=== PATIENT | male | born 1970 | race Caucasian/White ===

== ENCOUNTER 2017-01-01 09:51 | Inpatient (IN) | payer MEDICARE, MEDICAID ==
[~2017-01-01] VITALS: Ht 182.9 cm; Wt 85.7 kg
[~2017-01-01 09:51] MED LIST: ASPI-1159 PO; ATOR-2 PO; CLON0.2T PO; ISOS60TA4 PO; KEPP500 PO; LOSA50TA20 PO; METO25TA6 PO; NIFE-1 PO; TRAM50TA3 PO; levaquin PO
[2017-01-01] MEDS ORDERED: NITROGLYCERIN OINT 1GM/INCH UDPKT TD STA (10:12)
[2017-01-01 10:31] LABS: BASOPHILS % 0.5 % (0.0-2.0); EOSINOPHILS % 1.9 % (0.0-5.0); HEMATOCRIT. 32.2 % (42.0-52.0); HEMOGLOBIN. 10.8 g/dL (14.0-18.0); LYMPHOCYTES % 9.9 % (20.0-50.0); MEAN CORPUSCULAR HEMOGLOBIN 30.2 pg (28.0-32.0); MEAN CORPUSCULAR VOLUME 90.1 fL (80.0-94.0); MEAN PLATELET VOLUME 9.4 fl (7.4-10.4); MONOCYTES % 7.3 % (2.0-8.0); NEUTROPHILS % 80.4 % (40.0-76.0); PLATELET 107 x1000/uL (130-400); RED BLOOD CELL COUNT 3.57 mill/uL (4.7-6.1); RED CELL DISTRIBUTION WIDTH 15.9 % (11.6-14.6)
[2017-01-01 10:38] LABS: INR 1.1; PROTHROMBIN TIME 11.7 sec
[2017-01-01 10:48] LABS: CARBON DIOXIDE 20 mEq/L (21-32); CHLORIDE 109 mEq/L (98-107); TROPONIN I 0.02 ng/mL (0.00-0.04)
[2017-01-01] MEDS ORDERED: HYDROCODONE/ACETAMINOPHEN 5/325MG TABLET PO PRN (12:15)
[2017-01-01] MEDS ORDERED: GUAIFENESIN 200MG/10ML SUGAR FREE UDC PO PRN (12:15)
[2017-01-01] MEDS ORDERED: ACETAMINOPHEN 325MG TABLET PO PRN (12:15)
[2017-01-01] MEDS ORDERED: LORAZEPAM 2MG/ML CPJ IV PRN (12:15)
[2017-01-01] MEDS ORDERED: NA PHOS,M-B/NA PHOS,DI-BA ENEMA 118ML PR PRN (12:15)
[2017-01-01] MEDS ORDERED: MAGNESIUM/ALUMINUM HYDROXIDE/SIMETHICONE 30ML UDC PO PRN (12:15)
[2017-01-01] MEDS ORDERED: DOCUSATE SODIUM 100MG CAPSULE PO PRN (12:15)
[2017-01-01] MEDS ORDERED: CLONIDINE 0.1MG TABLET PO PRN (12:15)
[2017-01-01 14:25] VITALS: BP 178/91
[2017-01-01] MEDS: ENOXAPARIN 30MG/0.3ML SYR SUBCUT SCH (15:00)
[2017-01-01] MEDS ORDERED: DEXTROSE 50% WATER 50ML SYRINGE IV PRN (15:15)
[2017-01-01] MEDS: HYDROMORPHONE HCL/PF 2MG/ML CPJ IV PRN ×2 (15:53→20:19)
[2017-01-01 16:00] VITALS: BP 174/85
[2017-01-01] MEDS: ONDANSETRON HCL 4MG/2ML VIAL IV PRN ×2 (16:30→23:02)
[2017-01-01] MEDS: INSULIN LISPRO 100 UNITS/ML SUBCUT SCH ×2 (17:09→21:00)
[2017-01-01] MEDS: BLOOD SUGAR DIAGNOSTIC STRIP TEST SCH ×2 (17:09→21:52)
[2017-01-01] MEDS ORDERED: TRAMADOL 50MG TABLET PO PRN (18:00)
[2017-01-01] MEDS: LEVETIRACETAM 500MG TABLET PO SCH (18:38)
[2017-01-01 20:00] VITALS: BP 145/71
[2017-01-01] MEDS: CLONIDINE 0.2MG TABLET PO SCH (21:00)
[2017-01-01] MEDS: LOSARTAN POTASSIUM 50 MG TABLET PO SCH (21:51)
[2017-01-01] MEDS: ATORVASTATIN CALCIUM 40MG TABLET PO SCH (21:51)
[2017-01-01] MEDS: METOPROLOL TARTRATE 25MG TABLET PO SCH (21:52)
[2017-01-02] VITALS: BP 145/78
[2017-01-02] MEDS: HYDROMORPHONE HCL/PF 2MG/ML CPJ IV PRN ×5 (00:58→20:40)
[2017-01-02 04:00] VITALS: BP 147/78
[2017-01-02 05:44] LABS: BASOPHILS % 0.4 % (0.0-2.0); EOSINOPHILS % 1.3 % (0.0-5.0); HEMATOCRIT. 30.6 % (42.0-52.0); HEMOGLOBIN. 10.2 g/dL (14.0-18.0); LYMPHOCYTES % 15.7 % (20.0-50.0); MEAN CORPUSCULAR HEMOGLOBIN 29.9 pg (28.0-32.0); MEAN CORPUSCULAR VOLUME 89.8 fL (80.0-94.0); MEAN PLATELET VOLUME 10.6 fl (7.4-10.4); MONOCYTES % 8.1 % (2.0-8.0); NEUTROPHILS % 74.5 % (40.0-76.0); PLATELET 95 x1000/uL (130-400); RED BLOOD CELL COUNT 3.41 mill/uL (4.7-6.1); RED CELL DISTRIBUTION WIDTH 15.8 % (11.6-14.6)
[2017-01-02] MEDS: BLOOD SUGAR DIAGNOSTIC STRIP TEST SCH ×3 (06:24→17:26)
[2017-01-02] MEDS: INSULIN LISPRO 100 UNITS/ML SUBCUT SCH ×3 (06:25→17:26)
[2017-01-02 06:39] LABS: CHLORIDE 106 mEq/L (98-107)
[2017-01-02 06:45] LABS: CARBON DIOXIDE 27 mEq/L (21-32); HDL CHOLESTEROL 31 mg/dL (40-59); LDL CHOLESTEROL 31 mg/dL (5-100)
[2017-01-02 08:00] VITALS: BP 142/77
[2017-01-02] MEDS: ENOXAPARIN 30MG/0.3ML SYR SUBCUT SCH (09:00)
[2017-01-02] MEDS: ONDANSETRON HCL 4MG/2ML VIAL IV PRN ×2 (09:46→16:49)
[2017-01-02] MEDS: LOSARTAN POTASSIUM 50 MG TABLET PO SCH ×2 (09:49→20:49)
[2017-01-02] MEDS: ISOSORBIDE MONONITRATE 60MG TABLET SR 24HR PO SCH (09:49)
[2017-01-02] MEDS: NIFEDIPINE XL 30MG TAB PO SCH (09:49)
[2017-01-02] MEDS: ASPIRIN 81MG EC TABLET PO SCH (09:49)
[2017-01-02] MEDS: LEVETIRACETAM 500MG TABLET PO SCH ×2 (09:50→20:47)
[2017-01-02] MEDS: METOPROLOL TARTRATE 25MG TABLET PO SCH ×2 (09:50→20:46)
[2017-01-02] MEDS: CLONIDINE 0.2MG TABLET PO SCH ×2 (09:50→20:49)
[2017-01-02 12:00] VITALS: BP 131/69
[2017-01-02] MEDS: DIPHENHYDRAMINE 50MG/ML VIAL IV PRN ×2 (15:01→20:41)
[2017-01-02 16:00] VITALS: BP 112/67
[2017-01-02 20:00] VITALS: BP 101/58
[2017-01-02] MEDS: ATORVASTATIN CALCIUM 40MG TABLET PO SCH (20:48)
[2017-01-03] VITALS: BP 96/61
[2017-01-03] MEDS: HYDROMORPHONE HCL/PF 2MG/ML CPJ IV PRN ×4 (00:46→20:12)
[2017-01-03 04:00] VITALS: BP 113/70
[2017-01-03 06:39] LABS: BASOPHILS % 0.5 % (0.0-2.0); EOSINOPHILS % 3.4 % (0.0-5.0); HEMATOCRIT. 28.8 % (42.0-52.0); HEMOGLOBIN. 9.7 g/dL (14.0-18.0); LYMPHOCYTES % 25.5 % (20.0-50.0); MEAN CORPUSCULAR HEMOGLOBIN 30.2 pg (28.0-32.0); MEAN CORPUSCULAR VOLUME 89.6 fL (80.0-94.0); MEAN PLATELET VOLUME 10.1 fl (7.4-10.4); MONOCYTES % 12.1 % (2.0-8.0); NEUTROPHILS % 58.5 % (40.0-76.0); PLATELET 91 x1000/uL (130-400); RED BLOOD CELL COUNT 3.21 mill/uL (4.7-6.1); RED CELL DISTRIBUTION WIDTH 15.9 % (11.6-14.6)
[2017-01-03] MEDS: INSULIN LISPRO 100 UNITS/ML SUBCUT SCH ×5 (07:40→22:06)
[2017-01-03 08:00] VITALS: BP 130/82
[2017-01-03] MEDS: ONDANSETRON HCL 4MG/2ML VIAL IV PRN (08:50)
[2017-01-03] MEDS ORDERED: LEVAQUIN 250 MG PO SCH (09:00)
[2017-01-03] MEDS: METOPROLOL TARTRATE 25MG TABLET PO SCH ×2 (09:00→21:57)
[2017-01-03] MEDS: NIFEDIPINE XL 30MG TAB PO SCH (09:00)
[2017-01-03] MEDS: ENOXAPARIN 30MG/0.3ML SYR SUBCUT SCH (09:00)
[2017-01-03] MEDS: CLONIDINE 0.2MG TABLET PO SCH ×2 (09:00→20:12)
[2017-01-03 12:00] VITALS: BP 126/62
[2017-01-03] MEDS: BLOOD SUGAR DIAGNOSTIC STRIP TEST SCH ×4 (12:00→20:23)
[2017-01-03] MEDS: LOSARTAN POTASSIUM 50 MG TABLET PO SCH ×2 (13:54→21:57)
[2017-01-03] MEDS: ASPIRIN 81MG EC TABLET PO SCH (13:54)
[2017-01-03] MEDS: LEVETIRACETAM 500MG TABLET PO SCH ×2 (13:55→20:12)
[2017-01-03] MEDS: ISOSORBIDE MONONITRATE 60MG TABLET SR 24HR PO SCH (13:55)
[2017-01-03 16:00] VITALS: BP 120/68
[2017-01-03 19:16] LABS: CLARITY URINE TURBID (CLEAR); COLOR URINE YELLOW (YELLOW); GLUCOSE URINE NEGATIVE (NEGATIVE); KETONES URINE NEGATIVE (NEGATIVE); LEUKOCYTE ESTERASE URINE 3+ (NEGATIVE); NITRITE URINE NEGATIVE (NEGATIVE); OCCULT BLOOD URINE 2+ (NEGATIVE); PROTEIN URINE 3+ (NEGATIVE); SPECIFIC GRAVITY URINE 1.017 (1.005-1.030); UROBILINOGEN URINE 0.2 E.U./dL (0.2-1.0)
[2017-01-03 20:00] VITALS: BP 150/87
[2017-01-03] MEDS: ATORVASTATIN CALCIUM 40MG TABLET PO SCH (20:14)
[2017-01-03] MEDS: IPRATROPIUM/ALBUTEROL 0.5-3(2.5)MG/3ML NEB INH PRN (21:44)
[2017-01-04] VITALS (7 sets, daily range): BP systolic 100–115; BP diastolic 50–77
[2017-01-04] MEDS: HYDROMORPHONE HCL/PF 2MG/ML CPJ IV PRN ×4 (00:40→23:32)
[2017-01-04] MEDS: ONDANSETRON HCL 4MG/2ML VIAL IV PRN (03:03)
[2017-01-04] MEDS: BLOOD SUGAR DIAGNOSTIC STRIP TEST SCH ×4 (06:30→21:00)
[2017-01-04] MEDS: INSULIN LISPRO 100 UNITS/ML SUBCUT SCH ×4 (06:30→21:00)
[2017-01-04] MEDS: ISOSORBIDE MONONITRATE 60MG TABLET SR 24HR PO SCH (08:17)
[2017-01-04] MEDS: LEVETIRACETAM 500MG TABLET PO SCH ×2 (08:17→22:16)
[2017-01-04] MEDS: ASPIRIN 81MG EC TABLET PO SCH (08:17)
[2017-01-04] MEDS: METOPROLOL TARTRATE 25MG TABLET PO SCH ×2 (08:17→21:00)
[2017-01-04] MEDS: NIFEDIPINE XL 30MG TAB PO SCH (08:18)
[2017-01-04] MEDS: LOSARTAN POTASSIUM 50 MG TABLET PO SCH ×2 (08:18→21:00)
[2017-01-04] MEDS: CLONIDINE 0.2MG TABLET PO SCH ×2 (08:20→21:00)
[2017-01-04] MEDS ORDERED: LEVOFLOXACIN 250MG TABLET PO SCH (11:00)
[2017-01-04] MEDS: IPRATROPIUM/ALBUTEROL 0.5-3(2.5)MG/3ML NEB INH PRN (18:02)
[2017-01-04] MEDS: ATORVASTATIN CALCIUM 40MG TABLET PO SCH (22:16)
[2017-01-05] VITALS: BP 106/61
[2017-01-05 04:00] VITALS: BP 123/76
[2017-01-05] MEDS: HYDROMORPHONE HCL/PF 2MG/ML CPJ IV PRN ×3 (05:31→13:45)
[2017-01-05] MEDS: INSULIN LISPRO 100 UNITS/ML SUBCUT SCH ×3 (06:05→17:40)
[2017-01-05] MEDS: BLOOD SUGAR DIAGNOSTIC STRIP TEST SCH ×3 (06:05→17:57)
[2017-01-05 06:49] LABS: BASOPHILS % 0.4 % (0.0-2.0); EOSINOPHILS % 3.2 % (0.0-5.0); HEMATOCRIT. 30.2 % (42.0-52.0); HEMOGLOBIN. 10.1 g/dL (14.0-18.0); LYMPHOCYTES % 21.4 % (20.0-50.0); MEAN CORPUSCULAR HEMOGLOBIN 29.9 pg (28.0-32.0); MEAN CORPUSCULAR VOLUME 89.5 fL (80.0-94.0); PLATELET 116 x1000/uL (130-400); RED BLOOD CELL COUNT 3.37 mill/uL (4.7-6.1); RED CELL DISTRIBUTION WIDTH 15.2 % (11.6-14.6)
[2017-01-05 08:00] VITALS: BP 132/93
[2017-01-05] MEDS: CLONIDINE 0.2MG TABLET PO SCH (08:39)
[2017-01-05] MEDS: ASPIRIN 81MG EC TABLET PO SCH (08:39)
[2017-01-05] MEDS: LOSARTAN POTASSIUM 50 MG TABLET PO SCH (08:39)
[2017-01-05] MEDS: METOPROLOL TARTRATE 25MG TABLET PO SCH (08:40)
[2017-01-05] MEDS: LEVETIRACETAM 500MG TABLET PO SCH (08:40)
[2017-01-05] MEDS: ISOSORBIDE MONONITRATE 60MG TABLET SR 24HR PO SCH (08:40)
[2017-01-05] MEDS: NIFEDIPINE XL 30MG TAB PO SCH (08:41)
[2017-01-05] MEDS: ONDANSETRON HCL 4MG/2ML VIAL IV PRN ×2 (08:42→17:10)
[2017-01-05] MEDS ORDERED: ONDANSETRON HCL 4MG/2ML VIAL IV PRN (10:45)
[2017-01-05] MEDS ORDERED: ONDANSETRON INJ 8 MG in DEXTROSE 5% WATER 50 ML IV PRN (10:45)
[2017-01-05 12:00] VITALS: BP 127/79
[2017-01-05 16:00] VITALS: BP 101/55
[2017-01-05 16:53] VITALS: BP 122/69
== END 2017-01-05 19:00 | disposition home or self-care (01) | DRG 640 ==
LOC: ER 09:55 → 8WST 11:40 → EDBEDREQ 11:43 → ENRESERV 13:40
PROVIDERS: ADMIT Internal Medicine; ATTEND Internal Medicine
PROC: 5A1D60Z (ICD-10-PCS; principal; 2017-01-01)
DX: E87.70 Fluid overload, unspecified (principal); N18.6 End stage renal disease; E46 Unspecified protein-calorie malnutrition; N39.0 Urinary tract infection, site not specified; I50.30 Unspecified diastolic (congestive) heart failure; I13.2 Hypertensive heart and chronic kidney disease with heart failure and with stage 5 chronic kidney disease, or end stage renal disease; R33.9 Retention of urine, unspecified; G40.909 Epilepsy, unspecified, not intractable, without status epilepticus; E78.5 Hyperlipidemia, unspecified; E11.40 Type 2 diabetes mellitus with diabetic neuropathy, unspecified; E11.22 Type 2 diabetes mellitus with diabetic chronic kidney disease; E87.5 Hyperkalemia; D63.1 Anemia in chronic kidney disease; Z99.2 Dependence on renal dialysis; Z91.15 Patient's noncompliance with renal dialysis; Z87.440 Personal history of urinary (tract) infections; Z86.73 Personal history of transient ischemic attack (TIA), and cerebral infarction without residual deficits; Z83.3 Family history of diabetes mellitus; Z82.49 Family history of ischemic heart disease and other diseases of the circulatory system; Z68.25 Body mass index [BMI] 25.0-25.9, adult
CPT/HCPCS: 36415; 51702; 71010; 74000; 80048; 80051; 80053; 80061; 81001; 82962; 83690; 84484; 85025; 85610; 87086; 93005; 94640; 94664; 99285; J1170; J1200; J1650; J1815; J2405; J7030; J7040; J7060; J7620

== ENCOUNTER 2017-01-09 01:24 | Inpatient (IN) | payer MEDICARE, MEDICAID ==
[~2017-01-09] VITALS: Ht 182.9 cm; Wt 81.6 kg
[2017-01-09] MEDS ORDERED: KETOROLAC 30MG/ML VIAL IV STA (01:59)
[2017-01-09] MEDS ORDERED: METOCLOPRAMIDE HCL 10MG/2ML VIAL IV STA (01:59)
[2017-01-09 02:29] LABS: BASOPHILS % 0.5 % (0.0-2.0); EOSINOPHILS % 0.5 % (0.0-5.0); HEMATOCRIT. 37.9 % (42.0-52.0); HEMOGLOBIN. 12.8 g/dL (14.0-18.0); LYMPHOCYTES % 12.2 % (20.0-50.0); MEAN CORPUSCULAR HEMOGLOBIN 29.9 pg (28.0-32.0); MEAN CORPUSCULAR VOLUME 88.6 fL (80.0-94.0); MEAN PLATELET VOLUME 9.8 fl (7.4-10.4); MONOCYTES % 5.8 % (2.0-8.0); PLATELET 107 x1000/uL (130-400); RED BLOOD CELL COUNT 4.28 mill/uL (4.7-6.1); RED CELL DISTRIBUTION WIDTH 15.5 % (11.6-14.6)
[2017-01-09 02:41] LABS: CARBON DIOXIDE 31 mEq/L (21-32); CHLORIDE 100 mEq/L (98-107); TROPONIN I 0.02 ng/mL (0.00-0.04)
[2017-01-09] MEDS ORDERED: HYDROCODONE/ACETAMINOPHEN 10/325MG TABLET PO PRN (08:45)
[2017-01-09] MEDS ORDERED: DOCUSATE SODIUM 100MG CAPSULE PO PRN (08:45)
[2017-01-09] MEDS ORDERED: IPRATROPIUM/ALBUTEROL 0.5-3(2.5)MG/3ML NEB INH PRN (08:45)
[2017-01-09] MEDS ORDERED: NA PHOS,M-B/NA PHOS,DI-BA ENEMA 118ML PR PRN (08:45)
[2017-01-09] MEDS ORDERED: GUAIFENESIN 200MG/10ML SUGAR FREE UDC PO PRN (08:45)
[2017-01-09] MEDS ORDERED: DIPHENHYDRAMINE 50MG/ML VIAL IV PRN (08:45)
[2017-01-09] MEDS ORDERED: ACETAMINOPHEN 325MG TABLET PO PRN (08:45)
[2017-01-09] MEDS ORDERED: LORAZEPAM 2MG/ML CPJ IV PRN (08:45)
[2017-01-09] MEDS ORDERED: MAGNESIUM/ALUMINUM HYDROXIDE/SIMETHICONE 30ML UDC PO PRN (08:45)
[2017-01-09 08:58] LABS: T4 FREE 1.08 ng/dL (0.76-1.46)
[2017-01-09] MEDS ORDERED: TRAMADOL 50MG TABLET PO PRN (10:00)
[2017-01-09] MEDS: ASPIRIN 81MG EC TABLET PO SCH (10:33)
[2017-01-09] MEDS: LEVETIRACETAM 500MG TABLET PO SCH ×2 (10:33→20:18)
[2017-01-09] MEDS: ISOSORBIDE MONONITRATE 60MG TABLET SR 24HR PO SCH (10:34)
[2017-01-09] MEDS: METOPROLOL TARTRATE 25MG TABLET PO SCH ×2 (10:34→20:11)
[2017-01-09] MEDS: NIFEDIPINE XL 30MG TAB PO SCH (10:34)
[2017-01-09] MEDS: ENOXAPARIN 30MG/0.3ML SYR SUBCUT SCH (10:35)
[2017-01-09] MEDS: HYDROMORPHONE HCL/PF 2MG/ML CPJ IV PRN ×3 (10:36→21:07)
[2017-01-09] MEDS: ONDANSETRON HCL 4MG/2ML VIAL IV PRN (10:37)
[2017-01-09] MEDS: CLONIDINE 0.1MG TABLET PO PRN (13:29)
[2017-01-09 16:03] LABS: CLARITY URINE CLOUDY (CLEAR); COLOR URINE YELLOW (YELLOW); KETONES URINE NEGATIVE (NEGATIVE); LEUKOCYTE ESTERASE URINE 3+ (NEGATIVE); NITRITE URINE NEGATIVE (NEGATIVE); OCCULT BLOOD URINE 2+ (NEGATIVE); PH URINE >=9.0 (4.5-8.0); PROTEIN URINE 4+ (NEGATIVE); SPECIFIC GRAVITY URINE 1.014 (1.005-1.030); UROBILINOGEN URINE 0.2 E.U./dL (0.2-1.0)
[2017-01-09] MEDS: CLONIDINE 0.2MG TABLET PO SCH (20:10)
[2017-01-09] MEDS: LOSARTAN POTASSIUM 50 MG TABLET PO SCH (20:11)
[2017-01-09] MEDS: ATORVASTATIN CALCIUM 40MG TABLET PO SCH (20:20)
[2017-01-10] MEDS: ONDANSETRON HCL 4MG/2ML VIAL IV PRN ×2 (04:13→18:35)
[2017-01-10] MEDS: HYDROMORPHONE HCL/PF 2MG/ML CPJ IV PRN ×4 (04:13→20:36)
[2017-01-10 06:58] LABS: CARBON DIOXIDE 33 mEq/L (21-32); CHLORIDE 99 mEq/L (98-107); HDL CHOLESTEROL 32 mg/dL (40-59); LDL CHOLESTEROL 42 mg/dL (5-100); PHOSPHORUS 4.8 mg/dL (2.5-4.9)
[2017-01-10 07:10] LABS: BASOPHILS % 0.5 % (0.0-2.0); EOSINOPHILS % 1.5 % (0.0-5.0); HEMATOCRIT. 31.4 % (42.0-52.0); HEMOGLOBIN. 10.5 g/dL (14.0-18.0); LYMPHOCYTES % 27.1 % (20.0-50.0); MEAN CORPUSCULAR HEMOGLOBIN 29.7 pg (28.0-32.0); MEAN CORPUSCULAR VOLUME 89.1 fL (80.0-94.0); MEAN PLATELET VOLUME 10.4 fl (7.4-10.4); MONOCYTES % 10.7 % (2.0-8.0); NEUTROPHILS % 60.2 % (40.0-76.0); PLATELET 95 x1000/uL (130-400); RED BLOOD CELL COUNT 3.52 mill/uL (4.7-6.1)
[2017-01-10] MEDS: ISOSORBIDE MONONITRATE 60MG TABLET SR 24HR PO SCH (08:27)
[2017-01-10] MEDS: LOSARTAN POTASSIUM 50 MG TABLET PO SCH ×2 (08:27→20:35)
[2017-01-10] MEDS: CLONIDINE 0.2MG TABLET PO SCH ×2 (08:27→21:00)
[2017-01-10] MEDS: LEVETIRACETAM 500MG TABLET PO SCH ×2 (08:27→20:34)
[2017-01-10] MEDS: ASPIRIN 81MG EC TABLET PO SCH (08:27)
[2017-01-10] MEDS: METOPROLOL TARTRATE 25MG TABLET PO SCH ×2 (08:28→20:35)
[2017-01-10] MEDS: NIFEDIPINE XL 30MG TAB PO SCH (08:28)
[2017-01-10] MEDS: ENOXAPARIN 30MG/0.3ML SYR SUBCUT SCH (08:29)
[2017-01-10] MEDS ORDERED: NIFEDIPINE 30 MG PO SCH (09:00)
[2017-01-10 09:03] LABS: BG BASE EXCESS 4.1 mmol/L (-2.0-2.0); BG CARBOXYHEMOGLOBIN 0.5 % (0.5-1.5); BG DEOXYHEMOGLOBIN 8.7 % (0.0-5.0); BG FRACTION INSPIRED OXYGEN 21; BG HCO3 ACT 29.1 mmol/L (22.0-26.0); BG METHEMOGLOBIN 0.1 % (0.0-1.5); BG OXYGEN SATURATION 91.2 % (92.0-98.5); BG OXYHEMOGLOBIN 90.7 % (94.0-97.0); BG PCO2 45.3 mmHg (35.0-45.0); BG PH 7.425 (7.350-7.450); BG PO2 66.2 mmHg (75.0-100.0); BG SAMPLE SITE RIGHT BRACHIAL; BG TOTAL HEMOGLOBIN 11.5 g/dL (12.0-18.0); BG VENT MODE ROOM AIR
[2017-01-10] MEDS ORDERED: ZOLPIDEM TARTRATE 5MG TABLET PO PRN (19:00)
[2017-01-10] MEDS: ATORVASTATIN CALCIUM 40MG TABLET PO SCH (20:34)
[2017-01-10] MEDS: CLONIDINE 0.1MG TABLET PO PRN (20:35)
[2017-01-11 06:40] LABS: INR 1.1; PROTHROMBIN TIME 11.4 sec
[2017-01-11 06:42] LABS: BASOPHILS % 0.4 % (0.0-2.0); EOSINOPHILS % 1.1 % (0.0-5.0); HEMATOCRIT. 36.1 % (42.0-52.0); HEMOGLOBIN. 11.9 g/dL (14.0-18.0); LYMPHOCYTES % 23.3 % (20.0-50.0); MEAN CORPUSCULAR HEMOGLOBIN 29.6 pg (28.0-32.0); MEAN CORPUSCULAR VOLUME 89.9 fL (80.0-94.0); MEAN PLATELET VOLUME 10.2 fl (7.4-10.4); MONOCYTES % 8.8 % (2.0-8.0); NEUTROPHILS % 66.4 % (40.0-76.0); PLATELET 92 x1000/uL (130-400); RED BLOOD CELL COUNT 4.02 mill/uL (4.7-6.1); RED CELL DISTRIBUTION WIDTH 15.3 % (11.6-14.6)
[2017-01-11] MEDS: NIFEDIPINE XL 30MG TAB PO SCH (09:00)
[2017-01-11] MEDS: METOPROLOL TARTRATE 25MG TABLET PO SCH (09:00)
[2017-01-11] MEDS: ENOXAPARIN 30MG/0.3ML SYR SUBCUT SCH (09:00)
[2017-01-11] MEDS: ASPIRIN 81MG EC TABLET PO SCH (09:16)
[2017-01-11] MEDS: ISOSORBIDE MONONITRATE 60MG TABLET SR 24HR PO SCH (09:17)
[2017-01-11] MEDS: LEVETIRACETAM 500MG TABLET PO SCH (09:17)
[2017-01-11] MEDS: LOSARTAN POTASSIUM 50 MG TABLET PO SCH (09:17)
[2017-01-11] MEDS: CLONIDINE 0.2MG TABLET PO SCH (09:17)
[2017-01-11] MEDS: HYDROMORPHONE HCL/PF 2MG/ML CPJ IV PRN ×2 (09:20→13:46)
[2017-01-11] MEDS: ONDANSETRON HCL 4MG/2ML VIAL IV PRN (13:45)
[2017-01-11 13:46] VITALS: BP 104/70
[2017-07-11] MEDS ORDERED: CIPR2.5D9 RIGHTEYE (20:52)
== END 2017-01-11 14:45 | disposition home or self-care (01) | DRG 291 ==
LOC: ER 01:29 → 6WST 06:00 → EDBEDREQ 06:04 → EDBEDREQTM 06:04 → ENRESERV 07:03 → ER 08:35
PROVIDERS: ADMIT Internal Medicine; ATTEND Internal Medicine
PROC: 5A1D00Z (ICD-10-PCS; principal; 2017-01-10)
DX: I13.2 Hypertensive heart and chronic kidney disease with heart failure and with stage 5 chronic kidney disease, or end stage renal disease (principal); N18.6 End stage renal disease; J90 Pleural effusion, not elsewhere classified; E46 Unspecified protein-calorie malnutrition; N39.0 Urinary tract infection, site not specified; R07.89 Other chest pain; D63.1 Anemia in chronic kidney disease; E11.22 Type 2 diabetes mellitus with diabetic chronic kidney disease; E78.5 Hyperlipidemia, unspecified; G40.909 Epilepsy, unspecified, not intractable, without status epilepticus; I50.9 Heart failure, unspecified; J45.909 Unspecified asthma, uncomplicated; K21.9 Gastro-esophageal reflux disease without esophagitis; Z79.899 Other long term (current) drug therapy; Z86.73 Personal history of transient ischemic attack (TIA), and cerebral infarction without residual deficits; Z99.2 Dependence on renal dialysis; Z86.718 Personal history of other venous thrombosis and embolism; Z90.49 Acquired absence of other specified parts of digestive tract; I25.2 Old myocardial infarction; Z90.5 Acquired absence of kidney
CPT/HCPCS: 36415; 36600; 71010; 74176; 80048; 80053; 80061; 81001; 82375; 82805; 83036; 83690; 83880; 84100; 84439; 84443; 84484; 85025; 85379; 85610; 87077; 87086; 87186; 93005; 93306; 93970; 96374; 96375; 99291; J1170; J1650; J1885; J2405; J2765; J7030

== ENCOUNTER 2017-01-22 10:10 | Emergency (ER) | payer MEDICARE, MEDICAID ==
[~2017-01-22] VITALS: Ht 180.3 cm; Wt 82.0 kg
[2017-01-22 10:58] LABS: BASOPHILS % 0.2 % (0.0-2.0); EOSINOPHILS % 0.5 % (0.0-5.0); HEMATOCRIT. 36.5 % (42.0-52.0); HEMOGLOBIN. 12.1 g/dL (14.0-18.0); LYMPHOCYTES % 9.5 % (20.0-50.0); MEAN CORPUSCULAR VOLUME 90.4 fL (80.0-94.0); MONOCYTES % 6.5 % (2.0-8.0); NEUTROPHILS % 83.3 % (40.0-76.0); PLATELET 114 x1000/uL (130-400); RED BLOOD CELL COUNT 4.04 mill/uL (4.7-6.1); RED CELL DISTRIBUTION WIDTH 16.1 % (11.6-14.6)
[2017-01-22] MEDS ORDERED: SODIUM CHLORIDE 0.9% 1,000 ML IV ONE (11:00)
[2017-01-22] MEDS ORDERED: HYDROCODONE/ACETAMINOPHEN 5/325MG TABLET PO ONE (12:15)
[2017-01-22 13:43] LABS: GLUCOSE URINE NEGATIVE (NEGATIVE); KETONES URINE NEGATIVE (NEGATIVE); LEUKOCYTE ESTERASE URINE 3+ (NEGATIVE); NITRITE URINE NEGATIVE (NEGATIVE); OCCULT BLOOD URINE 3+ (NEGATIVE); PROTEIN URINE 4+ (NEGATIVE); SPECIFIC GRAVITY URINE 1.019 (1.005-1.030); UROBILINOGEN URINE 0.2 E.U./dL (0.2-1.0)
[2017-01-22 13:50] LABS: CLARITY URINE CLOUDY (CLEAR); COLOR URINE YELLOW (YELLOW)
[2017-01-22] MEDS ORDERED: LEVOFLOXACIN 250MG TABLET PO ONE (14:15)
[2017-01-22] MEDS ORDERED: KETOROLAC 30MG/ML VIAL IV ONE (14:15)
[2017-01-22 16:30] VITALS: BP 141/84
== END 2017-01-22 17:17 | disposition home or self-care (01) ==
LOC: ER 10:36
DX: N39.0 Urinary tract infection, site not specified (principal); I12.0 Hypertensive chronic kidney disease with stage 5 chronic kidney disease or end stage renal disease; N18.6 End stage renal disease; E11.22 Type 2 diabetes mellitus with diabetic chronic kidney disease; Z99.2 Dependence on renal dialysis; Z90.49 Acquired absence of other specified parts of digestive tract; Z86.73 Personal history of transient ischemic attack (TIA), and cerebral infarction without residual deficits; Z90.5 Acquired absence of kidney; Z79.82 Long term (current) use of aspirin
CPT/HCPCS: 36415; 80048; 81001; 85025; 96361; 96374; 99285; J1885; J7030

== ENCOUNTER 2017-02-13 00:30 | Inpatient (IN) | payer MEDICARE, MEDICAID ==
[~2017-02-13] VITALS: Ht 175.3 cm; Wt 85.3 kg
[~2017-02-13 00:30] MED LIST changes: -NIFE-1 PO; -TRAM50TA3 PO
[2017-02-13 01:36] LABS: BASOPHILS % 0.4 % (0.0-2.0); EOSINOPHILS % 0.8 % (0.0-5.0); HEMATOCRIT. 29.2 % (42.0-52.0); HEMOGLOBIN. 9.8 g/dL (14.0-18.0); LYMPHOCYTES % 20.3 % (20.0-50.0); MEAN CORPUSCULAR HEMOGLOBIN 30.8 pg (28.0-32.0); MEAN PLATELET VOLUME 9.2 fl (7.4-10.4); MONOCYTES % 9.3 % (2.0-8.0); NEUTROPHILS % 69.2 % (40.0-76.0); PLATELET 137 x1000/uL (130-400); RED BLOOD CELL COUNT 3.18 mill/uL (4.7-6.1); RED CELL DISTRIBUTION WIDTH 15.9 % (11.6-14.6)
[2017-02-13 01:53] LABS: CARBON DIOXIDE 19 mEq/L (21-32); CHLORIDE 106 mEq/L (98-107); TROPONIN I 0.02 ng/mL (0.00-0.04)
[2017-02-13] MEDS ORDERED: ALBUTEROL (0.083%) 2.5MG/3ML NEB HHN ONE (02:15)
[2017-02-13] MEDS ORDERED: DEXTROSE 50% WATER 50ML SYRINGE IV ONE (02:15)
[2017-02-13] MEDS ORDERED: INSULIN REGULAR (HUMULIN R) 300UNITS/3ML IV ONE (02:15)
[2017-02-13] MEDS ORDERED: SODIUM POLYSTYRENE SULFONATE 15 G/60 ML BOT PO ONE (02:15)
[2017-02-13] MEDS ORDERED: ONDANSETRON HCL 4MG/2ML VIAL IV ONE (04:45)
[2017-02-13 06:01] LABS: CLARITY URINE TURBID (CLEAR); COLOR URINE YELLOW (YELLOW); GLUCOSE URINE NEGATIVE (NEGATIVE); KETONES URINE NEGATIVE (NEGATIVE); LEUKOCYTE ESTERASE URINE 3+ (NEGATIVE); NITRITE URINE NEGATIVE (NEGATIVE); OCCULT BLOOD URINE 3+ (NEGATIVE); PH URINE 5.5 (4.5-8.0); PROTEIN URINE 3+ (NEGATIVE); SPECIFIC GRAVITY URINE 1.018 (1.005-1.030); UROBILINOGEN URINE 0.2 E.U./dL (0.2-1.0)
[2017-02-13 11:06] VITALS: BP 150/78
[2017-02-13] MEDS ORDERED: MAGNESIUM/ALUMINUM HYDROXIDE/SIMETHICONE 30ML UDC PO PRN (11:15)
[2017-02-13] MEDS ORDERED: DIPHENHYDRAMINE 50MG/ML VIAL IV PRN (11:15)
[2017-02-13] MEDS ORDERED: IPRATROPIUM/ALBUTEROL 0.5-3(2.5)MG/3ML NEB INH PRN (11:15)
[2017-02-13] MEDS ORDERED: GUAIFENESIN 200MG/10ML SUGAR FREE UDC PO PRN (11:15)
[2017-02-13] MEDS ORDERED: LORAZEPAM 2MG/ML CPJ IV PRN (11:15)
[2017-02-13] MEDS ORDERED: NITROGLYCERIN 0.4MG TABLET SL SL PRN (11:15)
[2017-02-13] MEDS ORDERED: ACETAMINOPHEN 325MG TABLET PO PRN (11:15)
[2017-02-13] MEDS ORDERED: DEXTROSE 50% WATER 50ML SYRINGE IV PRN (11:45)
[2017-02-13 12:00] VITALS: BP 145/71
[2017-02-13] MEDS: BLOOD SUGAR DIAGNOSTIC STRIP TEST SCH ×3 (12:24→21:00)
[2017-02-13] MEDS: INSULIN LISPRO 100 UNITS/ML SUBCUT SCH ×3 (12:24→21:00)
[2017-02-13] MEDS: ENOXAPARIN 30MG/0.3ML SYR SUBCUT SCH (12:25)
[2017-02-13] MEDS: HYDRALAZINE HCL 50MG TABLET PO SCH (12:26)
[2017-02-13] MEDS: SEVELAMER CARBONATE 800 MG TABLET PO SCH ×2 (12:29→17:12)
[2017-02-13] MEDS: TRAMADOL 50MG TABLET PO PRN (12:30)
[2017-02-13] MEDS: FAMOTIDINE 20MG/2ML VIAL IV SCH (13:52)
[2017-02-13 16:00] VITALS: BP 131/60
[2017-02-13 19:48] LABS: CREATINE KINASE MB FRACTION 8.9 ng/mL (0.5-3.6); TROPONIN I 0.02 ng/mL (0.00-0.04)
[2017-02-13 20:00] VITALS: BP 148/93
[2017-02-13] MEDS: LEVOFLOXACIN 500MG TABLET PO SCH (20:15)
[2017-02-13] MEDS: ONDANSETRON HCL 4MG/2ML VIAL IV PRN (21:04)
[2017-02-13] MEDS: METOPROLOL TARTRATE 25MG TABLET PO SCH (22:40)
[2017-02-13] MEDS: ATORVASTATIN CALCIUM 10MG TABLET PO SCH (22:40)
[2017-02-13] MEDS: LEVETIRACETAM 500MG/5ML CUP PO SCH (22:40)
[2017-02-14 00:15] VITALS: BP 136/103
[2017-02-14] MEDS: ZOLPIDEM TARTRATE 5MG TABLET PO PRN (00:31)
[2017-02-14] MEDS: HYDRALAZINE HCL 50MG TABLET PO SCH ×4 (00:31→21:29)
[2017-02-14] MEDS: ONDANSETRON HCL 4MG/2ML VIAL IV PRN ×4 (03:44→20:11)
[2017-02-14 04:00] VITALS: BP 130/86
[2017-02-14] MEDS: TRAMADOL 50MG TABLET PO PRN ×3 (06:18→16:52)
[2017-02-14] MEDS: BLOOD SUGAR DIAGNOSTIC STRIP TEST SCH ×4 (06:21→21:29)
[2017-02-14] MEDS: INSULIN LISPRO 100 UNITS/ML SUBCUT SCH ×4 (07:21→21:00)
[2017-02-14 08:00] VITALS: BP 183/72
[2017-02-14] MEDS: FAMOTIDINE 20MG/2ML VIAL IV SCH (08:02)
[2017-02-14] MEDS: ASPIRIN 325MG EC TABLET PO SCH (08:02)
[2017-02-14] MEDS: SEVELAMER CARBONATE 800 MG TABLET PO SCH ×3 (08:02→16:52)
[2017-02-14] MEDS: FOLIC ACID/VITAMIN B COMP W-C TABLET PO SCH (08:02)
[2017-02-14] MEDS: LEVETIRACETAM 500MG/5ML CUP PO SCH ×2 (08:02→20:54)
[2017-02-14] MEDS: ENOXAPARIN 30MG/0.3ML SYR SUBCUT SCH ×2 (08:12→09:31)
[2017-02-14] MEDS: CLONIDINE 0.1MG TABLET PO PRN (08:22)
[2017-02-14] MEDS: METOPROLOL TARTRATE 25MG TABLET PO SCH ×2 (08:23→20:55)
[2017-02-14 08:50] LABS: BASOPHILS % 0.3 % (0.0-2.0); EOSINOPHILS % 0.9 % (0.0-5.0); HEMATOCRIT. 32.4 % (42.0-52.0); HEMOGLOBIN. 10.7 g/dL (14.0-18.0); LYMPHOCYTES % 19.4 % (20.0-50.0); MEAN CORPUSCULAR HEMOGLOBIN 30.2 pg (28.0-32.0); MEAN CORPUSCULAR VOLUME 91.6 fL (80.0-94.0); MEAN PLATELET VOLUME 10.1 fl (7.4-10.4); MONOCYTES % 9.3 % (2.0-8.0); NEUTROPHILS % 70.1 % (40.0-76.0); PLATELET 148 x1000/uL (130-400); RED BLOOD CELL COUNT 3.53 mill/uL (4.7-6.1); RED CELL DISTRIBUTION WIDTH 15.9 % (11.6-14.6)
[2017-02-14 09:34] LABS: CREATINE KINASE MB FRACTION 7.6 ng/mL (0.5-3.6); TROPONIN I 0.03 ng/mL (0.00-0.04)
[2017-02-14] MEDS: METOCLOPRAMIDE HCL 10MG/2ML VIAL IV PRN ×2 (10:28→16:52)
[2017-02-14 15:51] LABS: CLARITY URINE TURBID (CLEAR); COLOR URINE YELLOW (YELLOW); GLUCOSE URINE NEGATIVE (NEGATIVE); KETONES URINE NEGATIVE (NEGATIVE); LEUKOCYTE ESTERASE URINE 3+ (NEGATIVE); NITRITE URINE NEGATIVE (NEGATIVE); OCCULT BLOOD URINE 2+ (NEGATIVE); PROTEIN URINE 3+ (NEGATIVE); SPECIFIC GRAVITY URINE 1.015 (1.005-1.030); UROBILINOGEN URINE 0.2 E.U./dL (0.2-1.0)
[2017-02-14 20:00] VITALS: BP 153/110
[2017-02-14] MEDS: ATORVASTATIN CALCIUM 10MG TABLET PO SCH (20:54)
[2017-02-15] VITALS: BP 160/91
[2017-02-15] MEDS: CLONIDINE 0.1MG TABLET PO PRN (00:09)
[2017-02-15 04:00] VITALS: BP 143/77
[2017-02-15] MEDS: HYDRALAZINE HCL 50MG TABLET PO SCH ×3 (05:43→22:00)
[2017-02-15] MEDS: BLOOD SUGAR DIAGNOSTIC STRIP TEST SCH ×4 (06:30→21:00)
[2017-02-15 07:01] LABS: BASOPHILS % 0.4 % (0.0-2.0); EOSINOPHILS % 0.5 % (0.0-5.0); HEMATOCRIT. 29.3 % (42.0-52.0); HEMOGLOBIN. 9.9 g/dL (14.0-18.0); LYMPHOCYTES % 12.3 % (20.0-50.0); MEAN CORPUSCULAR HEMOGLOBIN 30.6 pg (28.0-32.0); MEAN PLATELET VOLUME 9.7 fl (7.4-10.4); MONOCYTES % 8.6 % (2.0-8.0); NEUTROPHILS % 78.2 % (40.0-76.0); PLATELET 128 x1000/uL (130-400); RED BLOOD CELL COUNT 3.22 mill/uL (4.7-6.1); RED CELL DISTRIBUTION WIDTH 15.2 % (11.6-14.6)
[2017-02-15] MEDS: INSULIN LISPRO 100 UNITS/ML SUBCUT SCH ×4 (07:50→21:00)
[2017-02-15 08:00] VITALS: BP 118/70
[2017-02-15] MEDS: SEVELAMER CARBONATE 800 MG TABLET PO SCH ×3 (08:00→17:34)
[2017-02-15] MEDS: ENOXAPARIN 30MG/0.3ML SYR SUBCUT SCH (08:00)
[2017-02-15] MEDS: FOLIC ACID/VITAMIN B COMP W-C TABLET PO SCH (08:00)
[2017-02-15] MEDS: ASPIRIN 325MG EC TABLET PO SCH (08:00)
[2017-02-15] MEDS: LEVETIRACETAM 500MG/5ML CUP PO SCH ×2 (08:00→20:48)
[2017-02-15] MEDS: METOPROLOL TARTRATE 25MG TABLET PO SCH ×2 (08:05→21:00)
[2017-02-15] MEDS: FAMOTIDINE 20MG/2ML VIAL IV SCH (08:05)
[2017-02-15] MEDS ORDERED: SODIUM POLYSTYRENE SULFONATE 15 G/60 ML BOT PO NR (10:45)
[2017-02-15 12:00] VITALS: BP 119/75
[2017-02-15] MEDS: LEVOFLOXACIN 500MG TABLET PO SCH (12:05)
[2017-02-15 16:00] VITALS: BP 116/84
[2017-02-15] MEDS: TRAMADOL 50MG TABLET PO PRN (17:35)
[2017-02-15 20:00] VITALS: BP 107/55
[2017-02-15] MEDS: ATORVASTATIN CALCIUM 10MG TABLET PO SCH (20:48)
[2017-02-15] MEDS: ZOLPIDEM TARTRATE 5MG TABLET PO PRN (23:44)
[2017-02-16] VITALS: BP 100/56
[2017-02-16 03:24] VITALS: BP 116/74
[2017-02-16 04:00] VITALS: BP 101/55
[2017-02-16] MEDS: HYDRALAZINE HCL 50MG TABLET PO SCH ×2 (05:20→14:00)
[2017-02-16] MEDS: BLOOD SUGAR DIAGNOSTIC STRIP TEST SCH ×2 (06:24→13:03)
[2017-02-16 06:41] LABS: BASOPHILS % 0.4 % (0.0-2.0); EOSINOPHILS % 0.7 % (0.0-5.0); HEMATOCRIT. 28.3 % (42.0-52.0); HEMOGLOBIN. 9.6 g/dL (14.0-18.0); LYMPHOCYTES % 24.5 % (20.0-50.0); MEAN CORPUSCULAR HEMOGLOBIN 30.9 pg (28.0-32.0); MEAN CORPUSCULAR VOLUME 90.9 fL (80.0-94.0); MEAN PLATELET VOLUME 9.7 fl (7.4-10.4); MONOCYTES % 11.2 % (2.0-8.0); NEUTROPHILS % 63.2 % (40.0-76.0); PLATELET 119 x1000/uL (130-400); RED BLOOD CELL COUNT 3.11 mill/uL (4.7-6.1); RED CELL DISTRIBUTION WIDTH 15.4 % (11.6-14.6)
[2017-02-16] MEDS: SEVELAMER CARBONATE 800 MG TABLET PO SCH ×2 (07:50→12:50)
[2017-02-16] MEDS: INSULIN LISPRO 100 UNITS/ML SUBCUT SCH ×2 (07:50→12:50)
[2017-02-16 08:00] VITALS: BP 144/86
[2017-02-16] MEDS: ASPIRIN 325MG EC TABLET PO SCH (09:00)
[2017-02-16] MEDS: METOPROLOL TARTRATE 25MG TABLET PO SCH (09:00)
[2017-02-16] MEDS: LEVETIRACETAM 500MG/5ML CUP PO SCH (09:00)
[2017-02-16] MEDS: FOLIC ACID/VITAMIN B COMP W-C TABLET PO SCH (09:00)
[2017-02-16] MEDS: FAMOTIDINE 20MG/2ML VIAL IV SCH (09:00)
[2017-02-16] MEDS: ENOXAPARIN 30MG/0.3ML SYR SUBCUT SCH (09:00)
[2017-02-16 12:00] VITALS: BP 138/70
[2017-02-16 13:25] LABS: HEPATITIS B SURFACE ANTIGEN NEGATIVE
[2017-02-16 13:51] LABS: HEPATITIS B CORE AB IGM NEGATIVE
[2017-02-16 13:53] LABS: HEPATITIS A AB IGM NEGATIVE (NEGATIVE)
[2017-02-16] MEDS ORDERED: MICAFUNGIN 100MG in NORMAL SALINE 100ML IV SCH (20:00)
== END 2017-02-16 16:15 | disposition left against medical advice (07) | DRG 291 ==
LOC: ER 00:30 → 6WST 04:09 → EDBEDREQTM 04:14 → EDBEDREQ 04:14 → ENRESERV 09:12
PROVIDERS: ADMIT Internal Medicine; ATTEND Internal Medicine
PROC: 5A1D60Z (ICD-10-PCS; principal; 2017-02-13)
DX: I13.2 Hypertensive heart and chronic kidney disease with heart failure and with stage 5 chronic kidney disease, or end stage renal disease (principal); N18.6 End stage renal disease; I50.33 Acute on chronic diastolic (congestive) heart failure; N39.0 Urinary tract infection, site not specified; E44.1 Mild protein-calorie malnutrition; I69.354 Hemiplegia and hemiparesis following cerebral infarction affecting left non-dominant side; Z68.27 Body mass index [BMI] 27.0-27.9, adult; D63.8 Anemia in other chronic diseases classified elsewhere; E11.22 Type 2 diabetes mellitus with diabetic chronic kidney disease; E11.51 Type 2 diabetes mellitus with diabetic peripheral angiopathy without gangrene; E87.5 Hyperkalemia; K29.70 Gastritis, unspecified, without bleeding; E88.09 Other disorders of plasma-protein metabolism, not elsewhere classified; N31.9 Neuromuscular dysfunction of bladder, unspecified; Z88.1 Allergy status to other antibiotic agents; Z86.718 Personal history of other venous thrombosis and embolism; Z90.49 Acquired absence of other specified parts of digestive tract; Z89.432 Acquired absence of left foot; Z91.15 Patient's noncompliance with renal dialysis; Z99.2 Dependence on renal dialysis
CPT/HCPCS: 36415; 71010; 80048; 80053; 80061; 81001; 82550; 82553; 82962; 83036; 83880; 84484; 85025; 86703; 86705; 86709; 86803; 87086; 87340; 93005; 94644; 96374; 96375; 97165; 99291; C1893; J1650; J1815; J2060; J2248; J2405; J2765; J3490; J7030; J7040; J7050; J7611

== ENCOUNTER → 2017-04-15 | Outpatient (CLI) | payer MEDICARE, MEDICAID ==
[~2017-04-15] MED LIST changes: -levaquin PO
== END | disposition home or self-care (01) ==
LOC: CT 10:06
PROVIDERS: ATTEND Internal Medicine Nephrology
DX: G93.89 Other specified disorders of brain (principal); R90.82 White matter disease, unspecified
CPT/HCPCS: 70450

== ENCOUNTER 2017-05-02 22:01 | Emergency (ER) | payer MEDICARE, MEDICAID ==
[~2017-05-02] VITALS: Ht 177.8 cm; Wt 87.0 kg
[2017-05-02] MEDS ORDERED: PHENAZOPYRIDINE HCL 100MG TABLET PO ONE (22:30)
[2017-05-02 23:08] LABS: CLARITY URINE TURBID (CLEAR); COLOR URINE YELLOW (YELLOW); GLUCOSE URINE TRACE (NEGATIVE); KETONES URINE NEGATIVE (NEGATIVE); LEUKOCYTE ESTERASE URINE 3+ (NEGATIVE); NITRITE URINE NEGATIVE (NEGATIVE); OCCULT BLOOD URINE 2+ (NEGATIVE); PH URINE 5.5 (4.5-8.0); PROTEIN URINE 3+ (NEGATIVE); SPECIFIC GRAVITY URINE 1.018 (1.005-1.030); UROBILINOGEN URINE 0.2 E.U./dL (0.2-1.0)
[2017-05-03] MEDS ORDERED: DOXYCYCLINE HYCLATE 100MG CAPSULE PO ONE
[2017-05-03] MEDS ORDERED: IBUPROFEN 400MG TABLET PO ONE (00:30)
[2017-05-03 02:01] VITALS: BP 185/115
== END 2017-05-03 02:04 | disposition home or self-care (01) ==
LOC: ER 22:16
DX: R30.0 Dysuria (principal); E11.22 Type 2 diabetes mellitus with diabetic chronic kidney disease; I12.0 Hypertensive chronic kidney disease with stage 5 chronic kidney disease or end stage renal disease; N18.6 End stage renal disease; I69.354 Hemiplegia and hemiparesis following cerebral infarction affecting left non-dominant side; Z99.2 Dependence on renal dialysis; Z79.82 Long term (current) use of aspirin; Z86.718 Personal history of other venous thrombosis and embolism; Z90.49 Acquired absence of other specified parts of digestive tract
CPT/HCPCS: 81001; 99284

== ENCOUNTER 2017-08-22 15:06 | Emergency (ER) | payer MEDICARE, MEDICAID ==
[~2017-08-22] VITALS: Ht 172.7 cm; Wt 80.0 kg
[~2017-08-22 15:06] MED LIST changes: +CIPR2.5D9 RIGHTEYE
[2017-08-22] MEDS ORDERED: SODIUM CHLORIDE 0.9% 250 ML IV ONE (15:35)
[2017-08-22] MEDS ORDERED: CALCIUM CHLORIDE 1GM/10ML SYR IV ONE (16:00)
[2017-08-22 16:11] LABS: BASOPHILS % 0.3 % (0.0-2.0); EOSINOPHILS % 0.9 % (0.0-5.0); HEMATOCRIT. 35.4 % (42.0-52.0); HEMOGLOBIN. 11.9 g/dL (14.0-18.0); LYMPHOCYTES % 8.7 % (20.0-50.0); MEAN CORPUSCULAR HEMOGLOBIN 30.3 pg (28.0-32.0); MEAN CORPUSCULAR VOLUME 90.4 fL (80.0-94.0); MEAN PLATELET VOLUME 9.9 fl (7.4-10.4); MONOCYTES % 4.5 % (2.0-8.0); NEUTROPHILS % 85.6 % (40.0-76.0); PLATELET 144 x1000/uL (130-400); RED BLOOD CELL COUNT 3.92 mill/uL (4.7-6.1); RED CELL DISTRIBUTION WIDTH 16.3 % (11.6-14.6)
[2017-08-22 16:16] LABS: PROTHROMBIN TIME 10.9 sec (9.4-11.6)
[2017-08-22 16:19] LABS: CHLORIDE 99 mEq/L (98-107)
[2017-08-22 16:26] LABS: TROPONIN I 0.04 ng/mL (0.00-0.04)
[2017-08-22 17:59] VITALS: BP 132/74
== END 2017-08-22 19:13 | disposition left against medical advice (07) ==
LOC: ER 15:30 → EDBEDREQ 18:20 → EDBEDREQTM 18:20 → ER 19:13 → ENRESERV 19:41 → CANRESERV 19:41 → CANBEDREQ 23:38
DX: R00.0 Tachycardia, unspecified (principal); I12.0 Hypertensive chronic kidney disease with stage 5 chronic kidney disease or end stage renal disease; N18.6 End stage renal disease; R94.31 Abnormal electrocardiogram [ECG] [EKG]; R53.83 Other fatigue; Z99.2 Dependence on renal dialysis; Z79.82 Long term (current) use of aspirin
CPT/HCPCS: 36415; 71045; 80053; 83735; 83880; 84484; 85025; 85610; 93005; 96361; 96374; 99285; J3490; J7030

== ENCOUNTER 2017-09-28 10:34 | Day surgery (SDC) | payer MEDICARE, MEDICAID ==
[~2017-09-28] VITALS: Ht 177.8 cm; Wt 81.6 kg
[~2017-09-28 10:34] MED LIST changes: +CALC667T2 PO; -CIPR2.5D9 RIGHTEYE; +GABA-529 PO; +METO-396 PO; -METO25TA6 PO; +NEPVIT PO; +SEVE800T8 PO
[2017-09-28] MEDS ORDERED: SODIUM CHLORIDE 0.9% 500 ML IV ONE (11:50)
[2017-09-28 11:57] LABS: BASOPHILS % 0.3 % (0.0-2.0); EOSINOPHILS % 1.5 % (0.0-5.0); HEMATOCRIT. 29.1 % (42.0-52.0); HEMOGLOBIN. 9.9 g/dL (14.0-18.0); LYMPHOCYTES % 19.2 % (20.0-50.0); MEAN CORPUSCULAR HEMOGLOBIN 30.7 pg (28.0-32.0); MEAN CORPUSCULAR VOLUME 90.4 fL (80.0-94.0); MEAN PLATELET VOLUME 9.6 fl (7.4-10.4); MONOCYTES % 9.7 % (2.0-8.0); NEUTROPHILS % 69.3 % (40.0-76.0); PLATELET 111 x1000/uL (130-400); RED BLOOD CELL COUNT 3.22 mill/uL (4.7-6.1); RED CELL DISTRIBUTION WIDTH 15.2 % (11.6-14.6)
[2017-09-28 12:01] LABS: PARTIAL THROMBOPLASTIN TIME 26.1 sec (23.4-31.0); PROTHROMBIN TIME 10.8 sec (9.4-11.6)
[2017-10-03] MEDS ORDERED: WARF5TAB76 PO (12:51)
[2017-10-03] MEDS ORDERED: LOSA50TA3 PO (12:51)
== END 2017-09-28 16:30 | disposition home or self-care (01) ==
LOC: OR 10:34
PROVIDERS: ATTEND Surgery Vascular Surgery
DX: N18.9 Chronic kidney disease, unspecified (principal); I69.359 Hemiplegia and hemiparesis following cerebral infarction affecting unspecified side; E11.22 Type 2 diabetes mellitus with diabetic chronic kidney disease; I12.0 Hypertensive chronic kidney disease with stage 5 chronic kidney disease or end stage renal disease; N18.6 End stage renal disease; E78.00 Pure hypercholesterolemia, unspecified; I48.91 Unspecified atrial fibrillation; I73.89 Other specified peripheral vascular diseases; Z79.82 Long term (current) use of aspirin; Z79.899 Other long term (current) drug therapy; Z99.2 Dependence on renal dialysis; Z88.8 Allergy status to other drugs, medicaments and biological substances
CPT/HCPCS: 36415; 36825; 80048; 82962; 85025; 85610; 85730; 93005; A4216; C1768; J0360; J0690; J1644; J2250; J2405; J2765; J3010; J3490; J7040; J2704

== ENCOUNTER 2017-11-05 08:48 | Inpatient (IN) | payer MEDICARE, MEDICAID ==
[~2017-11-05] VITALS: Ht 152.4 cm; Wt 80.7 kg
[~2017-11-05 08:48] MED LIST changes: -CLON0.2T PO; -GABA-529 PO; -KEPP500 PO; -METO-396 PO
[2017-11-05] MEDS ORDERED: NITROGLYCERIN OINT 1GM/INCH UDPKT TD STA (09:06)
[2017-11-05 09:45] LABS: BASOPHILS % 0.4 % (0.0-2.0); EOSINOPHILS % 0.9 % (0.0-5.0); HEMATOCRIT. 28.6 % (42.0-52.0); HEMOGLOBIN. 9.7 g/dL (14.0-18.0); LYMPHOCYTES % 7.6 % (20.0-50.0); MEAN CORPUSCULAR HEMOGLOBIN 31.6 pg (28.0-32.0); MEAN CORPUSCULAR VOLUME 93.4 fL (80.0-94.0); MEAN PLATELET VOLUME 8.5 fl (7.4-10.4); NEUTROPHILS % 84.1 % (40.0-76.0); PLATELET 128 x1000/uL (130-400); RED BLOOD CELL COUNT 3.07 mill/uL (4.7-6.1); RED CELL DISTRIBUTION WIDTH 16.4 % (11.6-14.6)
[2017-11-05 09:50] LABS: CHLORIDE 107 mEq/L (98-107)
[2017-11-05 09:51] LABS: INR 1.1; PROTHROMBIN TIME 11.8 sec (9.4-11.6)
[2017-11-05] MEDS: ISOSORBIDE MONONITRATE 60MG TABLET SR 24HR PO SCH (10:30)
[2017-11-05] MEDS ORDERED: IPRATROPIUM/ALBUTEROL 0.5-3(2.5)MG/3ML NEB INH PRN (10:30)
[2017-11-05] MEDS ORDERED: LEVOFLOXACIN 500MG PREMIX 100 ML IV NR (10:32)
[2017-11-05] MEDS: ONDANSETRON HCL 4MG/2ML VIAL IV PRN ×2 (11:01→20:04)
[2017-11-05] MEDS: MORPHINE SULFATE 4 MG/ML CPJ (NOT FOR IM USE) IV PRN ×3 (11:04→22:06)
[2017-11-05 15:30] VITALS: BP 192/89
[2017-11-05 16:00] VITALS: BP 192/89
[2017-11-05] MEDS ORDERED: WARFARIN SODIUM 7.5MG TABLET PO SCH (18:00)
[2017-11-05] MEDS: FOLIC ACID/VITAMIN B COMP W-C TABLET PO SCH (19:13)
[2017-11-05] MEDS: SEVELAMER CARBONATE 800 MG TABLET PO SCH (19:13)
[2017-11-05] MEDS: ASPIRIN 81MG EC TABLET PO SCH (19:13)
[2017-11-05] MEDS: ENOXAPARIN 30MG/0.3ML SYR SUBCUT SCH (19:14)
[2017-11-05] MEDS ORDERED: DEXTROSE 50% WATER 50ML SYRINGE IV PRN ×2 (19:15)
[2017-11-05 20:00] VITALS: BP 143/81
[2017-11-05] MEDS: INSULIN LISPRO 100 UNITS/ML SUBCUT SCH (21:00)
[2017-11-05] MEDS: LOSARTAN POTASSIUM 50 MG TABLET PO SCH (21:05)
[2017-11-05] MEDS: BLOOD SUGAR DIAGNOSTIC STRIP TEST SCH (21:06)
[2017-11-05] MEDS ORDERED: SODIUM CHLORIDE 0.9% 100 ML IV ONE (21:30)
[2017-11-05 23:53] VITALS: BP 161/74
[2017-11-06] MEDS: MORPHINE SULFATE 4 MG/ML CPJ (NOT FOR IM USE) IV PRN ×4 (02:21→21:32)
[2017-11-06] MEDS: ONDANSETRON HCL 4MG/2ML VIAL IV PRN ×3 (02:44→21:32)
[2017-11-06 04:00] VITALS: BP 135/69
[2017-11-06 04:38] LABS: CLARITY URINE TURBID (CLEAR); COLOR URINE YELLOW (YELLOW); KETONES URINE NEGATIVE (NEGATIVE); LEUKOCYTE ESTERASE URINE 3+ (NEGATIVE); NITRITE URINE NEGATIVE (NEGATIVE); OCCULT BLOOD URINE 2+ (NEGATIVE); PH URINE 7.5 (4.5-8.0); PROTEIN URINE 3+ (NEGATIVE); SPECIFIC GRAVITY URINE 1.014 (1.005-1.030); UROBILINOGEN URINE 0.2 E.U./dL (0.2-1.0)
[2017-11-06 06:59] LABS: INR 1.3; PROTHROMBIN TIME 13.4 sec (9.4-11.6)
[2017-11-06 07:16] LABS: BASOPHILS % 0.5 % (0.0-2.0); EOSINOPHILS % 1.2 % (0.0-5.0); HEMATOCRIT. 26.3 % (42.0-52.0); HEMOGLOBIN. 8.7 g/dL (14.0-18.0); LYMPHOCYTES % 11.6 % (20.0-50.0); MEAN CORPUSCULAR HEMOGLOBIN 30.8 pg (28.0-32.0); MEAN CORPUSCULAR VOLUME 93.5 fL (80.0-94.0); MEAN PLATELET VOLUME 9.7 fl (7.4-10.4); MONOCYTES % 9.6 % (2.0-8.0); NEUTROPHILS % 77.1 % (40.0-76.0); PLATELET 103 x1000/uL (130-400); RED BLOOD CELL COUNT 2.82 mill/uL (4.7-6.1); RED CELL DISTRIBUTION WIDTH 15.8 % (11.6-14.6)
[2017-11-06 07:43] LABS: CHLORIDE 107 mEq/L (98-107)
[2017-11-06 08:00] VITALS: BP 175/73
[2017-11-06] MEDS: INSULIN LISPRO 100 UNITS/ML SUBCUT SCH ×4 (08:06→21:00)
[2017-11-06] MEDS: BLOOD SUGAR DIAGNOSTIC STRIP TEST SCH ×4 (08:06→21:09)
[2017-11-06] MEDS: SEVELAMER CARBONATE 800 MG TABLET PO SCH ×3 (08:10→18:10)
[2017-11-06] MEDS: FOLIC ACID/VITAMIN B COMP W-C TABLET PO SCH (09:00)
[2017-11-06] MEDS: LOSARTAN POTASSIUM 50 MG TABLET PO SCH ×2 (09:25→21:08)
[2017-11-06] MEDS: ISOSORBIDE MONONITRATE 60MG TABLET SR 24HR PO SCH (09:25)
[2017-11-06] MEDS: ASPIRIN 81MG EC TABLET PO SCH (10:31)
[2017-11-06 12:00] VITALS: BP 145/68
[2017-11-06] MEDS ORDERED: PNEUMOCOCCAL 23-VAL P-SAC VAC 0.5 ML IM ONE (12:00)
[2017-11-06 16:00] VITALS: BP 146/76
[2017-11-06] MEDS: ENOXAPARIN 30MG/0.3ML SYR SUBCUT SCH (17:35)
[2017-11-06] MEDS ORDERED: WARFARIN SODIUM 2.5MG TABLET PO NR (18:00)
[2017-11-06 20:00] VITALS: BP 167/65
[2017-11-06] MEDS: CLONIDINE 0.1MG TABLET PO PRN (21:08)
[2017-11-06] MEDS: ATORVASTATIN CALCIUM 20MG TABLET PO SCH (21:09)
[2017-11-07] VITALS: BP 137/66
[2017-11-07 04:00] VITALS: BP 147/65
[2017-11-07] MEDS: ONDANSETRON HCL 4MG/2ML VIAL IV PRN ×2 (06:13→13:43)
[2017-11-07] MEDS: MORPHINE SULFATE 4 MG/ML CPJ (NOT FOR IM USE) IV PRN ×3 (06:13→21:44)
[2017-11-07 07:10] LABS: INR 1.3; PROTHROMBIN TIME 13.9 sec (9.4-11.6)
[2017-11-07] MEDS: BLOOD SUGAR DIAGNOSTIC STRIP TEST SCH ×4 (07:17→21:19)
[2017-11-07] MEDS: INSULIN LISPRO 100 UNITS/ML SUBCUT SCH ×4 (07:17→21:00)
[2017-11-07 07:38] LABS: BASOPHILS % 0.4 % (0.0-2.0); EOSINOPHILS % 1.9 % (0.0-5.0); HEMATOCRIT. 25.6 % (42.0-52.0); HEMOGLOBIN. 8.3 g/dL (14.0-18.0); LYMPHOCYTES % 20.6 % (20.0-50.0); MEAN CORPUSCULAR HEMOGLOBIN 30.2 pg (28.0-32.0); MEAN CORPUSCULAR VOLUME 93.1 fL (80.0-94.0); MEAN PLATELET VOLUME 9.4 fl (7.4-10.4); MONOCYTES % 9.6 % (2.0-8.0); NEUTROPHILS % 67.5 % (40.0-76.0); PLATELET 102 x1000/uL (130-400); RED BLOOD CELL COUNT 2.75 mill/uL (4.7-6.1); RED CELL DISTRIBUTION WIDTH 15.3 % (11.6-14.6)
[2017-11-07 08:00] VITALS: BP 157/84
[2017-11-07] MEDS: ASPIRIN 81MG EC TABLET PO SCH (08:35)
[2017-11-07] MEDS: FOLIC ACID/VITAMIN B COMP W-C TABLET PO SCH (08:35)
[2017-11-07] MEDS: SEVELAMER CARBONATE 800 MG TABLET PO SCH ×3 (08:35→17:34)
[2017-11-07] MEDS: LOSARTAN POTASSIUM 50 MG TABLET PO SCH ×2 (08:36→21:00)
[2017-11-07] MEDS: ISOSORBIDE MONONITRATE 60MG TABLET SR 24HR PO SCH (08:36)
[2017-11-07 08:42] LABS: PHOSPHORUS 6.4 mg/dL (2.5-4.9)
[2017-11-07] MEDS ORDERED: HEPARIN SODIUM 1,000 UNIT/1ML VIAL IV NR (08:45)
[2017-11-07 08:46] LABS: FOLIC ACID (FOLATE) SERUM 10.1 ng/mL (>5.38)
[2017-11-07] MEDS ORDERED: LEVOFLOXACIN 500MG PREMIX 100 ML IV SCH (11:00)
[2017-11-07 12:00] VITALS: BP 140/74
[2017-11-07] MEDS: FERROUS SULFATE 325MG TABLET PO SCH ×2 (13:09→17:35)
[2017-11-07 16:00] VITALS: BP 172/75
[2017-11-07] MEDS: ENOXAPARIN 30MG/0.3ML SYR SUBCUT SCH (17:33)
[2017-11-07] MEDS ORDERED: WARFARIN SODIUM 2.5MG TABLET PO NR (18:00)
[2017-11-07] MEDS: CLONIDINE 0.1MG TABLET PO PRN (19:16)
[2017-11-07 20:00] VITALS: BP 174/68
[2017-11-07] MEDS: ATORVASTATIN CALCIUM 20MG TABLET PO SCH (21:00)
[2017-11-07] MEDS ORDERED: EPOETIN ALFA 10000UNITS/ML VIAL SUBCUT SCH (21:00)
[2017-11-07] MEDS: ACETAMINOPHEN 325MG TABLET PO PRN (21:43)
[2017-11-08] VITALS: BP 145/70
[2017-11-08 04:00] VITALS: BP 188/72
[2017-11-08] MEDS: MORPHINE SULFATE 4 MG/ML CPJ (NOT FOR IM USE) IV PRN (05:55)
[2017-11-08] MEDS: ACETAMINOPHEN 325MG TABLET PO PRN ×2 (05:56→12:25)
[2017-11-08] MEDS: CLONIDINE 0.1MG TABLET PO PRN ×2 (06:02→12:26)
[2017-11-08] MEDS: BLOOD SUGAR DIAGNOSTIC STRIP TEST SCH ×2 (06:15→12:18)
[2017-11-08 06:16] LABS: BASOPHILS % 0.5 % (0.0-2.0); EOSINOPHILS % 1.9 % (0.0-5.0); HEMATOCRIT. 27.2 % (42.0-52.0); LYMPHOCYTES % 22.5 % (20.0-50.0); MEAN CORPUSCULAR HEMOGLOBIN 30.6 pg (28.0-32.0); MEAN CORPUSCULAR VOLUME 92.6 fL (80.0-94.0); MEAN PLATELET VOLUME 8.9 fl (7.4-10.4); MONOCYTES % 10.5 % (2.0-8.0); NEUTROPHILS % 64.6 % (40.0-76.0); PLATELET 101 x1000/uL (130-400); RED BLOOD CELL COUNT 2.93 mill/uL (4.7-6.1); RED CELL DISTRIBUTION WIDTH 15.3 % (11.6-14.6)
[2017-11-08 06:23] LABS: INR 1.4; PROTHROMBIN TIME 15.1 sec (9.4-11.6)
[2017-11-08] MEDS: INSULIN LISPRO 100 UNITS/ML SUBCUT SCH ×2 (07:51→12:18)
[2017-11-08 08:00] VITALS: BP 159/69
[2017-11-08] MEDS: ISOSORBIDE MONONITRATE 60MG TABLET SR 24HR PO SCH (09:00)
[2017-11-08] MEDS: LOSARTAN POTASSIUM 50 MG TABLET PO SCH (09:13)
[2017-11-08] MEDS: SEVELAMER CARBONATE 800 MG TABLET PO SCH ×2 (09:13→12:26)
[2017-11-08] MEDS: ASPIRIN 81MG EC TABLET PO SCH (09:13)
[2017-11-08] MEDS: FERROUS SULFATE 325MG TABLET PO SCH ×2 (09:13→12:26)
[2017-11-08] MEDS: FOLIC ACID/VITAMIN B COMP W-C TABLET PO SCH (09:13)
[2017-11-08 12:23] VITALS: BP 163/62
[2017-11-08 13:44] VITALS: BP 163/62
[2017-11-08] MEDS ORDERED: WARFARIN SODIUM 4MG TABLET PO NR (18:00)
== END 2017-11-08 15:47 | disposition home or self-care (01) | DRG 682 ==
LOC: ER 08:55 → 7WST 10:26 → EDBEDREQ 10:28 → ENRESERV 13:58
PROVIDERS: ADMIT Internal Medicine Nephrology; ATTEND Internal Medicine Nephrology
PROC: 5A1D70Z Performance of Urinary Filtration, Intermittent, Less than 6 Hours Per Day (ICD-10-PCS; principal; 2017-11-05)
PROC: 5A1D70Z Performance of Urinary Filtration, Intermittent, Less than 6 Hours Per Day (ICD-10-PCS; 2017-11-07)
DX: I13.11 Hypertensive heart and chronic kidney disease without heart failure, with stage 5 chronic kidney disease, or end stage renal disease (principal); N18.6 End stage renal disease; J90 Pleural effusion, not elsewhere classified; E10.22 Type 1 diabetes mellitus with diabetic chronic kidney disease; I48.0 Paroxysmal atrial fibrillation; E10.51 Type 1 diabetes mellitus with diabetic peripheral angiopathy without gangrene; E83.51 Hypocalcemia; I48.92 Unspecified atrial flutter; G82.20 Paraplegia, unspecified; D63.8 Anemia in other chronic diseases classified elsewhere; E78.00 Pure hypercholesterolemia, unspecified; E87.5 Hyperkalemia; I49.3 Ventricular premature depolarization; N31.9 Neuromuscular dysfunction of bladder, unspecified; Z79.01 Long term (current) use of anticoagulants; Z79.4 Long term (current) use of insulin; Z86.718 Personal history of other venous thrombosis and embolism; Z86.73 Personal history of transient ischemic attack (TIA), and cerebral infarction without residual deficits; Z91.15 Patient's noncompliance with renal dialysis; Z99.2 Dependence on renal dialysis; Z79.899 Other long term (current) drug therapy; Z88.8 Allergy status to other drugs, medicaments and biological substances; Z79.82 Long term (current) use of aspirin; Z90.49 Acquired absence of other specified parts of digestive tract; Z89.432 Acquired absence of left foot; Z88.1 Allergy status to other antibiotic agents
CPT/HCPCS: 36415; 71045; 80048; 80053; 81003; 82746; 82962; 83540; 83550; 83690; 83735; 84100; 84443; 84484; 85025; 85610; 87040; 87077; 87086; 87186; 93005; 93970; 97162; 97165; 99285; J0885; J1644; J1650; J1956; J2270; J2405; J7030; J7040; J7050

== ENCOUNTER 2018-01-22 16:27 | Inpatient (IN) | payer MEDICARE, MEDICAID ==
[~2018-01-22] VITALS: Ht 185.4 cm; Wt 78.0 kg
[~2018-01-22 16:27] MED LIST changes: +GABA-531 PO
[2018-01-22] MEDS ORDERED: SODIUM CHLORIDE 0.9% 1,000 ML IV ONE ×2 (17:10→17:11)
[2018-01-22] MEDS ORDERED: MORPHINE SULFATE 4 MG/ML CPJ (NOT FOR IM USE) IV STA ×2 (17:10→17:11)
[2018-01-22] MEDS ORDERED: ONDANSETRON HCL 4MG/2ML VIAL IV STA ×2 (17:10→17:11)
[2018-01-22 19:19] LABS: BASOPHILS % 0.4 % (0.0-2.0); EOSINOPHILS % 0.6 % (0.0-5.0); HEMATOCRIT. 32.6 % (42.0-52.0); HEMOGLOBIN. 10.7 g/dL (14.0-18.0); LYMPHOCYTES % 9.3 % (20.0-50.0); MEAN CORPUSCULAR HEMOGLOBIN 29.2 pg (28.0-32.0); MEAN CORPUSCULAR VOLUME 88.7 fL (80.0-94.0); MEAN PLATELET VOLUME 9.6 fl (7.4-10.4); MONOCYTES % 4.4 % (2.0-8.0); NEUTROPHILS % 85.3 % (40.0-76.0); PLATELET 107 x1000/uL (130-400); RED BLOOD CELL COUNT 3.68 mill/uL (4.7-6.1); RED CELL DISTRIBUTION WIDTH 16.1 % (11.6-14.6)
[2018-01-22 19:23] LABS: CHLORIDE 106 mEq/L (98-107)
[2018-01-22 19:26] LABS: INR 1.1; PARTIAL THROMBOPLASTIN TIME 26.5 sec (23.4-31.0); PROTHROMBIN TIME 11.4 sec (9.4-11.6)
[2018-01-22] MEDS ORDERED: SODIUM CHLORIDE 0.9% 500 ML IV ONE (19:37)
[2018-01-22] MEDS ORDERED: SODIUM BICARBONATE 8.4% 1 MEQ/ML 50ML SYR IV ONE (19:45)
[2018-01-22] MEDS ORDERED: LEVOFLOXACIN 750MG PREMIX 150 ML IV ONE (19:45)
[2018-01-22] MEDS ORDERED: SODIUM POLYSTYRENE SULFONATE 15 G/60 ML BOT PO ONE (19:45)
[2018-01-22] MEDS ORDERED: ALBUTEROL (0.083%) 2.5MG/3ML NEB HHN ONE (19:45)
[2018-01-22] MEDS ORDERED: DOCUSATE SODIUM 100MG CAPSULE PO PRN (20:30)
[2018-01-22] MEDS ORDERED: ACETAMINOPHEN 325MG TABLET PO PRN (20:30)
[2018-01-22] MEDS: CLONIDINE 0.1MG TABLET PO PRN (21:05)
[2018-01-22 22:00] VITALS: BP 216/86
[2018-01-22] MEDS ORDERED: ENOXAPARIN 30MG/0.3ML SYR SUBCUT NR (22:00)
[2018-01-22] MEDS ORDERED: HYDRALAZINE 20MG/ML VIAL IV PRN (23:15)
[2018-01-22 23:27] VITALS: BP 214/86
[2018-01-22] MEDS: HYDROCODONE/ACETAMINOPHEN 5/325MG TABLET PO PRN (23:48)
[2018-01-23] VITALS: BP 188/82
[2018-01-23] MEDS: LOSARTAN POTASSIUM 50 MG TABLET PO SCH ×2 (00:53→20:37)
[2018-01-23] MEDS: ISOSORBIDE MONONITRATE 60MG TABLET SR 24HR PO SCH (00:53)
[2018-01-23] MEDS: MORPHINE SULFATE 4 MG/ML CPJ (NOT FOR IM USE) IV PRN ×4 (00:55→20:13)
[2018-01-23 04:00] VITALS: BP 165/84
[2018-01-23] MEDS: ONDANSETRON HCL 4MG/2ML VIAL IV PRN ×4 (04:57→20:14)
[2018-01-23 06:45] LABS: BASOPHILS % 0.4 % (0.0-2.0); EOSINOPHILS % 1.4 % (0.0-5.0); HEMATOCRIT. 32.3 % (42.0-52.0); HEMOGLOBIN. 10.7 g/dL (14.0-18.0); LYMPHOCYTES % 16.4 % (20.0-50.0); MEAN CORPUSCULAR HEMOGLOBIN 29.3 pg (28.0-32.0); MEAN PLATELET VOLUME 9.5 fl (7.4-10.4); MONOCYTES % 8.7 % (2.0-8.0); NEUTROPHILS % 73.1 % (40.0-76.0); PLATELET 105 x1000/uL (130-400); RED BLOOD CELL COUNT 3.63 mill/uL (4.7-6.1); RED CELL DISTRIBUTION WIDTH 16.1 % (11.6-14.6)
[2018-01-23 06:48] LABS: INR 1.1; PROTHROMBIN TIME 11.7 sec (9.4-11.6)
[2018-01-23 07:20] LABS: CHLORIDE 108 mEq/L (98-107)
[2018-01-23 08:00] VITALS: BP 161/76
[2018-01-23] MEDS: CALCIUM ACETATE 667MG CAPSULE PO SCH ×3 (08:00→16:58)
[2018-01-23] MEDS: SEVELAMER CARBONATE 800 MG TABLET PO SCH ×3 (08:00→16:58)
[2018-01-23] MEDS: GABAPENTIN 300MG CAPSULE PO SCH ×2 (08:01→16:58)
[2018-01-23] MEDS: FOLIC ACID/VITAMIN B COMP W-C TABLET PO SCH (08:01)
[2018-01-23] MEDS: ASPIRIN 81MG TABLET PO SCH (08:01)
[2018-01-23] MEDS ORDERED: DEXTROSE 50% WATER 50ML SYRINGE IV PRN (11:15)
[2018-01-23 12:00] VITALS: BP 175/100
[2018-01-23] MEDS: BLOOD SUGAR DIAGNOSTIC STRIP TEST SCH ×3 (12:15→20:37)
[2018-01-23] MEDS ORDERED: IPRATROPIUM/ALBUTEROL 0.5-3(2.5)MG/3ML NEB HHN PRN (12:15)
[2018-01-23] MEDS: INSULIN LISPRO 100 UNITS/ML SUBCUT SCH ×3 (12:16→21:00)
[2018-01-23 16:00] VITALS: BP 130/72
[2018-01-23] MEDS ORDERED: WARFARIN SODIUM 7.5MG TABLET PO NR (18:00)
[2018-01-23 20:00] VITALS: BP 181/76
[2018-01-23] MEDS: ATORVASTATIN CALCIUM 40MG TABLET PO SCH (20:37)
[2018-01-24] VITALS: BP 102/54
[2018-01-24] MEDS: MORPHINE SULFATE 4 MG/ML CPJ (NOT FOR IM USE) IV PRN ×3 (01:06→21:48)
[2018-01-24 04:00] VITALS: BP 142/94
[2018-01-24 06:11] LABS: HEMATOCRIT. 33.8 % (42.0-52.0); HEMOGLOBIN. 11.1 g/dL (14.0-18.0); INR 1.1; MEAN CORPUSCULAR VOLUME 88.6 fL (80.0-94.0); MEAN PLATELET VOLUME 9.6 fl (7.4-10.4); PLATELET 100 x1000/uL (130-400); PROTHROMBIN TIME 11.7 sec (9.4-11.6); RED BLOOD CELL COUNT 3.82 mill/uL (4.7-6.1); RED CELL DISTRIBUTION WIDTH 16.3 % (11.6-14.6)
[2018-01-24] MEDS: BLOOD SUGAR DIAGNOSTIC STRIP TEST SCH ×4 (06:50→21:42)
[2018-01-24] MEDS: INSULIN LISPRO 100 UNITS/ML SUBCUT SCH ×4 (07:23→21:00)
[2018-01-24] MEDS: ONDANSETRON HCL 4MG/2ML VIAL IV PRN ×4 (07:54→21:49)
[2018-01-24] MEDS: ASPIRIN 81MG TABLET PO SCH (07:55)
[2018-01-24] MEDS: ISOSORBIDE MONONITRATE 60MG TABLET SR 24HR PO SCH (07:55)
[2018-01-24] MEDS: GABAPENTIN 300MG CAPSULE PO SCH ×2 (07:55→16:56)
[2018-01-24] MEDS: SEVELAMER CARBONATE 800 MG TABLET PO SCH ×3 (07:55→16:56)
[2018-01-24] MEDS: FOLIC ACID/VITAMIN B COMP W-C TABLET PO SCH (07:56)
[2018-01-24] MEDS: CALCIUM ACETATE 667MG CAPSULE PO SCH ×3 (07:56→16:56)
[2018-01-24] MEDS: LOSARTAN POTASSIUM 50 MG TABLET PO SCH ×2 (07:56→21:42)
[2018-01-24 08:17] VITALS: BP 135/77
[2018-01-24 08:39] LABS: CHLORIDE 99 mEq/L (98-107)
[2018-01-24 10:54] LABS: PLATELET ESTIMATE DECREASED
[2018-01-24] MEDS: LEVOFLOXACIN 500MG PREMIX 100 ML IV SCH (11:05)
[2018-01-24 12:09] VITALS: BP 94/58
[2018-01-24 16:32] VITALS: BP 112/58
[2018-01-24] MEDS ORDERED: WARFARIN SODIUM 7.5MG TABLET PO NR (18:00)
[2018-01-24 20:00] VITALS: BP 120/52
[2018-01-24] MEDS: ATORVASTATIN CALCIUM 40MG TABLET PO SCH (21:42)
[2018-01-25] VITALS (7 sets, daily range): BP systolic 110–151; BP diastolic 54–79
[2018-01-25 06:30] LABS: BASOPHILS % 0.2 % (0.0-2.0); EOSINOPHILS % 0.3 % (0.0-5.0); HEMATOCRIT. 30.8 % (42.0-52.0); HEMOGLOBIN. 10.1 g/dL (14.0-18.0); INR 1.9; LYMPHOCYTES % 7.8 % (20.0-50.0); MEAN CORPUSCULAR HEMOGLOBIN 29.2 pg (28.0-32.0); MEAN CORPUSCULAR VOLUME 88.6 fL (80.0-94.0); MEAN PLATELET VOLUME 9.7 fl (7.4-10.4); MONOCYTES % 5.9 % (2.0-8.0); NEUTROPHILS % 85.8 % (40.0-76.0); PLATELET 80 x1000/uL (130-400); PROTHROMBIN TIME 20.1 sec (9.4-11.6); RED BLOOD CELL COUNT 3.47 mill/uL (4.7-6.1); RED CELL DISTRIBUTION WIDTH 16.3 % (11.6-14.6)
[2018-01-25] MEDS: BLOOD SUGAR DIAGNOSTIC STRIP TEST SCH ×4 (06:47→21:00)
[2018-01-25] MEDS: LOSARTAN POTASSIUM 50 MG TABLET PO SCH ×2 (07:49→23:33)
[2018-01-25] MEDS: ASPIRIN 81MG TABLET PO SCH (07:49)
[2018-01-25] MEDS: SEVELAMER CARBONATE 800 MG TABLET PO SCH ×3 (07:49→16:58)
[2018-01-25] MEDS: ONDANSETRON HCL 4MG/2ML VIAL IV PRN ×2 (07:49→23:31)
[2018-01-25] MEDS: CALCIUM ACETATE 667MG CAPSULE PO SCH ×3 (07:49→16:58)
[2018-01-25] MEDS: FOLIC ACID/VITAMIN B COMP W-C TABLET PO SCH (07:49)
[2018-01-25] MEDS: GABAPENTIN 300MG CAPSULE PO SCH ×2 (07:49→16:58)
[2018-01-25] MEDS: INSULIN LISPRO 100 UNITS/ML SUBCUT SCH ×4 (07:50→21:00)
[2018-01-25] MEDS: ISOSORBIDE MONONITRATE 60MG TABLET SR 24HR PO SCH (07:50)
[2018-01-25] MEDS ORDERED: METOCLOPRAMIDE HCL 10MG/2ML VIAL IV SCH (12:00)
[2018-01-25] MEDS ORDERED: DIATR MEGLU/DIATRIZOATE SOLN 30ML PO SCH (12:30)
[2018-01-25] MEDS ORDERED: WARFARIN SODIUM 2.5MG TABLET PO NR (18:00)
[2018-01-25] MEDS ORDERED: IOHEXOL-300 100 ML BOTTLE ONE (21:32)
[2018-01-25] MEDS: METOCLOPRAMIDE HCL 10MG/2ML VIAL IV SCH (23:32)
[2018-01-25] MEDS: ATORVASTATIN CALCIUM 40MG TABLET PO SCH (23:33)
[2018-01-25] MEDS: MORPHINE SULFATE 4 MG/ML CPJ (NOT FOR IM USE) IV PRN (23:53)
[2018-01-26] MEDS: METOCLOPRAMIDE HCL 10MG/2ML VIAL IV SCH ×3 (03:36→13:16)
[2018-01-26 04:00] VITALS: BP 117/58
[2018-01-26] MEDS: BLOOD SUGAR DIAGNOSTIC STRIP TEST SCH ×4 (07:22→21:27)
[2018-01-26] MEDS: INSULIN LISPRO 100 UNITS/ML SUBCUT SCH ×4 (07:22→21:00)
[2018-01-26 07:31] LABS: INR 2.6; PROTHROMBIN TIME 26.8 sec (9.4-11.6)
[2018-01-26 07:32] LABS: BASOPHILS % 0.3 % (0.0-2.0); EOSINOPHILS % 0.5 % (0.0-5.0); HEMATOCRIT. 30.8 % (42.0-52.0); HEMOGLOBIN. 10.1 g/dL (14.0-18.0); LYMPHOCYTES % 11.4 % (20.0-50.0); MEAN CORPUSCULAR HEMOGLOBIN 29.3 pg (28.0-32.0); MEAN CORPUSCULAR VOLUME 89.2 fL (80.0-94.0); MEAN PLATELET VOLUME 9.7 fl (7.4-10.4); MONOCYTES % 9.7 % (2.0-8.0); NEUTROPHILS % 78.1 % (40.0-76.0); PLATELET 90 x1000/uL (130-400); RED BLOOD CELL COUNT 3.45 mill/uL (4.7-6.1); RED CELL DISTRIBUTION WIDTH 16.3 % (11.6-14.6)
[2018-01-26 07:55] VITALS: BP 140/67
[2018-01-26] MEDS: GABAPENTIN 300MG CAPSULE PO SCH ×2 (08:21→17:42)
[2018-01-26] MEDS: CALCIUM ACETATE 667MG CAPSULE PO SCH ×3 (08:21→17:42)
[2018-01-26] MEDS: FOLIC ACID/VITAMIN B COMP W-C TABLET PO SCH (08:21)
[2018-01-26] MEDS: ISOSORBIDE MONONITRATE 60MG TABLET SR 24HR PO SCH (08:21)
[2018-01-26] MEDS: SEVELAMER CARBONATE 800 MG TABLET PO SCH ×3 (08:21→17:42)
[2018-01-26] MEDS: LOSARTAN POTASSIUM 50 MG TABLET PO SCH ×2 (08:21→21:17)
[2018-01-26] MEDS: ASPIRIN 81MG TABLET PO SCH (08:21)
[2018-01-26] MEDS: PANTOPRAZOLE SODIUM 40 MG/VIAL IV SCH (08:21)
[2018-01-26] MEDS: LEVOFLOXACIN 500MG PREMIX 100 ML IV SCH (11:30)
[2018-01-26 12:00] VITALS: BP_SYST 119; BP_SYST 125; BP_DIAS 67; BP_DIAS 68
[2018-01-26 16:00] VITALS: BP 125/67
[2018-01-26] MEDS: MORPHINE SULFATE 4 MG/ML CPJ (NOT FOR IM USE) IV PRN (17:51)
[2018-01-26 19:54] VITALS: BP 170/81
[2018-01-26] MEDS: ATORVASTATIN CALCIUM 40MG TABLET PO SCH (21:17)
[2018-01-26] MEDS: HYDROCODONE/ACETAMINOPHEN 5/325MG TABLET PO PRN (22:35)
[2018-01-27] VITALS: BP 171/75
[2018-01-27] MEDS: CLONIDINE 0.1MG TABLET PO PRN (00:28)
[2018-01-27] MEDS: MORPHINE SULFATE 4 MG/ML CPJ (NOT FOR IM USE) IV PRN (00:30)
[2018-01-27 04:00] VITALS: BP 141/81
[2018-01-27] MEDS: BLOOD SUGAR DIAGNOSTIC STRIP TEST SCH ×2 (06:45→12:18)
[2018-01-27 06:50] LABS: BASOPHILS % 0.4 % (0.0-2.0); EOSINOPHILS % 0.8 % (0.0-5.0); HEMATOCRIT. 31.7 % (42.0-52.0); HEMOGLOBIN. 10.6 g/dL (14.0-18.0); LYMPHOCYTES % 15.8 % (20.0-50.0); MEAN CORPUSCULAR HEMOGLOBIN 29.7 pg (28.0-32.0); MEAN CORPUSCULAR VOLUME 88.8 fL (80.0-94.0); MEAN PLATELET VOLUME 9.7 fl (7.4-10.4); MONOCYTES % 8.2 % (2.0-8.0); NEUTROPHILS % 74.8 % (40.0-76.0); PLATELET 111 x1000/uL (130-400); RED BLOOD CELL COUNT 3.57 mill/uL (4.7-6.1); RED CELL DISTRIBUTION WIDTH 16.5 % (11.6-14.6)
[2018-01-27] MEDS: INSULIN LISPRO 100 UNITS/ML SUBCUT SCH ×2 (06:50→12:18)
[2018-01-27] MEDS: FOLIC ACID/VITAMIN B COMP W-C TABLET PO SCH (07:44)
[2018-01-27] MEDS: CALCIUM ACETATE 667MG CAPSULE PO SCH ×2 (07:45→12:11)
[2018-01-27] MEDS: SEVELAMER CARBONATE 800 MG TABLET PO SCH ×2 (07:45→12:11)
[2018-01-27] MEDS: GABAPENTIN 300MG CAPSULE PO SCH (07:45)
[2018-01-27] MEDS: ASPIRIN 81MG TABLET PO SCH (07:45)
[2018-01-27 08:00] VITALS: BP 159/67
[2018-01-27] MEDS: PANTOPRAZOLE SODIUM 40 MG/VIAL IV SCH (08:43)
[2018-01-27 10:31] VITALS: BP 159/67
[2018-01-27] MEDS: LOSARTAN POTASSIUM 50 MG TABLET PO SCH (10:54)
[2018-01-27] MEDS: ISOSORBIDE MONONITRATE 60MG TABLET SR 24HR PO SCH (10:54)
[2018-01-27 12:00] VITALS: BP 144/78
== END 2018-01-27 14:05 | disposition home or self-care (01) | DRG 193 ==
LOC: ER 16:27 → 6WST 20:25 → INTOOBSV 20:25 → OBSVTOIN 20:25 → ENRESERV 20:37
PROVIDERS: ADMIT Internal Medicine Nephrology; ATTEND Internal Medicine Nephrology
DX: J18.9 Pneumonia, unspecified organism (principal); J96.00 Acute respiratory failure, unspecified whether with hypoxia or hypercapnia; N18.6 End stage renal disease; J90 Pleural effusion, not elsewhere classified; I13.2 Hypertensive heart and chronic kidney disease with heart failure and with stage 5 chronic kidney disease, or end stage renal disease; R10.9 Unspecified abdominal pain; I48.0 Paroxysmal atrial fibrillation; I50.9 Heart failure, unspecified; D64.9 Anemia, unspecified; D69.6 Thrombocytopenia, unspecified; E11.22 Type 2 diabetes mellitus with diabetic chronic kidney disease; E11.51 Type 2 diabetes mellitus with diabetic peripheral angiopathy without gangrene; E87.5 Hyperkalemia; K57.30 Diverticulosis of large intestine without perforation or abscess without bleeding; Z86.73 Personal history of transient ischemic attack (TIA), and cerebral infarction without residual deficits; Z79.01 Long term (current) use of anticoagulants; Z99.2 Dependence on renal dialysis
CPT/HCPCS: 36415; 71045; 71260; 74018; 74176; 74177; 80048; 80053; 82962; 83036; 83605; 83690; 83735; 83880; 84484; 85025; 85610; 85730; 87040; 93005; 96365; 96372; 96374; 96375; 96376; 99285; C9113; G0378; J1650; J1815; J1956; J2270; J2405; J2765; J7030; J7040; Q9963; Q9967

== ENCOUNTER 2018-03-12 01:34 | Inpatient (IN) | payer MEDICARE, MEDICAID ==
[~2018-03-12] VITALS: Ht 177.8 cm; Wt 83.9 kg
[~2018-03-12 01:34] MED LIST changes: +LEVO250T2 PO
[2018-03-12 03:22] LABS: CHLORIDE 106 mEq/L (98-107); INR 1.1; PROTHROMBIN TIME 11.5 sec (9.1-11.1)
[2018-03-12 03:37] LABS: BASOPHILS % 0.6 % (0.0-2.0); EOSINOPHILS % 0.8 % (0.0-5.0); HEMATOCRIT. 31.7 % (42.0-52.0); HEMOGLOBIN. 10.4 g/dL (14.0-18.0); LYMPHOCYTES % 23.6 % (20.0-50.0); MEAN CORPUSCULAR HEMOGLOBIN 29.1 pg (28.0-32.0); MEAN CORPUSCULAR VOLUME 88.5 fL (80.0-94.0); MEAN PLATELET VOLUME 9.3 fl (7.4-10.4); MONOCYTES % 6.6 % (2.0-8.0); NEUTROPHILS % 68.4 % (40.0-76.0); PLATELET 123 x1000/uL (130-400); RED BLOOD CELL COUNT 3.59 mill/uL (4.7-6.1); RED CELL DISTRIBUTION WIDTH 15.9 % (11.6-14.6)
[2018-03-12] MEDS ORDERED: MORPHINE SULFATE 4 MG/ML CPJ (NOT FOR IM USE) IV STA (04:07)
[2018-03-12] MEDS ORDERED: ONDANSETRON HCL 4MG/2ML VIAL IV ONE (04:30)
[2018-03-12] MEDS ORDERED: HYDRALAZINE 20MG/ML VIAL IV ONE (04:30)
[2018-03-12 08:51] VITALS: BP 149/66
[2018-03-12 09:00] VITALS: BP 149/66
[2018-03-12] MEDS ORDERED: LOSARTAN POTASSIUM 50 MG TABLET PO SCH (11:15)
[2018-03-12] MEDS ORDERED: CLONIDINE 0.1MG TABLET PO PRN ×2 (11:15→11:30)
[2018-03-12] MEDS ORDERED: CLONIDINE 0.2MG TABLET PO PRN (11:15)
[2018-03-12] MEDS ORDERED: DIPHENHYDRAMINE 50MG/ML VIAL IV PRN (11:30)
[2018-03-12] MEDS ORDERED: MAGNESIUM/ALUMINUM HYDROXIDE/SIMETHICONE 30ML UDC PO PRN (11:30)
[2018-03-12 12:00] VITALS: BP 132/67
[2018-03-12] MEDS: ONDANSETRON HCL 4MG/2ML VIAL IV PRN ×2 (12:56→21:33)
[2018-03-12] MEDS: ASPIRIN 81MG EC TABLET PO SCH (12:57)
[2018-03-12] MEDS: ACETAMINOPHEN 325MG TABLET PO PRN (12:57)
[2018-03-12] MEDS: CALCIUM ACETATE 667MG CAPSULE PO SCH ×2 (12:57→17:37)
[2018-03-12] MEDS: NITROGLYCERIN OINT 1GM/INCH UDPKT TD SCH ×3 (12:58→23:57)
[2018-03-12 13:32] LABS: AMYLASE 351 IU/L (25-115)
[2018-03-12] MEDS: MORPHINE SULFATE 4 MG/ML CPJ (NOT FOR IM USE) IV PRN ×2 (13:46→21:34)
[2018-03-12] MEDS: SODIUM CHLORIDE 0.9% INJ 3ML FLUSH IVF SCH ×2 (13:47→21:35)
[2018-03-12 16:00] VITALS: BP 129/62
[2018-03-12] MEDS ORDERED: DEXTROSE 50% WATER 50ML SYRINGE IV PRN (17:45)
[2018-03-12] MEDS: INSULIN LISPRO 100 UNITS/ML SUBCUT SCH ×2 (17:50→21:00)
[2018-03-12] MEDS: BLOOD SUGAR DIAGNOSTIC STRIP TEST SCH ×2 (18:14→21:34)
[2018-03-12 20:00] VITALS: BP 140/68
[2018-03-12] MEDS ORDERED: ATORVASTATIN CALCIUM 20MG TABLET PO SCH (21:00)
[2018-03-12] MEDS: ATORVASTATIN CALCIUM 40MG TABLET PO SCH (21:28)
[2018-03-12] MEDS: AMLODIPINE 5MG TABLET PO SCH (21:29)
[2018-03-12] MEDS: GABAPENTIN 300MG CAPSULE PO SCH (21:32)
[2018-03-13] VITALS (9 sets, daily range): BP systolic 91–127; BP diastolic 46–67
[2018-03-13] MEDS: NITROGLYCERIN OINT 1GM/INCH UDPKT TD SCH ×4 (06:00→23:13)
[2018-03-13] MEDS: BLOOD SUGAR DIAGNOSTIC STRIP TEST SCH ×4 (06:17→22:22)
[2018-03-13] MEDS: SODIUM CHLORIDE 0.9% INJ 3ML FLUSH IVF SCH ×3 (06:17→22:15)
[2018-03-13] MEDS: CALCIUM ACETATE 667MG CAPSULE PO SCH ×3 (07:50→18:20)
[2018-03-13] MEDS: INSULIN LISPRO 100 UNITS/ML SUBCUT SCH ×4 (07:50→22:22)
[2018-03-13 08:03] LABS: BASOPHILS % 0.6 % (0.0-2.0); EOSINOPHILS % 1.5 % (0.0-5.0); HEMATOCRIT. 32.4 % (42.0-52.0); HEMOGLOBIN. 10.6 g/dL (14.0-18.0); LYMPHOCYTES % 26.9 % (20.0-50.0); MEAN CORPUSCULAR HEMOGLOBIN 29.2 pg (28.0-32.0); MEAN CORPUSCULAR VOLUME 89.3 fL (80.0-94.0); MEAN PLATELET VOLUME 9.8 fl (7.4-10.4); MONOCYTES % 6.7 % (2.0-8.0); NEUTROPHILS % 64.3 % (40.0-76.0); PLATELET 117 x1000/uL (130-400); RED BLOOD CELL COUNT 3.63 mill/uL (4.7-6.1); RED CELL DISTRIBUTION WIDTH 16.3 % (11.6-14.6)
[2018-03-13] MEDS: ONDANSETRON HCL 4MG/2ML VIAL IV PRN (08:20)
[2018-03-13] MEDS: MORPHINE SULFATE 4 MG/ML CPJ (NOT FOR IM USE) IV PRN ×2 (08:21→17:05)
[2018-03-13 08:32] LABS: CREATINE KINASE MB FRACTION 4.8 ng/mL (0.5-3.6)
[2018-03-13] MEDS ORDERED: ISOSORBIDE MONONITRATE 60MG TABLET SR 24HR PO SCH ×2 (09:00)
[2018-03-13] MEDS: LOSARTAN POTASSIUM 50 MG TABLET PO SCH (09:00)
[2018-03-13] MEDS: AMLODIPINE 5MG TABLET PO SCH ×2 (09:00→22:15)
[2018-03-13] MEDS ORDERED: ASPIRIN 81MG EC TABLET PO SCH (09:00)
[2018-03-13] MEDS: LEVOTHYROXINE SODIUM 50MCG TABLET PO SCH (10:00)
[2018-03-13] MEDS: METOCLOPRAMIDE HCL 10MG/2ML VIAL IV SCH ×3 (13:45→23:13)
[2018-03-13 17:44] LABS: AMYLASE 169 IU/L (25-115)
[2018-03-13] MEDS: ASPIRIN 81MG EC TABLET PO SCH (22:14)
[2018-03-13] MEDS: FOLIC ACID/VITAMIN B COMP W-C TABLET PO SCH (22:15)
[2018-03-13] MEDS: ATORVASTATIN CALCIUM 40MG TABLET PO SCH (22:15)
[2018-03-13] MEDS: GABAPENTIN 300MG CAPSULE PO SCH (22:15)
[2018-03-13] MEDS: DEXT 5%/0.45% NACL 1000ML 1,000 ML IV SCH (22:16)
[2018-03-14] VITALS (7 sets, daily range): BP systolic 93–113; BP diastolic 39–61
[2018-03-14] MEDS: MORPHINE SULFATE 4 MG/ML CPJ (NOT FOR IM USE) IV PRN (01:02)
[2018-03-14] MEDS: NITROGLYCERIN OINT 1GM/INCH UDPKT TD SCH ×4 (06:00→23:08)
[2018-03-14] MEDS: SODIUM CHLORIDE 0.9% INJ 3ML FLUSH IVF SCH ×3 (06:21→20:57)
[2018-03-14] MEDS: LEVOTHYROXINE SODIUM 50MCG TABLET PO SCH (06:22)
[2018-03-14] MEDS: METOCLOPRAMIDE HCL 10MG/2ML VIAL IV SCH ×4 (06:22→23:12)
[2018-03-14] MEDS: BLOOD SUGAR DIAGNOSTIC STRIP TEST SCH ×4 (06:27→21:00)
[2018-03-14] MEDS: INSULIN LISPRO 100 UNITS/ML SUBCUT SCH ×4 (06:28→21:07)
[2018-03-14 07:32] LABS: BASOPHILS % 0.9 % (0.0-2.0); EOSINOPHILS % 1.4 % (0.0-5.0); HEMATOCRIT. 32.8 % (42.0-52.0); HEMOGLOBIN. 10.7 g/dL (14.0-18.0); LYMPHOCYTES % 24.7 % (20.0-50.0); MEAN CORPUSCULAR HEMOGLOBIN 29.3 pg (28.0-32.0); MEAN CORPUSCULAR VOLUME 89.5 fL (80.0-94.0); MEAN PLATELET VOLUME 9.8 fl (7.4-10.4); MONOCYTES % 7.5 % (2.0-8.0); NEUTROPHILS % 65.5 % (40.0-76.0); PLATELET 117 x1000/uL (130-400); RED BLOOD CELL COUNT 3.66 mill/uL (4.7-6.1); RED CELL DISTRIBUTION WIDTH 16.8 % (11.6-14.6)
[2018-03-14] MEDS: LOSARTAN POTASSIUM 50 MG TABLET PO SCH (08:25)
[2018-03-14] MEDS: AMLODIPINE 5MG TABLET PO SCH ×2 (08:25→20:57)
[2018-03-14] MEDS: ACETAMINOPHEN 325MG TABLET PO PRN (08:37)
[2018-03-14] MEDS: FOLIC ACID/VITAMIN B COMP W-C TABLET PO SCH (08:37)
[2018-03-14] MEDS: ASPIRIN 81MG EC TABLET PO SCH (08:37)
[2018-03-14] MEDS: CALCIUM ACETATE 667MG CAPSULE PO SCH ×3 (08:37→18:15)
[2018-03-14] MEDS: ONDANSETRON HCL 4MG/2ML VIAL IV PRN (10:31)
[2018-03-14] MEDS: DEXT 5%/0.45% NACL 1000ML 1,000 ML IV SCH ×2 (14:00→21:23)
[2018-03-14] MEDS: GABAPENTIN 300MG CAPSULE PO SCH (20:56)
[2018-03-14] MEDS: ATORVASTATIN CALCIUM 40MG TABLET PO SCH (20:56)
[2018-03-14 21:07] LABS: AMYLASE 177 IU/L (25-115)
[2018-03-15 04:00] VITALS: BP 102/49
[2018-03-15] MEDS: NITROGLYCERIN OINT 1GM/INCH UDPKT TD SCH ×2 (05:39→12:00)
[2018-03-15] MEDS: SODIUM CHLORIDE 0.9% INJ 3ML FLUSH IVF SCH ×2 (05:42→14:00)
[2018-03-15] MEDS: METOCLOPRAMIDE HCL 10MG/2ML VIAL IV SCH ×2 (05:42→12:55)
[2018-03-15] MEDS: LEVOTHYROXINE SODIUM 50MCG TABLET PO SCH (07:01)
[2018-03-15] MEDS: BLOOD SUGAR DIAGNOSTIC STRIP TEST SCH ×2 (07:02→12:44)
[2018-03-15] MEDS: INSULIN LISPRO 100 UNITS/ML SUBCUT SCH ×2 (07:03→12:50)
[2018-03-15 08:00] VITALS: BP 97/48
[2018-03-15] MEDS: CALCIUM ACETATE 667MG CAPSULE PO SCH ×2 (08:07→12:55)
[2018-03-15] MEDS: ASPIRIN 81MG EC TABLET PO SCH (08:13)
[2018-03-15] MEDS: FOLIC ACID/VITAMIN B COMP W-C TABLET PO SCH (08:13)
[2018-03-15 08:39] LABS: AMYLASE 163 IU/L (25-115)
[2018-03-15] MEDS: AMLODIPINE 5MG TABLET PO SCH (08:49)
[2018-03-15] MEDS: LOSARTAN POTASSIUM 50 MG TABLET PO SCH (08:49)
[2018-03-15] MEDS ORDERED: IBUPROFEN 600MG TABLET PO PRN (09:30)
[2018-03-15 12:00] VITALS: BP 91/37
[2018-03-15 16:00] VITALS: BP 105/56
[2018-03-15 16:55] VITALS: BP 105/56
== END 2018-03-15 17:25 | disposition home or self-care (01) | DRG 438 ==
LOC: ER 01:34 → 6WST 05:31 → ENRESERV 07:24
PROVIDERS: ADMIT Internal Medicine; ATTEND Internal Medicine
PROC: 5A1D70Z Performance of Urinary Filtration, Intermittent, Less than 6 Hours Per Day (ICD-10-PCS; principal; 2018-03-12)
PROC: 5A1D70Z Performance of Urinary Filtration, Intermittent, Less than 6 Hours Per Day (ICD-10-PCS; 2018-03-13)
DX: K85.90 Acute pancreatitis without necrosis or infection, unspecified (principal); N18.6 End stage renal disease; E46 Unspecified protein-calorie malnutrition; E87.1 Hypo-osmolality and hyponatremia; I13.2 Hypertensive heart and chronic kidney disease with heart failure and with stage 5 chronic kidney disease, or end stage renal disease; I69.351 Hemiplegia and hemiparesis following cerebral infarction affecting right dominant side; I48.92 Unspecified atrial flutter; K31.84 Gastroparesis; D63.1 Anemia in chronic kidney disease; D69.6 Thrombocytopenia, unspecified; E11.22 Type 2 diabetes mellitus with diabetic chronic kidney disease; E11.43 Type 2 diabetes mellitus with diabetic autonomic (poly)neuropathy; E11.51 Type 2 diabetes mellitus with diabetic peripheral angiopathy without gangrene; E78.00 Pure hypercholesterolemia, unspecified; R07.89 Other chest pain; E11.42 Type 2 diabetes mellitus with diabetic polyneuropathy; I48.0 Paroxysmal atrial fibrillation; I50.9 Heart failure, unspecified; N31.9 Neuromuscular dysfunction of bladder, unspecified; Z79.01 Long term (current) use of anticoagulants; Z79.899 Other long term (current) drug therapy; Z91.14 Patient's other noncompliance with medication regimen; Z99.2 Dependence on renal dialysis; Z87.19 Personal history of other diseases of the digestive system; Z86.718 Personal history of other venous thrombosis and embolism; Z90.49 Acquired absence of other specified parts of digestive tract; Z90.5 Acquired absence of kidney; Z88.1 Allergy status to other antibiotic agents; Z89.432 Acquired absence of left foot; Z68.26 Body mass index [BMI] 26.0-26.9, adult; Z82.49 Family history of ischemic heart disease and other diseases of the circulatory system; Z83.3 Family history of diabetes mellitus
CPT/HCPCS: 36415; 71045; 74176; 78582; 80048; 80053; 80061; 82150; 82550; 82553; 82962; 83690; 83735; 83880; 84443; 84484; 85025; 85379; 85610; 87040; 93005; 93306; 93970; 96374; 96375; 99285; A9558; J0360; J1815; J2270; J2405; J2765; J3490; J7030

== ENCOUNTER 2018-06-17 14:44 | Inpatient (IN) | payer MEDICARE, MEDICAID ==
[~2018-06-17] VITALS: Ht 177.8 cm; Wt 76.4 kg
[2018-06-17] MEDS ORDERED: SODIUM CHLORIDE 0.9% 1,000 ML IV ONE (15:00)
[2018-06-17] MEDS ORDERED: MORPHINE SULFATE 4 MG/ML CPJ (NOT FOR IM USE) IV ONE (16:15)
[2018-06-17] MEDS ORDERED: MORPHINE SULFATE 2 MG/ML CPJ (NOT FOR IM USE) IV ONE (16:30)
[2018-06-17 17:28] LABS: BASOPHILS % 0.4 % (0.0-2.0); EOSINOPHILS % 0.6 % (0.0-5.0); HEMATOCRIT. 27.2 % (42.0-52.0); HEMOGLOBIN. 9.2 g/dL (14.0-18.0); LYMPHOCYTES % 19.8 % (20.0-50.0); MEAN CORPUSCULAR HEMOGLOBIN 31.4 pg (28.0-32.0); MEAN CORPUSCULAR VOLUME 93.5 fL (80.0-94.0); MEAN PLATELET VOLUME 9.2 fl (7.4-10.4); MONOCYTES % 8.8 % (2.0-8.0); NEUTROPHILS % 70.4 % (40.0-76.0); PLATELET 75 x1000/uL (130-400); RED BLOOD CELL COUNT 2.91 mill/uL (4.7-6.1); RED CELL DISTRIBUTION WIDTH 16.3 % (11.6-14.6)
[2018-06-17 17:29] LABS: CHLORIDE 104 mEq/L (98-107); INR 1.1; PROTHROMBIN TIME 11.1 sec (9.1-11.1)
[2018-06-17 21:15] VITALS: BP 177/84
[2018-06-17] MEDS ORDERED: ATOR40TA70 PO (22:11)
[2018-06-17] MEDS ORDERED: IPRATROPIUM/ALBUTEROL 0.5-3(2.5)MG/3ML NEB INH PRN (22:30)
[2018-06-17] MEDS ORDERED: DOCUSATE SODIUM 100MG CAPSULE PO PRN (22:30)
[2018-06-17] MEDS ORDERED: DIPHENHYDRAMINE 50MG/ML VIAL IV PRN (22:30)
[2018-06-17] MEDS ORDERED: MAGNESIUM/ALUMINUM HYDROXIDE/SIMETHICONE 30ML UDC PO PRN (22:30)
[2018-06-17] MEDS ORDERED: GUAIFENESIN 200MG/10ML SUGAR FREE UDC PO PRN (22:30)
[2018-06-17] MEDS ORDERED: ENOXAPARIN 40MG/0.4ML SYR SUBCUT SCH (22:30)
[2018-06-17] MEDS ORDERED: ACETAMINOPHEN 325MG TABLET PO PRN (22:30)
[2018-06-17] MEDS ORDERED: HYDROCODONE/ACETAMINOPHEN 10/325MG TABLET PO PRN (22:30)
[2018-06-17] MEDS: ONDANSETRON HCL 4MG/2ML INJ IV PRN (23:35)
[2018-06-17] MEDS: CLONIDINE 0.1MG TABLET PO PRN (23:36)
[2018-06-18] VITALS: BP 140/70
[2018-06-18 04:00] VITALS: BP 125/90
[2018-06-18] MEDS: SODIUM CHLORIDE 0.9% INJ 3ML FLUSH IVF SCH ×3 (06:11→20:45)
[2018-06-18 07:30] LABS: BASOPHILS % 0.5 % (0.0-2.0); EOSINOPHILS % 0.8 % (0.0-5.0); HEMATOCRIT. 24.6 % (42.0-52.0); HEMOGLOBIN. 8.2 g/dL (14.0-18.0); LYMPHOCYTES % 19.5 % (20.0-50.0); MEAN CORPUSCULAR HEMOGLOBIN 31.5 pg (28.0-32.0); MEAN CORPUSCULAR VOLUME 94.3 fL (80.0-94.0); MEAN PLATELET VOLUME 9.3 fl (7.4-10.4); MONOCYTES % 9.3 % (2.0-8.0); NEUTROPHILS % 69.9 % (40.0-76.0); PLATELET 79 x1000/uL (130-400); RED BLOOD CELL COUNT 2.61 mill/uL (4.7-6.1); RED CELL DISTRIBUTION WIDTH 16.7 % (11.6-14.6)
[2018-06-18 07:49] LABS: CHLORIDE 104 mEq/L (98-107)
[2018-06-18 07:58] LABS: LDL CHOLESTEROL 54 mg/dL (5-100)
[2018-06-18 07:59] LABS: T4 FREE 1.04 ng/dL (0.76-1.46)
[2018-06-18 08:00] VITALS: BP 120/49
[2018-06-18 08:00] LABS: HDL CHOLESTEROL 39 mg/dL (40-59)
[2018-06-18] MEDS: MORPHINE SULFATE 10 MG/ML CPJ IV PRN ×3 (08:29→20:45)
[2018-06-18] MEDS: ASPIRIN 81MG EC TABLET PO SCH (08:29)
[2018-06-18 12:00] VITALS: BP 126/59
[2018-06-18] MEDS: AMIODARONE HCL 200 MG TABLET PO SCH ×2 (13:00→17:00)
[2018-06-18 16:00] VITALS: BP 148/70
[2018-06-18 16:51] LABS: CREATINE KINASE MB FRACTION 7.4 ng/mL (0.5-3.6)
[2018-06-18 20:00] VITALS: BP 149/71
[2018-06-18 20:05] LABS: CLARITY URINE CLOUDY (CLEAR); COLOR URINE YELLOW (YELLOW); KETONES URINE NEGATIVE (NEGATIVE); LEUKOCYTE ESTERASE URINE 3+ (NEGATIVE); NITRITE URINE NEGATIVE (NEGATIVE); OCCULT BLOOD URINE 2+ (NEGATIVE); PH URINE 7.5 (4.5-8.0); PROTEIN URINE 3+ (NEGATIVE); SPECIFIC GRAVITY URINE 1.012 (1.005-1.030); UROBILINOGEN URINE 0.2 E.U./dL (0.2-1.0)
[2018-06-18 20:23] LABS: *AMPHETAMINES SCREEN URINE NEGATIVE (NEGATIVE); *BARBITURATES SCREEN URINE NEGATIVE (NEGATIVE); *BENZODIAZEPINES SCREEN URINE NEGATIVE (NEGATIVE); *COCAINE SCREEN URINE NEGATIVE (NEGATIVE)
[2018-06-18 20:24] LABS: CANNABINOID URINE SCREEN NEGATIVE (NEGATIVE); METHADONE URINE SCREEN NEGATIVE (NEGATIVE); OPIATES URINE SCREEN PRESUMTIVE POSITIVE (NEGATIVE); PHENCYCLIDINE URINE SCREEN NEGATIVE (NEGATIVE)
[2018-06-18] MEDS: LORAZEPAM 2MG/ML CPJ IV PRN (22:11)
[2018-06-18] MEDS: ONDANSETRON HCL 4MG/2ML INJ IV PRN (23:00)
[2018-06-19] VITALS: BP 132/58
[2018-06-19] MEDS: MORPHINE SULFATE 10 MG/ML CPJ IV PRN ×3 (02:18→20:16)
[2018-06-19 04:00] VITALS: BP 147/64
[2018-06-19] MEDS: SODIUM CHLORIDE 0.9% INJ 3ML FLUSH IVF SCH ×3 (06:28→22:00)
[2018-06-19 08:00] VITALS: BP 150/59
[2018-06-19 08:10] LABS: BASOPHILS % 0.6 % (0.0-2.0); EOSINOPHILS % 1.8 % (0.0-5.0); HEMATOCRIT. 25.6 % (42.0-52.0); HEMOGLOBIN. 8.4 g/dL (14.0-18.0); LYMPHOCYTES % 24.3 % (20.0-50.0); MEAN CORPUSCULAR VOLUME 93.9 fL (80.0-94.0); MEAN PLATELET VOLUME 9.1 fl (7.4-10.4); MONOCYTES % 10.1 % (2.0-8.0); NEUTROPHILS % 63.2 % (40.0-76.0); PLATELET 82 x1000/uL (130-400); RED BLOOD CELL COUNT 2.72 mill/uL (4.7-6.1); RED CELL DISTRIBUTION WIDTH 16.4 % (11.6-14.6)
[2018-06-19 08:43] LABS: CHLORIDE 101 mEq/L (98-107)
[2018-06-19 08:53] LABS: LDL CHOLESTEROL 55 mg/dL (5-100)
[2018-06-19 08:55] LABS: CREATINE KINASE 123 IU/L (39-308); CREATINE KINASE MB FRACTION 6.5 ng/mL (0.5-3.6)
[2018-06-19 08:57] LABS: HDL CHOLESTEROL 41 mg/dL (40-59)
[2018-06-19] MEDS: AMIODARONE HCL 200 MG TABLET PO SCH ×3 (09:00→17:36)
[2018-06-19 12:00] VITALS: BP 133/64
[2018-06-19] MEDS: ASPIRIN 81MG EC TABLET PO SCH (12:19)
[2018-06-19 16:00] VITALS: BP 130/60
[2018-06-19] MEDS: ONDANSETRON HCL 4MG/2ML INJ IV PRN (18:29)
[2018-06-19 20:03] VITALS: BP 161/67
[2018-06-19] MEDS: CLONIDINE 0.1MG TABLET PO PRN (20:16)
[2018-06-20] VITALS: BP 153/54
[2018-06-20] MEDS: LORAZEPAM 2MG/ML CPJ IV PRN ×2 (01:14→22:09)
[2018-06-20 04:00] VITALS: BP 158/69
[2018-06-20] MEDS: SODIUM CHLORIDE 0.9% INJ 3ML FLUSH IVF SCH ×3 (07:11→22:00)
[2018-06-20 08:00] VITALS: BP 153/51
[2018-06-20 08:42] LABS: BASOPHILS % 0.5 % (0.0-2.0); EOSINOPHILS % 1.4 % (0.0-5.0); HEMATOCRIT. 25.2 % (42.0-52.0); HEMOGLOBIN. 8.4 g/dL (14.0-18.0); LYMPHOCYTES % 27.5 % (20.0-50.0); MEAN CORPUSCULAR VOLUME 93.5 fL (80.0-94.0); MEAN PLATELET VOLUME 9.1 fl (7.4-10.4); MONOCYTES % 11.1 % (2.0-8.0); NEUTROPHILS % 59.5 % (40.0-76.0); PLATELET 91 x1000/uL (130-400); RED CELL DISTRIBUTION WIDTH 16.2 % (11.6-14.6)
[2018-06-20] MEDS: AMIODARONE HCL 200 MG TABLET PO SCH ×3 (09:04→17:30)
[2018-06-20] MEDS: ASPIRIN 81MG EC TABLET PO SCH (09:04)
[2018-06-20] MEDS: MORPHINE SULFATE 10 MG/ML CPJ IV PRN ×2 (09:40→20:37)
[2018-06-20 12:00] VITALS: BP 165/51
[2018-06-20 16:00] VITALS: BP 178/66
[2018-06-20 20:00] VITALS: BP 178/61
[2018-06-20] MEDS: ONDANSETRON HCL 4MG/2ML INJ IV PRN (20:30)
[2018-06-20] MEDS: CLONIDINE 0.1MG TABLET PO PRN (22:16)
[2018-06-21] VITALS (19 sets, daily range): BP systolic 145–173; BP diastolic 49–87
[2018-06-21] MEDS: SODIUM CHLORIDE 0.9% INJ 3ML FLUSH IVF SCH ×3 (06:08→21:47)
[2018-06-21 07:39] LABS: BASOPHILS % 0.6 % (0.0-2.0); EOSINOPHILS % 1.4 % (0.0-5.0); HEMATOCRIT. 26.3 % (42.0-52.0); HEMOGLOBIN. 8.6 g/dL (14.0-18.0); MEAN CORPUSCULAR HEMOGLOBIN 30.8 pg (28.0-32.0); MEAN CORPUSCULAR VOLUME 93.7 fL (80.0-94.0); MEAN PLATELET VOLUME 9.1 fl (7.4-10.4); MONOCYTES % 9.3 % (2.0-8.0); NEUTROPHILS % 61.7 % (40.0-76.0); PLATELET 95 x1000/uL (130-400); RED BLOOD CELL COUNT 2.81 mill/uL (4.7-6.1); RED CELL DISTRIBUTION WIDTH 16.3 % (11.6-14.6)
[2018-06-21] MEDS: AMIODARONE HCL 200 MG TABLET PO SCH ×3 (08:03→17:06)
[2018-06-21] MEDS: ASPIRIN 81MG EC TABLET PO SCH (08:03)
[2018-06-21] MEDS ORDERED: LIDOCAINE HCL 1% 20ML VIAL (Pyxis) INJ ONE (12:46)
[2018-06-21] MEDS ORDERED: IODIXANOL 320MG/ML 100 ML BOTTLE IV ONE (12:46)
[2018-06-21] MEDS ORDERED: ASPIRIN/SOD BICARB/CITRIC ACID 324MG TAB EFF ONE (12:51)
[2018-06-21] MEDS ORDERED: FENTANYL CITRATE/PF 50MCG/ML 2ML VIAL ONE (12:55)
[2018-06-21] MEDS ORDERED: MIDAZOLAM HCL 2 MG/2 ML VIAL ONE (12:55)
[2018-06-21] MEDS ORDERED: MORPHINE SULFATE 2 MG/ML CPJ (NOT FOR IM USE) IV PRN (13:45)
[2018-06-21] MEDS ORDERED: ATROPINE SULFATE 1MG/10ML SYR IV PRN (13:45)
[2018-06-21] MEDS ORDERED: ACETAMINOPHEN 325MG TABLET PO PRN (13:45)
[2018-06-21] MEDS ORDERED: ONDANSETRON HCL 4MG/2ML INJ IV PRN (13:45)
[2018-06-21] MEDS ORDERED: HEPARIN SODIUM 1,000 UNIT/1ML VIAL IV ONE (15:04)
[2018-06-21] MEDS ORDERED: NICARDIPINE 100MCG/ML 10ML VIAL (CATH LAB) IV ONE (15:18)
[2018-06-21] MEDS: CLONIDINE 0.1MG TABLET PO PRN (15:45)
[2018-06-21] MEDS: LEVOTHYROXINE SODIUM 25MCG TABLET PO SCH (17:00)
[2018-06-21] MEDS: MORPHINE SULFATE 10 MG/ML CPJ IV PRN (21:47)
[2018-06-22] VITALS: BP 178/78
[2018-06-22] MEDS: CLONIDINE 0.1MG TABLET PO PRN (00:57)
[2018-06-22 02:00] VITALS: BP 119/70
[2018-06-22 04:00] VITALS: BP 136/70
[2018-06-22] MEDS: MORPHINE SULFATE 10 MG/ML CPJ IV PRN (05:11)
[2018-06-22 06:00] VITALS: BP 148/58
[2018-06-22] MEDS: LEVOTHYROXINE SODIUM 25MCG TABLET PO SCH (06:03)
[2018-06-22] MEDS: SODIUM CHLORIDE 0.9% INJ 3ML FLUSH IVF SCH (06:03)
[2018-06-22 06:48] LABS: CHLORIDE 103 mEq/L (98-107)
[2018-06-22 06:52] LABS: BASOPHILS % 0.7 % (0.0-2.0); EOSINOPHILS % 1.6 % (0.0-5.0); HEMATOCRIT. 25.8 % (42.0-52.0); HEMOGLOBIN. 8.7 g/dL (14.0-18.0); LYMPHOCYTES % 27.1 % (20.0-50.0); MEAN CORPUSCULAR HEMOGLOBIN 31.3 pg (28.0-32.0); MEAN CORPUSCULAR VOLUME 92.7 fL (80.0-94.0); MEAN PLATELET VOLUME 8.9 fl (7.4-10.4); MONOCYTES % 9.1 % (2.0-8.0); NEUTROPHILS % 61.5 % (40.0-76.0); PLATELET 102 x1000/uL (130-400); RED BLOOD CELL COUNT 2.79 mill/uL (4.7-6.1); RED CELL DISTRIBUTION WIDTH 15.7 % (11.6-14.6)
[2018-06-22] MEDS: AMIODARONE HCL 200 MG TABLET PO SCH ×2 (08:23→12:32)
[2018-06-22] MEDS: ASPIRIN 81MG EC TABLET PO SCH (08:28)
[2018-06-22 13:34] VITALS: BP 139/49
[2018-06-23 10:08] LABS: DRVVT LA 60.1 sec (0.0-47.0); PTT-LA 44.9 sec (0.0-51.9)
[2018-06-24 09:06] LABS: DRVVT MIX LA 46.5 sec (0.0-47.0)
[2018-06-24 19:06] LABS: LUPUS ANTICOAG INTERPRETATION Comment: (.)
== END 2018-06-22 14:55 | disposition home or self-care (01) | DRG 286 ==
LOC: ER 15:20 → EDBEDREQ 18:55 → EDBEDREQSVC 18:55 → 7WST 18:56 → EDBEDREQ 18:57 → ENRESERV 20:08 → 7WST 23:49 → 3WST 06-21 14:24
PROVIDERS: ADMIT Internal Medicine; ATTEND Internal Medicine
PROC: 5A1D70Z Performance of Urinary Filtration, Intermittent, Less than 6 Hours Per Day (ICD-10-PCS; principal; 2018-06-18)
PROC: 5A1D70Z Performance of Urinary Filtration, Intermittent, Less than 6 Hours Per Day (ICD-10-PCS; 2018-06-19)
PROC: 5A1D70Z Performance of Urinary Filtration, Intermittent, Less than 6 Hours Per Day (ICD-10-PCS; 2018-06-20)
PROC: 4A023N7 Measurement of Cardiac Sampling and Pressure, Left Heart, Percutaneous Approach (ICD-10-PCS; 2018-06-21)
PROC: B2151ZZ Fluoroscopy of Left Heart using Low Osmolar Contrast (ICD-10-PCS; 2018-06-21)
PROC: B2111ZZ Fluoroscopy of Multiple Coronary Arteries using Low Osmolar Contrast (ICD-10-PCS; 2018-06-21)
DX: I95.3 Hypotension of hemodialysis (principal); N18.6 End stage renal disease; I13.2 Hypertensive heart and chronic kidney disease with heart failure and with stage 5 chronic kidney disease, or end stage renal disease; E46 Unspecified protein-calorie malnutrition; N39.0 Urinary tract infection, site not specified; D69.3 Immune thrombocytopenic purpura; I48.92 Unspecified atrial flutter; I69.351 Hemiplegia and hemiparesis following cerebral infarction affecting right dominant side; R07.89 Other chest pain; I25.10 Atherosclerotic heart disease of native coronary artery without angina pectoris; Z99.2 Dependence on renal dialysis; E78.5 Hyperlipidemia, unspecified; D63.8 Anemia in other chronic diseases classified elsewhere; I50.9 Heart failure, unspecified; E78.00 Pure hypercholesterolemia, unspecified; E11.22 Type 2 diabetes mellitus with diabetic chronic kidney disease; E11.51 Type 2 diabetes mellitus with diabetic peripheral angiopathy without gangrene; N31.9 Neuromuscular dysfunction of bladder, unspecified; K57.90 Diverticulosis of intestine, part unspecified, without perforation or abscess without bleeding; I48.0 Paroxysmal atrial fibrillation; H54.3 Unqualified visual loss, both eyes; Z68.24 Body mass index [BMI] 24.0-24.9, adult; Z79.899 Other long term (current) drug therapy; Z79.82 Long term (current) use of aspirin; Z88.8 Allergy status to other drugs, medicaments and biological substances; Z91.14 Patient's other noncompliance with medication regimen; Z89.432 Acquired absence of left foot; Z79.4 Long term (current) use of insulin; Z90.49 Acquired absence of other specified parts of digestive tract; I25.2 Old myocardial infarction; Z79.01 Long term (current) use of anticoagulants; Z86.718 Personal history of other venous thrombosis and embolism; Z91.19 Patient's noncompliance with other medical treatment and regimen
CPT/HCPCS: 36415; 71045; 80048; 80061; 80305; 82550; 82553; 82962; 83605; 83735; 84145; 84439; 84443; 84484; 85044; 85379; 85613; 85732; 86038; 86803; 93005; 93306; 93458; 93970; 96374; 99285; C1760; C1769; C1887; C1893; J1644; J2060; J2250; J2270; J2405; J3010; J3490; J7030; Q9967

== ENCOUNTER 2018-06-26 13:33 | Inpatient (IN) | payer MEDICARE, MEDICAID ==
[~2018-06-26] VITALS: Ht 182.9 cm; Wt 78.6 kg
[2018-06-26] VITALS (14 sets, daily range): BP systolic 132–191; BP diastolic 62–128
[~2018-06-26 13:33] MED LIST changes: -ATOR-2 PO; +ATOR40TA70 PO; -LEVO250T2 PO
[2018-06-26] MEDS ORDERED: ONDANSETRON HCL 4MG/2ML INJ IV STA (14:34)
[2018-06-26] MEDS ORDERED: NITROGLYCERIN 50MG PREMIX 250 ML IV ONE ×2 (14:45→21:30)
[2018-06-26 15:09] LABS: BG BASE EXCESS -3.1 mmol/L (-2.0-2.0); BG BILEVEL POS AIRWAY PRESSURE 15/5; BG CARBOXYHEMOGLOBIN 1.5 % (0.5-1.5); BG DEOXYHEMOGLOBIN 0.5 % (0.0-5.0); BG HCO3 ACT 22.9 mmol/L (22.0-26.0); BG METHEMOGLOBIN 0.3 % (0.0-1.5); BG OXYGEN SATURATION 99.5 % (92.0-98.5); BG OXYHEMOGLOBIN 97.7 % (94.0-97.0); BG PH 7.324 (7.350-7.450); BG PO2 533.7 mmHg (75.0-100.0); BG SAMPLE SITE LEFT BRACHIAL; BG TOTAL HEMOGLOBIN 9.9 g/dL (12.0-18.0); BG VENT MODE MASK - BIPAP; BG VENT RATE 16 set
[2018-06-26 15:26] LABS: BASOPHILS % 0.6 % (0.0-2.0); EOSINOPHILS % 0.7 % (0.0-5.0); HEMATOCRIT. 30.7 % (42.0-52.0); HEMOGLOBIN. 10.1 g/dL (14.0-18.0); LYMPHOCYTES % 13.4 % (20.0-50.0); MEAN CORPUSCULAR HEMOGLOBIN 30.3 pg (28.0-32.0); MEAN CORPUSCULAR VOLUME 92.2 fL (80.0-94.0); MEAN PLATELET VOLUME 9.2 fl (7.4-10.4); MONOCYTES % 6.2 % (2.0-8.0); NEUTROPHILS % 79.1 % (40.0-76.0); PLATELET 120 x1000/uL (130-400); RED BLOOD CELL COUNT 3.33 mill/uL (4.7-6.1); RED CELL DISTRIBUTION WIDTH 15.5 % (11.6-14.6)
[2018-06-26 15:31] LABS: CHLORIDE 105 mEq/L (98-107); INR 1.1; PARTIAL THROMBOPLASTIN TIME 30.8 sec (23.4-31.0); PROTHROMBIN TIME 11.2 sec (9.1-11.1)
[2018-06-26] MEDS ORDERED: MORPHINE SULFATE 4 MG/ML CPJ (NOT FOR IM USE) IV ONE (18:45)
[2018-06-26] MEDS ORDERED: MORPHINE SULFATE 10 MG/ML CPJ IV NR (19:00)
[2018-06-26] MEDS ORDERED: HYDROCODONE/ACETAMINOPHEN 5/325MG TABLET PO PRN (21:00)
[2018-06-26] MEDS ORDERED: DOCUSATE SODIUM 100MG CAPSULE PO PRN (21:00)
[2018-06-26] MEDS ORDERED: ACETAMINOPHEN 325MG TABLET PO PRN (21:00)
[2018-06-26] MEDS ORDERED: PHENYLEPHRINE 40 MG in DEXT 5% WATER 246 ML IV PRN ×4 (22:45)
[2018-06-26] MEDS: ONDANSETRON HCL 4MG/2ML INJ IV PRN (23:14)
[2018-06-26] MEDS ORDERED: KETOROLAC 15MG/ML VIAL IV PRN (23:15)
[2018-06-27] VITALS (91 sets, daily range): BP systolic 127–216; BP diastolic 32–134
[2018-06-27] MEDS: NITROGLYCERIN 50MG PREMIX 250 ML IV PRN ×4 (03:08→17:15)
[2018-06-27] MEDS: DIPHENHYDRAMINE 50MG/ML VIAL IV PRN (03:08)
[2018-06-27] MEDS: CLONIDINE 0.1MG TABLET PO PRN (03:14)
[2018-06-27] MEDS: ONDANSETRON HCL 4MG/2ML INJ IV PRN ×3 (05:31→19:35)
[2018-06-27] MEDS ORDERED: HYDRALAZINE HCL 100MG TABLET PO NR (05:45)
[2018-06-27 06:43] LABS: BASOPHILS % 0.3 % (0.0-2.0); EOSINOPHILS % 0.4 % (0.0-5.0); HEMATOCRIT. 24.9 % (42.0-52.0); LYMPHOCYTES % 9.9 % (20.0-50.0); MEAN CORPUSCULAR HEMOGLOBIN 30.6 pg (28.0-32.0); MEAN CORPUSCULAR VOLUME 95.8 fL (80.0-94.0); MEAN PLATELET VOLUME 9.6 fl (7.4-10.4); MONOCYTES % 6.8 % (2.0-8.0); NEUTROPHILS % 82.6 % (40.0-76.0); PLATELET 96 x1000/uL (130-400)
[2018-06-27 07:05] LABS: CHLORIDE 90 mEq/L (98-107)
[2018-06-27 07:42] LABS: PHOSPHORUS 3.8 mg/dL (2.5-4.9)
[2018-06-27] MEDS ORDERED: HYDROMORPHONE HCL/PF 2MG/ML CPJ IV PRN (08:30)
[2018-06-27 09:48] LABS: HEMOGLOBIN 8.9 g/dL (14.0-18.0)
[2018-06-27] MEDS: HYDRALAZINE HCL 25MG TABLET PO SCH ×2 (09:52→20:21)
[2018-06-27] MEDS: DEXT 5%/0.9% NACL 1,000 ML IV SCH (09:52)
[2018-06-27] MEDS ORDERED: INFLUENZA VIRUS VACCINE(AFLURIA) 0.5ML SYR IM ONE (10:00)
[2018-06-27] MEDS: METOCLOPRAMIDE HCL 10MG/2ML VIAL IV SCH ×2 (11:45→17:15)
[2018-06-27] MEDS: LOSARTAN POTASSIUM 50 MG TABLET PO SCH ×2 (13:22→20:21)
[2018-06-28] VITALS (63 sets, daily range): BP systolic 98–192; BP diastolic 40–120
[2018-06-28] MEDS: METOCLOPRAMIDE HCL 10MG/2ML VIAL IV SCH ×4 (00:15→21:21)
[2018-06-28] MEDS: NITROGLYCERIN 50MG PREMIX 250 ML IV PRN (02:14)
[2018-06-28 06:55] LABS: BASOPHILS % 0.3 % (0.0-2.0); EOSINOPHILS % 0.8 % (0.0-5.0); HEMATOCRIT. 25.5 % (42.0-52.0); HEMOGLOBIN. 8.5 g/dL (14.0-18.0); LYMPHOCYTES % 23.8 % (20.0-50.0); MEAN CORPUSCULAR HEMOGLOBIN 30.5 pg (28.0-32.0); MEAN CORPUSCULAR VOLUME 91.3 fL (80.0-94.0); MEAN PLATELET VOLUME 9.4 fl (7.4-10.4); MONOCYTES % 8.2 % (2.0-8.0); NEUTROPHILS % 66.9 % (40.0-76.0); PLATELET 111 x1000/uL (130-400); RED BLOOD CELL COUNT 2.79 mill/uL (4.7-6.1); RED CELL DISTRIBUTION WIDTH 15.6 % (11.6-14.6)
[2018-06-28 07:21] LABS: PHOSPHORUS 6.3 mg/dL (2.5-4.9)
[2018-06-28] MEDS: DEXT 5%/0.9% NACL 1,000 ML IV SCH (08:30)
[2018-06-28] MEDS ORDERED: NICARDIPINE 50 MG in SODIUM CHLORIDE 0.9% 230 ML IV SCH (09:00)
[2018-06-28] MEDS: LOSARTAN POTASSIUM 50 MG TABLET PO SCH ×2 (10:38→22:07)
[2018-06-28] MEDS: HYDRALAZINE HCL 25MG TABLET PO SCH (10:38)
[2018-06-28] MEDS: ONDANSETRON HCL 4MG/2ML INJ IV PRN (12:00)
[2018-06-28] MEDS: HYDRALAZINE HCL 100MG TABLET PO SCH ×2 (13:05→22:07)
[2018-06-28] MEDS ORDERED: EPOETIN ALFA 4000UNITS/ML VIAL SUBCUT SCH (21:00)
[2018-06-29] VITALS (42 sets, daily range): BP systolic 102–177; BP diastolic 43–99
[2018-06-29] MEDS: METOCLOPRAMIDE HCL 10MG/2ML VIAL IV SCH ×5 (00:26→23:37)
[2018-06-29] MEDS: DIPHENHYDRAMINE 50MG/ML VIAL IV PRN (00:27)
[2018-06-29] MEDS: HYDRALAZINE HCL 100MG TABLET PO SCH ×3 (05:57→22:07)
[2018-06-29 07:07] LABS: BASOPHILS % 0.4 % (0.0-2.0); EOSINOPHILS % 0.8 % (0.0-5.0); HEMATOCRIT. 30.2 % (42.0-52.0); LYMPHOCYTES % 16.2 % (20.0-50.0); MEAN CORPUSCULAR HEMOGLOBIN 31.1 pg (28.0-32.0); MEAN CORPUSCULAR VOLUME 90.6 fL (80.0-94.0); MEAN PLATELET VOLUME 9.8 fl (7.4-10.4); MONOCYTES % 9.9 % (2.0-8.0); NEUTROPHILS % 72.7 % (40.0-76.0); PLATELET 115 x1000/uL (130-400); RED BLOOD CELL COUNT 3.33 mill/uL (4.7-6.1); RED CELL DISTRIBUTION WIDTH 15.9 % (11.6-14.6)
[2018-06-29 07:20] LABS: HEMOGLOBIN. 10.3 g/dL (14.0-18.0)
[2018-06-29] MEDS ORDERED: LACTULOSE 20G/30ML UDC PO NR (09:00)
[2018-06-29] MEDS: LOSARTAN POTASSIUM 50 MG TABLET PO SCH ×2 (09:01→21:11)
[2018-06-29] MEDS: ONDANSETRON HCL 4MG/2ML INJ IV PRN ×2 (09:30→16:11)
[2018-06-29] MEDS: DEXT 5%/0.9% NACL 1,000 ML IV SCH (17:24)
[2018-06-30] VITALS (20 sets, daily range): BP systolic 118–201; BP diastolic 65–107
[2018-06-30] MEDS: ONDANSETRON HCL 4MG/2ML INJ IV PRN ×3 (02:02→14:10)
[2018-06-30] MEDS: CLONIDINE 0.1MG TABLET PO PRN (02:09)
[2018-06-30] MEDS: HYDRALAZINE HCL 100MG TABLET PO SCH ×3 (05:24→14:00)
[2018-06-30] MEDS: METOCLOPRAMIDE HCL 10MG/2ML VIAL IV SCH ×2 (05:25→12:29)
[2018-06-30 06:15] LABS: BASOPHILS % 0.3 % (0.0-2.0); EOSINOPHILS % 0.9 % (0.0-5.0); HEMATOCRIT. 29.7 % (42.0-52.0); HEMOGLOBIN. 9.9 g/dL (14.0-18.0); LYMPHOCYTES % 12.3 % (20.0-50.0); MEAN CORPUSCULAR HEMOGLOBIN 30.4 pg (28.0-32.0); MEAN PLATELET VOLUME 9.3 fl (7.4-10.4); MONOCYTES % 9.1 % (2.0-8.0); NEUTROPHILS % 77.4 % (40.0-76.0); PLATELET 119 x1000/uL (130-400); RED BLOOD CELL COUNT 3.26 mill/uL (4.7-6.1); RED CELL DISTRIBUTION WIDTH 15.5 % (11.6-14.6)
[2018-06-30] MEDS: LOSARTAN POTASSIUM 50 MG TABLET PO SCH (10:27)
== END 2018-06-30 18:00 | disposition home or self-care (01) | DRG 291 ==
LOC: ER 13:47 → CVICU 14:40 → EDBEDREQ 14:41 → ENRESERV 20:58
PROVIDERS: ADMIT Hospitalist; ATTEND Hospitalist
PROC: 5A1D70Z Performance of Urinary Filtration, Intermittent, Less than 6 Hours Per Day (ICD-10-PCS; principal; 2018-06-26)
PROC: 5A09357 Assistance with Respiratory Ventilation, Less than 24 Consecutive Hours, Continuous Positive Airway Pressure (ICD-10-PCS; 2018-06-26)
PROC: 5A1D70Z Performance of Urinary Filtration, Intermittent, Less than 6 Hours Per Day (ICD-10-PCS; 2018-06-28)
PROC: 5A1D70Z Performance of Urinary Filtration, Intermittent, Less than 6 Hours Per Day (ICD-10-PCS; 2018-06-30)
DX: I13.2 Hypertensive heart and chronic kidney disease with heart failure and with stage 5 chronic kidney disease, or end stage renal disease (principal); J96.00 Acute respiratory failure, unspecified whether with hypoxia or hypercapnia; I50.33 Acute on chronic diastolic (congestive) heart failure; N18.6 End stage renal disease; E87.1 Hypo-osmolality and hyponatremia; I16.0 Hypertensive urgency; E87.5 Hyperkalemia; E11.22 Type 2 diabetes mellitus with diabetic chronic kidney disease; E11.51 Type 2 diabetes mellitus with diabetic peripheral angiopathy without gangrene; D64.9 Anemia, unspecified; I48.91 Unspecified atrial fibrillation; N31.9 Neuromuscular dysfunction of bladder, unspecified; R07.9 Chest pain, unspecified; W18.30XA Fall on same level, unspecified, initial encounter; Y93.89 Activity, other specified; Y92.89 Other specified places as the place of occurrence of the external cause; Y99.8 Other external cause status; Z90.5 Acquired absence of kidney; Z89.432 Acquired absence of left foot; Z99.2 Dependence on renal dialysis; Z88.1 Allergy status to other antibiotic agents; Z79.82 Long term (current) use of aspirin; Z79.899 Other long term (current) drug therapy; Z90.49 Acquired absence of other specified parts of digestive tract
CPT/HCPCS: 36415; 36600; 71045; 80048; 82375; 82805; 82962; 83605; 83735; 83880; 84100; 84484; 85014; 85018; 86850; 86900; 90686; 93005; 93970; 94660; 96365; 96366; 96375; 99285; J0885; J1200; J1885; J2270; J2405; J2765; J3490; J7042; J7050; A4315

== ENCOUNTER 2018-08-21 21:03 | Inpatient (IN) | payer MEDICARE, MEDICAID ==
[~2018-08-21] VITALS: Ht 177.8 cm; Wt 83.9 kg
[~2018-08-21 21:03] MED LIST changes: -LOSA50TA20 PO
[2018-08-22] MEDS ORDERED: ONDANSETRON HCL 4MG/2ML INJ IV ONE (01:15)
[2018-08-22 02:02] LABS: BASOPHILS % 0.6 % (0.0-2.0); EOSINOPHILS % 0.9 % (0.0-5.0); HEMATOCRIT. 38.1 % (42.0-52.0); HEMOGLOBIN. 12.2 g/dL (14.0-18.0); MEAN CORPUSCULAR HEMOGLOBIN 29.5 pg (28.0-32.0); MEAN CORPUSCULAR VOLUME 92.2 fL (80.0-94.0); MEAN PLATELET VOLUME 9.1 fl (7.4-10.4); MONOCYTES % 8.5 % (2.0-8.0); PLATELET 124 x1000/uL (130-400); RED BLOOD CELL COUNT 4.14 mill/uL (4.7-6.1)
[2018-08-22 02:06] LABS: CHLORIDE 107 mEq/L (98-107)
[2018-08-22 02:07] LABS: INR 1.1; PROTHROMBIN TIME 10.7 sec (9.1-11.1)
[2018-08-22 04:42] LABS: CLARITY URINE TURBID (CLEAR); COLOR URINE YELLOW (YELLOW); KETONES URINE NEGATIVE (NEGATIVE); LEUKOCYTE ESTERASE URINE 3+ (NEGATIVE); NITRITE URINE NEGATIVE (NEGATIVE); OCCULT BLOOD URINE 3+ (NEGATIVE); PH URINE 7.5 (4.5-8.0); PROTEIN URINE 4+ (NEGATIVE); SPECIFIC GRAVITY URINE 1.014 (1.005-1.030); UROBILINOGEN URINE 0.2 E.U./dL (0.2-1.0)
[2018-08-22] MEDS ORDERED: HYDROCODONE/ACETAMINOPHEN 5/325MG TABLET PO ONE (05:00)
[2018-08-22] MEDS ORDERED: LEVOFLOXACIN 500MG PREMIX 100 ML IV ONE (05:00)
[2018-08-22] MEDS: HYDROCODONE/ACETAMINOPHEN 10/325MG TABLET PO PRN ×3 (12:20→18:23)
[2018-08-22] MEDS: CLONIDINE 0.1MG TABLET PO PRN (12:20)
[2018-08-22] MEDS ORDERED: KETOROLAC 30MG/ML VIAL IV PRN (17:00)
[2018-08-22] MEDS ORDERED: DEXTROSE 50% WATER 50ML SYRINGE IV PRN (17:00)
[2018-08-22] MEDS: BLOOD SUGAR DIAGNOSTIC STRIP TEST SCH ×2 (17:20→20:23)
[2018-08-22 17:32] VITALS: BP 157/70
[2018-08-22] MEDS: INSULIN LISPRO 100 UNITS/ML SUBCUT SCH ×2 (17:50→22:36)
[2018-08-22 18:00] VITALS: BP 157/70
[2018-08-22] MEDS: SEVELAMER CARBONATE 800 MG TABLET PO SCH (18:23)
[2018-08-22] MEDS: METOCLOPRAMIDE HCL 5MG TABLET PO SCH ×2 (18:23→20:55)
[2018-08-22] MEDS: LOSARTAN POTASSIUM 50 MG TABLET PO SCH (18:23)
[2018-08-22 20:00] VITALS: BP 160/86
[2018-08-22] MEDS: ATORVASTATIN CALCIUM 40MG TABLET PO SCH (20:55)
[2018-08-22] MEDS: GABAPENTIN 300MG CAPSULE PO SCH (20:55)
[2018-08-23] VITALS (7 sets, daily range): BP systolic 110–172; BP diastolic 63–82
[2018-08-23] MEDS: HYDROCODONE/ACETAMINOPHEN 10/325MG TABLET PO PRN ×2 (04:38→20:15)
[2018-08-23 05:56] LABS: INR 1.1; PARTIAL THROMBOPLASTIN TIME 32.6 sec (23.4-31.0); PROTHROMBIN TIME 11.2 sec (9.1-11.1)
[2018-08-23 06:31] LABS: HEMATOCRIT. 36.1 % (42.0-52.0); HEMOGLOBIN. 11.5 g/dL (14.0-18.0); MEAN CORPUSCULAR HEMOGLOBIN 29.2 pg (28.0-32.0); MEAN CORPUSCULAR VOLUME 91.9 fL (80.0-94.0); PLATELET 117 x1000/uL (130-400); RED BLOOD CELL COUNT 3.93 mill/uL (4.7-6.1); RED CELL DISTRIBUTION WIDTH 16.3 % (11.6-14.6)
[2018-08-23] MEDS: METOCLOPRAMIDE HCL 5MG TABLET PO SCH ×4 (06:39→20:13)
[2018-08-23] MEDS: BLOOD SUGAR DIAGNOSTIC STRIP TEST SCH ×4 (06:42→20:18)
[2018-08-23] MEDS: SEVELAMER CARBONATE 800 MG TABLET PO SCH ×3 (06:53→17:19)
[2018-08-23] MEDS ORDERED: INSULIN REGULAR (HUMULIN R) UD 100 UNITS/ML SYR IV NR (07:45)
[2018-08-23] MEDS ORDERED: DEXTROSE 50% WATER 50ML SYRINGE IV NR (07:45)
[2018-08-23] MEDS ORDERED: SODIUM BICARBONATE 8.4% 1 MEQ/ML 50ML SYR IV NR (07:45)
[2018-08-23] MEDS: INSULIN LISPRO 100 UNITS/ML SUBCUT SCH ×4 (07:50→20:19)
[2018-08-23] MEDS: LOSARTAN POTASSIUM 50 MG TABLET PO SCH ×2 (08:20→17:00)
[2018-08-23] MEDS: ISOSORBIDE MONONITRATE 60MG TABLET SR 24HR PO SCH (08:21)
[2018-08-23 12:54] LABS: PLATELET ESTIMATE DECREASED
[2018-08-23] MEDS ORDERED: ONDANSETRON HCL 4MG/2ML INJ IV PRN (16:45)
[2018-08-23] MEDS: DILTIAZEM HCL 5MG/ML 5ML VIAL IV NR ×3 (17:17→17:45)
[2018-08-23] MEDS: CLONIDINE 0.1MG TABLET PO PRN (20:13)
[2018-08-23] MEDS: ATORVASTATIN CALCIUM 40MG TABLET PO SCH (20:13)
[2018-08-23] MEDS: GABAPENTIN 300MG CAPSULE PO SCH (20:13)
[2018-08-24] VITALS (26 sets, daily range): BP systolic 141–194; BP diastolic 59–90
[2018-08-24] MEDS ORDERED: LEVOFLOXACIN 250MG PREMIX 50 ML IV SCH ×2 (05:00→08:00)
[2018-08-24] MEDS: METOCLOPRAMIDE HCL 5MG TABLET PO SCH ×2 (06:57→12:26)
[2018-08-24] MEDS: BLOOD SUGAR DIAGNOSTIC STRIP TEST SCH ×2 (06:58→12:26)
[2018-08-24] MEDS: INSULIN LISPRO 100 UNITS/ML SUBCUT SCH ×2 (06:59→12:26)
[2018-08-24] MEDS ORDERED: DEXT 5%/0.45% NACL 1000ML 1,000 ML IV SCH (07:30)
[2018-08-24] MEDS: SEVELAMER CARBONATE 800 MG TABLET PO SCH ×2 (07:50→12:26)
[2018-08-24 08:06] LABS: HEMOGLOBIN 10.5 g/dL (14.0-18.0); MEAN CORPUSCULAR HEMOGLOBIN 29.1 pg (28.0-32.0); MEAN CORPUSCULAR VOLUME 91.4 fL (80.0-94.0); PLATELET 101 x1000/uL (130-400); RED BLOOD CELL COUNT 3.61 mill/uL (4.7-6.1); RED CELL DISTRIBUTION WIDTH 16.3 % (11.6-14.6)
[2018-08-24] MEDS: LOSARTAN POTASSIUM 50 MG TABLET PO SCH (09:00)
[2018-08-24] MEDS ORDERED: LIDOCAINE HCL 1% 20ML VIAL (Pyxis) INJ ONE (09:42)
[2018-08-24] MEDS ORDERED: SODIUM BICARBONATE 4% (2.4MEQ) 5ML VIAL IV ONE (09:42)
[2018-08-24] MEDS ORDERED: IOHEXOL-300 100 ML BOTTLE ONE (09:42)
[2018-08-24] MEDS ORDERED: HEPARIN 1000 UNITS/ML 10ML ONE (09:42)
[2018-08-24] MEDS ORDERED: FENTANYL CITRATE/PF 50MCG/ML 2ML VIAL ONE (10:14)
[2018-08-24] MEDS ORDERED: HEPARIN 5000 UNITS/ML VIAL IV ONE (11:00)
[2018-08-24] MEDS ORDERED: FENTANYL CITRATE/PF 50MCG/ML 2ML VIAL IV NR (11:15)
[2018-08-24] MEDS: ISOSORBIDE MONONITRATE 60MG TABLET SR 24HR PO SCH (12:26)
== END 2018-08-24 16:50 | disposition home or self-care (01) | DRG 270 ==
LOC: ER 21:11 → ENRESERV 08-22 16:13 → 6EST 08-22 17:00 → 6WST 08-23 09:40
PROVIDERS: ADMIT Internal Medicine; ATTEND Internal Medicine
PROC: 5A1D70Z Performance of Urinary Filtration, Intermittent, Less than 6 Hours Per Day (ICD-10-PCS; principal; 2018-08-23)
PROC: 05C Upper Veins, Extirpation (ICD-10-PCS; 2018-08-24)
PROC: 027V3ZZ Dilation of Superior Vena Cava, Percutaneous Approach (ICD-10-PCS; 2018-08-24)
PROC: 05793DZ Dilation of Right Brachial Vein with Intraluminal Device, Percutaneous Approach (ICD-10-PCS; 2018-08-24)
PROC: 057D3DZ Dilation of Right Cephalic Vein with Intraluminal Device, Percutaneous Approach (ICD-10-PCS; 2018-08-24)
PROC: B51M1ZZ Fluoroscopy of Right Upper Extremity Veins using Low Osmolar Contrast (ICD-10-PCS; 2018-08-24)
PROC: B5181ZZ Fluoroscopy of Superior Vena Cava using Low Osmolar Contrast (ICD-10-PCS; 2018-08-24)
PROC: B51W1ZZ Fluoroscopy of Dialysis Shunt/Fistula using Low Osmolar Contrast (ICD-10-PCS; 2018-08-24)
PROC: B31H1ZZ Fluoroscopy of Right Upper Extremity Arteries using Low Osmolar Contrast (ICD-10-PCS; 2018-08-24)
DX: T82.868A Thrombosis due to vascular prosthetic devices, implants and grafts, initial encounter (principal); A41.9 Sepsis, unspecified organism; N18.6 End stage renal disease; N39.0 Urinary tract infection, site not specified; I13.2 Hypertensive heart and chronic kidney disease with heart failure and with stage 5 chronic kidney disease, or end stage renal disease; E44.0 Moderate protein-calorie malnutrition; I69.351 Hemiplegia and hemiparesis following cerebral infarction affecting right dominant side; I69.354 Hemiplegia and hemiparesis following cerebral infarction affecting left non-dominant side; J98.11 Atelectasis; I48.92 Unspecified atrial flutter; T82.858A Stenosis of other vascular prosthetic devices, implants and grafts, initial encounter; E11.22 Type 2 diabetes mellitus with diabetic chronic kidney disease; E11.51 Type 2 diabetes mellitus with diabetic peripheral angiopathy without gangrene; E87.5 Hyperkalemia; I50.9 Heart failure, unspecified; I48.0 Paroxysmal atrial fibrillation; E11.40 Type 2 diabetes mellitus with diabetic neuropathy, unspecified; N31.9 Neuromuscular dysfunction of bladder, unspecified; Z99.2 Dependence on renal dialysis; Z79.01 Long term (current) use of anticoagulants; Z89.432 Acquired absence of left foot; Z91.14 Patient's other noncompliance with medication regimen; Z87.440 Personal history of urinary (tract) infections; Z82.49 Family history of ischemic heart disease and other diseases of the circulatory system; Z83.3 Family history of diabetes mellitus; Z90.5 Acquired absence of kidney; Z88.1 Allergy status to other antibiotic agents; Z68.26 Body mass index [BMI] 26.0-26.9, adult; Z90.49 Acquired absence of other specified parts of digestive tract; Z79.899 Other long term (current) drug therapy; Y83.2 Surgical operation with anastomosis, bypass or graft as the cause of abnormal reaction of the patient, or of later complication, without mention of misadventure at the time of the procedure; Y92.89 Other specified places as the place of occurrence of the external cause
CPT/HCPCS: 36415; 36906; 36907; 71045; 76937; 80048; 82962; 85027; 87077; 87186; 93005; 96374; 96375; 99152; 99153; 99285; C1725; C1769; C1876; C2630; J1644; J1815; J1885; J1956; J2405; J3010; J3490; J8597; Q9967; G0500

== ENCOUNTER 2018-08-27 06:26 | Inpatient (IN) | payer MEDICARE, MEDICAID ==
[~2018-08-27] VITALS: Ht 172.7 cm; Wt 80.9 kg
[2018-08-27] MEDS: IPRATROPIUM/ALBUTEROL 0.5-3(2.5)MG/3ML NEB HHN SCH (01:15)
[2018-08-27 07:43] LABS: BG BASE EXCESS -5.2 mmol/L (-2.0-2.0); BG BILEVEL POS AIRWAY PRESSURE 15/5; BG CARBOXYHEMOGLOBIN 2.5 % (0.5-1.5); BG HCO3 ACT 19.3 mmol/L (22.0-26.0); BG METHEMOGLOBIN 0.3 % (0.0-1.5); BG OXYGEN SATURATION 94.9 % (92.0-98.5); BG OXYHEMOGLOBIN 92.2 % (94.0-97.0); BG PCO2 33.9 mmHg (35.0-45.0); BG PH 7.373 (7.350-7.450); BG PO2 81.9 mmHg (75.0-100.0); BG SAMPLE SITE LEFT RADIAL; BG TOTAL HEMOGLOBIN 10.1 g/dL (12.0-18.0); BG VENT MODE MASK - BIPAP; BG VENT RATE 16 set
[2018-08-27 08:45] LABS: HEMATOCRIT. 30.9 % (42.0-52.0); HEMOGLOBIN. 10.2 g/dL (14.0-18.0); MEAN CORPUSCULAR HEMOGLOBIN 29.8 pg (28.0-32.0); MEAN CORPUSCULAR VOLUME 90.1 fL (80.0-94.0); MEAN PLATELET VOLUME 9.4 fl (7.4-10.4); PLATELET 106 x1000/uL (130-400); RED BLOOD CELL COUNT 3.44 mill/uL (4.7-6.1)
[2018-08-27 08:49] LABS: CHLORIDE 103 mEq/L (98-107)
[2018-08-27 09:38] LABS: PLATELET ESTIMATE DECREASED
[2018-08-27] MEDS ORDERED: DEXTROSE 50% WATER 50ML SYRINGE IV ONE (10:00)
[2018-08-27] MEDS ORDERED: CALCIUM GLUCONATE 100MG/ML 10ML VIAL IV ONE (10:00)
[2018-08-27] MEDS ORDERED: SODIUM BICARBONATE 8.4% 1 MEQ/ML 50ML SYR IV ONE (10:00)
[2018-08-27] MEDS ORDERED: INSULIN REGULAR (HUMULIN R) 300UNITS/3ML IV ONE (10:00)
[2018-08-27] MEDS ORDERED: IPRATROPIUM/ALBUTEROL 0.5-3(2.5)MG/3ML NEB HHN PRN (15:00)
[2018-08-27] MEDS ORDERED: MORPHINE SULFATE 4 MG/ML CPJ (NOT FOR IM USE) IV NR (15:00)
[2018-08-27] MEDS: ONDANSETRON HCL 4MG/2ML INJ IV PRN (15:26)
[2018-08-27] MEDS ORDERED: IPRATROPIUM/ALBUTEROL 0.5-3(2.5)MG/3ML NEB INH PRN (17:45)
[2018-08-27] MEDS ORDERED: ACETAMINOPHEN 325MG TABLET PO PRN (17:45)
[2018-08-27] MEDS ORDERED: GUAIFENESIN 200MG/10ML SUGAR FREE UDC PO PRN (17:45)
[2018-08-27] MEDS ORDERED: DEXTROSE 50% WATER 50ML SYRINGE IV PRN (17:45)
[2018-08-27] MEDS ORDERED: CLONIDINE 0.1MG TABLET PO PRN (17:45)
[2018-08-27] MEDS ORDERED: DIPHENHYDRAMINE 50MG/ML VIAL IV PRN (17:45)
[2018-08-27 18:07] VITALS: BP 156/84
[2018-08-27 20:00] VITALS: BP 155/88
[2018-08-27] MEDS: INSULIN LISPRO 100 UNITS/ML SUBCUT SCH (21:00)
[2018-08-27] MEDS: BLOOD SUGAR DIAGNOSTIC STRIP TEST SCH (21:00)
[2018-08-27] MEDS: SODIUM CHLORIDE 0.9% INJ 3ML FLUSH IVF SCH (22:00)
[2018-08-27 22:01] VITALS: BP 134/69
[2018-08-28] VITALS (16 sets, daily range): BP systolic 133–184; BP diastolic 61–97
[2018-08-28] MEDS: ONDANSETRON HCL 4MG/2ML INJ IV PRN ×2 (00:40→00:41)
[2018-08-28] MEDS: HYDROMORPHONE HCL/PF 2MG/ML CPJ IM PRN ×4 (01:00→20:11)
[2018-08-28] MEDS: BLOOD SUGAR DIAGNOSTIC STRIP TEST SCH ×4 (06:14→20:12)
[2018-08-28] MEDS: INSULIN LISPRO 100 UNITS/ML SUBCUT SCH ×4 (06:14→21:00)
[2018-08-28] MEDS ORDERED: CALCIUM ACETATE 667MG CAPSULE PO SCH (07:20)
[2018-08-28 07:27] LABS: BASOPHILS % 0.6 % (0.0-2.0); EOSINOPHILS % 0.9 % (0.0-5.0); HEMATOCRIT. 32.3 % (42.0-52.0); HEMOGLOBIN. 10.6 g/dL (14.0-18.0); LYMPHOCYTES % 12.1 % (20.0-50.0); MEAN CORPUSCULAR HEMOGLOBIN 29.5 pg (28.0-32.0); MEAN PLATELET VOLUME 9.2 fl (7.4-10.4); MONOCYTES % 8.6 % (2.0-8.0); NEUTROPHILS % 77.8 % (40.0-76.0); PLATELET 95 x1000/uL (130-400); RED BLOOD CELL COUNT 3.59 mill/uL (4.7-6.1)
[2018-08-28 07:36] LABS: CHLORIDE 103 mEq/L (98-107)
[2018-08-28] MEDS: ISOSORBIDE MONONITRATE 60MG TABLET SR 24HR PO SCH (08:36)
[2018-08-28] MEDS: LOSARTAN POTASSIUM 50 MG TABLET PO SCH ×2 (08:36→16:36)
[2018-08-28] MEDS: ASPIRIN 81MG EC TABLET PO SCH (08:36)
[2018-08-28] MEDS: SEVELAMER CARBONATE 800 MG TABLET PO SCH ×3 (08:36→16:36)
[2018-08-28] MEDS: IPRATROPIUM/ALBUTEROL 0.5-3(2.5)MG/3ML NEB HHN SCH ×3 (09:42→21:30)
[2018-08-28] MEDS: LEVOFLOXACIN 250MG TABLET PO SCH (11:11)
[2018-08-28] MEDS: SODIUM CHLORIDE 0.9% INJ 3ML FLUSH IVF SCH (20:12)
[2018-08-28] MEDS: LORAZEPAM 0.5MG TABLET PO PRN (23:32)
[2018-08-29] VITALS (11 sets, daily range): BP systolic 124–160; BP diastolic 59–82
[2018-08-29] MEDS: IPRATROPIUM/ALBUTEROL 0.5-3(2.5)MG/3ML NEB HHN SCH ×4 (02:48→22:17)
[2018-08-29 05:58] LABS: BASOPHILS % 0.2 % (0.0-2.0); EOSINOPHILS % 1.3 % (0.0-5.0); HEMATOCRIT. 27.2 % (42.0-52.0); HEMOGLOBIN. 8.8 g/dL (14.0-18.0); LYMPHOCYTES % 17.8 % (20.0-50.0); MEAN CORPUSCULAR HEMOGLOBIN 29.1 pg (28.0-32.0); MEAN CORPUSCULAR VOLUME 89.9 fL (80.0-94.0); MEAN PLATELET VOLUME 9.1 fl (7.4-10.4); MONOCYTES % 10.9 % (2.0-8.0); NEUTROPHILS % 69.8 % (40.0-76.0); PLATELET 105 x1000/uL (130-400); RED BLOOD CELL COUNT 3.03 mill/uL (4.7-6.1); RED CELL DISTRIBUTION WIDTH 15.8 % (11.6-14.6)
[2018-08-29 06:06] LABS: CHLORIDE 99 mEq/L (98-107)
[2018-08-29] MEDS: INSULIN LISPRO 100 UNITS/ML SUBCUT SCH ×4 (06:36→21:00)
[2018-08-29] MEDS: SODIUM CHLORIDE 0.9% INJ 3ML FLUSH IVF SCH ×4 (06:36→21:27)
[2018-08-29] MEDS: BLOOD SUGAR DIAGNOSTIC STRIP TEST SCH ×4 (06:36→21:24)
[2018-08-29] MEDS: SEVELAMER CARBONATE 800 MG TABLET PO SCH ×3 (09:03→17:28)
[2018-08-29] MEDS: ASPIRIN 81MG EC TABLET PO SCH (09:03)
[2018-08-29] MEDS: LOSARTAN POTASSIUM 50 MG TABLET PO SCH ×2 (09:03→17:28)
[2018-08-29] MEDS: HYDROMORPHONE HCL/PF 2MG/ML CPJ IM PRN ×3 (09:04→22:16)
[2018-08-29] MEDS: ISOSORBIDE MONONITRATE 60MG TABLET SR 24HR PO SCH (09:04)
[2018-08-29] MEDS: ONDANSETRON HCL 4MG/2ML INJ IV PRN ×2 (17:28→22:38)
[2018-08-30] VITALS (14 sets, daily range): BP systolic 127–167; BP diastolic 53–95
[2018-08-30] MEDS: IPRATROPIUM/ALBUTEROL 0.5-3(2.5)MG/3ML NEB HHN SCH ×3 (02:04→13:44)
[2018-08-30] MEDS: SODIUM CHLORIDE 0.9% INJ 3ML FLUSH IVF SCH ×3 (06:09→21:23)
[2018-08-30] MEDS: BLOOD SUGAR DIAGNOSTIC STRIP TEST SCH ×4 (06:46→21:22)
[2018-08-30 06:58] LABS: BASOPHILS % 0.4 % (0.0-2.0); EOSINOPHILS % 1.1 % (0.0-5.0); HEMOGLOBIN. 9.6 g/dL (14.0-18.0); LYMPHOCYTES % 14.3 % (20.0-50.0); MEAN CORPUSCULAR HEMOGLOBIN 31.4 pg (28.0-32.0); MEAN CORPUSCULAR VOLUME 91.5 fL (80.0-94.0); MONOCYTES % 10.7 % (2.0-8.0); NEUTROPHILS % 73.5 % (40.0-76.0); PLATELET 116 x1000/uL (130-400); RED BLOOD CELL COUNT 3.06 mill/uL (4.7-6.1); RED CELL DISTRIBUTION WIDTH 15.8 % (11.6-14.6)
[2018-08-30] MEDS: INSULIN LISPRO 100 UNITS/ML SUBCUT SCH ×4 (07:20→21:00)
[2018-08-30] MEDS: HYDROMORPHONE HCL/PF 2MG/ML CPJ IM PRN (08:07)
[2018-08-30] MEDS: ISOSORBIDE MONONITRATE 60MG TABLET SR 24HR PO SCH (08:07)
[2018-08-30] MEDS: ASPIRIN 81MG EC TABLET PO SCH (08:07)
[2018-08-30] MEDS: LOSARTAN POTASSIUM 50 MG TABLET PO SCH ×2 (08:08→17:49)
[2018-08-30] MEDS: SEVELAMER CARBONATE 800 MG TABLET PO SCH ×3 (08:08→17:49)
[2018-08-30] MEDS: ONDANSETRON HCL 4MG/2ML INJ IV PRN (10:06)
[2018-08-30] MEDS: LEVOFLOXACIN 250MG TABLET PO SCH (12:39)
[2018-08-30] MEDS ORDERED: LIDOCAINE HCL/PF 1% 2ML VIAL ONE (13:16)
[2018-08-30 15:45] LABS: BG BASE EXCESS 4.5 mmol/L (-2.0-2.0); BG DEOXYHEMOGLOBIN 13.7 % (0.0-5.0); BG FRACTION INSPIRED OXYGEN 21; BG HCO3 ACT 29.3 mmol/L (22.0-26.0); BG METHEMOGLOBIN 0.3 % (0.0-1.5); BG OXYGEN SATURATION 86.1 % (92.0-98.5); BG PCO2 44.7 mmHg (35.0-45.0); BG PH 7.435 (7.350-7.450); BG PO2 55.4 mmHg (75.0-100.0); BG SAMPLE SITE LEFT RADIAL; BG VENT MODE ROOM AIR
[2018-08-30] MEDS: LORAZEPAM 0.5MG TABLET PO PRN (21:40)
[2018-08-31] VITALS (12 sets, daily range): BP systolic 143–179; BP diastolic 72–90
[2018-08-31] MEDS: ONDANSETRON HCL 4MG/2ML INJ IV PRN ×2 (03:27→08:45)
[2018-08-31] MEDS: SODIUM CHLORIDE 0.9% INJ 3ML FLUSH IVF SCH ×3 (06:26→21:08)
[2018-08-31] MEDS: BLOOD SUGAR DIAGNOSTIC STRIP TEST SCH ×4 (06:50→21:01)
[2018-08-31 07:07] LABS: BASOPHILS % 0.3 % (0.0-2.0); EOSINOPHILS % 1.2 % (0.0-5.0); HEMATOCRIT. 29.9 % (42.0-52.0); HEMOGLOBIN. 9.7 g/dL (14.0-18.0); LYMPHOCYTES % 13.1 % (20.0-50.0); MEAN CORPUSCULAR HEMOGLOBIN 29.3 pg (28.0-32.0); MEAN CORPUSCULAR VOLUME 89.9 fL (80.0-94.0); MEAN PLATELET VOLUME 9.1 fl (7.4-10.4); MONOCYTES % 8.9 % (2.0-8.0); NEUTROPHILS % 76.5 % (40.0-76.0); PLATELET 126 x1000/uL (130-400); RED BLOOD CELL COUNT 3.32 mill/uL (4.7-6.1); RED CELL DISTRIBUTION WIDTH 15.9 % (11.6-14.6)
[2018-08-31] MEDS: INSULIN LISPRO 100 UNITS/ML SUBCUT SCH ×4 (07:20→21:00)
[2018-08-31] MEDS: LOSARTAN POTASSIUM 50 MG TABLET PO SCH ×2 (08:05→17:07)
[2018-08-31] MEDS: SEVELAMER CARBONATE 800 MG TABLET PO SCH ×3 (08:05→17:07)
[2018-08-31] MEDS: ASPIRIN 81MG EC TABLET PO SCH (08:05)
[2018-08-31] MEDS: ISOSORBIDE MONONITRATE 60MG TABLET SR 24HR PO SCH (08:05)
[2018-08-31] MEDS: LORAZEPAM 0.5MG TABLET PO PRN (21:07)
[2018-09-01] VITALS: BP 157/79
[2018-09-01 02:00] VITALS: BP 145/75
[2018-09-01 04:00] VITALS: BP 148/76
[2018-09-01 06:00] VITALS: BP 148/58
[2018-09-01] MEDS: BLOOD SUGAR DIAGNOSTIC STRIP TEST SCH ×2 (06:54→11:16)
[2018-09-01] MEDS: SODIUM CHLORIDE 0.9% INJ 3ML FLUSH IVF SCH (06:55)
[2018-09-01 07:20] LABS: BASOPHILS % 0.4 % (0.0-2.0); EOSINOPHILS % 1.5 % (0.0-5.0); HEMATOCRIT. 31.6 % (42.0-52.0); HEMOGLOBIN. 10.3 g/dL (14.0-18.0); LYMPHOCYTES % 19.9 % (20.0-50.0); MEAN CORPUSCULAR HEMOGLOBIN 29.3 pg (28.0-32.0); MEAN CORPUSCULAR VOLUME 90.1 fL (80.0-94.0); MEAN PLATELET VOLUME 9.1 fl (7.4-10.4); MONOCYTES % 9.9 % (2.0-8.0); NEUTROPHILS % 68.3 % (40.0-76.0); PLATELET 128 x1000/uL (130-400); RED CELL DISTRIBUTION WIDTH 15.7 % (11.6-14.6)
[2018-09-01] MEDS: INSULIN LISPRO 100 UNITS/ML SUBCUT SCH ×2 (07:20→11:34)
[2018-09-01 08:00] VITALS: BP 143/70
[2018-09-01] MEDS: SEVELAMER CARBONATE 800 MG TABLET PO SCH ×2 (09:27→11:53)
[2018-09-01] MEDS: ISOSORBIDE MONONITRATE 60MG TABLET SR 24HR PO SCH (09:28)
[2018-09-01] MEDS: LOSARTAN POTASSIUM 50 MG TABLET PO SCH (09:28)
[2018-09-01] MEDS: ASPIRIN 81MG EC TABLET PO SCH (09:32)
[2018-09-01] MEDS: ONDANSETRON HCL 4MG/2ML INJ IV PRN ×2 (09:35→13:02)
[2018-09-01] MEDS: LEVOFLOXACIN 250MG TABLET PO SCH (11:53)
[2018-09-01 12:00] VITALS: BP 152/73
== END 2018-09-01 16:55 | disposition left against medical advice (07) | DRG 291 ==
LOC: ER 06:34 → EDBEDREQ 10:26 → 3WST 10:27 → EDBEDREQSVC 10:28 → ENRESERV 15:14
PROVIDERS: ADMIT Internal Medicine; ATTEND Internal Medicine
PROC: 5A09357 Assistance with Respiratory Ventilation, Less than 24 Consecutive Hours, Continuous Positive Airway Pressure (ICD-10-PCS; principal; 2018-08-27)
PROC: 5A1D70Z Performance of Urinary Filtration, Intermittent, Less than 6 Hours Per Day (ICD-10-PCS; 2018-08-27)
PROC: 5A1D70Z Performance of Urinary Filtration, Intermittent, Less than 6 Hours Per Day (ICD-10-PCS; 2018-08-29)
PROC: 5A1D70Z Performance of Urinary Filtration, Intermittent, Less than 6 Hours Per Day (ICD-10-PCS; 2018-08-31)
DX: I13.2 Hypertensive heart and chronic kidney disease with heart failure and with stage 5 chronic kidney disease, or end stage renal disease (principal); N18.6 End stage renal disease; J96.01 Acute respiratory failure with hypoxia; I50.33 Acute on chronic diastolic (congestive) heart failure; N39.0 Urinary tract infection, site not specified; I69.351 Hemiplegia and hemiparesis following cerebral infarction affecting right dominant side; E87.5 Hyperkalemia; D64.9 Anemia, unspecified; N31.9 Neuromuscular dysfunction of bladder, unspecified; Z99.2 Dependence on renal dialysis; E11.40 Type 2 diabetes mellitus with diabetic neuropathy, unspecified; E11.22 Type 2 diabetes mellitus with diabetic chronic kidney disease; E78.5 Hyperlipidemia, unspecified; I25.10 Atherosclerotic heart disease of native coronary artery without angina pectoris; E11.51 Type 2 diabetes mellitus with diabetic peripheral angiopathy without gangrene; I49.3 Ventricular premature depolarization; I48.0 Paroxysmal atrial fibrillation; R79.1 Abnormal coagulation profile; Z79.01 Long term (current) use of anticoagulants; Z82.49 Family history of ischemic heart disease and other diseases of the circulatory system; Z83.3 Family history of diabetes mellitus; Z91.14 Patient's other noncompliance with medication regimen; Z89.429 Acquired absence of other toe(s), unspecified side; Z87.891 Personal history of nicotine dependence; Z86.718 Personal history of other venous thrombosis and embolism; Z87.440 Personal history of urinary (tract) infections; Z90.5 Acquired absence of kidney; Z99.81 Dependence on supplemental oxygen; Z90.49 Acquired absence of other specified parts of digestive tract; Z88.8 Allergy status to other drugs, medicaments and biological substances
CPT/HCPCS: 36415; 36600; 71045; 78582; 80048; 82375; 82805; 82962; 83605; 83735; 83880; 84132; 84484; 85379; 93005; 93970; 94618; 94640; 94660; 96374; 96375; 97162; 99291; A9558; J0610; J1170; J1200; J1815; J2270; J2405; J3490; J7620

== ENCOUNTER 2018-10-04 06:14 | Inpatient (IN) | payer MEDICARE, MEDICAID ==
[~2018-10-04] VITALS: Ht 177.8 cm; Wt 77.8 kg
[2018-10-04] MEDS ORDERED: MORPHINE SULFATE 4 MG/ML CPJ (NOT FOR IM USE) IV STA (07:06)
[2018-10-04] MEDS ORDERED: ONDANSETRON HCL 4MG/2ML INJ IV STA (07:06)
[2018-10-04 07:35] LABS: BASOPHILS % 0.2 % (0.0-2.0); EOSINOPHILS % 0.3 % (0.0-5.0); HEMATOCRIT. 44.5 % (42.0-52.0); HEMOGLOBIN. 14.2 g/dL (14.0-18.0); LYMPHOCYTES % 15.9 % (20.0-50.0); MEAN CORPUSCULAR VOLUME 91.3 fL (80.0-94.0); NEUTROPHILS % 77.6 % (40.0-76.0); PLATELET 93 x1000/uL (130-400); RED BLOOD CELL COUNT 4.88 mill/uL (4.7-6.1); RED CELL DISTRIBUTION WIDTH 17.4 % (11.6-14.6)
[2018-10-04 07:38] LABS: INR 1.1; PROTHROMBIN TIME 11.4 sec (9.1-11.1)
[2018-10-04 07:42] LABS: CHLORIDE 101 mEq/L (98-107)
[2018-10-04 08:11] LABS: CLARITY URINE TURBID (CLEAR); COLOR URINE YELLOW (YELLOW); KETONES URINE NEGATIVE (NEGATIVE); LEUKOCYTE ESTERASE URINE 3+ (NEGATIVE); NITRITE URINE NEGATIVE (NEGATIVE); OCCULT BLOOD URINE 3+ (NEGATIVE); PH URINE 7.5 (4.5-8.0); PROTEIN URINE 4+ (NEGATIVE); SPECIFIC GRAVITY URINE 1.016 (1.005-1.030); UROBILINOGEN URINE 0.2 E.U./dL (0.2-1.0)
[2018-10-04] MEDS ORDERED: LEVOFLOXACIN 750MG PREMIX 150 ML IV ONE (09:00)
[2018-10-04] MEDS ORDERED: MAGNESIUM/ALUMINUM HYDROXIDE/SIMETHICONE 30ML UDC PO PRN (14:00)
[2018-10-04] MEDS ORDERED: ACETAMINOPHEN 325MG TABLET PO PRN (14:00)
[2018-10-04] MEDS ORDERED: DOCUSATE SODIUM 100MG CAPSULE PO PRN (14:00)
[2018-10-04] MEDS ORDERED: DIPHENHYDRAMINE 50MG/ML VIAL IV PRN (14:00)
[2018-10-04] MEDS ORDERED: GUAIFENESIN 200MG/10ML SUGAR FREE UDC PO PRN (14:00)
[2018-10-04] MEDS ORDERED: CLONIDINE 0.1MG TABLET PO PRN (14:00)
[2018-10-04] MEDS: MORPHINE SULFATE 4 MG/ML CPJ (NOT FOR IM USE) IV PRN (19:25)
[2018-10-04] MEDS: ONDANSETRON HCL 4MG/2ML INJ IV PRN (19:25)
[2018-10-04 22:06] VITALS: BP 157/68
[2018-10-04] MEDS ORDERED: DEXTROSE 50% WATER 50ML SYRINGE IV PRN (23:15)
[2018-10-05] VITALS: BP 136/88
[2018-10-05] MEDS: MORPHINE SULFATE 4 MG/ML CPJ (NOT FOR IM USE) IV PRN ×4 (00:34→23:11)
[2018-10-05 04:00] VITALS: BP 138/62
[2018-10-05] MEDS: BLOOD SUGAR DIAGNOSTIC STRIP TEST SCH ×4 (06:21→20:54)
[2018-10-05 06:26] LABS: BASOPHILS % 0.3 % (0.0-2.0); EOSINOPHILS % 0.6 % (0.0-5.0); HEMATOCRIT. 41.3 % (42.0-52.0); HEMOGLOBIN. 13.6 g/dL (14.0-18.0); LYMPHOCYTES % 12.9 % (20.0-50.0); MEAN CORPUSCULAR HEMOGLOBIN 29.9 pg (28.0-32.0); MEAN CORPUSCULAR VOLUME 90.9 fL (80.0-94.0); MEAN PLATELET VOLUME 9.2 fl (7.4-10.4); MONOCYTES % 7.2 % (2.0-8.0); PLATELET 74 x1000/uL (130-400); RED BLOOD CELL COUNT 4.54 mill/uL (4.7-6.1); RED CELL DISTRIBUTION WIDTH 16.9 % (11.6-14.6)
[2018-10-05 06:39] LABS: CHLORIDE 99 mEq/L (98-107)
[2018-10-05] MEDS: INSULIN LISPRO 100 UNITS/ML SUBCUT SCH ×4 (07:39→20:54)
[2018-10-05 08:00] VITALS: BP 138/76
[2018-10-05] MEDS: AMLODIPINE 10MG TABLET PO SCH (08:48)
[2018-10-05] MEDS ORDERED: ENOXAPARIN 30MG/0.3ML SYR SUBCUT SCH (09:00)
[2018-10-05] MEDS ORDERED: LEVOFLOXACIN 500MG PREMIX 100 ML IV SCH (09:00)
[2018-10-05] MEDS: ONDANSETRON HCL 4MG/2ML INJ IV PRN (10:02)
[2018-10-05 12:00] VITALS: BP 138/67
[2018-10-05 16:00] VITALS: BP 142/58
[2018-10-05 20:29] VITALS: BP 176/84
[2018-10-06 00:33] VITALS: BP 156/68
[2018-10-06 04:00] VITALS: BP 150/60
[2018-10-06] MEDS: BLOOD SUGAR DIAGNOSTIC STRIP TEST SCH ×2 (06:27→12:09)
[2018-10-06 06:39] LABS: BASOPHILS % 0.4 % (0.0-2.0); EOSINOPHILS % 0.8 % (0.0-5.0); HEMATOCRIT. 38.2 % (42.0-52.0); HEMOGLOBIN. 12.5 g/dL (14.0-18.0); MEAN CORPUSCULAR HEMOGLOBIN 29.7 pg (28.0-32.0); MEAN CORPUSCULAR VOLUME 90.9 fL (80.0-94.0); MEAN PLATELET VOLUME 9.1 fl (7.4-10.4); MONOCYTES % 7.4 % (2.0-8.0); NEUTROPHILS % 69.4 % (40.0-76.0); PLATELET 74 x1000/uL (130-400); RED BLOOD CELL COUNT 4.21 mill/uL (4.7-6.1); RED CELL DISTRIBUTION WIDTH 17.2 % (11.6-14.6)
[2018-10-06] MEDS: MORPHINE SULFATE 4 MG/ML CPJ (NOT FOR IM USE) IV PRN (07:50)
[2018-10-06] MEDS: INSULIN LISPRO 100 UNITS/ML SUBCUT SCH ×2 (07:50→12:09)
[2018-10-06] MEDS: AMLODIPINE 10MG TABLET PO SCH (08:30)
[2018-10-06] MEDS: HYDROCODONE/ACETAMINOPHEN 5/325MG TABLET PO PRN ×2 (09:53→15:25)
[2018-10-06] MEDS ORDERED: LEVOFLOXACIN 250MG PREMIX 50 ML IV SCH (10:00)
[2018-10-06 12:00] VITALS: BP 163/63
[2018-10-06 15:25] VITALS: BP 163/63
== END 2018-10-06 15:45 | disposition home or self-care (01) | DRG 690 ==
LOC: ER 06:14 → 6WST 09:48 → EDBEDREQ 09:50 → ENRESERV 20:43
PROVIDERS: ADMIT Hospitalist; ATTEND Hospitalist
PROC: 5A1D70Z Performance of Urinary Filtration, Intermittent, Less than 6 Hours Per Day (ICD-10-PCS; principal; 2018-10-05)
PROC: 5A1D70Z Performance of Urinary Filtration, Intermittent, Less than 6 Hours Per Day (ICD-10-PCS; 2018-10-06)
DX: N10 Acute pyelonephritis (principal); G82.20 Paraplegia, unspecified; I69.354 Hemiplegia and hemiparesis following cerebral infarction affecting left non-dominant side; I12.0 Hypertensive chronic kidney disease with stage 5 chronic kidney disease or end stage renal disease; N18.6 End stage renal disease; E11.40 Type 2 diabetes mellitus with diabetic neuropathy, unspecified; D69.6 Thrombocytopenia, unspecified; D64.9 Anemia, unspecified; N31.9 Neuromuscular dysfunction of bladder, unspecified; E11.22 Type 2 diabetes mellitus with diabetic chronic kidney disease; E78.00 Pure hypercholesterolemia, unspecified; I48.91 Unspecified atrial fibrillation; E11.51 Type 2 diabetes mellitus with diabetic peripheral angiopathy without gangrene; Z87.440 Personal history of urinary (tract) infections; Z90.5 Acquired absence of kidney; Z79.01 Long term (current) use of anticoagulants; Z99.2 Dependence on renal dialysis; Z88.1 Allergy status to other antibiotic agents; Z79.899 Other long term (current) drug therapy; Z79.82 Long term (current) use of aspirin
CPT/HCPCS: 36415; 80048; 82962; 87077; 87186; 93005; 93970; 96374; 99285; J1956; J2270; J2405; J7050

== ENCOUNTER 2018-10-19 13:51 | Inpatient (IN) | payer MEDICARE, MEDICAID ==
[~2018-10-19] VITALS: Ht 172.7 cm; Wt 79.4 kg
[2018-10-19] MEDS ORDERED: SODIUM CHLORIDE 0.9% 500 ML IV ONE (14:27)
[2018-10-19] MEDS ORDERED: SODIUM BICARBONATE 4% (2.4MEQ) 5ML VIAL IV ONE (14:41)
[2018-10-19] MEDS ORDERED: LIDOCAINE HCL 1% 20ML VIAL (Pyxis) INJ ONE (14:42)
[2018-10-19 14:50] LABS: BASOPHILS % 0.1 % (0.0-2.0); EOSINOPHILS % 0.3 % (0.0-5.0); HEMATOCRIT. 35.1 % (42.0-52.0); HEMOGLOBIN. 11.7 g/dL (14.0-18.0); LYMPHOCYTES % 8.4 % (20.0-50.0); MEAN CORPUSCULAR HEMOGLOBIN 29.5 pg (28.0-32.0); MEAN CORPUSCULAR VOLUME 88.7 fL (80.0-94.0); MEAN PLATELET VOLUME 10.7 fl (7.4-10.4); MONOCYTES % 4.3 % (2.0-8.0); NEUTROPHILS % 86.9 % (40.0-76.0); PLATELET 111 x1000/uL (130-400); RED BLOOD CELL COUNT 3.96 mill/uL (4.7-6.1); RED CELL DISTRIBUTION WIDTH 16.5 % (11.6-14.6)
[2018-10-19 14:58] LABS: CHLORIDE 98 mEq/L (98-107)
[2018-10-19 15:49] LABS: INR 1.1; PROTHROMBIN TIME 11.5 sec (9.6-11.0)
[2018-10-19] MEDS ORDERED: MAGNESIUM/ALUMINUM HYDROXIDE/SIMETHICONE 30ML UDC PO PRN (16:15)
[2018-10-19] MEDS ORDERED: GUAIFENESIN 200MG/10ML SUGAR FREE UDC PO PRN (16:15)
[2018-10-19] MEDS ORDERED: DIPHENHYDRAMINE 50MG/ML VIAL IV PRN (16:15)
[2018-10-19] MEDS ORDERED: ACETAMINOPHEN 325MG TABLET PO PRN (16:15)
[2018-10-19] MEDS: DILTIAZEM HCL 5MG/ML 5ML VIAL IV NR ×2 (16:46→17:49)
[2018-10-19] MEDS ORDERED: DILTIAZEM HCL 5MG/ML 5ML VIAL IV ONE (17:30)
[2018-10-19] MEDS: HYDROCODONE/ACETAMINOPHEN 5/325MG TABLET PO PRN (21:21)
[2018-10-19 22:05] VITALS: BP 146/47
[2018-10-20] MEDS: HYDROCODONE/ACETAMINOPHEN 5/325MG TABLET PO PRN ×2 (03:35→16:02)
[2018-10-20 04:00] VITALS: BP 96/63
[2018-10-20 06:19] LABS: BASOPHILS % 0.2 % (0.0-2.0); EOSINOPHILS % 0.6 % (0.0-5.0); HEMATOCRIT. 32.3 % (42.0-52.0); HEMOGLOBIN. 10.5 g/dL (14.0-18.0); LYMPHOCYTES % 12.5 % (20.0-50.0); MEAN CORPUSCULAR HEMOGLOBIN 29.2 pg (28.0-32.0); MEAN CORPUSCULAR VOLUME 90.1 fL (80.0-94.0); MEAN PLATELET VOLUME 10.3 fl (7.4-10.4); MONOCYTES % 7.2 % (2.0-8.0); NEUTROPHILS % 79.5 % (40.0-76.0); PLATELET 67 x1000/uL (130-400); RED BLOOD CELL COUNT 3.58 mill/uL (4.7-6.1); RED CELL DISTRIBUTION WIDTH 16.9 % (11.6-14.6)
[2018-10-20 08:00] VITALS: BP 152/66
[2018-10-20 08:23] LABS: CHLORIDE 102 mEq/L (98-107)
[2018-10-20] MEDS: METOPROLOL TARTRATE 25MG TABLET PO SCH ×2 (08:34→21:07)
[2018-10-20] MEDS: HYDROMORPHONE HCL/PF 2MG/ML CPJ IV PRN ×2 (11:01→19:01)
[2018-10-20 12:30] VITALS: BP 158/60
[2018-10-20] MEDS: ONDANSETRON HCL 4MG/2ML INJ IV PRN (12:33)
[2018-10-20 16:04] VITALS: BP 160/79
[2018-10-20 20:00] VITALS: BP 131/68
[2018-10-21 00:05] VITALS: BP 133/92
[2018-10-21] MEDS: HYDROMORPHONE HCL/PF 2MG/ML CPJ IV PRN ×3 (03:30→23:48)
[2018-10-21 04:00] VITALS: BP 112/60
[2018-10-21 07:01] LABS: BASOPHILS % 0.1 % (0.0-2.0); EOSINOPHILS % 0.6 % (0.0-5.0); HEMATOCRIT. 30.9 % (42.0-52.0); LYMPHOCYTES % 11.1 % (20.0-50.0); MEAN CORPUSCULAR VOLUME 89.7 fL (80.0-94.0); MEAN PLATELET VOLUME 10.5 fl (7.4-10.4); MONOCYTES % 9.5 % (2.0-8.0); NEUTROPHILS % 78.7 % (40.0-76.0); PLATELET 80 x1000/uL (130-400); RED BLOOD CELL COUNT 3.44 mill/uL (4.7-6.1); RED CELL DISTRIBUTION WIDTH 16.6 % (11.6-14.6)
[2018-10-21 08:00] VITALS: BP 123/37
[2018-10-21] MEDS: METOPROLOL TARTRATE 25MG TABLET PO SCH ×2 (08:56→20:54)
[2018-10-21] MEDS: ONDANSETRON HCL 4MG/2ML INJ IV PRN (08:59)
[2018-10-21 13:32] VITALS: BP 136/46
[2018-10-21 16:00] VITALS: BP 96/72
[2018-10-21 20:04] VITALS: BP 129/48
[2018-10-21] MEDS: GABAPENTIN 300MG CAPSULE PO SCH (20:54)
[2018-10-22 00:05] VITALS: BP 140/59
[2018-10-22] MEDS: ONDANSETRON HCL 4MG/2ML INJ IV PRN (01:53)
[2018-10-22 04:00] VITALS: BP 148/42
[2018-10-22 08:00] VITALS: BP 146/28
[2018-10-22] MEDS: HYDROMORPHONE HCL/PF 2MG/ML CPJ IV PRN (08:09)
[2018-10-22] MEDS: GABAPENTIN 300MG CAPSULE PO SCH (09:55)
[2018-10-22] MEDS: METOPROLOL TARTRATE 25MG TABLET PO SCH (09:56)
[2018-10-22 10:35] LABS: BASOPHILS % 0.3 % (0.0-2.0); EOSINOPHILS % 1.1 % (0.0-5.0); HEMATOCRIT. 34.4 % (42.0-52.0); HEMOGLOBIN. 11.1 g/dL (14.0-18.0); LYMPHOCYTES % 21.9 % (20.0-50.0); MEAN CORPUSCULAR VOLUME 89.7 fL (80.0-94.0); MEAN PLATELET VOLUME 10.7 fl (7.4-10.4); MONOCYTES % 10.1 % (2.0-8.0); NEUTROPHILS % 66.6 % (40.0-76.0); PLATELET 100 x1000/uL (130-400); RED BLOOD CELL COUNT 3.83 mill/uL (4.7-6.1)
[2018-10-22 12:00] VITALS: BP 158/65
[2018-10-22] MEDS: HYDROCODONE/ACETAMINOPHEN 5/325MG TABLET PO PRN (12:30)
[2018-10-22] MEDS ORDERED: SODIUM POLYSTYRENE SULFONATE 15 G/60 ML BOT PO NR (12:30)
[2018-10-22 15:41] VITALS: BP 134/44
== END 2018-10-22 16:24 | disposition home or self-care (01) | DRG 312 ==
LOC: ER 13:51 → SUPCPDRO 16:06 → 7WST 16:08 → EDBEDREQ 16:11 → EDBEDREQTM 16:11 → ENRESERV 20:31
PROVIDERS: ADMIT Hospitalist; ATTEND Hospitalist
PROC: 05HY33Z Insertion of Infusion Device into Upper Vein, Percutaneous Approach (ICD-10-PCS; principal; 2018-10-19)
PROC: B544ZZA Ultrasonography of Left Jugular Veins, Guidance (ICD-10-PCS; 2018-10-19)
PROC: 5A1D70Z Performance of Urinary Filtration, Intermittent, Less than 6 Hours Per Day (ICD-10-PCS; 2018-10-20)
PROC: 5A1D70Z Performance of Urinary Filtration, Intermittent, Less than 6 Hours Per Day (ICD-10-PCS; 2018-10-21)
DX: I95.3 Hypotension of hemodialysis (principal); N18.6 End stage renal disease; I12.0 Hypertensive chronic kidney disease with stage 5 chronic kidney disease or end stage renal disease; E87.5 Hyperkalemia; D69.6 Thrombocytopenia, unspecified; I48.91 Unspecified atrial fibrillation; D63.1 Anemia in chronic kidney disease; E11.22 Type 2 diabetes mellitus with diabetic chronic kidney disease; G40.909 Epilepsy, unspecified, not intractable, without status epilepticus; Z86.73 Personal history of transient ischemic attack (TIA), and cerebral infarction without residual deficits; Z82.49 Family history of ischemic heart disease and other diseases of the circulatory system; Z88.8 Allergy status to other drugs, medicaments and biological substances; Z99.2 Dependence on renal dialysis; Z79.82 Long term (current) use of aspirin; Z79.899 Other long term (current) drug therapy; Z90.49 Acquired absence of other specified parts of digestive tract
CPT/HCPCS: 36415; 36569; 71045; 76937; 80048; 80051; 82962; 83605; 83880; 84484; 86850; 86900; 93005; 99291; C1725; J1170; J2405; J3490; J7030

== ENCOUNTER 2018-12-04 00:18 | Emergency (ER) | payer MEDICARE, MEDICAID ==
[~2018-12-04] VITALS: Ht 170.2 cm; Wt 77.0 kg
[~2018-12-04 00:18] MED LIST changes: -ASPI-1159 PO; +ASPI-1393 PO
[2018-12-04 01:47] LABS: BASOPHILS % 0.5 % (0.0-2.0); EOSINOPHILS % 0.9 % (0.0-5.0); HEMATOCRIT. 35.4 % (42.0-52.0); HEMOGLOBIN. 11.7 g/dL (14.0-18.0); LYMPHOCYTES % 18.6 % (20.0-50.0); MEAN CORPUSCULAR HEMOGLOBIN 30.8 pg (28.0-32.0); MEAN CORPUSCULAR VOLUME 93.1 fL (80.0-94.0); MONOCYTES % 11.1 % (2.0-8.0); NEUTROPHILS % 68.9 % (40.0-76.0); PLATELET 134 x1000/uL (130-400); RED CELL DISTRIBUTION WIDTH 16.9 % (11.6-14.6)
[2018-12-04 01:51] LABS: CHLORIDE 108 mEq/L (98-107)
[2018-12-04] MEDS ORDERED: HYDROCODONE/ACETAMINOPHEN 5/325MG TABLET PO STA ×2 (02:59→03:08)
[2018-12-04 03:11] LABS: CLARITY URINE TURBID (CLEAR); COLOR URINE ORANGE (YELLOW); KETONES URINE NEGATIVE (NEGATIVE); LEUKOCYTE ESTERASE URINE 3+ (NEGATIVE); NITRITE URINE NEGATIVE (NEGATIVE); OCCULT BLOOD URINE 3+ (NEGATIVE); PH URINE 7.5 (4.5-8.0); PROTEIN URINE 3+ (NEGATIVE); SPECIFIC GRAVITY URINE 1.014 (1.005-1.030); UROBILINOGEN URINE 0.2 E.U./dL (0.2-1.0)
[2018-12-04] MEDS ORDERED: ONDANSETRON 4MG ODT PO STA (03:49)
[2018-12-04] MEDS ORDERED: CLONIDINE 0.1MG TABLET PO ONE (05:15)
[2018-12-04] MEDS ORDERED: LEVOFLOXACIN 750MG PREMIX 150 ML IV SCH (06:00)
[2018-12-04] MEDS ORDERED: VANCOMYCIN 1 G PREMIX 200 ML IV SCH (06:00)
[2018-12-04] MEDS ORDERED: ONDANSETRON HCL 4MG/2ML INJ IV STA (07:08)
[2018-12-04] MEDS ORDERED: DIAZEPAM 5 MG/ML 2ML CPJ IV ONE (07:15)
[2018-12-04 09:23] VITALS: BP 158/96
== END 2018-12-04 09:24 | disposition home or self-care (01) ==
LOC: ER 00:18
DX: N30.90 Cystitis, unspecified without hematuria (principal); E11.22 Type 2 diabetes mellitus with diabetic chronic kidney disease; I12.0 Hypertensive chronic kidney disease with stage 5 chronic kidney disease or end stage renal disease; N18.6 End stage renal disease; Z99.2 Dependence on renal dialysis; Z90.5 Acquired absence of kidney; Z90.49 Acquired absence of other specified parts of digestive tract; Z88.1 Allergy status to other antibiotic agents
CPT/HCPCS: 36415; 76770; 80053; 81003; 85025; 87077; 87086; 87186; 96365; 96367; 99284; J1956; J3370

== ENCOUNTER 2019-01-06 13:02 | Inpatient (IN) | payer MEDICARE, MEDICAID ==
[~2019-01-06] VITALS: Ht 177.8 cm; Wt 76.7 kg
[2019-01-06] MEDS ORDERED: MEROPENEM 1,000 MG in SODIUM CHLORIDE 0.9% 100 ML IV STA (14:44)
[2019-01-06] MEDS ORDERED: SODIUM CHLORIDE 0.9% 1000ML BAG (SEPSIS BOLUS) IV ONE (14:45)
[2019-01-06 15:39] LABS: BASOPHILS % 0.5 % (0.0-2.0); EOSINOPHILS % 1.4 % (0.0-5.0); HEMATOCRIT. 44.2 % (42.0-52.0); HEMOGLOBIN. 14.7 g/dL (14.0-18.0); LYMPHOCYTES % 17.2 % (20.0-50.0); MEAN CORPUSCULAR HEMOGLOBIN 30.5 pg (28.0-32.0); MEAN CORPUSCULAR VOLUME 91.9 fL (80.0-94.0); MEAN PLATELET VOLUME 9.8 fl (7.4-10.4); NEUTROPHILS % 70.9 % (40.0-76.0); PARTIAL THROMBOPLASTIN TIME 31.3 sec (23.4-31.0); PLATELET 126 x1000/uL (130-400); PROTHROMBIN TIME 10.1 sec (9.6-11.0); RED BLOOD CELL COUNT 4.81 mill/uL (4.7-6.1); RED CELL DISTRIBUTION WIDTH 17.4 % (11.6-14.6)
[2019-01-06 15:45] LABS: CLARITY URINE TURBID (CLEAR); COLOR URINE RED (YELLOW); KETONES URINE NEGATIVE (NEGATIVE); LEUKOCYTE ESTERASE URINE 3+ (NEGATIVE); NITRITE URINE NEGATIVE (NEGATIVE); OCCULT BLOOD URINE 3+ (NEGATIVE); PROTEIN URINE 3+ (NEGATIVE); SPECIFIC GRAVITY URINE 1.016 (1.005-1.030); UROBILINOGEN URINE 0.2 E.U./dL (0.2-1.0)
[2019-01-06 16:21] LABS: CHLORIDE 101 mEq/L (98-107)
[2019-01-06] MEDS ORDERED: MORPHINE SULFATE 4 MG/ML CPJ (NOT FOR IM USE) IV ONE (21:00)
[2019-01-06 23:58] VITALS: BP 146/95
[2019-01-07 00:15] VITALS: BP 146/95
[2019-01-07] MEDS ORDERED: METOPROLOL PO (00:30)
[2019-01-07] MEDS ORDERED: CLON0.2T PO (00:30)
[2019-01-07] MEDS ORDERED: CLONIDINE 0.1MG TABLET PO PRN (01:00)
[2019-01-07] MEDS ORDERED: DIPHENHYDRAMINE 50MG/ML VIAL IV PRN (01:00)
[2019-01-07] MEDS ORDERED: HYDROCODONE/ACETAMINOPHEN 5/325MG TABLET PO PRN ×2 (01:00→01:15)
[2019-01-07] MEDS ORDERED: ACETAMINOPHEN 325MG TABLET PO PRN (01:00)
[2019-01-07] MEDS ORDERED: DEXTROSE 50% WATER 50ML SYRINGE IV PRN (01:15)
[2019-01-07] MEDS: ENOXAPARIN 30MG/0.3ML SYR SUBCUT SCH (01:42)
[2019-01-07 04:00] VITALS: BP 113/56
[2019-01-07] MEDS ORDERED: LEVOFLOXACIN 250MG PREMIX 50 ML IV NR (04:00)
[2019-01-07] MEDS: ONDANSETRON HCL 4MG/2ML INJ IV PRN ×3 (05:20→15:59)
[2019-01-07] MEDS: CLONIDINE 0.2MG TABLET PO SCH ×3 (06:00→22:14)
[2019-01-07] MEDS: BLOOD SUGAR DIAGNOSTIC STRIP TEST SCH ×4 (06:48→21:00)
[2019-01-07] MEDS: PANTOPRAZOLE 40MG DR TABLET PO SCH ×2 (07:40→09:58)
[2019-01-07 08:10] VITALS: BP 150/72
[2019-01-07] MEDS: INSULIN LISPRO 100 UNITS/ML SUBCUT SCH ×4 (08:10→21:00)
[2019-01-07] MEDS: CALCIUM ACETATE 667MG CAPSULE PO SCH ×3 (08:10→17:48)
[2019-01-07] MEDS: ASPIRIN 81MG TABLET PO SCH ×2 (09:00→09:58)
[2019-01-07] MEDS: FOLIC ACID/VITAMIN B COMP W-C TABLET PO SCH ×2 (09:00→09:59)
[2019-01-07] MEDS: GABAPENTIN 300MG CAPSULE PO SCH ×2 (09:00→22:09)
[2019-01-07] MEDS: ISOSORBIDE MONONITRATE 60MG TABLET SR 24HR PO SCH ×2 (09:00→09:58)
[2019-01-07] MEDS: HYDROMORPHONE HCL/PF 2MG/ML CPJ IV PRN ×2 (09:59→17:48)
[2019-01-07 12:07] VITALS: BP 148/70
[2019-01-07 13:11] LABS: BASOPHILS % 0.5 % (0.0-2.0); HEMATOCRIT. 38.9 % (42.0-52.0); HEMOGLOBIN. 12.8 g/dL (14.0-18.0); LYMPHOCYTES % 10.4 % (20.0-50.0); MEAN CORPUSCULAR HEMOGLOBIN 30.4 pg (28.0-32.0); MEAN CORPUSCULAR VOLUME 92.4 fL (80.0-94.0); MEAN PLATELET VOLUME 9.5 fl (7.4-10.4); MONOCYTES % 8.5 % (2.0-8.0); NEUTROPHILS % 79.6 % (40.0-76.0); PLATELET 94 x1000/uL (130-400); RED BLOOD CELL COUNT 4.21 mill/uL (4.7-6.1); RED CELL DISTRIBUTION WIDTH 16.7 % (11.6-14.6)
[2019-01-07 16:17] VITALS: BP 126/70
[2019-01-07 20:00] VITALS: BP 139/71
[2019-01-07] MEDS ORDERED: ATORVASTATIN CALCIUM 40MG TABLET PO SCH (21:00)
[2019-01-07] MEDS: ATORVASTATIN CALCIUM 40MG TABLET PO SCH (22:09)
[2019-01-07] MEDS: MEROPENEM 500 MG in SODIUM CHLORIDE 0.9% 50 ML IV SCH (22:10)
[2019-01-08 00:05] VITALS: BP 102/50
[2019-01-08] MEDS: HYDROMORPHONE HCL/PF 2MG/ML CPJ IV PRN ×3 (00:16→18:55)
[2019-01-08] MEDS: ONDANSETRON HCL 4MG/2ML INJ IV PRN (00:16)
[2019-01-08] MEDS: ENOXAPARIN 30MG/0.3ML SYR SUBCUT SCH (00:57)
[2019-01-08 04:00] VITALS: BP 101/55
[2019-01-08] MEDS: CLONIDINE 0.2MG TABLET PO SCH ×3 (06:00→20:48)
[2019-01-08 06:45] LABS: BASOPHILS % 0.6 % (0.0-2.0); EOSINOPHILS % 2.3 % (0.0-5.0); HEMATOCRIT. 38.7 % (42.0-52.0); HEMOGLOBIN. 12.5 g/dL (14.0-18.0); LYMPHOCYTES % 21.2 % (20.0-50.0); MEAN CORPUSCULAR HEMOGLOBIN 30.3 pg (28.0-32.0); MEAN CORPUSCULAR VOLUME 94.1 fL (80.0-94.0); MEAN PLATELET VOLUME 10.3 fl (7.4-10.4); MONOCYTES % 12.8 % (2.0-8.0); NEUTROPHILS % 63.1 % (40.0-76.0); PLATELET 94 x1000/uL (130-400); RED BLOOD CELL COUNT 4.12 mill/uL (4.7-6.1); RED CELL DISTRIBUTION WIDTH 16.8 % (11.6-14.6)
[2019-01-08 08:00] VITALS: BP 132/76
[2019-01-08] MEDS: INSULIN LISPRO 100 UNITS/ML SUBCUT SCH ×4 (08:06→20:47)
[2019-01-08] MEDS: BLOOD SUGAR DIAGNOSTIC STRIP TEST SCH ×4 (08:06→20:40)
[2019-01-08] MEDS: CALCIUM ACETATE 667MG CAPSULE PO SCH ×3 (08:30→17:23)
[2019-01-08] MEDS: ASPIRIN 81MG TABLET PO SCH (08:30)
[2019-01-08] MEDS: ISOSORBIDE MONONITRATE 60MG TABLET SR 24HR PO SCH (08:30)
[2019-01-08] MEDS: GABAPENTIN 300MG CAPSULE PO SCH ×2 (08:30→20:40)
[2019-01-08] MEDS: FOLIC ACID/VITAMIN B COMP W-C TABLET PO SCH (08:30)
[2019-01-08] MEDS: PANTOPRAZOLE 40MG DR TABLET PO SCH (08:30)
[2019-01-08 20:09] VITALS: BP 116/54
[2019-01-08] MEDS: ATORVASTATIN CALCIUM 40MG TABLET PO SCH (20:40)
[2019-01-08] MEDS: MEROPENEM 500 MG in SODIUM CHLORIDE 0.9% 50 ML IV SCH (20:40)
[2019-01-09 00:05] VITALS: BP 133/65
[2019-01-09] MEDS: ONDANSETRON HCL 4MG/2ML INJ IV PRN (00:58)
[2019-01-09] MEDS: ENOXAPARIN 30MG/0.3ML SYR SUBCUT SCH ×2 (00:58→09:03)
[2019-01-09] MEDS: HYDROMORPHONE HCL/PF 2MG/ML CPJ IV PRN ×3 (00:58→19:36)
[2019-01-09 04:00] VITALS: BP 133/84
[2019-01-09] MEDS: CLONIDINE 0.2MG TABLET PO SCH ×3 (05:31→22:00)
[2019-01-09 06:13] LABS: BASOPHILS % 0.4 % (0.0-2.0); EOSINOPHILS % 1.6 % (0.0-5.0); HEMATOCRIT. 39.2 % (42.0-52.0); HEMOGLOBIN. 12.9 g/dL (14.0-18.0); LYMPHOCYTES % 17.9 % (20.0-50.0); MEAN CORPUSCULAR HEMOGLOBIN 30.6 pg (28.0-32.0); MEAN CORPUSCULAR VOLUME 92.9 fL (80.0-94.0); MEAN PLATELET VOLUME 9.8 fl (7.4-10.4); MONOCYTES % 9.9 % (2.0-8.0); NEUTROPHILS % 70.2 % (40.0-76.0); PLATELET 103 x1000/uL (130-400); RED BLOOD CELL COUNT 4.22 mill/uL (4.7-6.1); RED CELL DISTRIBUTION WIDTH 16.4 % (11.6-14.6)
[2019-01-09] MEDS: BLOOD SUGAR DIAGNOSTIC STRIP TEST SCH ×4 (07:37→21:21)
[2019-01-09 08:00] VITALS: BP 121/58
[2019-01-09] MEDS ORDERED: LEVOFLOXACIN 250MG PREMIX 50 ML IV SCH (08:00)
[2019-01-09] MEDS: PANTOPRAZOLE 40MG DR TABLET PO SCH (09:02)
[2019-01-09] MEDS: ISOSORBIDE MONONITRATE 60MG TABLET SR 24HR PO SCH (09:03)
[2019-01-09] MEDS: ASPIRIN 81MG TABLET PO SCH (09:03)
[2019-01-09] MEDS: FOLIC ACID/VITAMIN B COMP W-C TABLET PO SCH (09:03)
[2019-01-09] MEDS: CALCIUM ACETATE 667MG CAPSULE PO SCH ×3 (09:03→17:29)
[2019-01-09] MEDS: INSULIN LISPRO 100 UNITS/ML SUBCUT SCH ×4 (09:11→21:00)
[2019-01-09] MEDS: GABAPENTIN 300MG CAPSULE PO SCH ×2 (15:12→21:21)
[2019-01-09 16:00] VITALS: BP 112/56
[2019-01-09 19:36] VITALS: BP 130/63
[2019-01-09] MEDS: MEROPENEM 500 MG in SODIUM CHLORIDE 0.9% 50 ML IV SCH (19:37)
[2019-01-09] MEDS: ATORVASTATIN CALCIUM 40MG TABLET PO SCH (21:21)
[2019-01-10] VITALS: BP_SYST 106; BP_SYST 108; BP_DIAS 53; BP_DIAS 65
[2019-01-10 03:27] VITALS: BP 108/71
[2019-01-10] MEDS: HYDROMORPHONE HCL/PF 2MG/ML CPJ IV PRN ×2 (03:29→09:40)
[2019-01-10] MEDS: CLONIDINE 0.2MG TABLET PO SCH (05:19)
[2019-01-10] MEDS: PANTOPRAZOLE 40MG DR TABLET PO SCH (06:21)
[2019-01-10] MEDS: BLOOD SUGAR DIAGNOSTIC STRIP TEST SCH (06:45)
[2019-01-10] MEDS: INSULIN LISPRO 100 UNITS/ML SUBCUT SCH (07:42)
[2019-01-10 07:54] VITALS: BP 95/50
[2019-01-10] MEDS: ISOSORBIDE MONONITRATE 60MG TABLET SR 24HR PO SCH (08:59)
[2019-01-10] MEDS: GABAPENTIN 300MG CAPSULE PO SCH (08:59)
[2019-01-10] MEDS: FOLIC ACID/VITAMIN B COMP W-C TABLET PO SCH (08:59)
[2019-01-10] MEDS: ASPIRIN 81MG TABLET PO SCH (09:00)
[2019-01-10] MEDS: CALCIUM ACETATE 667MG CAPSULE PO SCH (09:00)
[2019-01-10 09:27] VITALS: BP 95/50
[2019-01-10 09:40] VITALS: BP 95/50
== END 2019-01-10 11:15 | disposition home or self-care (01) | DRG 689 ==
LOC: ER 13:02 → 7WST 16:59 → EDBEDREQ 17:09 → EDBEDREQTM 17:09 → ENRESERV 21:17 → ER 22:47
PROVIDERS: ADMIT Internal Medicine Nephrology; ATTEND Internal Medicine Nephrology
PROC: 5A1D70Z Performance of Urinary Filtration, Intermittent, Less than 6 Hours Per Day (ICD-10-PCS; principal; 2019-01-07)
PROC: 5A1D70Z Performance of Urinary Filtration, Intermittent, Less than 6 Hours Per Day (ICD-10-PCS; 2019-01-08)
DX: N39.0 Urinary tract infection, site not specified (principal); N18.6 End stage renal disease; I12.0 Hypertensive chronic kidney disease with stage 5 chronic kidney disease or end stage renal disease; I48.92 Unspecified atrial flutter; E11.22 Type 2 diabetes mellitus with diabetic chronic kidney disease; E11.43 Type 2 diabetes mellitus with diabetic autonomic (poly)neuropathy; Z16.24 Resistance to multiple antibiotics; D69.6 Thrombocytopenia, unspecified; D64.9 Anemia, unspecified; B96.89 Other specified bacterial agents as the cause of diseases classified elsewhere; E11.51 Type 2 diabetes mellitus with diabetic peripheral angiopathy without gangrene; I45.81 Long QT syndrome; I48.91 Unspecified atrial fibrillation; K57.90 Diverticulosis of intestine, part unspecified, without perforation or abscess without bleeding; K31.84 Gastroparesis; R74.0 Nonspecific elevation of levels of transaminase and lactic acid dehydrogenase [LDH]; Z99.2 Dependence on renal dialysis; Z79.899 Other long term (current) drug therapy; Z88.1 Allergy status to other antibiotic agents; Z90.49 Acquired absence of other specified parts of digestive tract; Z87.81 Personal history of (healed) traumatic fracture
CPT/HCPCS: 36415; 71045; 76700; 80048; 82962; 83605; 84484; 87077; 87186; 93005; 93970; 96365; 96375; 99285; C1893; J1170; J1200; J1650; J1815; J1956; J2185; J2270; J2405; J7030; J7050

== ENCOUNTER 2019-03-09 15:25 | Inpatient (IN) | payer MEDICARE, MEDICAID ==
[~2019-03-09] VITALS: Ht 182.9 cm; Wt 77.6 kg
[~2019-03-09 15:25] MED LIST changes: +CLON0.2T PO; +METOPROLOL PO
[2019-03-09] MEDS ORDERED: ONDANSETRON HCL 4MG/2ML INJ IV STA (16:21)
[2019-03-09] MEDS ORDERED: KETOROLAC 30MG/ML VIAL IV STA (16:21)
[2019-03-09] MEDS ORDERED: MORPHINE SULFATE 4 MG/ML CPJ (NOT FOR IM USE) IV STA (16:21)
[2019-03-09] MEDS ORDERED: LORAZEPAM 2MG/ML CPJ IV ONE (16:30)
[2019-03-09 16:56] LABS: BASOPHILS % 0.4 % (0.0-2.0); EOSINOPHILS % 0.7 % (0.0-5.0); HEMATOCRIT. 34.5 % (42.0-52.0); HEMOGLOBIN. 11.6 g/dL (14.0-18.0); MEAN CORPUSCULAR HEMOGLOBIN 31.4 pg (28.0-32.0); MEAN CORPUSCULAR VOLUME 93.6 fL (80.0-94.0); MEAN PLATELET VOLUME 7.9 fl (7.4-10.4); MONOCYTES % 10.1 % (2.0-8.0); NEUTROPHILS % 67.8 % (40.0-76.0); PLATELET 98 x1000/uL (130-400); RED BLOOD CELL COUNT 3.69 mill/uL (4.7-6.1); RED CELL DISTRIBUTION WIDTH 16.6 % (11.6-14.6)
[2019-03-09 17:00] LABS: CHLORIDE 107 mEq/L (98-107)
[2019-03-09 17:04] LABS: ETHANOL BLOOD < 10 mg/dL
[2019-03-09 17:12] LABS: D-DIMER 4.82 mg/L FEU (<0.50); INR 1.1; PARTIAL THROMBOPLASTIN TIME 28.6 sec (23.4-31.0); PROTHROMBIN TIME 11.1 sec (9.6-11.0)
[2019-03-09] MEDS ORDERED: ENOXAPARIN 80MG/0.8ML SYR SUBCUT ONE (19:30)
[2019-03-09] MEDS ORDERED: ONDANSETRON HCL 4MG/2ML INJ IV ONE (19:45)
[2019-03-09] MEDS ORDERED: CLONIDINE 0.1MG TABLET PO PRN (19:45)
[2019-03-09] MEDS ORDERED: ACETAMINOPHEN 325MG TABLET PO PRN (19:45)
[2019-03-09] MEDS ORDERED: MORPHINE SULFATE 4 MG/ML CPJ (NOT FOR IM USE) IV ONE (19:45)
[2019-03-09] MEDS ORDERED: ONDANSETRON HCL 4MG/2ML INJ IV PRN (19:45)
[2019-03-09 20:00] VITALS: BP 141/75
[2019-03-09 21:00] VITALS: BP 141/75
[2019-03-09 21:40] VITALS: BP 141/75
[2019-03-09] MEDS ORDERED: ENOXAPARIN 80MG/0.8ML SYR SUBCUT SCH (22:00)
[2019-03-09] MEDS: METOPROLOL TARTRATE 25MG TABLET PO SCH (22:20)
[2019-03-09] MEDS: GABAPENTIN 100MG CAPSULE PO SCH (22:20)
[2019-03-09] MEDS: CLONIDINE 0.2MG TABLET PO SCH (22:21)
[2019-03-09] MEDS: ATORVASTATIN CALCIUM 20MG TABLET PO SCH (22:21)
[2019-03-09] MEDS: MORPHINE SULFATE 2 MG/ML CPJ (NOT FOR IM USE) IV PRN (22:22)
[2019-03-10] VITALS: BP 141/75
[2019-03-10] MEDS ORDERED: DEXTROSE 50% WATER 50ML SYRINGE IV PRN (02:00)
[2019-03-10 04:00] VITALS: BP 142/65
[2019-03-10] MEDS: GABAPENTIN 100MG CAPSULE PO SCH ×3 (06:01→22:44)
[2019-03-10] MEDS: CLONIDINE 0.2MG TABLET PO SCH ×3 (06:01→22:44)
[2019-03-10] MEDS: BLOOD SUGAR DIAGNOSTIC STRIP TEST SCH ×4 (06:08→21:00)
[2019-03-10] MEDS: INSULIN LISPRO 100 UNITS/ML SUBCUT SCH ×4 (06:58→21:00)
[2019-03-10] MEDS: CALCIUM ACETATE 667MG CAPSULE PO SCH ×3 (07:40→17:29)
[2019-03-10 08:00] VITALS: BP 140/59
[2019-03-10] MEDS: MORPHINE SULFATE 2 MG/ML CPJ (NOT FOR IM USE) IV PRN ×4 (08:00→22:45)
[2019-03-10] MEDS: METOPROLOL TARTRATE 25MG TABLET PO SCH ×2 (08:01→22:44)
[2019-03-10] MEDS: FOLIC ACID/VITAMIN B COMP W-C TABLET PO SCH (08:01)
[2019-03-10] MEDS: ISOSORBIDE MONONITRATE 30MG TABLET SR 24HR PO SCH (08:01)
[2019-03-10 09:22] LABS: BASOPHILS % 0.4 % (0.0-2.0); EOSINOPHILS % 0.8 % (0.0-5.0); HEMATOCRIT. 35.3 % (42.0-52.0); HEMOGLOBIN. 11.6 g/dL (14.0-18.0); LYMPHOCYTES % 16.8 % (20.0-50.0); MEAN CORPUSCULAR HEMOGLOBIN 31.1 pg (28.0-32.0); MEAN CORPUSCULAR VOLUME 94.8 fL (80.0-94.0); MEAN PLATELET VOLUME 8.5 fl (7.4-10.4); MONOCYTES % 8.4 % (2.0-8.0); NEUTROPHILS % 73.6 % (40.0-76.0); PLATELET 81 x1000/uL (130-400); RED BLOOD CELL COUNT 3.72 mill/uL (4.7-6.1); RED CELL DISTRIBUTION WIDTH 17.2 % (11.6-14.6)
[2019-03-10 09:29] LABS: CHLORIDE 104 mEq/L (98-107)
[2019-03-10 09:39] LABS: LDL CHOLESTEROL 45 mg/dL (5-100)
[2019-03-10 09:40] LABS: HDL CHOLESTEROL 36 mg/dL (40-59)
[2019-03-10 12:00] VITALS: BP 120/65
[2019-03-10] MEDS: NITROGLYCERIN OINT 1GM/INCH UDPKT TD SCH ×2 (16:00→23:41)
[2019-03-10 20:00] VITALS: BP 143/64
[2019-03-10] MEDS ORDERED: DIPHENHYDRAMINE 50MG/ML VIAL IV NR (20:53)
[2019-03-10] MEDS ORDERED: DIPHENHYDRAMINE 50MG/ML VIAL IV PRN (21:00)
[2019-03-10] MEDS: ATORVASTATIN CALCIUM 20MG TABLET PO SCH (22:44)
[2019-03-11] VITALS: BP 164/76
[2019-03-11 04:00] VITALS: BP 125/76
[2019-03-11] MEDS: MORPHINE SULFATE 2 MG/ML CPJ (NOT FOR IM USE) IV PRN (05:16)
[2019-03-11] MEDS: GABAPENTIN 100MG CAPSULE PO SCH (05:42)
[2019-03-11] MEDS: CLONIDINE 0.2MG TABLET PO SCH (05:42)
[2019-03-11] MEDS: NITROGLYCERIN OINT 1GM/INCH UDPKT TD SCH ×2 (05:43→09:28)
[2019-03-11] MEDS: BLOOD SUGAR DIAGNOSTIC STRIP TEST SCH ×2 (07:22→11:37)
[2019-03-11] MEDS: INSULIN LISPRO 100 UNITS/ML SUBCUT SCH ×2 (07:23→11:37)
[2019-03-11 08:00] VITALS: BP 149/68
[2019-03-11] MEDS: FOLIC ACID/VITAMIN B COMP W-C TABLET PO SCH (08:33)
[2019-03-11] MEDS: METOPROLOL TARTRATE 25MG TABLET PO SCH (08:34)
[2019-03-11] MEDS: ISOSORBIDE MONONITRATE 30MG TABLET SR 24HR PO SCH (08:34)
[2019-03-11 11:36] VITALS: BP 110/46
[2019-03-11] MEDS: CALCIUM ACETATE 667MG CAPSULE PO SCH (11:40)
[2019-03-11 13:19] VITALS: BP 110/46
== END 2019-03-11 14:00 | disposition home or self-care (01) | DRG 299 ==
LOC: ER 15:25 → 8WST 19:31 → EDBEDREQ 19:41 → EDBEDREQTM 19:41 → ENRESERV 19:56
PROVIDERS: ADMIT Internal Medicine Nephrology; ATTEND Internal Medicine Nephrology
PROC: 5A1D70Z Performance of Urinary Filtration, Intermittent, Less than 6 Hours Per Day (ICD-10-PCS; principal; 2019-03-10)
DX: I82.C11 Acute embolism and thrombosis of right internal jugular vein (principal); N18.6 End stage renal disease; E44.0 Moderate protein-calorie malnutrition; I12.0 Hypertensive chronic kidney disease with stage 5 chronic kidney disease or end stage renal disease; R07.89 Other chest pain; I82.A11 Acute embolism and thrombosis of right axillary vein; D63.8 Anemia in other chronic diseases classified elsewhere; E11.22 Type 2 diabetes mellitus with diabetic chronic kidney disease; E11.51 Type 2 diabetes mellitus with diabetic peripheral angiopathy without gangrene; E78.5 Hyperlipidemia, unspecified; I25.10 Atherosclerotic heart disease of native coronary artery without angina pectoris; G83.9 Paralytic syndrome, unspecified; I48.0 Paroxysmal atrial fibrillation; N31.9 Neuromuscular dysfunction of bladder, unspecified; Z79.01 Long term (current) use of anticoagulants; Z79.899 Other long term (current) drug therapy; Z86.73 Personal history of transient ischemic attack (TIA), and cerebral infarction without residual deficits; Z89.439 Acquired absence of unspecified foot; Z90.5 Acquired absence of kidney; Z91.14 Patient's other noncompliance with medication regimen; Z99.2 Dependence on renal dialysis; Z79.82 Long term (current) use of aspirin; Z68.23 Body mass index [BMI] 23.0-23.9, adult; Z88.1 Allergy status to other antibiotic agents
CPT/HCPCS: 36415; 71045; 78582; 80061; 80320; 82550; 82553; 82962; 83880; 84484; 85379; 93005; 93306; 93970; 93971; 99285; A9558; J1200; J1650; J1885; J2060; J2270; J2405; G0480

== ENCOUNTER 2019-03-21 22:50 | Emergency (ER) | payer MEDICARE, MEDICAID ==
[~2019-03-21] VITALS: Ht 180.3 cm; Wt 79.0 kg
[2019-03-21] MEDS ORDERED: HYDROCODONE/ACETAMINOPHEN 5/325MG TABLET PO ONE (23:30)
[2019-03-22] LABS: BASOPHILS % 0.4 % (0.0-2.0); EOSINOPHILS % 0.4 % (0.0-5.0); HEMATOCRIT. 41.4 % (42.0-52.0); HEMOGLOBIN. 13.3 g/dL (14.0-18.0); LYMPHOCYTES % 19.3 % (20.0-50.0); MEAN CORPUSCULAR HEMOGLOBIN 30.4 pg (28.0-32.0); MEAN CORPUSCULAR VOLUME 94.6 fL (80.0-94.0); MEAN PLATELET VOLUME 8.9 fl (7.4-10.4); MONOCYTES % 8.1 % (2.0-8.0); NEUTROPHILS % 71.8 % (40.0-76.0); PLATELET 147 x1000/uL (130-400); RED BLOOD CELL COUNT 4.37 mill/uL (4.7-6.1)
[2019-03-22 00:08] LABS: CHLORIDE 104 mEq/L (98-107)
[2019-03-22 11:01] VITALS: BP 177/86
== END 2019-03-22 11:16 | disposition home or self-care (01) ==
LOC: ER 22:50
DX: R07.89 Other chest pain (principal); I12.0 Hypertensive chronic kidney disease with stage 5 chronic kidney disease or end stage renal disease; N18.6 End stage renal disease; E11.22 Type 2 diabetes mellitus with diabetic chronic kidney disease; G40.909 Epilepsy, unspecified, not intractable, without status epilepticus; Z99.2 Dependence on renal dialysis; Z86.73 Personal history of transient ischemic attack (TIA), and cerebral infarction without residual deficits; Z79.82 Long term (current) use of aspirin; Z79.899 Other long term (current) drug therapy; Z88.1 Allergy status to other antibiotic agents; Z90.49 Acquired absence of other specified parts of digestive tract
CPT/HCPCS: 36415; 71045; 83605; 84484; 93005; 99284

== ENCOUNTER 2019-05-05 23:51 | Inpatient (IN) | payer MEDICARE, MEDICAID ==
[~2019-05-05] VITALS: Ht 175.3 cm; Wt 61.3 kg
[2019-05-06 00:53] LABS: BASOPHILS % 0.3 % (0.0-2.0); EOSINOPHILS % 0.9 % (0.0-5.0); HEMATOCRIT. 40.6 % (42.0-52.0); HEMOGLOBIN. 13.3 g/dL (14.0-18.0); LYMPHOCYTES % 19.6 % (20.0-50.0); MEAN CORPUSCULAR HEMOGLOBIN 31.3 pg (28.0-32.0); MEAN CORPUSCULAR VOLUME 95.3 fL (80.0-94.0); MEAN PLATELET VOLUME 9.8 fl (7.4-10.4); MONOCYTES % 7.5 % (2.0-8.0); NEUTROPHILS % 71.7 % (40.0-76.0); PLATELET 78 x1000/uL (130-400); RED BLOOD CELL COUNT 4.26 mill/uL (4.7-6.1); RED CELL DISTRIBUTION WIDTH 15.8 % (11.6-14.6)
[2019-05-06 00:55] LABS: CHLORIDE 112 mEq/L (98-107)
[2019-05-06] MEDS ORDERED: ONDANSETRON 4MG ODT PO ONE (01:45)
[2019-05-06] MEDS ORDERED: FUROSEMIDE 100MG/10ML VIAL IV SCH (05:32)
[2019-05-06] MEDS ORDERED: SODIUM BICARBONATE 8.4% 1 MEQ/ML 50ML SYR IV SCH (05:45)
[2019-05-06] MEDS ORDERED: INSULIN REGULAR (HUMULIN R) 300UNITS/3ML IV SCH (05:45)
[2019-05-06] MEDS ORDERED: CALCIUM CHLORIDE 1GM/10ML SYR IV SCH (05:45)
[2019-05-06] MEDS ORDERED: DEXTROSE 50% WATER 50ML SYRINGE IV SCH (05:45)
[2019-05-06] MEDS ORDERED: ALBUTEROL (0.083%) 2.5MG/3ML NEB HHN SCH (05:45)
[2019-05-06] MEDS ORDERED: ONDANSETRON HCL 4MG/2ML INJ ONE (06:07)
[2019-05-06] MEDS ORDERED: ONDANSETRON HCL 4MG/2ML INJ IV ONE (06:15)
[2019-05-06] MEDS ORDERED: ENOXAPARIN 40MG/0.4ML SYR SUBCUT SCH (08:00)
[2019-05-06] MEDS ORDERED: CLONIDINE 0.1MG TABLET PO PRN (08:00)
[2019-05-06] MEDS ORDERED: DOCUSATE SODIUM 100MG CAPSULE PO PRN (08:00)
[2019-05-06] MEDS ORDERED: ACETAMINOPHEN 325MG TABLET PO PRN (08:00)
[2019-05-06 09:00] VITALS: BP 122/81
[2019-05-06] MEDS: ISOSORBIDE MONONITRATE 30MG TABLET SR 24HR PO SCH (09:56)
[2019-05-06] MEDS: METOPROLOL TARTRATE 25MG TABLET PO SCH ×2 (09:56→22:12)
[2019-05-06] MEDS: FOLIC ACID/VITAMIN B COMP W-C TABLET PO SCH (09:58)
[2019-05-06] MEDS: ASPIRIN 81MG TABLET PO SCH (10:06)
[2019-05-06] MEDS: MORPHINE SULFATE 2 MG/ML CPJ (NOT FOR IM USE) IV PRN ×2 (10:08→18:28)
[2019-05-06] MEDS: SEVELAMER CARBONATE 800 MG TABLET PO SCH ×3 (10:15→18:03)
[2019-05-06] MEDS ORDERED: DEXTROSE 50% WATER 50ML SYRINGE IV PRN ×2 (11:30)
[2019-05-06 12:00] VITALS: BP_SYST 132; BP_SYST 91; BP_DIAS 53; BP_DIAS 55
[2019-05-06] MEDS: INSULIN LISPRO 100 UNITS/ML SUBCUT SCH ×3 (12:42→21:00)
[2019-05-06] MEDS: BLOOD SUGAR DIAGNOSTIC STRIP TEST SCH ×3 (12:42→21:00)
[2019-05-06] MEDS: GABAPENTIN 100MG CAPSULE PO SCH ×2 (13:19→21:59)
[2019-05-06] MEDS ORDERED: INFLUENZA VIRUS VACCINE(AFLURIA) 0.5ML SYR IM ONE (14:00)
[2019-05-06 16:00] VITALS: BP 118/59
[2019-05-06] MEDS: ONDANSETRON HCL 4MG/2ML INJ IV PRN (16:18)
[2019-05-06] MEDS: HYDROCODONE/ACETAMINOPHEN 5/325MG TABLET PO PRN ×2 (16:18→22:00)
[2019-05-06 16:32] LABS: CLARITY URINE CLOUDY (CLEAR); COLOR URINE YELLOW (YELLOW); KETONES URINE NEGATIVE (NEGATIVE); LEUKOCYTE ESTERASE URINE 2+ (NEGATIVE); NITRITE URINE NEGATIVE (NEGATIVE); OCCULT BLOOD URINE 2+ (NEGATIVE); PROTEIN URINE 3+ (NEGATIVE); SPECIFIC GRAVITY URINE 1.014 (1.005-1.030)
[2019-05-06 17:07] LABS: *AMPHETAMINES SCREEN URINE NEGATIVE (NEGATIVE); *BARBITURATES SCREEN URINE NEGATIVE (NEGATIVE); *BENZODIAZEPINES SCREEN URINE NEGATIVE (NEGATIVE)
[2019-05-06 17:08] LABS: *COCAINE SCREEN URINE NEGATIVE (NEGATIVE); CANNABINOID URINE SCREEN NEGATIVE (NEGATIVE); METHADONE URINE SCREEN NEGATIVE (NEGATIVE); OPIATES URINE SCREEN PRESUMTIVE POSITIVE (NEGATIVE); PHENCYCLIDINE URINE SCREEN NEGATIVE (NEGATIVE)
[2019-05-06 20:00] VITALS: BP 121/63
[2019-05-06] MEDS: ATORVASTATIN CALCIUM 20MG TABLET PO SCH (22:01)
[2019-05-07] VITALS: BP 123/57
[2019-05-07] MEDS ORDERED: ZOLPIDEM TARTRATE 5MG TABLET PO PRN
[2019-05-07] MEDS: DIPHENHYDRAMINE 50MG/ML VIAL IV PRN ×2 (00:03→18:46)
[2019-05-07] MEDS: MORPHINE SULFATE 2 MG/ML CPJ (NOT FOR IM USE) IV PRN ×3 (00:26→17:09)
[2019-05-07 04:00] VITALS: BP 108/51
[2019-05-07] MEDS: GABAPENTIN 100MG CAPSULE PO SCH ×3 (06:03→20:58)
[2019-05-07] MEDS: BLOOD SUGAR DIAGNOSTIC STRIP TEST SCH ×4 (06:11→20:59)
[2019-05-07 06:49] LABS: BASOPHILS % 0.3 % (0.0-2.0); HEMATOCRIT. 37.8 % (42.0-52.0); HEMOGLOBIN. 12.4 g/dL (14.0-18.0); LYMPHOCYTES % 22.8 % (20.0-50.0); MEAN CORPUSCULAR HEMOGLOBIN 31.2 pg (28.0-32.0); MEAN PLATELET VOLUME 11.4 fl (7.4-10.4); MONOCYTES % 8.5 % (2.0-8.0); NEUTROPHILS % 67.4 % (40.0-76.0); PLATELET 75 x1000/uL (130-400); RED BLOOD CELL COUNT 3.98 mill/uL (4.7-6.1); RED CELL DISTRIBUTION WIDTH 16.1 % (11.6-14.6)
[2019-05-07 06:57] LABS: CHLORIDE 106 mEq/L (98-107)
[2019-05-07 07:09] LABS: LDL CHOLESTEROL 46 mg/dL (5-100)
[2019-05-07 07:12] LABS: HDL CHOLESTEROL 30 mg/dL (40-59)
[2019-05-07] MEDS: INSULIN LISPRO 100 UNITS/ML SUBCUT SCH ×4 (07:46→20:59)
[2019-05-07 08:00] VITALS: BP 118/66
[2019-05-07] MEDS: METOPROLOL TARTRATE 25MG TABLET PO SCH ×2 (09:00→20:58)
[2019-05-07] MEDS: FOLIC ACID/VITAMIN B COMP W-C TABLET PO SCH (09:00)
[2019-05-07] MEDS: ASPIRIN 81MG TABLET PO SCH (09:00)
[2019-05-07] MEDS: SEVELAMER CARBONATE 800 MG TABLET PO SCH ×3 (09:00→17:10)
[2019-05-07] MEDS: ISOSORBIDE MONONITRATE 30MG TABLET SR 24HR PO SCH (09:00)
[2019-05-07 12:00] VITALS: BP 102/62
[2019-05-07] MEDS: ONDANSETRON HCL 4MG/2ML INJ IV PRN ×2 (12:25→18:50)
[2019-05-07 16:00] VITALS: BP 95/44
[2019-05-07] MEDS ORDERED: LEVOFLOXACIN 250MG PREMIX 50 ML IV SCH (16:00)
[2019-05-07 20:00] VITALS: BP 109/56
[2019-05-07] MEDS: ATORVASTATIN CALCIUM 20MG TABLET PO SCH (20:58)
[2019-05-08] VITALS: BP 128/55
[2019-05-08] MEDS: MORPHINE SULFATE 2 MG/ML CPJ (NOT FOR IM USE) IV PRN ×2 (00:34→08:55)
[2019-05-08 04:00] VITALS: BP 112/54
[2019-05-08] MEDS: BLOOD SUGAR DIAGNOSTIC STRIP TEST SCH ×2 (06:46→12:50)
[2019-05-08] MEDS: GABAPENTIN 100MG CAPSULE PO SCH ×2 (06:46→13:01)
[2019-05-08 08:00] LABS: BASOPHILS % 0.4 % (0.0-2.0); EOSINOPHILS % 1.7 % (0.0-5.0); HEMATOCRIT. 41.5 % (42.0-52.0); HEMOGLOBIN. 13.5 g/dL (14.0-18.0); LYMPHOCYTES % 20.4 % (20.0-50.0); MEAN CORPUSCULAR HEMOGLOBIN 31.3 pg (28.0-32.0); MEAN CORPUSCULAR VOLUME 96.1 fL (80.0-94.0); MEAN PLATELET VOLUME 11.1 fl (7.4-10.4); MONOCYTES % 9.1 % (2.0-8.0); NEUTROPHILS % 68.4 % (40.0-76.0); PLATELET 72 x1000/uL (130-400); RED BLOOD CELL COUNT 4.32 mill/uL (4.7-6.1); RED CELL DISTRIBUTION WIDTH 16.2 % (11.6-14.6)
[2019-05-08] MEDS: INSULIN LISPRO 100 UNITS/ML SUBCUT SCH ×2 (08:10→12:52)
[2019-05-08 08:29] VITALS: BP 91/42
[2019-05-08] MEDS: ISOSORBIDE MONONITRATE 30MG TABLET SR 24HR PO SCH (08:53)
[2019-05-08] MEDS: METOPROLOL TARTRATE 25MG TABLET PO SCH (08:54)
[2019-05-08] MEDS: SEVELAMER CARBONATE 800 MG TABLET PO SCH ×2 (08:55→12:50)
[2019-05-08] MEDS: ASPIRIN 81MG TABLET PO SCH (08:55)
[2019-05-08] MEDS: FOLIC ACID/VITAMIN B COMP W-C TABLET PO SCH (08:55)
[2019-05-08 12:01] VITALS: BP 105/63
[2019-05-08] MEDS: HYDROCODONE/ACETAMINOPHEN 5/325MG TABLET PO PRN (12:51)
[2019-05-08 14:07] VITALS: BP 105/63
[2019-05-08] MEDS ORDERED: SULF1TAB47 MT (14:26)
[2019-05-08 15:19] VITALS: BP 125/45
== END 2019-05-08 15:40 | disposition home or self-care (01) | DRG 640 ==
LOC: ER 23:51 → 7WST 05-06 05:50 → ENRESERV 05-06 08:10
PROVIDERS: ADMIT Internal Medicine Nephrology; ATTEND Internal Medicine
PROC: 5A1D70Z Performance of Urinary Filtration, Intermittent, Less than 6 Hours Per Day (ICD-10-PCS; principal; 2019-05-06)
DX: E87.5 Hyperkalemia (principal); N18.6 End stage renal disease; I12.0 Hypertensive chronic kidney disease with stage 5 chronic kidney disease or end stage renal disease; N39.0 Urinary tract infection, site not specified; E46 Unspecified protein-calorie malnutrition; Z68.1 Body mass index [BMI] 19.9 or less, adult; E87.2 Acidosis; Z88.1 Allergy status to other antibiotic agents; E11.22 Type 2 diabetes mellitus with diabetic chronic kidney disease; E11.51 Type 2 diabetes mellitus with diabetic peripheral angiopathy without gangrene; E78.5 Hyperlipidemia, unspecified; E87.70 Fluid overload, unspecified; I25.10 Atherosclerotic heart disease of native coronary artery without angina pectoris; I48.91 Unspecified atrial fibrillation; N31.9 Neuromuscular dysfunction of bladder, unspecified; Z79.01 Long term (current) use of anticoagulants; Z79.899 Other long term (current) drug therapy; Z90.5 Acquired absence of kidney; Z91.14 Patient's other noncompliance with medication regimen; Z95.5 Presence of coronary angioplasty implant and graft; Z99.2 Dependence on renal dialysis; Z79.84 Long term (current) use of oral hypoglycemic drugs; Z90.49 Acquired absence of other specified parts of digestive tract; Z89.432 Acquired absence of left foot
CPT/HCPCS: 36415; 71045; 80048; 80061; 80305; 81003; 82962; 83880; 84484; 87077; 90686; 93005; 93970; 97162; 99291; C1893; J1200; J1815; J1940; J1956; J2270; J2405; J3490; J7611; Q0162

== ENCOUNTER 2019-06-21 00:35 | Emergency (ER) | payer MEDICARE, MEDICAID ==
[~2019-06-21] VITALS: Ht 172.7 cm; Wt 79.0 kg
[~2019-06-21 00:35] MED LIST changes: -METOPROLOL PO
[2019-06-21 02:03] LABS: CHLORIDE 110 mEq/L (98-107)
[2019-06-21 02:08] LABS: HEMATOCRIT 35.9 % (42.0-52.0); HEMOGLOBIN 11.9 g/dL (14.0-18.0); MEAN CORPUSCULAR VOLUME 93.6 fL (80.0-94.0); PLATELET 87 x1000/uL (130-400); RED BLOOD CELL COUNT 3.84 mill/uL (4.7-6.1)
[2019-06-21] MEDS ORDERED: ACETAMINOPHEN 500MG TABLET PO SCH (02:45)
[2019-06-21 03:13] LABS: CLARITY URINE TURBID (CLEAR); COLOR URINE ORANGE (YELLOW); KETONES URINE NEGATIVE (NEGATIVE); LEUKOCYTE ESTERASE URINE 3+ (NEGATIVE); NITRITE URINE POSITIVE (NEGATIVE); OCCULT BLOOD URINE 3+ (NEGATIVE); PH URINE 7.5 (4.5-8.0); PROTEIN URINE 3+ (NEGATIVE); SPECIFIC GRAVITY URINE 1.012 (1.005-1.030); UROBILINOGEN URINE 0.2 E.U./dL (0.2-1.0)
[2019-06-21] MEDS ORDERED: LEVOFLOXACIN 750MG PREMIX 150 ML IV SCH (04:00)
[2019-06-21 11:00] VITALS: BP 115/75
== END 2019-06-21 11:15 | disposition home or self-care (01) ==
LOC: ER 00:35
DX: N39.0 Urinary tract infection, site not specified (principal); I12.0 Hypertensive chronic kidney disease with stage 5 chronic kidney disease or end stage renal disease; N18.6 End stage renal disease; R31.9 Hematuria, unspecified; R07.9 Chest pain, unspecified; Z99.2 Dependence on renal dialysis; Z90.49 Acquired absence of other specified parts of digestive tract; Z98.890 Other specified postprocedural states; Z88.8 Allergy status to other drugs, medicaments and biological substances; Z79.899 Other long term (current) drug therapy
CPT/HCPCS: 36415; 80053; 81003; 85027; 87077; 87086; 87186; 96365; 99283; J1956

== ENCOUNTER 2019-06-25 13:07 | Inpatient (IN) | payer MEDICARE, MEDICAID ==
[~2019-06-25] VITALS: Ht 177.8 cm; Wt 84.8 kg
[2019-06-25 00:22] VITALS: BP 153/51
[2019-06-25] MEDS ORDERED: VANCOMYCIN 1 G PREMIX 200 ML IV ONE (13:30)
[2019-06-25] MEDS ORDERED: GENTAMICIN 80MG PREMIX 100 ML IV ONE (13:30)
[2019-06-25] MEDS ORDERED: DILTIAZEM HCL 5MG/ML 5ML VIAL IV ONE (14:00)
[2019-06-25 14:31] LABS: BASOPHILS % 0.2 % (0.0-2.0); EOSINOPHILS % 0.5 % (0.0-5.0); HEMATOCRIT. 29.2 % (42.0-52.0); HEMOGLOBIN. 9.8 g/dL (14.0-18.0); LYMPHOCYTES % 9.5 % (20.0-50.0); MEAN CORPUSCULAR HEMOGLOBIN 31.3 pg (28.0-32.0); MONOCYTES % 7.4 % (2.0-8.0); NEUTROPHILS % 82.4 % (40.0-76.0); PLATELET 66 x1000/uL (130-400); RED BLOOD CELL COUNT 3.14 mill/uL (4.7-6.1); RED CELL DISTRIBUTION WIDTH 16.2 % (11.6-14.6)
[2019-06-25 14:31] LABS: BG BASE EXCESS -0.8 mmol/L (-2.0-2.0); BG CARBOXYHEMOGLOBIN 0.7 % (0.5-1.5); BG DEOXYHEMOGLOBIN 1.1 % (0.0-5.0); BG HCO3 ACT 21.9 mmol/L (22.0-26.0); BG METHEMOGLOBIN 0.3 % (0.0-1.5); BG OXYGEN SATURATION 98.9 % (92.0-98.5); BG OXYHEMOGLOBIN 97.9 % (94.0-97.0); BG PCO2 29.2 mmHg (35.0-45.0); BG PH 7.493 (7.350-7.450); BG PO2 214.8 mmHg (75.0-100.0); BG SAMPLE SITE LEFT BRACHIAL; BG TOTAL HEMOGLOBIN 9.7 g/dL (12.0-18.0); BG VENT MODE MASK - NRB
[2019-06-25 14:36] LABS: PROTHROMBIN TIME 10.7 sec (9.6-11.0)
[2019-06-25 14:38] LABS: CHLORIDE 101 mEq/L (98-107)
[2019-06-25 16:21] LABS: CLARITY URINE TURBID (CLEAR); COLOR URINE YELLOW (YELLOW); KETONES URINE NEGATIVE (NEGATIVE); LEUKOCYTE ESTERASE URINE 3+ (NEGATIVE); NITRITE URINE NEGATIVE (NEGATIVE); OCCULT BLOOD URINE 3+ (NEGATIVE); PH URINE 7.5 (4.5-8.0); PROTEIN URINE 3+ (NEGATIVE); SPECIFIC GRAVITY URINE 1.014 (1.005-1.030); UROBILINOGEN URINE 0.2 E.U./dL (0.2-1.0)
[2019-06-25] MEDS ORDERED: GUAIFENESIN 200MG/10ML SUGAR FREE UDC PO PRN (17:30)
[2019-06-25] MEDS ORDERED: HYDROCODONE/ACETAMINOPHEN 5/325MG TABLET PO PRN (17:30)
[2019-06-25] MEDS ORDERED: DIPHENHYDRAMINE 50MG/ML VIAL IV PRN (17:30)
[2019-06-25] MEDS ORDERED: IPRATROPIUM/ALBUTEROL 0.5-3(2.5)MG/3ML NEB NEB PRN (17:30)
[2019-06-25] MEDS ORDERED: CLONIDINE 0.1MG TABLET PO PRN (17:30)
[2019-06-25] MEDS ORDERED: DOCUSATE SODIUM 100MG CAPSULE PO PRN (17:30)
[2019-06-25] MEDS ORDERED: DEXT 5%/0.45% NACL 1000ML 1,000 ML IV SCH (17:30)
[2019-06-25] MEDS ORDERED: NA PHOS,M-B/NA PHOS,DI-BA ENEMA 118ML PR PRN (17:30)
[2019-06-25] MEDS ORDERED: MAGNESIUM/ALUMINUM HYDROXIDE/SIMETHICONE 30ML UDC PO PRN (17:30)
[2019-06-25] MEDS ORDERED: ENOXAPARIN 40MG/0.4ML SYR SUBCUT SCH (17:30)
[2019-06-25] MEDS ORDERED: ACETAMINOPHEN 325MG TABLET PO PRN (17:30)
[2019-06-25] MEDS ORDERED: LEVOFLOXACIN 500MG PREMIX 100 ML IV SCH ×2 (17:30→17:45)
[2019-06-25] MEDS: ONDANSETRON HCL 4MG/2ML INJ IV PRN (19:38)
[2019-06-25] MEDS ORDERED: DEXTROSE 50% WATER 50ML SYRINGE IV PRN (22:30)
[2019-06-26] VITALS (13 sets, daily range): BP systolic 98–160; BP diastolic 41–79
[2019-06-26] MEDS: MORPHINE SULFATE 2 MG/ML CPJ (NOT FOR IM USE) IV PRN ×3 (01:53→21:10)
[2019-06-26] MEDS ORDERED: ENOXAPARIN 60MG/0.6ML SYR SUBCUT NR (04:00)
[2019-06-26] MEDS: NITROGLYCERIN OINT 1GM/INCH UDPKT TD SCH ×4 (04:17→21:02)
[2019-06-26] MEDS: ONDANSETRON HCL 4MG/2ML INJ IV PRN (05:09)
[2019-06-26] MEDS: BLOOD SUGAR DIAGNOSTIC STRIP TEST SCH ×4 (06:03→21:07)
[2019-06-26] MEDS: INSULIN LISPRO (LOW DOSE) 100 UNITS/ML SUBCUT SCH ×4 (07:20→21:07)
[2019-06-26 08:24] LABS: BASOPHILS % 0.2 % (0.0-2.0); EOSINOPHILS % 0.4 % (0.0-5.0); HEMOGLOBIN. 9.5 g/dL (14.0-18.0); LYMPHOCYTES % 7.9 % (20.0-50.0); MEAN CORPUSCULAR HEMOGLOBIN 31.6 pg (28.0-32.0); MEAN CORPUSCULAR VOLUME 93.3 fL (80.0-94.0); MEAN PLATELET VOLUME 9.4 fl (7.4-10.4); MONOCYTES % 6.7 % (2.0-8.0); NEUTROPHILS % 84.8 % (40.0-76.0); PLATELET 68 x1000/uL (130-400); RED CELL DISTRIBUTION WIDTH 16.4 % (11.6-14.6)
[2019-06-26 08:31] LABS: CHLORIDE 103 mEq/L (98-107)
[2019-06-26 08:38] LABS: LDL CHOLESTEROL 45 mg/dL (5-100)
[2019-06-26 08:40] LABS: HDL CHOLESTEROL 35 mg/dL (40-59); T4 FREE 1.19 ng/dL (0.76-1.46)
[2019-06-26] MEDS ORDERED: LIDOCAINE HCL 1% 20ML VIAL (Pyxis) INJ ONE (09:11)
[2019-06-26] MEDS ORDERED: IODIXANOL 320MG/ML 100 ML BOTTLE IV ONE (09:11)
[2019-06-26] MEDS ORDERED: MIDAZOLAM HCL 2 MG/2 ML VIAL ONE (09:36)
[2019-06-26] MEDS ORDERED: FENTANYL CITRATE/PF 50MCG/ML 2ML VIAL ONE (09:37)
[2019-06-26] MEDS ORDERED: ATROPINE SULFATE 1MG/10ML SYR IV PRN (10:30)
[2019-06-26] MEDS ORDERED: ACETAMINOPHEN 325MG TABLET PO PRN (10:30)
[2019-06-26] MEDS: ASPIRIN 81MG EC TABLET PO SCH (14:15)
[2019-06-26] MEDS: LORAZEPAM 2MG/ML CPJ IV PRN (23:56)
[2019-06-27] VITALS (11 sets, daily range): BP systolic 111–159; BP diastolic 45–79
[2019-06-27] MEDS: BLOOD SUGAR DIAGNOSTIC STRIP TEST SCH ×4 (06:50→21:00)
[2019-06-27] MEDS: INSULIN LISPRO (LOW DOSE) 100 UNITS/ML SUBCUT SCH ×4 (07:20→21:00)
[2019-06-27 07:33] LABS: BASOPHILS % 0.5 % (0.0-2.0); EOSINOPHILS % 0.2 % (0.0-5.0); HEMATOCRIT. 27.1 % (42.0-52.0); HEMOGLOBIN. 9.1 g/dL (14.0-18.0); LYMPHOCYTES % 7.6 % (20.0-50.0); MEAN CORPUSCULAR HEMOGLOBIN 31.7 pg (28.0-32.0); MEAN CORPUSCULAR VOLUME 93.9 fL (80.0-94.0); MEAN PLATELET VOLUME 10.3 fl (7.4-10.4); NEUTROPHILS % 81.7 % (40.0-76.0); RED BLOOD CELL COUNT 2.88 mill/uL (4.7-6.1); RED CELL DISTRIBUTION WIDTH 16.1 % (11.6-14.6)
[2019-06-27 07:51] LABS: PLATELET 50 x1000/uL (130-400)
[2019-06-27] MEDS: ONDANSETRON HCL 4MG/2ML INJ IV PRN ×2 (08:23→14:37)
[2019-06-27] MEDS: NITROGLYCERIN OINT 1GM/INCH UDPKT TD SCH (08:23)
[2019-06-27] MEDS: ASPIRIN 81MG EC TABLET PO SCH (09:11)
[2019-06-27] MEDS: MORPHINE SULFATE 2 MG/ML CPJ (NOT FOR IM USE) IV PRN (09:15)
[2019-06-27] MEDS ORDERED: LEVOFLOXACIN 250MG PREMIX 50 ML IV SCH (18:00)
[2019-06-27] MEDS: METOPROLOL TARTRATE 50MG TABLET PO SCH (20:48)
[2019-06-27] MEDS: LORAZEPAM 2MG/ML CPJ IV PRN (21:08)
[2019-06-28] VITALS: BP 153/54
[2019-06-28] MEDS: BLOOD SUGAR DIAGNOSTIC STRIP TEST SCH ×2 (06:50→11:42)
[2019-06-28] MEDS: INSULIN LISPRO (LOW DOSE) 100 UNITS/ML SUBCUT SCH ×2 (07:20→12:58)
[2019-06-28 08:00] VITALS: BP 141/76
[2019-06-28] MEDS: ASPIRIN 81MG EC TABLET PO SCH (08:44)
[2019-06-28] MEDS: METOPROLOL TARTRATE 50MG TABLET PO SCH (08:44)
[2019-06-28 09:53] LABS: BASOPHILS % 0.4 % (0.0-2.0); EOSINOPHILS % 0.7 % (0.0-5.0); HEMATOCRIT. 27.7 % (42.0-52.0); HEMOGLOBIN. 9.2 g/dL (14.0-18.0); MEAN CORPUSCULAR HEMOGLOBIN 31.3 pg (28.0-32.0); MEAN CORPUSCULAR VOLUME 94.1 fL (80.0-94.0); MEAN PLATELET VOLUME 10.1 fl (7.4-10.4); MONOCYTES % 9.5 % (2.0-8.0); NEUTROPHILS % 75.4 % (40.0-76.0); PLATELET 66 x1000/uL (130-400); RED BLOOD CELL COUNT 2.94 mill/uL (4.7-6.1); RED CELL DISTRIBUTION WIDTH 15.8 % (11.6-14.6)
[2019-06-28 09:56] VITALS: BP 140/62
[2019-06-28 10:00] VITALS: BP 145/64
[2019-06-28 12:00] VITALS: BP 154/56
[2019-06-28 14:00] VITALS: BP 157/56
== END 2019-06-28 15:09 | DRG 280 ==
LOC: ER 13:07 → 3WST 15:07 → EDBEDREQ 15:10 → EDBEDREQTM 15:10 → ENRESERV 20:14 → CANRESERV 20:14 → EDBEDREQTM 21:58 → EDBEDREQSVC 21:58 → ENRESERV 22:04
PROVIDERS: ADMIT Internal Medicine; ATTEND Internal Medicine
PROC: 5A1D70Z Performance of Urinary Filtration, Intermittent, Less than 6 Hours Per Day (ICD-10-PCS; 2019-06-25)
PROC: 4A023N7 Measurement of Cardiac Sampling and Pressure, Left Heart, Percutaneous Approach (ICD-10-PCS; principal; 2019-06-26)
PROC: B211YZZ Fluoroscopy of Multiple Coronary Arteries using Other Contrast (ICD-10-PCS; 2019-06-26)
PROC: B215YZZ Fluoroscopy of Left Heart using Other Contrast (ICD-10-PCS; 2019-06-26)
PROC: 5A1D70Z Performance of Urinary Filtration, Intermittent, Less than 6 Hours Per Day (ICD-10-PCS; 2019-06-26)
PROC: 5A1D70Z Performance of Urinary Filtration, Intermittent, Less than 6 Hours Per Day (ICD-10-PCS; 2019-06-28)
DX: I21.4 Non-ST elevation (NSTEMI) myocardial infarction (principal); I50.31 Acute diastolic (congestive) heart failure; J96.01 Acute respiratory failure with hypoxia; N18.6 End stage renal disease; J18.9 Pneumonia, unspecified organism; I13.2 Hypertensive heart and chronic kidney disease with heart failure and with stage 5 chronic kidney disease, or end stage renal disease; B20 Human immunodeficiency virus [HIV] disease; E46 Unspecified protein-calorie malnutrition; I50.30 Unspecified diastolic (congestive) heart failure; N39.0 Urinary tract infection, site not specified; G82.20 Paraplegia, unspecified; I47.1 Supraventricular tachycardia; I25.110 Atherosclerotic heart disease of native coronary artery with unstable angina pectoris; E11.22 Type 2 diabetes mellitus with diabetic chronic kidney disease; B96.1 Klebsiella pneumoniae [K. pneumoniae] as the cause of diseases classified elsewhere; D64.9 Anemia, unspecified; D69.6 Thrombocytopenia, unspecified; E11.40 Type 2 diabetes mellitus with diabetic neuropathy, unspecified; R26.9 Unspecified abnormalities of gait and mobility; E78.5 Hyperlipidemia, unspecified; G40.909 Epilepsy, unspecified, not intractable, without status epilepticus; I48.91 Unspecified atrial fibrillation; N31.9 Neuromuscular dysfunction of bladder, unspecified; Z79.01 Long term (current) use of anticoagulants; Z82.3 Family history of stroke; Z82.49 Family history of ischemic heart disease and other diseases of the circulatory system; Z86.718 Personal history of other venous thrombosis and embolism; Z86.73 Personal history of transient ischemic attack (TIA), and cerebral infarction without residual deficits; Z87.891 Personal history of nicotine dependence; Z99.2 Dependence on renal dialysis; Z91.15 Patient's noncompliance with renal dialysis; Z89.432 Acquired absence of left foot; Z90.5 Acquired absence of kidney; Z91.14 Patient's other noncompliance with medication regimen; Z79.899 Other long term (current) drug therapy; Z79.82 Long term (current) use of aspirin; Z88.1 Allergy status to other antibiotic agents; Z68.26 Body mass index [BMI] 26.0-26.9, adult; Z90.49 Acquired absence of other specified parts of digestive tract
CPT/HCPCS: 36415; 36600; 71045; 80048; 80061; 81003; 82375; 82805; 82962; 83605; 84145; 84439; 84443; 84484; 86850; 86900; 87077; 87186; 93005; 93306; 93458; 97162; 99291; C1760; C1769; C1887; C1893; J1200; J1580; J1644; J1650; J1815; J1956; J2060; J2250; J2270; J2405; J3010; J3370; J3490; Q9967

== ENCOUNTER 2019-06-28 15:08 | Inpatient (IN) | payer MEDICARE, MEDICAID ==
[~2019-06-28] VITALS: Ht 180.3 cm; Wt 79.8 kg
[2019-06-28] MEDS ORDERED: NA PHOS,M-B/NA PHOS,DI-BA ENEMA 118ML PR PRN (16:45)
[2019-06-28] MEDS ORDERED: DIPHENHYDRAMINE 50MG CAPSULE PO PRN (16:45)
[2019-06-28] MEDS ORDERED: ACETAMINOPHEN 325MG TABLET PO PRN (16:45)
[2019-06-28] MEDS ORDERED: ONDANSETRON HCL 4MG/2ML INJ IV PRN (16:45)
[2019-06-28] MEDS ORDERED: GUAIFENESIN 200MG/10ML SUGAR FREE UDC PO PRN (16:45)
[2019-06-28] MEDS ORDERED: MAGNESIUM/ALUMINUM HYDROXIDE/SIMETHICONE 30ML UDC PO PRN (16:45)
[2019-06-28] MEDS ORDERED: IPRATROPIUM/ALBUTEROL 0.5-3(2.5)MG/3ML NEB HHN PRN (16:45)
[2019-06-28] MEDS ORDERED: LORAZEPAM 2MG/ML CPJ IV PRN (16:45)
[2019-06-28 16:48] VITALS: BP 154/50
[2019-06-28 16:50] VITALS: BP 154/50
[2019-06-28] MEDS ORDERED: DEXTROSE 50% WATER 50ML SYRINGE IV PRN (17:00)
[2019-06-28] MEDS: INSULIN LISPRO 100 UNITS/ML SUBCUT SCH ×2 (17:00→21:00)
[2019-06-28] MEDS: BLOOD SUGAR DIAGNOSTIC STRIP TEST SCH ×2 (17:33→21:02)
[2019-06-28] MEDS: DOCUSATE SODIUM 100MG CAPSULE PO SCH (17:33)
[2019-06-28 20:00] VITALS: BP 166/33
[2019-06-28] MEDS: MORPHINE SULFATE 2 MG/ML CPJ (NOT FOR IM USE) IV PRN (20:28)
[2019-06-28] MEDS: METOPROLOL TARTRATE 50MG TABLET PO SCH (20:33)
[2019-06-28] MEDS: CLONIDINE 0.1MG TABLET PO PRN (21:28)
[2019-06-28 23:15] VITALS: BP 155/49
[2019-06-28] MEDS: LORAZEPAM 2MG/ML CPJ IV PRN (23:23)
[2019-06-29] MEDS: BLOOD SUGAR DIAGNOSTIC STRIP TEST SCH ×4 (05:41→20:25)
[2019-06-29] MEDS: INSULIN LISPRO 100 UNITS/ML SUBCUT SCH ×4 (06:22→20:31)
[2019-06-29] MEDS: MORPHINE SULFATE 2 MG/ML CPJ (NOT FOR IM USE) IV PRN ×3 (06:33→20:41)
[2019-06-29 06:45] LABS: BASOPHILS % 0.3 % (0.0-2.0); EOSINOPHILS % 0.7 % (0.0-5.0); HEMATOCRIT. 28.4 % (42.0-52.0); HEMOGLOBIN. 9.6 g/dL (14.0-18.0); MEAN CORPUSCULAR HEMOGLOBIN 31.3 pg (28.0-32.0); MEAN PLATELET VOLUME 9.6 fl (7.4-10.4); MONOCYTES % 8.7 % (2.0-8.0); NEUTROPHILS % 75.3 % (40.0-76.0); PLATELET 78 x1000/uL (130-400); RED BLOOD CELL COUNT 3.06 mill/uL (4.7-6.1); RED CELL DISTRIBUTION WIDTH 15.7 % (11.6-14.6)
[2019-06-29 06:49] LABS: CHLORIDE 102 mEq/L (98-107)
[2019-06-29 08:00] VITALS: BP 171/57
[2019-06-29] MEDS: DOCUSATE SODIUM 100MG CAPSULE PO SCH ×2 (08:47→17:10)
[2019-06-29] MEDS: METOPROLOL TARTRATE 50MG TABLET PO SCH ×2 (08:47→20:25)
[2019-06-29] MEDS: ASPIRIN 81MG EC TABLET PO SCH (08:47)
[2019-06-29] MEDS ORDERED: LEVOFLOXACIN 250MG PREMIX 50 ML IV SCH (09:00)
[2019-06-29] MEDS: METOCLOPRAMIDE HCL 10MG/2ML VIAL IV SCH ×2 (11:46→17:15)
[2019-06-29] MEDS: GABAPENTIN 100MG CAPSULE PO SCH ×2 (14:23→20:26)
[2019-06-29] MEDS: CLONIDINE 0.1MG TABLET PO PRN ×2 (15:46→22:30)
[2019-06-29] MEDS: ONDANSETRON HCL 4MG/2ML INJ IV PRN (18:16)
[2019-06-29 20:00] VITALS: BP 173/73
[2019-06-29] MEDS: ZONISAMIDE 100MG CAPSULE PO SCH (20:25)
[2019-06-29] MEDS: LORAZEPAM 2MG/ML CPJ IV PRN (22:41)
[2019-06-30] VITALS (18 sets, daily range): BP systolic 127–188; BP diastolic 45–95
[2019-06-30] MEDS: METOCLOPRAMIDE HCL 10MG/2ML VIAL IV SCH ×4 (00:46→18:13)
[2019-06-30] MEDS: GABAPENTIN 100MG CAPSULE PO SCH ×3 (05:24→21:43)
[2019-06-30] MEDS: BLOOD SUGAR DIAGNOSTIC STRIP TEST SCH ×4 (05:24→21:44)
[2019-06-30 06:59] LABS: BASOPHILS % 0.4 % (0.0-2.0); EOSINOPHILS % 0.9 % (0.0-5.0); HEMATOCRIT. 27.5 % (42.0-52.0); HEMOGLOBIN. 9.3 g/dL (14.0-18.0); LYMPHOCYTES % 17.5 % (20.0-50.0); MEAN CORPUSCULAR HEMOGLOBIN 31.4 pg (28.0-32.0); MEAN CORPUSCULAR VOLUME 92.6 fL (80.0-94.0); MEAN PLATELET VOLUME 9.6 fl (7.4-10.4); MONOCYTES % 9.7 % (2.0-8.0); NEUTROPHILS % 71.5 % (40.0-76.0); PLATELET 82 x1000/uL (130-400); RED BLOOD CELL COUNT 2.97 mill/uL (4.7-6.1); RED CELL DISTRIBUTION WIDTH 15.7 % (11.6-14.6)
[2019-06-30 07:06] LABS: PHOSPHORUS 6.7 mg/dL (2.5-4.9)
[2019-06-30 07:19] LABS: FOLIC ACID (FOLATE) SERUM 5.1 ng/mL (>5.38)
[2019-06-30 07:20] LABS: PROSTRATE SPECIFIC AG TOTAL 1.06 ng/mL (0.0-4.0)
[2019-06-30] MEDS: INSULIN LISPRO 100 UNITS/ML SUBCUT SCH ×4 (07:24→21:00)
[2019-06-30] MEDS ORDERED: ALTEPLASE 2MG/VIAL ITC SCH (08:30)
[2019-06-30] MEDS: DOCUSATE SODIUM 100MG CAPSULE PO SCH ×2 (08:43→16:21)
[2019-06-30] MEDS: METOPROLOL TARTRATE 50MG TABLET PO SCH ×2 (08:43→21:40)
[2019-06-30] MEDS: ASPIRIN 81MG EC TABLET PO SCH (08:44)
[2019-06-30] MEDS ORDERED: BISACODYL 5MG TABLET PO PRN (09:00)
[2019-06-30] MEDS: LACTULOSE 20G/30ML UDC PO PRN ×2 (12:12→21:44)
[2019-06-30] MEDS ORDERED: IOHEXOL-300 100 ML BOTTLE ONE (13:07)
[2019-06-30] MEDS ORDERED: LIDOCAINE HCL 1% 20ML VIAL (Pyxis) INJ ONE (13:07)
[2019-06-30] MEDS ORDERED: SODIUM BICARBONATE 4% (2.4MEQ) 5ML VIAL IV ONE (13:07)
[2019-06-30] MEDS ORDERED: HEPARIN 1000 UNITS/ML 10ML ONE (13:08)
[2019-06-30] MEDS ORDERED: FENTANYL CITRATE/PF 50MCG/ML 2ML VIAL ONE (13:32)
[2019-06-30] MEDS ORDERED: MIDAZOLAM HCL 2 MG/2 ML VIAL ONE (13:56)
[2019-06-30] MEDS ORDERED: HEPARIN 5000 UNITS/ML VIAL IV NR (14:00)
[2019-06-30] MEDS ORDERED: FENTANYL CITRATE/PF 50MCG/ML 2ML VIAL IV ONE (14:15)
[2019-06-30] MEDS ORDERED: MIDAZOLAM HCL 2 MG/2 ML VIAL IV ONE (14:30)
[2019-06-30] MEDS: MORPHINE SULFATE 2 MG/ML CPJ (NOT FOR IM USE) IV PRN (16:21)
[2019-06-30 17:37] LABS: INR 1.2
[2019-06-30] MEDS: CYANOCOBALAMIN 1000MCG/ML VIAL IM SCH (18:13)
[2019-06-30] MEDS: FOLIC ACID 1MG TABLET PO SCH (18:13)
[2019-06-30] MEDS: ZONISAMIDE 100MG CAPSULE PO SCH (21:40)
[2019-06-30] MEDS: DIPHENHYDRAMINE 50MG CAPSULE PO PRN (22:50)
[2019-07-01] MEDS: METOCLOPRAMIDE HCL 10MG/2ML VIAL IV SCH ×4 (01:29→17:02)
[2019-07-01] MEDS: MORPHINE SULFATE 2 MG/ML CPJ (NOT FOR IM USE) IV PRN ×3 (01:30→12:58)
[2019-07-01] MEDS: GABAPENTIN 100MG CAPSULE PO SCH ×3 (07:05→21:38)
[2019-07-01] MEDS: BLOOD SUGAR DIAGNOSTIC STRIP TEST SCH ×4 (07:05→21:42)
[2019-07-01 08:22] VITALS: BP 127/72
[2019-07-01] MEDS: ASPIRIN 81MG EC TABLET PO SCH (08:38)
[2019-07-01] MEDS: FOLIC ACID 1MG TABLET PO SCH (08:38)
[2019-07-01] MEDS: CYANOCOBALAMIN 1000MCG/ML VIAL IM SCH (08:39)
[2019-07-01] MEDS: DOCUSATE SODIUM 100MG CAPSULE PO SCH ×2 (08:40→16:55)
[2019-07-01] MEDS: METOPROLOL TARTRATE 50MG TABLET PO SCH ×2 (08:40→21:42)
[2019-07-01] MEDS: INSULIN LISPRO 100 UNITS/ML SUBCUT SCH ×4 (08:45→21:00)
[2019-07-01 17:50] LABS: HEMATOCRIT. 28.4 % (42.0-52.0); HEMOGLOBIN. 9.6 g/dL (14.0-18.0); MEAN CORPUSCULAR HEMOGLOBIN 31.2 pg (28.0-32.0); MEAN CORPUSCULAR VOLUME 92.1 fL (80.0-94.0); MEAN PLATELET VOLUME 10.3 fl (7.4-10.4); PLATELET 80 x1000/uL (130-400); RED BLOOD CELL COUNT 3.08 mill/uL (4.7-6.1)
[2019-07-01 18:28] LABS: T4 FREE 1.01 ng/dL (0.76-1.46)
[2019-07-01 19:11] LABS: PLATELET ESTIMATE DECREASED
[2019-07-01 20:00] VITALS: BP 139/76
[2019-07-01] MEDS: ZONISAMIDE 100MG CAPSULE PO SCH (21:42)
[2019-07-01] MEDS: LACTULOSE 20G/30ML UDC PO PRN (21:48)
[2019-07-01 21:52] LABS: CLARITY URINE CLOUDY (CLEAR); COLOR URINE YELLOW (YELLOW); KETONES URINE NEGATIVE (NEGATIVE); LEUKOCYTE ESTERASE URINE 3+ (NEGATIVE); NITRITE URINE NEGATIVE (NEGATIVE); OCCULT BLOOD URINE 2+ (NEGATIVE); PH URINE 7.5 (4.5-8.0); PROTEIN URINE 3+ (NEGATIVE); SPECIFIC GRAVITY URINE 1.014 (1.005-1.030); UROBILINOGEN URINE 0.2 E.U./dL (0.2-1.0)
[2019-07-02] MEDS: METOCLOPRAMIDE HCL 10MG/2ML VIAL IV SCH ×4 (06:00→17:11)
[2019-07-02] MEDS: GABAPENTIN 100MG CAPSULE PO SCH ×3 (06:20→22:00)
[2019-07-02] MEDS: BLOOD SUGAR DIAGNOSTIC STRIP TEST SCH ×4 (06:21→20:47)
[2019-07-02] MEDS: INSULIN LISPRO 100 UNITS/ML SUBCUT SCH ×4 (06:27→20:48)
[2019-07-02] MEDS: HYDROCODONE/ACETAMINOPHEN 5/325MG TABLET PO PRN ×2 (06:30→11:02)
[2019-07-02 08:00] VITALS: BP 94/48
[2019-07-02] MEDS ORDERED: LEVOFLOXACIN 250MG PREMIX 50 ML IV SCH (08:00)
[2019-07-02 08:25] LABS: BASOPHILS % 0.2 % (0.0-2.0); EOSINOPHILS % 0.8 % (0.0-5.0); HEMATOCRIT. 25.7 % (42.0-52.0); HEMOGLOBIN. 8.6 g/dL (14.0-18.0); LYMPHOCYTES % 21.7 % (20.0-50.0); MEAN CORPUSCULAR HEMOGLOBIN 31.1 pg (28.0-32.0); MEAN CORPUSCULAR VOLUME 92.7 fL (80.0-94.0); MEAN PLATELET VOLUME 9.2 fl (7.4-10.4); MONOCYTES % 10.4 % (2.0-8.0); NEUTROPHILS % 66.9 % (40.0-76.0); PLATELET 81 x1000/uL (130-400); RED BLOOD CELL COUNT 2.77 mill/uL (4.7-6.1); RED CELL DISTRIBUTION WIDTH 16.1 % (11.6-14.6)
[2019-07-02] MEDS ORDERED: LEVOFLOXACIN 250MG TABLET PO SCH (10:00)
[2019-07-02] MEDS: METOPROLOL TARTRATE 50MG TABLET PO SCH ×2 (11:03→21:00)
[2019-07-02] MEDS: DOCUSATE SODIUM 100MG CAPSULE PO SCH ×2 (11:03→17:18)
[2019-07-02] MEDS: ASPIRIN 81MG EC TABLET PO SCH (11:03)
[2019-07-02] MEDS: FOLIC ACID 1MG TABLET PO SCH (11:03)
[2019-07-02] MEDS: CYANOCOBALAMIN 1000MCG/ML VIAL IM SCH (11:03)
[2019-07-02 12:13] LABS: PHOSPHORUS 6.9 mg/dL (2.5-4.9)
[2019-07-02 20:00] VITALS: BP 135/56
[2019-07-02] MEDS: ONDANSETRON HCL 4MG/2ML INJ IV PRN (20:38)
[2019-07-03] MEDS: ZONISAMIDE 100MG CAPSULE PO SCH ×2 (03:12→20:58)
[2019-07-03] MEDS: GABAPENTIN 100MG CAPSULE PO SCH ×3 (05:33→20:58)
[2019-07-03] MEDS: METOCLOPRAMIDE HCL 10MG/2ML VIAL IV SCH ×4 (05:33→15:21)
[2019-07-03] MEDS: INSULIN LISPRO 100 UNITS/ML SUBCUT SCH ×4 (05:33→21:00)
[2019-07-03] MEDS: BLOOD SUGAR DIAGNOSTIC STRIP TEST SCH ×4 (06:49→21:00)
[2019-07-03 07:13] LABS: BASOPHILS % 0.2 % (0.0-2.0); EOSINOPHILS % 0.5 % (0.0-5.0); HEMATOCRIT. 27.2 % (42.0-52.0); HEMOGLOBIN. 9.2 g/dL (14.0-18.0); LYMPHOCYTES % 15.1 % (20.0-50.0); MEAN CORPUSCULAR HEMOGLOBIN 31.6 pg (28.0-32.0); MEAN CORPUSCULAR VOLUME 93.3 fL (80.0-94.0); MEAN PLATELET VOLUME 9.4 fl (7.4-10.4); MONOCYTES % 7.2 % (2.0-8.0); PLATELET 84 x1000/uL (130-400); RED BLOOD CELL COUNT 2.92 mill/uL (4.7-6.1)
[2019-07-03] MEDS: ASPIRIN 81MG EC TABLET PO SCH (08:55)
[2019-07-03] MEDS: FOLIC ACID 1MG TABLET PO SCH (08:55)
[2019-07-03] MEDS: CYANOCOBALAMIN 1000MCG/ML VIAL IM SCH (08:55)
[2019-07-03] MEDS: DOCUSATE SODIUM 100MG CAPSULE PO SCH ×2 (08:55→17:00)
[2019-07-03] MEDS: METOPROLOL TARTRATE 50MG TABLET PO SCH ×2 (09:00→20:58)
[2019-07-03] MEDS: MORPHINE SULFATE 2 MG/ML CPJ (NOT FOR IM USE) IV PRN (15:37)
[2019-07-03 19:01] VITALS: BP 105/51
[2019-07-03 20:00] VITALS: BP 111/58
[2019-07-03] MEDS: LORAZEPAM 2MG/ML CPJ IV PRN (21:00)
[2019-07-04] MEDS: METOCLOPRAMIDE HCL 10MG/2ML VIAL IV SCH ×5 (00:25→23:28)
[2019-07-04] MEDS: GABAPENTIN 100MG CAPSULE PO SCH ×3 (05:34→22:32)
[2019-07-04 06:45] LABS: BASOPHILS % 0.2 % (0.0-2.0); EOSINOPHILS % 0.4 % (0.0-5.0); HEMATOCRIT. 27.3 % (42.0-52.0); HEMOGLOBIN. 9.2 g/dL (14.0-18.0); LYMPHOCYTES % 20.3 % (20.0-50.0); MEAN CORPUSCULAR HEMOGLOBIN 31.6 pg (28.0-32.0); MEAN CORPUSCULAR VOLUME 93.4 fL (80.0-94.0); MEAN PLATELET VOLUME 9.3 fl (7.4-10.4); MONOCYTES % 8.5 % (2.0-8.0); NEUTROPHILS % 70.6 % (40.0-76.0); PLATELET 89 x1000/uL (130-400); RED BLOOD CELL COUNT 2.92 mill/uL (4.7-6.1); RED CELL DISTRIBUTION WIDTH 15.9 % (11.6-14.6)
[2019-07-04] MEDS: INSULIN LISPRO 100 UNITS/ML SUBCUT SCH ×3 (06:51→21:00)
[2019-07-04] MEDS: BLOOD SUGAR DIAGNOSTIC STRIP TEST SCH ×2 (06:51→21:00)
[2019-07-04 08:00] VITALS: BP 120/58
[2019-07-04] MEDS: ASPIRIN 81MG EC TABLET PO SCH (09:17)
[2019-07-04] MEDS: DOCUSATE SODIUM 100MG CAPSULE PO SCH ×2 (09:18→17:42)
[2019-07-04] MEDS: CYANOCOBALAMIN 1000MCG/ML VIAL IM SCH (09:18)
[2019-07-04] MEDS: METOPROLOL TARTRATE 50MG TABLET PO SCH ×2 (09:18→21:14)
[2019-07-04] MEDS: FOLIC ACID 1MG TABLET PO SCH (09:18)
[2019-07-04] MEDS: MORPHINE SULFATE 2 MG/ML CPJ (NOT FOR IM USE) IV PRN (10:02)
[2019-07-04 20:06] VITALS: BP 112/62
[2019-07-04] MEDS: ZONISAMIDE 100MG CAPSULE PO SCH (21:13)
[2019-07-04] MEDS: MEROPENEM 500MG in NORMAL SALINE 50ML IV SCH (22:32)
[2019-07-05] MEDS: METOCLOPRAMIDE HCL 10MG/2ML VIAL IV SCH ×3 (05:41→20:37)
[2019-07-05] MEDS: GABAPENTIN 100MG CAPSULE PO SCH ×3 (05:41→21:06)
[2019-07-05] MEDS: BLOOD SUGAR DIAGNOSTIC STRIP TEST SCH ×5 (05:42→20:55)
[2019-07-05 08:05] LABS: BASOPHILS % 0.2 % (0.0-2.0); EOSINOPHILS % 0.6 % (0.0-5.0); HEMATOCRIT. 25.8 % (42.0-52.0); HEMOGLOBIN. 8.7 g/dL (14.0-18.0); LYMPHOCYTES % 15.7 % (20.0-50.0); MEAN CORPUSCULAR HEMOGLOBIN 31.7 pg (28.0-32.0); MEAN CORPUSCULAR VOLUME 93.5 fL (80.0-94.0); MEAN PLATELET VOLUME 9.5 fl (7.4-10.4); MONOCYTES % 8.3 % (2.0-8.0); NEUTROPHILS % 75.2 % (40.0-76.0); PLATELET 81 x1000/uL (130-400); RED BLOOD CELL COUNT 2.76 mill/uL (4.7-6.1); RED CELL DISTRIBUTION WIDTH 16.1 % (11.6-14.6)
[2019-07-05 08:21] VITALS: BP 100/32
[2019-07-05] MEDS: ONDANSETRON HCL 4MG/2ML INJ IV PRN (08:33)
[2019-07-05] MEDS: DOCUSATE SODIUM 100MG CAPSULE PO SCH ×2 (08:37→16:59)
[2019-07-05] MEDS: ASPIRIN 81MG EC TABLET PO SCH (08:37)
[2019-07-05] MEDS: CYANOCOBALAMIN 1000MCG/ML VIAL IM SCH (08:37)
[2019-07-05] MEDS: FOLIC ACID 1MG TABLET PO SCH (08:37)
[2019-07-05] MEDS: METOPROLOL TARTRATE 50MG TABLET PO SCH ×2 (08:38→20:38)
[2019-07-05] MEDS: INSULIN LISPRO 100 UNITS/ML SUBCUT SCH ×4 (08:39→21:08)
[2019-07-05 11:20] VITALS: BP 108/47
[2019-07-05] MEDS: MORPHINE SULFATE 2 MG/ML CPJ (NOT FOR IM USE) IV PRN (11:26)
[2019-07-05] MEDS: HYDROCODONE/ACETAMINOPHEN 5/325MG TABLET PO PRN (16:03)
[2019-07-05] MEDS: MEROPENEM 500MG in NORMAL SALINE 50ML IV SCH (16:59)
[2019-07-05] MEDS: CALCIUM CARBONATE 1250MG TABLET (500MG ELEMENTAL CALCIUM) PO SCH (18:15)
[2019-07-05 20:00] VITALS: BP 99/56
[2019-07-05] MEDS: EPOETIN ALFA 10000UNITS/ML VIAL SUBCUT SCH (20:38)
[2019-07-05] MEDS: ZONISAMIDE 100MG CAPSULE PO SCH (20:38)
[2019-07-06] MEDS: METOCLOPRAMIDE HCL 10MG/2ML VIAL IV SCH ×5 (00:59→23:21)
[2019-07-06 05:08] LABS: HIV SCREEN 4G Non Reactive (Non Reactive)
[2019-07-06] MEDS: GABAPENTIN 100MG CAPSULE PO SCH ×3 (06:02→21:12)
[2019-07-06] MEDS: INSULIN LISPRO 100 UNITS/ML SUBCUT SCH ×4 (06:07→21:00)
[2019-07-06] MEDS: BLOOD SUGAR DIAGNOSTIC STRIP TEST SCH ×4 (06:07→21:00)
[2019-07-06 08:24] VITALS: BP 141/65
[2019-07-06] MEDS: CYANOCOBALAMIN 1000MCG/ML VIAL IM SCH (08:52)
[2019-07-06] MEDS: METOPROLOL TARTRATE 50MG TABLET PO SCH ×2 (08:52→21:12)
[2019-07-06] MEDS: DOCUSATE SODIUM 100MG CAPSULE PO SCH ×2 (08:52→16:14)
[2019-07-06] MEDS: FOLIC ACID 1MG TABLET PO SCH (08:52)
[2019-07-06] MEDS: ASPIRIN 81MG EC TABLET PO SCH (08:52)
[2019-07-06] MEDS: CALCIUM CARBONATE 1250MG TABLET (500MG ELEMENTAL CALCIUM) PO SCH ×2 (12:19→16:14)
[2019-07-06] MEDS: HYDROCODONE/ACETAMINOPHEN 5/325MG TABLET PO PRN (12:30)
[2019-07-06] MEDS: MEROPENEM 500MG in NORMAL SALINE 50ML IV SCH (16:14)
[2019-07-06 20:00] VITALS: BP 123/72
[2019-07-06] MEDS: ZONISAMIDE 100MG CAPSULE PO SCH (21:12)
[2019-07-07] MEDS: BLOOD SUGAR DIAGNOSTIC STRIP TEST SCH ×4 (06:12→20:14)
[2019-07-07] MEDS: METOCLOPRAMIDE HCL 10MG/2ML VIAL IV SCH ×4 (06:13→23:05)
[2019-07-07] MEDS: GABAPENTIN 100MG CAPSULE PO SCH ×3 (06:13→20:48)
[2019-07-07] MEDS: LEVOTHYROXINE SODIUM 25MCG TABLET PO SCH (06:13)
[2019-07-07 07:48] LABS: HEMATOCRIT. 26.2 % (42.0-52.0); HEMOGLOBIN. 8.7 g/dL (14.0-18.0); MEAN CORPUSCULAR HEMOGLOBIN 31.6 pg (28.0-32.0); MEAN CORPUSCULAR VOLUME 94.9 fL (80.0-94.0); MEAN PLATELET VOLUME 9.7 fl (7.4-10.4); PLATELET 98 x1000/uL (130-400); RED BLOOD CELL COUNT 2.76 mill/uL (4.7-6.1); RED CELL DISTRIBUTION WIDTH 15.9 % (11.6-14.6)
[2019-07-07 08:00] VITALS: BP 146/71
[2019-07-07] MEDS: INSULIN LISPRO 100 UNITS/ML SUBCUT SCH ×4 (08:19→20:15)
[2019-07-07] MEDS: CALCIUM CARBONATE 1250MG TABLET (500MG ELEMENTAL CALCIUM) PO SCH ×2 (09:11→16:27)
[2019-07-07] MEDS: FOLIC ACID 1MG TABLET PO SCH (09:11)
[2019-07-07] MEDS: METOPROLOL TARTRATE 50MG TABLET PO SCH ×2 (09:11→20:46)
[2019-07-07] MEDS: ASPIRIN 81MG EC TABLET PO SCH (09:11)
[2019-07-07] MEDS: DOCUSATE SODIUM 100MG CAPSULE PO SCH ×2 (09:11→16:12)
[2019-07-07] MEDS: HYDROCODONE/ACETAMINOPHEN 5/325MG TABLET PO PRN (09:13)
[2019-07-07 11:03] LABS: PLATELET ESTIMATE DECREASED
[2019-07-07] MEDS: AMIKACIN 500MG in SODIUM CHLORIDE 0.9% 100ML IV SCH (16:00)
[2019-07-07] MEDS: CLONIDINE 0.1MG TABLET PO PRN (19:29)
[2019-07-07 20:00] VITALS: BP 211/89
[2019-07-07] MEDS: ZONISAMIDE 100MG CAPSULE PO SCH (20:48)
[2019-07-07 21:00] VITALS: BP 137/58
[2019-07-07] MEDS: DIPHENHYDRAMINE 50MG CAPSULE PO PRN (23:29)
[2019-07-08] MEDS: AMIKACIN 500MG in SODIUM CHLORIDE 0.9% 100ML IV SCH (02:44)
[2019-07-08] MEDS: EPOETIN ALFA 10000UNITS/ML VIAL SUBCUT SCH (02:45)
[2019-07-08] MEDS: GABAPENTIN 100MG CAPSULE PO SCH (06:21)
[2019-07-08] MEDS: METOCLOPRAMIDE HCL 10MG/2ML VIAL IV SCH ×2 (06:21→12:00)
[2019-07-08] MEDS: LEVOTHYROXINE SODIUM 25MCG TABLET PO SCH (06:21)
[2019-07-08] MEDS: BLOOD SUGAR DIAGNOSTIC STRIP TEST SCH ×2 (06:22→11:15)
[2019-07-08] MEDS: INSULIN LISPRO 100 UNITS/ML SUBCUT SCH ×2 (06:35→12:38)
[2019-07-08 08:01] VITALS: BP 129/47
[2019-07-08 08:07] LABS: 25-HYDROXY VITAMIN D3 15 ng/mL (.)
[2019-07-08 08:09] VITALS: BP 129/37
[2019-07-08] MEDS: CALCIUM CARBONATE 1250MG TABLET (500MG ELEMENTAL CALCIUM) PO SCH (08:39)
[2019-07-08] MEDS: ASPIRIN 81MG EC TABLET PO SCH (08:39)
[2019-07-08] MEDS: METOPROLOL TARTRATE 50MG TABLET PO SCH (08:39)
[2019-07-08] MEDS: FOLIC ACID 1MG TABLET PO SCH (08:39)
[2019-07-08] MEDS: DOCUSATE SODIUM 100MG CAPSULE PO SCH (08:39)
== END 2019-07-08 13:05 | disposition left against medical advice (07) | DRG 252 ==
PROVIDERS: ADMIT Physical Medicine & Rehabilitation Spinal Cord Injury Medicine; ATTEND Internal Medicine
PROC: 05CY3ZZ Extirpation of Matter from Upper Vein, Percutaneous Approach (ICD-10-PCS; principal; 2019-06-30)
PROC: 03WY3JZ Revision of Synthetic Substitute in Upper Artery, Percutaneous Approach (ICD-10-PCS; 2019-06-30)
PROC: 05WY3JZ Revision of Synthetic Substitute in Upper Vein, Percutaneous Approach (ICD-10-PCS; 2019-06-30)
PROC: 03CY3ZZ Extirpation of Matter from Upper Artery, Percutaneous Approach (ICD-10-PCS; 2019-06-30)
PROC: B51W1ZZ Fluoroscopy of Dialysis Shunt/Fistula using Low Osmolar Contrast (ICD-10-PCS; 2019-06-30)
PROC: 5A1D70Z Performance of Urinary Filtration, Intermittent, Less than 6 Hours Per Day (ICD-10-PCS; 2019-07-01)
PROC: 5A1D70Z Performance of Urinary Filtration, Intermittent, Less than 6 Hours Per Day (ICD-10-PCS; 2019-07-02)
PROC: 4A10X4Z Monitoring of Central Nervous Electrical Activity, External Approach (ICD-10-PCS; 2019-07-04)
PROC: 5A1D70Z Performance of Urinary Filtration, Intermittent, Less than 6 Hours Per Day (ICD-10-PCS; 2019-07-05)
PROC: 5A1D70Z Performance of Urinary Filtration, Intermittent, Less than 6 Hours Per Day (ICD-10-PCS; 2019-07-07)
DX: I21.4 Non-ST elevation (NSTEMI) myocardial infarction (principal); I50.31 Acute diastolic (congestive) heart failure; N18.6 End stage renal disease; J96.00 Acute respiratory failure, unspecified whether with hypoxia or hypercapnia; J18.9 Pneumonia, unspecified organism; B20 Human immunodeficiency virus [HIV] disease; E11.52 Type 2 diabetes mellitus with diabetic peripheral angiopathy with gangrene; I13.2 Hypertensive heart and chronic kidney disease with heart failure and with stage 5 chronic kidney disease, or end stage renal disease; E46 Unspecified protein-calorie malnutrition; N39.0 Urinary tract infection, site not specified; G82.20 Paraplegia, unspecified; Z16.12 Extended spectrum beta lactamase (ESBL) resistance; T82.868A Thrombosis due to vascular prosthetic devices, implants and grafts, initial encounter; R53.81 Other malaise; G40.909 Epilepsy, unspecified, not intractable, without status epilepticus; E11.42 Type 2 diabetes mellitus with diabetic polyneuropathy; E11.22 Type 2 diabetes mellitus with diabetic chronic kidney disease; E78.5 Hyperlipidemia, unspecified; I48.0 Paroxysmal atrial fibrillation; I25.10 Atherosclerotic heart disease of native coronary artery without angina pectoris; E78.00 Pure hypercholesterolemia, unspecified; B96.1 Klebsiella pneumoniae [K. pneumoniae] as the cause of diseases classified elsewhere; D64.9 Anemia, unspecified; D69.6 Thrombocytopenia, unspecified; G90.8 Other disorders of autonomic nervous system; E87.70 Fluid overload, unspecified; R26.89 Other abnormalities of gait and mobility; F06.31 Mood disorder due to known physiological condition with depressive features; F06.8 Other specified mental disorders due to known physiological condition; E83.51 Hypocalcemia; E53.8 Deficiency of other specified B group vitamins; G31.9 Degenerative disease of nervous system, unspecified; E02 Subclinical iodine-deficiency hypothyroidism; F32.9 Major depressive disorder, single episode, unspecified; Z99.2 Dependence on renal dialysis; Z83.3 Family history of diabetes mellitus; Z79.01 Long term (current) use of anticoagulants; Z86.73 Personal history of transient ischemic attack (TIA), and cerebral infarction without residual deficits; Z89.432 Acquired absence of left foot; Z91.14 Patient's other noncompliance with medication regimen; Z91.19 Patient's noncompliance with other medical treatment and regimen; Z79.899 Other long term (current) drug therapy; Z88.8 Allergy status to other drugs, medicaments and biological substances; Z79.82 Long term (current) use of aspirin; Z87.891 Personal history of nicotine dependence; Z82.49 Family history of ischemic heart disease and other diseases of the circulatory system; Y83.2 Surgical operation with anastomosis, bypass or graft as the cause of abnormal reaction of the patient, or of later complication, without mention of misadventure at the time of the procedure; Y92.230 Patient room in hospital as the place of occurrence of the external cause; Z91.81 History of falling
CPT/HCPCS: 36010; 36415; 36905; 36907; 80048; 80051; 80053; 81003; 82024; 82306; 82330; 82533; 82607; 82728; 82746; 82962; 83036; 83540; 83550; 83735; 83970; 84100; 84134; 84153; 84439; 84443; 84481; 85025; 86376; 87077; 87186; 87389; 92523; 92610; 93970; 97110; 97112; 97116; 97162; 97166; 97530; 97535; 97542; 99152; 99153; C1725; C1766; C1893; C2630; J0278; J0885; J1644; J1815; J1956; J2060; J2185; J2250; J2270; J2405; J2765; J2997; J3010; J3420; J3490; J7040; J7050; J7620; Q0163; Q9967; G0103; G0500

== ENCOUNTER 2019-07-16 14:55 | Inpatient (IN) | payer MEDICARE, MEDICAID ==
[~2019-07-16] VITALS: Ht 177.8 cm; Wt 79.8 kg
[~2019-07-16 14:55] MED LIST changes: -ASPI-1393 PO; +ASPI-1497 PO; +LIDOCAINE HCL/PF 1% 2ML VIAL ONE
[2019-07-16] MEDS ORDERED: PANTOPRAZOLE SODIUM 40 MG/VIAL IV ONE (15:15)
[2019-07-16] MEDS ORDERED: FENTANYL CITRATE/PF 50MCG/ML 2ML VIAL IV ONE (15:15)
[2019-07-16] MEDS ORDERED: ONDANSETRON HCL 4MG/2ML INJ IV ONE (15:15)
[2019-07-16] MEDS ORDERED: ASPIRIN 81MG TABLET PO ONE (15:15)
[2019-07-16 16:00] LABS: HEMATOCRIT. 24.7 % (42.0-52.0); HEMOGLOBIN. 8.3 g/dL (14.0-18.0); MEAN CORPUSCULAR HEMOGLOBIN 32.6 pg (28.0-32.0); MEAN CORPUSCULAR VOLUME 96.8 fL (80.0-94.0); MEAN PLATELET VOLUME 9.6 fl (7.4-10.4); PLATELET 119 x1000/uL (130-400); RED BLOOD CELL COUNT 2.56 mill/uL (4.7-6.1); RED CELL DISTRIBUTION WIDTH 16.8 % (11.6-14.6)
[2019-07-16 16:08] LABS: INR 1.1; PARTIAL THROMBOPLASTIN TIME 29.8 sec (23.4-31.0); PROTHROMBIN TIME 11.4 sec (9.6-11.0)
[2019-07-16 16:10] LABS: CHLORIDE 100 mEq/L (98-107)
[2019-07-16] MEDS ORDERED: LEVOFLOXACIN 500MG PREMIX 100 ML IV ONE (16:15)
[2019-07-16] MEDS ORDERED: FUROSEMIDE 20MG/2ML VIAL IVP ONE (16:15)
[2019-07-16] MEDS ORDERED: ENOXAPARIN 60MG/0.6ML SYR SUBCUT ONE (16:30)
[2019-07-16] MEDS ORDERED: DILTIAZEM HCL 5MG/ML 5ML VIAL IV ONE ×2 (16:45→20:00)
[2019-07-16] MEDS ORDERED: GUAIFENESIN 200MG/10ML SUGAR FREE UDC PO PRN (18:15)
[2019-07-16] MEDS ORDERED: ONDANSETRON HCL 4MG/2ML INJ IV PRN (18:15)
[2019-07-16] MEDS ORDERED: ENOXAPARIN 40MG/0.4ML SYR SUBCUT SCH (18:15)
[2019-07-16] MEDS ORDERED: DOCUSATE SODIUM 100MG CAPSULE PO PRN (18:15)
[2019-07-16] MEDS ORDERED: IPRATROPIUM/ALBUTEROL 0.5-3(2.5)MG/3ML NEB NEB PRN (18:15)
[2019-07-16] MEDS ORDERED: LORAZEPAM 2MG/ML CPJ IV PRN (18:15)
[2019-07-16] MEDS ORDERED: DIPHENHYDRAMINE 50MG/ML VIAL IV PRN (18:15)
[2019-07-16] MEDS ORDERED: MAGNESIUM/ALUMINUM HYDROXIDE/SIMETHICONE 30ML UDC PO PRN (18:15)
[2019-07-16] MEDS ORDERED: HYDROCODONE/ACETAMINOPHEN 5/325MG TABLET PO PRN (18:15)
[2019-07-16] MEDS ORDERED: ACETAMINOPHEN 325MG TABLET PO PRN (18:15)
[2019-07-16 18:49] LABS: PLATELET ESTIMATE SLIGHTLY DECREASED
[2019-07-16] MEDS ORDERED: NA PHOS,M-B/NA PHOS,DI-BA ENEMA 118ML PR PRN (21:00)
[2019-07-16 21:31] LABS: BG BASE EXCESS 4.8 mmol/L (-2.0-2.0); BG CARBOXYHEMOGLOBIN 0.6 % (0.5-1.5); BG DEOXYHEMOGLOBIN 0.9 % (0.0-5.0); BG FRACTION INSPIRED OXYGEN 100; BG HCO3 ACT 28.8 mmol/L (22.0-26.0); BG METHEMOGLOBIN 0.3 % (0.0-1.5); BG OXYGEN SATURATION 99.1 % (92.0-98.5); BG OXYHEMOGLOBIN 98.2 % (94.0-97.0); BG PCO2 39.9 mmHg (35.0-45.0); BG PH 7.476 (7.350-7.450); BG PO2 308.5 mmHg (75.0-100.0); BG SAMPLE SITE LEFT RADIAL; BG TOTAL HEMOGLOBIN 8.4 g/dL (12.0-18.0); BG VENT MODE MASK - NRB
[2019-07-16] MEDS ORDERED: DIGOXIN 500MCG/2ML AMP IV SCH (23:30)
[2019-07-17] VITALS (31 sets, daily range): BP systolic 110–169; BP diastolic 57–80
[2019-07-17] MEDS: LABETALOL HCL 100MG TABLET PO SCH ×2 (01:41→09:00)
[2019-07-17] MEDS: MORPHINE SULFATE 2 MG/ML CPJ (NOT FOR IM USE) IV PRN ×4 (05:10→22:31)
[2019-07-17 07:28] LABS: BASOPHILS % 0.2 % (0.0-2.0); EOSINOPHILS % 0.4 % (0.0-5.0); HEMATOCRIT. 23.7 % (42.0-52.0); LYMPHOCYTES % 12.7 % (20.0-50.0); MEAN CORPUSCULAR HEMOGLOBIN 32.9 pg (28.0-32.0); MEAN CORPUSCULAR VOLUME 97.4 fL (80.0-94.0); MEAN PLATELET VOLUME 9.7 fl (7.4-10.4); MONOCYTES % 8.9 % (2.0-8.0); NEUTROPHILS % 77.8 % (40.0-76.0); PLATELET 84 x1000/uL (130-400); RED BLOOD CELL COUNT 2.43 mill/uL (4.7-6.1); RED CELL DISTRIBUTION WIDTH 16.7 % (11.6-14.6)
[2019-07-17 07:39] LABS: CHLORIDE 101 mEq/L (98-107)
[2019-07-17 07:47] LABS: LDL CHOLESTEROL 70 mg/dL (5-100)
[2019-07-17 07:48] LABS: HDL CHOLESTEROL 38 mg/dL (40-59); T4 FREE 0.92 ng/dL (0.76-1.46)
[2019-07-17] MEDS: ASPIRIN 81MG EC TABLET PO SCH (08:46)
[2019-07-17] MEDS: ENOXAPARIN 30MG/0.3ML SYR SUBCUT SCH (09:00)
[2019-07-18] VITALS (35 sets, daily range): BP systolic 104–161; BP diastolic 32–83
[2019-07-18 06:05] LABS: BASOPHILS % 0.4 % (0.0-2.0); EOSINOPHILS % 1.2 % (0.0-5.0); HEMATOCRIT. 22.8 % (42.0-52.0); HEMOGLOBIN. 7.6 g/dL (14.0-18.0); LYMPHOCYTES % 16.7 % (20.0-50.0); MEAN CORPUSCULAR HEMOGLOBIN 32.7 pg (28.0-32.0); MEAN CORPUSCULAR VOLUME 97.7 fL (80.0-94.0); MEAN PLATELET VOLUME 9.5 fl (7.4-10.4); MONOCYTES % 8.8 % (2.0-8.0); NEUTROPHILS % 72.9 % (40.0-76.0); PLATELET 87 x1000/uL (130-400); RED BLOOD CELL COUNT 2.33 mill/uL (4.7-6.1); RED CELL DISTRIBUTION WIDTH 16.2 % (11.6-14.6)
[2019-07-18] MEDS: MORPHINE SULFATE 2 MG/ML CPJ (NOT FOR IM USE) IV PRN ×4 (07:27→23:39)
[2019-07-18] MEDS: ASPIRIN 81MG EC TABLET PO SCH (08:24)
[2019-07-18] MEDS: ENOXAPARIN 30MG/0.3ML SYR SUBCUT SCH (08:25)
[2019-07-18] MEDS: SEVELAMER CARBONATE 800 MG TABLET PO SCH ×2 (12:59→17:55)
[2019-07-18] MEDS ORDERED: EPOETIN ALFA 4000UNITS/ML VIAL SUBCUT SCH (21:00)
[2019-07-19] VITALS (35 sets, daily range): BP systolic 113–205; BP diastolic 53–87
[2019-07-19 06:17] LABS: BASOPHILS % 0.4 % (0.0-2.0); EOSINOPHILS % 1.2 % (0.0-5.0); HEMATOCRIT. 25.2 % (42.0-52.0); HEMOGLOBIN. 8.3 g/dL (14.0-18.0); LYMPHOCYTES % 11.5 % (20.0-50.0); MEAN CORPUSCULAR HEMOGLOBIN 32.7 pg (28.0-32.0); MEAN CORPUSCULAR VOLUME 99.3 fL (80.0-94.0); MEAN PLATELET VOLUME 9.5 fl (7.4-10.4); MONOCYTES % 10.5 % (2.0-8.0); NEUTROPHILS % 76.4 % (40.0-76.0); PLATELET 104 x1000/uL (130-400); RED BLOOD CELL COUNT 2.54 mill/uL (4.7-6.1); RED CELL DISTRIBUTION WIDTH 16.2 % (11.6-14.6)
[2019-07-19] MEDS ORDERED: HEPARIN 1,000 UNITS PREMIX 2,000 ML IV ONE (06:48)
[2019-07-19 06:59] LABS: PHOSPHORUS 6.2 mg/dL (2.5-4.9)
[2019-07-19] MEDS ORDERED: MIDAZOLAM HCL 2 MG/2 ML VIAL ONE (07:44)
[2019-07-19] MEDS ORDERED: FENTANYL CITRATE/PF 50MCG/ML 2ML VIAL ONE (07:44)
[2019-07-19] MEDS ORDERED: PROPOFOL 200MG/20ML VIAL IV ONE (07:44)
[2019-07-19] MEDS ORDERED: GLYCOPYRROLATE 0.2 MG/ML 2ML VIAL ONE (07:44)
[2019-07-19] MEDS ORDERED: ROCURONIUM BROMIDE 10MG/ML VIAL 5ML IV ONE ×3 (07:44→09:08)
[2019-07-19] MEDS ORDERED: NEOSTIGMINE METHYLSULFATE 1MG/ML 10 ML VIAL ONE (07:44)
[2019-07-19] MEDS ORDERED: METOCLOPRAMIDE HCL 10MG/2ML VIAL ONE (07:45)
[2019-07-19] MEDS ORDERED: EPHEDRINE SULFATE 50MG/ML VIAL ONE (07:45)
[2019-07-19] MEDS ORDERED: SODIUM CHLORIDE 0.9% 10ML VIAL ONE ×2 (07:45→11:25)
[2019-07-19] MEDS ORDERED: ONDANSETRON HCL 4MG/2ML INJ ONE (07:45)
[2019-07-19] MEDS ORDERED: SUCCINYLCHOLINE CHLORIDE 200MG/10ML IV ONE (07:45)
[2019-07-19] MEDS ORDERED: CEFAZOLIN SODIUM 1000MG/VIAL ONE (07:45)
[2019-07-19] MEDS ORDERED: PHENYLEPHRINE HCL 10 MG/ML 1ML (IV VIAL) IV ONE (07:45)
[2019-07-19] MEDS ORDERED: HEPARIN SODIUM 1,000 UNIT/1ML VIAL IV ONE (08:18)
[2019-07-19] MEDS: SEVELAMER CARBONATE 800 MG TABLET PO SCH ×3 (08:20→17:50)
[2019-07-19] MEDS ORDERED: LIDOCAINE HCL 1% 20ML VIAL (Pyxis) INJ ONE (08:48)
[2019-07-19] MEDS: ASPIRIN 81MG EC TABLET PO SCH (08:49)
[2019-07-19] MEDS: ENOXAPARIN 30MG/0.3ML SYR SUBCUT SCH (08:49)
[2019-07-19] MEDS ORDERED: HEPARIN 1000 UNITS/ML 10ML ONE (09:45)
[2019-07-19] MEDS ORDERED: VECURONIUM BROMIDE 10 MG/VIAL IV ONE (11:24)
[2019-07-19] MEDS ORDERED: ATROPINE SULFATE 1MG/10ML SYR IV PRN (13:30)
[2019-07-19] MEDS: MORPHINE SULFATE 2 MG/ML CPJ (NOT FOR IM USE) IV PRN (17:15)
[2019-07-19] MEDS: CLONIDINE 0.1MG TABLET PO PRN (19:59)
[2019-07-20] VITALS (16 sets, daily range): BP systolic 115–179; BP diastolic 59–82
[2019-07-20 06:15] LABS: BASOPHILS % 0.3 % (0.0-2.0); EOSINOPHILS % 0.6 % (0.0-5.0); HEMATOCRIT. 23.6 % (42.0-52.0); HEMOGLOBIN. 7.9 g/dL (14.0-18.0); LYMPHOCYTES % 8.4 % (20.0-50.0); MEAN CORPUSCULAR HEMOGLOBIN 32.8 pg (28.0-32.0); MEAN CORPUSCULAR VOLUME 98.3 fL (80.0-94.0); MEAN PLATELET VOLUME 9.5 fl (7.4-10.4); MONOCYTES % 8.8 % (2.0-8.0); NEUTROPHILS % 81.9 % (40.0-76.0); PLATELET 100 x1000/uL (130-400); RED CELL DISTRIBUTION WIDTH 15.9 % (11.6-14.6)
[2019-07-20] MEDS: ASPIRIN 81MG EC TABLET PO SCH (08:33)
[2019-07-20] MEDS: SEVELAMER CARBONATE 800 MG TABLET PO SCH ×2 (08:33→13:20)
[2019-07-20] MEDS: ENOXAPARIN 30MG/0.3ML SYR SUBCUT SCH (08:34)
[2019-07-20] MEDS: CLONIDINE 0.1MG TABLET PO PRN (08:38)
[2019-07-20] MEDS ORDERED: APIXABAN 2.5 MG TABLET PO SCH (09:30)
[2019-07-27] MEDS ORDERED: AMIO100T4 PO (18:10)
== END 2019-07-20 15:00 | disposition home or self-care (01) | DRG 177 ==
LOC: ER 14:58 → EDBEDREQ 15:16 → CVICU 16:23 → EDBEDREQ 16:25 → EDBEDREQSVC 16:25 → ENRESERV 07-17 03:01 → CVICU 07-17 06:15
PROVIDERS: ADMIT Internal Medicine; ATTEND Internal Medicine
PROC: 30233R1 Transfusion of Nonautologous Platelets into Peripheral Vein, Percutaneous Approach (ICD-10-PCS; principal; 2019-07-16)
PROC: 5A1D70Z Performance of Urinary Filtration, Intermittent, Less than 6 Hours Per Day (ICD-10-PCS; 2019-07-18)
PROC: 5A1D70Z Performance of Urinary Filtration, Intermittent, Less than 6 Hours Per Day (ICD-10-PCS; 2019-07-19)
PROC: 5A1D70Z Performance of Urinary Filtration, Intermittent, Less than 6 Hours Per Day (ICD-10-PCS; 2019-07-20)
DX: J69.0 Pneumonitis due to inhalation of food and vomit (principal); J96.00 Acute respiratory failure, unspecified whether with hypoxia or hypercapnia; N18.6 End stage renal disease; I13.2 Hypertensive heart and chronic kidney disease with heart failure and with stage 5 chronic kidney disease, or end stage renal disease; E46 Unspecified protein-calorie malnutrition; D61.818 Other pancytopenia; R65.10 Systemic inflammatory response syndrome (SIRS) of non-infectious origin without acute organ dysfunction; I48.92 Unspecified atrial flutter; I48.0 Paroxysmal atrial fibrillation; I25.10 Atherosclerotic heart disease of native coronary artery without angina pectoris; I50.9 Heart failure, unspecified; E11.51 Type 2 diabetes mellitus with diabetic peripheral angiopathy without gangrene; D64.9 Anemia, unspecified; W18.30XA Fall on same level, unspecified, initial encounter; I95.9 Hypotension, unspecified; G40.909 Epilepsy, unspecified, not intractable, without status epilepticus; E11.22 Type 2 diabetes mellitus with diabetic chronic kidney disease; N31.9 Neuromuscular dysfunction of bladder, unspecified; E11.42 Type 2 diabetes mellitus with diabetic polyneuropathy; S80.819A Abrasion, unspecified lower leg, initial encounter; Y93.89 Activity, other specified; Y92.89 Other specified places as the place of occurrence of the external cause; Y99.8 Other external cause status; Z79.01 Long term (current) use of anticoagulants; Z79.899 Other long term (current) drug therapy; Z86.718 Personal history of other venous thrombosis and embolism; Z99.2 Dependence on renal dialysis; Z86.73 Personal history of transient ischemic attack (TIA), and cerebral infarction without residual deficits; Z95.5 Presence of coronary angioplasty implant and graft; Z90.5 Acquired absence of kidney; Z79.82 Long term (current) use of aspirin; Z68.25 Body mass index [BMI] 25.0-25.9, adult; Z89.422 Acquired absence of other left toe(s)
CPT/HCPCS: 36415; 36600; 71045; 80048; 80053; 80061; 82375; 82805; 82962; 83605; 83735; 84100; 84439; 84443; 84484; 85025; 85347; 86850; 86900; 86920; 93005; 93613; 93656; 93657; 93662; 96365; 96372; 96375; 97162; 99291; C1731; C1732; C1759; C1893; C9113; J0330; J0690; J0885; J1160; J1644; J1650; J1940; J1956; J2060; J2250; J2270; J2370; J2405; J2704; J2710; J2765; J3010; J3490; P9034

== ENCOUNTER 2019-11-02 19:54 | Inpatient (IN) | payer MEDICARE, MEDICAID ==
[~2019-11-02] VITALS: Ht 175.3 cm; Wt 85.7 kg
[~2019-11-02 19:54] MED LIST changes: +AMIO100T4 PO; -ASPI-1497 PO; -LIDOCAINE HCL/PF 1% 2ML VIAL ONE
[2019-11-02] MEDS ORDERED: ASPIRIN 81MG TABLET PO ONE (23:15)
[2019-11-02 23:35] LABS: BASOPHILS % 0.4 % (0.0-2.0); CHLORIDE 104 mEq/L (98-107); EOSINOPHILS % 0.3 % (0.0-5.0); HEMATOCRIT. 44.7 % (42.0-52.0); HEMOGLOBIN. 14.9 g/dL (14.0-18.0); LYMPHOCYTES % 10.5 % (20.0-50.0); MEAN CORPUSCULAR HEMOGLOBIN 32.5 pg (28.0-32.0); MEAN CORPUSCULAR VOLUME 97.5 fL (80.0-94.0); MEAN PLATELET VOLUME 9.7 fl (7.4-10.4); MONOCYTES % 5.4 % (2.0-8.0); NEUTROPHILS % 83.4 % (40.0-76.0); PLATELET 81 x1000/uL (130-400); RED BLOOD CELL COUNT 4.58 mill/uL (4.7-6.1); RED CELL DISTRIBUTION WIDTH 17.8 % (11.6-14.6)
[2019-11-03] MEDS ORDERED: SODIUM CHLORIDE 0.9% 1,000 ML IV ONE (00:15)
[2019-11-03] MEDS ORDERED: MORPHINE SULFATE 4 MG/ML CPJ (NOT FOR IM USE) IV ONE ×2 (01:00→08:15)
[2019-11-03] MEDS ORDERED: GUAIFENESIN 200MG/10ML SUGAR FREE UDC PO PRN (09:30)
[2019-11-03] MEDS ORDERED: MAGNESIUM/ALUMINUM HYDROXIDE/SIMETHICONE 30ML UDC PO PRN (09:30)
[2019-11-03] MEDS ORDERED: ACETAMINOPHEN 325MG TABLET PO PRN (09:30)
[2019-11-03] MEDS ORDERED: CLONIDINE 0.1MG TABLET PO PRN (09:30)
[2019-11-03] MEDS ORDERED: HYDROCODONE/ACETAMINOPHEN 10/325MG TABLET PO PRN (09:30)
[2019-11-03] MEDS ORDERED: DEXTROSE 50% WATER 50ML SYRINGE IV PRN (09:30)
[2019-11-03] MEDS ORDERED: IPRATROPIUM/ALBUTEROL 0.5-3(2.5)MG/3ML NEB NEB PRN (09:30)
[2019-11-03] MEDS ORDERED: ENOXAPARIN 40MG/0.4ML SYR SUBCUT SCH (09:30)
[2019-11-03] MEDS ORDERED: DOCUSATE SODIUM 100MG CAPSULE PO PRN (09:30)
[2019-11-03] MEDS ORDERED: HYDRALAZINE 20MG/ML VIAL IV PRN (12:00)
[2019-11-03 12:10] VITALS: BP 146/81
[2019-11-03 12:26] VITALS: BP 160/81
[2019-11-03] MEDS: BLOOD SUGAR DIAGNOSTIC STRIP TEST SCH ×3 (12:55→21:44)
[2019-11-03] MEDS: INSULIN LISPRO 100 UNITS/ML SUBCUT SCH ×3 (12:55→21:00)
[2019-11-03 14:00] VITALS: BP 159/70
[2019-11-03] MEDS: SODIUM CHLORIDE 0.9% INJ 3ML FLUSH IVF SCH ×2 (14:05→21:47)
[2019-11-03] MEDS: MORPHINE SULFATE 2 MG/ML CPJ (NOT FOR IM USE) IV PRN ×2 (14:22→21:45)
[2019-11-03 16:00] VITALS: BP 149/69
[2019-11-03] MEDS: LORAZEPAM 2MG/ML CPJ IV PRN (16:06)
[2019-11-03 16:53] LABS: CREATINE KINASE 97 IU/L (39-308)
[2019-11-03] MEDS: ONDANSETRON HCL 4MG/2ML INJ IV PRN (18:45)
[2019-11-03 20:00] VITALS: BP 140/82
[2019-11-03] MEDS: DIPHENHYDRAMINE 50MG/ML VIAL IV PRN (22:11)
[2019-11-03 23:37] LABS: CREATINE KINASE 103 IU/L (39-308)
[2019-11-03 23:38] LABS: CREATINE KINASE MB FRACTION 9.3 ng/mL (0.5-3.6)
[2019-11-04] VITALS: BP 132/69
[2019-11-04 04:00] VITALS: BP 123/70
[2019-11-04] MEDS: SODIUM CHLORIDE 0.9% INJ 3ML FLUSH IVF SCH ×3 (05:06→21:52)
[2019-11-04 07:07] LABS: BASOPHILS % 0.3 % (0.0-2.0); EOSINOPHILS % 0.9 % (0.0-5.0); HEMATOCRIT. 41.6 % (42.0-52.0); HEMOGLOBIN. 13.8 g/dL (14.0-18.0); MEAN CORPUSCULAR HEMOGLOBIN 32.2 pg (28.0-32.0); MEAN PLATELET VOLUME 9.5 fl (7.4-10.4); MONOCYTES % 6.9 % (2.0-8.0); NEUTROPHILS % 71.9 % (40.0-76.0); PLATELET 71 x1000/uL (130-400); RED BLOOD CELL COUNT 4.29 mill/uL (4.7-6.1); RED CELL DISTRIBUTION WIDTH 17.4 % (11.6-14.6)
[2019-11-04 07:47] LABS: CHLORIDE 103 mEq/L (98-107)
[2019-11-04] MEDS: BLOOD SUGAR DIAGNOSTIC STRIP TEST SCH ×4 (07:58→20:18)
[2019-11-04 08:00] VITALS: BP 123/73
[2019-11-04] MEDS: INSULIN LISPRO 100 UNITS/ML SUBCUT SCH ×4 (08:00→20:17)
[2019-11-04] MEDS: ONDANSETRON HCL 4MG/2ML INJ IV PRN (08:49)
[2019-11-04] MEDS: MORPHINE SULFATE 2 MG/ML CPJ (NOT FOR IM USE) IV PRN ×3 (08:50→20:17)
[2019-11-04] MEDS ORDERED: ENOXAPARIN 30MG/0.3ML SYR SUBCUT SCH (09:00)
[2019-11-04 12:00] VITALS: BP 100/67
[2019-11-04 15:57] VITALS: BP 116/74
[2019-11-04 20:00] VITALS: BP 140/76
[2019-11-04] MEDS: LORAZEPAM 2MG/ML CPJ IV PRN (22:37)
[2019-11-05] VITALS: BP 117/58
[2019-11-05] MEDS: ONDANSETRON HCL 4MG/2ML INJ IV PRN (02:32)
[2019-11-05] MEDS: MORPHINE SULFATE 2 MG/ML CPJ (NOT FOR IM USE) IV PRN ×3 (02:32→09:58)
[2019-11-05 04:00] VITALS: BP 137/78
[2019-11-05] MEDS: SODIUM CHLORIDE 0.9% INJ 3ML FLUSH IVF SCH ×3 (05:16→21:07)
[2019-11-05] MEDS: BLOOD SUGAR DIAGNOSTIC STRIP TEST SCH ×4 (07:30→20:43)
[2019-11-05 08:00] VITALS: BP 128/78
[2019-11-05] MEDS: INSULIN LISPRO 100 UNITS/ML SUBCUT SCH ×4 (08:00→20:43)
[2019-11-05 12:00] VITALS: BP 127/61
[2019-11-05 16:00] VITALS: BP 124/74
[2019-11-05 20:00] VITALS: BP 127/68
[2019-11-06] VITALS (8 sets, daily range): BP systolic 120–158; BP diastolic 60–85
[2019-11-06] MEDS: ONDANSETRON HCL 4MG/2ML INJ IV PRN (01:34)
[2019-11-06] MEDS: MORPHINE SULFATE 2 MG/ML CPJ (NOT FOR IM USE) IV PRN (01:35)
[2019-11-06] MEDS: DIPHENHYDRAMINE 50MG/ML VIAL IV PRN (04:05)
[2019-11-06] MEDS: SODIUM CHLORIDE 0.9% INJ 3ML FLUSH IVF SCH ×3 (05:35→21:14)
[2019-11-06] MEDS: BLOOD SUGAR DIAGNOSTIC STRIP TEST SCH ×4 (07:30→21:00)
[2019-11-06] MEDS: INSULIN LISPRO 100 UNITS/ML SUBCUT SCH ×4 (08:00→21:00)
[2019-11-07] VITALS (8 sets, daily range): BP systolic 116–154; BP diastolic 63–80
[2019-11-07] MEDS: SODIUM CHLORIDE 0.9% INJ 3ML FLUSH IVF SCH ×2 (06:00→14:00)
[2019-11-07 07:13] LABS: BASOPHILS % 0.2 % (0.0-2.0); EOSINOPHILS % 0.9 % (0.0-5.0); HEMATOCRIT. 42.3 % (42.0-52.0); LYMPHOCYTES % 16.4 % (20.0-50.0); MEAN CORPUSCULAR HEMOGLOBIN 32.7 pg (28.0-32.0); MEAN CORPUSCULAR VOLUME 98.9 fL (80.0-94.0); MEAN PLATELET VOLUME 9.9 fl (7.4-10.4); MONOCYTES % 8.7 % (2.0-8.0); NEUTROPHILS % 73.8 % (40.0-76.0); PLATELET 63 x1000/uL (130-400); RED BLOOD CELL COUNT 4.28 mill/uL (4.7-6.1); RED CELL DISTRIBUTION WIDTH 17.7 % (11.6-14.6)
[2019-11-07] MEDS: INSULIN LISPRO 100 UNITS/ML SUBCUT SCH ×3 (08:00→17:03)
[2019-11-07] MEDS: MORPHINE SULFATE 2 MG/ML CPJ (NOT FOR IM USE) IV PRN (08:01)
[2019-11-07] MEDS: BLOOD SUGAR DIAGNOSTIC STRIP TEST SCH ×3 (08:07→17:03)
[2019-11-07 13:18] LABS: BASOPHILS % 0.3 % (0.0-2.0); EOSINOPHILS % 0.7 % (0.0-5.0); HEMATOCRIT. 38.6 % (42.0-52.0); HEMOGLOBIN. 12.9 g/dL (14.0-18.0); LYMPHOCYTES % 12.4 % (20.0-50.0); MEAN CORPUSCULAR HEMOGLOBIN 32.1 pg (28.0-32.0); MEAN CORPUSCULAR VOLUME 96.2 fL (80.0-94.0); MEAN PLATELET VOLUME 9.8 fl (7.4-10.4); MONOCYTES % 7.8 % (2.0-8.0); NEUTROPHILS % 78.8 % (40.0-76.0); PLATELET 68 x1000/uL (130-400); RED BLOOD CELL COUNT 4.01 mill/uL (4.7-6.1); RED CELL DISTRIBUTION WIDTH 17.2 % (11.6-14.6)
== END 2019-11-07 18:00 | disposition home or self-care (01) | DRG 73 ==
LOC: ER 19:54 → 5EST 11-03 02:06 → ENRESERV 11-03 10:21 → 5EST 11-03 15:18
PROVIDERS: ADMIT Internal Medicine; ATTEND Internal Medicine
PROC: 5A1D70Z Performance of Urinary Filtration, Intermittent, Less than 6 Hours Per Day (ICD-10-PCS; principal; 2019-11-03)
PROC: 5A1D70Z Performance of Urinary Filtration, Intermittent, Less than 6 Hours Per Day (ICD-10-PCS; 2019-11-07)
DX: E11.43 Type 2 diabetes mellitus with diabetic autonomic (poly)neuropathy (principal); N18.6 End stage renal disease; I13.2 Hypertensive heart and chronic kidney disease with heart failure and with stage 5 chronic kidney disease, or end stage renal disease; N31.9 Neuromuscular dysfunction of bladder, unspecified; D64.9 Anemia, unspecified; D69.6 Thrombocytopenia, unspecified; E11.22 Type 2 diabetes mellitus with diabetic chronic kidney disease; E11.51 Type 2 diabetes mellitus with diabetic peripheral angiopathy without gangrene; E78.5 Hyperlipidemia, unspecified; K31.84 Gastroparesis; E78.00 Pure hypercholesterolemia, unspecified; I48.91 Unspecified atrial fibrillation; Z99.2 Dependence on renal dialysis; Z89.432 Acquired absence of left foot; Z90.49 Acquired absence of other specified parts of digestive tract; Z90.5 Acquired absence of kidney; Z91.19 Patient's noncompliance with other medical treatment and regimen; Z88.8 Allergy status to other drugs, medicaments and biological substances
CPT/HCPCS: 36415; 71045; 74021; 74176; 80048; 80051; 80053; 82550; 82553; 82962; 84132; 84484; 85025; 93005; 93970; 99285; J1200; J2060; J2270; J2405; J7030

== ENCOUNTER 2019-12-12 20:15 | Emergency (ER) | payer MEDICARE, MEDICAID ==
[~2019-12-12] VITALS: Ht 167.6 cm; Wt 73.0 kg
[2019-12-12 21:34] LABS: CLARITY URINE TURBID (CLEAR); COLOR URINE ORANGE (YELLOW); KETONES URINE NEGATIVE (NEGATIVE); LEUKOCYTE ESTERASE URINE 3+ (NEGATIVE); NITRITE URINE POSITIVE (NEGATIVE); OCCULT BLOOD URINE 3+ (NEGATIVE); PH URINE 6.5 (4.5-8.0); PROTEIN URINE 4+ (NEGATIVE); SPECIFIC GRAVITY URINE 1.021 (1.005-1.030); UROBILINOGEN URINE 0.2 E.U./dL (0.2-1.0)
[2019-12-12] MEDS ORDERED: SODIUM CHLORIDE 0.9% 500 ML IV ONE (21:45)
[2019-12-12] MEDS ORDERED: LEVOFLOXACIN 500MG PREMIX 100 ML IV ONE (21:45)
[2019-12-12 21:53] LABS: HEMATOCRIT 33.5 % (42.0-52.0); HEMOGLOBIN 11.4 g/dL (14.0-18.0); MEAN CORPUSCULAR HEMOGLOBIN 32.6 pg (28.0-32.0); MEAN CORPUSCULAR VOLUME 96.1 fL (80.0-94.0); PLATELET 120 x1000/uL (130-400); RED BLOOD CELL COUNT 3.49 mill/uL (4.7-6.1); RED CELL DISTRIBUTION WIDTH 16.7 % (11.6-14.6)
[2019-12-12 22:15] LABS: CHLORIDE 107 mEq/L (98-107)
[2019-12-12] MEDS ORDERED: HYDROCODONE/ACETAMINOPHEN 5/325MG TABLET PO NR (22:30)
[2019-12-13 00:03] VITALS: BP 141/95
== END 2019-12-13 00:05 | disposition home or self-care (01) ==
LOC: ER 20:15
DX: N39.0 Urinary tract infection, site not specified (principal); I12.0 Hypertensive chronic kidney disease with stage 5 chronic kidney disease or end stage renal disease; E11.22 Type 2 diabetes mellitus with diabetic chronic kidney disease; N18.6 End stage renal disease; Z99.2 Dependence on renal dialysis; Z90.49 Acquired absence of other specified parts of digestive tract; Z79.899 Other long term (current) drug therapy; Z88.1 Allergy status to other antibiotic agents
CPT/HCPCS: 36415; 80048; 81003; 84484; 85027; 87077; 87086; 87186; 96365; 99284; J1956; J7040

== ENCOUNTER 2020-03-24 15:47 | Inpatient (IN) | payer MEDICARE, MEDICAID ==
[~2020-03-24] VITALS: Ht 182.9 cm; Wt 91.9 kg
[2020-03-24] MEDS ORDERED: MORPHINE SULFATE 4 MG/ML CPJ (NOT FOR IM USE) IV STA (16:12)
[2020-03-24] MEDS ORDERED: ONDANSETRON HCL 4MG/2ML INJ IV STA (16:12)
[2020-03-24] MEDS ORDERED: SODIUM CHLORIDE 0.9% 1,000 ML IV ONE (16:12)
[2020-03-24] MEDS ORDERED: LEVOFLOXACIN 750MG PREMIX 150 ML IV ONE (16:15)
[2020-03-24] MEDS ORDERED: VANCOMYCIN 1 G PREMIX 200 ML IV ONE (16:15)
[2020-03-24 16:50] LABS: BASOPHILS % 0.3 % (0.0-2.0); EOSINOPHILS % 0.9 % (0.0-5.0); HEMATOCRIT. 40.1 % (42.0-52.0); HEMOGLOBIN. 13.3 g/dL (14.0-18.0); LYMPHOCYTES % 16.5 % (20.0-50.0); MEAN CORPUSCULAR VOLUME 102.3 fL (80.0-94.0); MEAN PLATELET VOLUME 9.2 fl (7.4-10.4); MONOCYTES % 7.7 % (2.0-8.0); NEUTROPHILS % 74.6 % (40.0-76.0); PLATELET 82 x1000/uL (130-400); RED BLOOD CELL COUNT 3.92 mill/uL (4.7-6.1); RED CELL DISTRIBUTION WIDTH 15.8 % (11.6-14.6)
[2020-03-24 16:52] LABS: CHLORIDE 99 mEq/L (98-107)
[2020-03-24 17:07] LABS: PROTHROMBIN TIME 10.8 sec (9.6-11.0)
[2020-03-24] MEDS ORDERED: DEXTROSE 50% WATER 50ML SYRINGE IV PRN (18:30)
[2020-03-24] MEDS ORDERED: ONDANSETRON HCL 4MG/2ML INJ IV PRN (18:30)
[2020-03-24] MEDS ORDERED: GUAIFENESIN 200MG/10ML SUGAR FREE UDC PO PRN (18:30)
[2020-03-24] MEDS ORDERED: ACETAMINOPHEN 325MG TABLET PO PRN (18:30)
[2020-03-24] MEDS ORDERED: MAGNESIUM/ALUMINUM HYDROXIDE/SIMETHICONE 30ML UDC PO PRN (18:30)
[2020-03-24] MEDS ORDERED: LEVOFLOXACIN 500MG PREMIX 100 ML IV SCH (18:30)
[2020-03-24] MEDS ORDERED: ENOXAPARIN 40MG/0.4ML SYR SUBCUT SCH (18:30)
[2020-03-24] MEDS ORDERED: CLONIDINE 0.1MG TABLET PO PRN (18:30)
[2020-03-24] MEDS ORDERED: DOCUSATE SODIUM 100MG CAPSULE PO PRN (18:30)
[2020-03-24] MEDS: HYDROCODONE/ACETAMINOPHEN 10/325MG TABLET PO PRN (19:23)
[2020-03-24] MEDS: INSULIN LISPRO 100 UNITS/ML SUBCUT SCH ×2 (20:00→21:00)
[2020-03-24 21:00] VITALS: BP 143/118
[2020-03-24] MEDS: BLOOD SUGAR DIAGNOSTIC STRIP TEST SCH (21:00)
[2020-03-24] MEDS ORDERED: MEDICATION NOT ON FORMULARY EA (Amiodarone HCl 200 MG) PO SCH (21:45)
[2020-03-24 21:55] VITALS: BP_SYST 143
[2020-03-24] MEDS: ATORVASTATIN CALCIUM 40MG TABLET PO SCH (22:20)
[2020-03-24] MEDS: GABAPENTIN 300MG CAPSULE PO SCH (22:20)
[2020-03-24] MEDS: SODIUM CHLORIDE 0.9% INJ 3ML FLUSH IVF SCH (22:20)
[2020-03-24] MEDS: AMIODARONE HCL 200 MG TABLET PO SCH (22:21)
[2020-03-25] VITALS: BP 144/84
[2020-03-25] MEDS: MORPHINE SULFATE 2 MG/ML CPJ (NOT FOR IM USE) IV PRN ×4 (00:11→21:18)
[2020-03-25] MEDS: DIPHENHYDRAMINE 50MG/ML VIAL IV PRN ×2 (00:18→22:00)
[2020-03-25 04:00] VITALS: BP 151/81
[2020-03-25] MEDS: CLONIDINE 0.2MG TABLET PO SCH ×3 (05:32→22:00)
[2020-03-25] MEDS: SODIUM CHLORIDE 0.9% INJ 3ML FLUSH IVF SCH ×3 (05:32→22:16)
[2020-03-25 05:53] LABS: BASOPHILS % 0.2 % (0.0-2.0); EOSINOPHILS % 0.5 % (0.0-5.0); HEMATOCRIT. 37.9 % (42.0-52.0); HEMOGLOBIN. 12.6 g/dL (14.0-18.0); LYMPHOCYTES % 14.5 % (20.0-50.0); MEAN CORPUSCULAR HEMOGLOBIN 33.7 pg (28.0-32.0); MEAN CORPUSCULAR VOLUME 101.3 fL (80.0-94.0); MEAN PLATELET VOLUME 9.6 fl (7.4-10.4); MONOCYTES % 5.7 % (2.0-8.0); NEUTROPHILS % 79.1 % (40.0-76.0); PLATELET 73 x1000/uL (130-400); RED BLOOD CELL COUNT 3.74 mill/uL (4.7-6.1); RED CELL DISTRIBUTION WIDTH 16.1 % (11.6-14.6)
[2020-03-25] MEDS: BLOOD SUGAR DIAGNOSTIC STRIP TEST SCH ×4 (06:04→21:00)
[2020-03-25 07:10] LABS: CHLORIDE 100 mEq/L (98-107)
[2020-03-25] MEDS: INSULIN LISPRO 100 UNITS/ML SUBCUT SCH ×4 (07:40→21:00)
[2020-03-25] MEDS ORDERED: MEDICATION NOT ON FORMULARY EA (Calcium Acetate (Phoslo) 667 MG) PO SCH (07:50)
[2020-03-25 07:54] VITALS: BP 113/71
[2020-03-25] MEDS: CALCIUM ACETATE 667MG CAPSULE PO SCH ×3 (09:05→19:28)
[2020-03-25] MEDS: SEVELAMER CARBONATE 800 MG TABLET PO SCH ×3 (09:05→19:28)
[2020-03-25] MEDS: GABAPENTIN 300MG CAPSULE PO SCH ×2 (09:05→21:59)
[2020-03-25] MEDS: FOLIC ACID/VITAMIN B COMP W-C TABLET PO SCH (09:06)
[2020-03-25] MEDS: AMIODARONE HCL 200 MG TABLET PO SCH ×2 (09:06→21:59)
[2020-03-25] MEDS: ISOSORBIDE MONONITRATE 60MG TABLET SR 24HR PO SCH (09:07)
[2020-03-25] MEDS: HYDROCODONE/ACETAMINOPHEN 10/325MG TABLET PO PRN (09:08)
[2020-03-25 12:02] VITALS: BP 87/54
[2020-03-25] MEDS ORDERED: VANCOMYCIN 1250MG in DEXTROSE 5% WATER 250ML IV NR (15:00)
[2020-03-25 16:26] VITALS: BP 122/66
[2020-03-25 20:00] VITALS: BP 130/71
[2020-03-25] MEDS: ATORVASTATIN CALCIUM 40MG TABLET PO SCH (21:59)
[2020-03-25] MEDS ORDERED: DEXT 5%/0.45% NACL 1000ML 1,000 ML IV ONE (23:59)
[2020-03-26] VITALS (30 sets, daily range): BP systolic 95–129; BP diastolic 7–69
[2020-03-26] MEDS: MORPHINE SULFATE 2 MG/ML CPJ (NOT FOR IM USE) IV PRN (04:47)
[2020-03-26] MEDS: CLONIDINE 0.2MG TABLET PO SCH ×3 (06:00→21:19)
[2020-03-26 06:23] LABS: BASOPHILS % 0.3 % (0.0-2.0); EOSINOPHILS % 0.9 % (0.0-5.0); HEMATOCRIT. 35.9 % (42.0-52.0); HEMOGLOBIN. 11.9 g/dL (14.0-18.0); LYMPHOCYTES % 16.7 % (20.0-50.0); MEAN CORPUSCULAR VOLUME 102.6 fL (80.0-94.0); MEAN PLATELET VOLUME 10.1 fl (7.4-10.4); MONOCYTES % 7.5 % (2.0-8.0); NEUTROPHILS % 74.6 % (40.0-76.0); PLATELET 60 x1000/uL (130-400); RED BLOOD CELL COUNT 3.49 mill/uL (4.7-6.1)
[2020-03-26] MEDS: SODIUM CHLORIDE 0.9% INJ 3ML FLUSH IVF SCH ×3 (06:30→21:19)
[2020-03-26] MEDS: BLOOD SUGAR DIAGNOSTIC STRIP TEST SCH ×4 (06:31→21:00)
[2020-03-26] MEDS: SEVELAMER CARBONATE 800 MG TABLET PO SCH ×3 (07:50→18:19)
[2020-03-26] MEDS: INSULIN LISPRO 100 UNITS/ML SUBCUT SCH ×4 (07:50→21:00)
[2020-03-26] MEDS: CALCIUM ACETATE 667MG CAPSULE PO SCH ×3 (07:50→18:19)
[2020-03-26] MEDS ORDERED: IOHEXOL-300 100 ML BOTTLE ONE (09:39)
[2020-03-26] MEDS ORDERED: HEPARIN 1000 UNITS/ML 10ML ONE (09:39)
[2020-03-26] MEDS ORDERED: SODIUM BICARBONATE 4% (2.4MEQ) 5ML VIAL IV ONE (09:39)
[2020-03-26] MEDS ORDERED: LIDOCAINE HCL 1% 20ML VIAL (Pyxis) INJ ONE (09:40)
[2020-03-26] MEDS ORDERED: FENTANYL CITRATE/PF 50MCG/ML 2ML VIAL ONE (10:27)
[2020-03-26] MEDS ORDERED: FENTANYL CITRATE/PF 50MCG/ML 2ML VIAL IV ONE (11:45)
[2020-03-26] MEDS ORDERED: VANCOMYCIN 1500MG in DEXTROSE 5% WATER 250ML IV SCH (12:00)
[2020-03-26] MEDS: FOLIC ACID/VITAMIN B COMP W-C TABLET PO SCH (13:32)
[2020-03-26] MEDS: AMIODARONE HCL 200 MG TABLET PO SCH ×2 (13:33→21:18)
[2020-03-26] MEDS: GABAPENTIN 300MG CAPSULE PO SCH ×2 (13:33→21:18)
[2020-03-26] MEDS: ISOSORBIDE MONONITRATE 60MG TABLET SR 24HR PO SCH (13:34)
[2020-03-26] MEDS: LEVOFLOXACIN 250MG PREMIX 50 ML IV SCH (18:15)
[2020-03-26] MEDS: ATORVASTATIN CALCIUM 40MG TABLET PO SCH (21:18)
[2020-03-26] MEDS: LORAZEPAM 2MG/ML CPJ IV PRN (22:15)
[2020-03-27] VITALS: BP 108/61
[2020-03-27] MEDS: MORPHINE SULFATE 2 MG/ML CPJ (NOT FOR IM USE) IV PRN ×2 (01:07→20:37)
[2020-03-27 04:09] VITALS: BP 122/69
[2020-03-27] MEDS: CLONIDINE 0.2MG TABLET PO SCH ×2 (06:00→13:24)
[2020-03-27] MEDS: BLOOD SUGAR DIAGNOSTIC STRIP TEST SCH ×4 (06:02→20:37)
[2020-03-27] MEDS: INSULIN LISPRO 100 UNITS/ML SUBCUT SCH ×4 (06:03→20:37)
[2020-03-27] MEDS: SODIUM CHLORIDE 0.9% INJ 3ML FLUSH IVF SCH ×2 (06:06→13:09)
[2020-03-27 07:32] LABS: HEMATOCRIT. 36.3 % (42.0-52.0); MEAN CORPUSCULAR HEMOGLOBIN 33.7 pg (28.0-32.0); MEAN PLATELET VOLUME 9.9 fl (7.4-10.4); RED BLOOD CELL COUNT 3.56 mill/uL (4.7-6.1); RED CELL DISTRIBUTION WIDTH 16.3 % (11.6-14.6)
[2020-03-27] MEDS: IPRATROPIUM/ALBUTEROL 0.5-3(2.5)MG/3ML NEB NEB PRN (07:42)
[2020-03-27 08:00] VITALS: BP 120/57
[2020-03-27] MEDS: ISOSORBIDE MONONITRATE 60MG TABLET SR 24HR PO SCH (09:00)
[2020-03-27] MEDS: AMIODARONE HCL 200 MG TABLET PO SCH ×3 (09:00→20:28)
[2020-03-27] MEDS: FOLIC ACID/VITAMIN B COMP W-C TABLET PO SCH (09:57)
[2020-03-27] MEDS: CALCIUM ACETATE 667MG CAPSULE PO SCH ×3 (09:58→17:51)
[2020-03-27] MEDS: GABAPENTIN 300MG CAPSULE PO SCH ×2 (09:58→20:28)
[2020-03-27] MEDS: SEVELAMER CARBONATE 800 MG TABLET PO SCH ×3 (09:58→17:51)
[2020-03-27 10:14] LABS: PLATELET ESTIMATE MARKEDLY DECREASED
[2020-03-27 10:18] LABS: PLATELET 50 x1000/uL (130-400)
[2020-03-27 12:00] VITALS: BP 108/54
[2020-03-27 16:00] VITALS: BP 99/54
[2020-03-27] MEDS ORDERED: VANCOMYCIN 500 MG PREMIX 100 ML IV SCH (16:00)
[2020-03-27 20:00] VITALS: BP 117/62
[2020-03-27] MEDS: ATORVASTATIN CALCIUM 40MG TABLET PO SCH (20:28)
[2020-03-27 20:55] LABS: CLARITY URINE TURBID (CLEAR); COLOR URINE DARK YELLOW (YELLOW); KETONES URINE NEGATIVE (NEGATIVE); LEUKOCYTE ESTERASE URINE 3+ (NEGATIVE); NITRITE URINE NEGATIVE (NEGATIVE); OCCULT BLOOD URINE 2+ (NEGATIVE); PH URINE 7.5 (4.5-8.0); PROTEIN URINE 2+ (NEGATIVE); UROBILINOGEN URINE 0.2 E.U./dL (0.2-1.0)
[2020-03-28] VITALS: BP 120/62
[2020-03-28] MEDS: SODIUM CHLORIDE 0.9% INJ 3ML FLUSH IVF SCH ×4 (00:23→21:09)
[2020-03-28] MEDS: CLONIDINE 0.2MG TABLET PO SCH ×4 (00:23→21:19)
[2020-03-28] MEDS: LORAZEPAM 2MG/ML CPJ IV PRN (00:33)
[2020-03-28 04:00] VITALS: BP 101/60
[2020-03-28] MEDS: INSULIN LISPRO 100 UNITS/ML SUBCUT SCH ×4 (06:16→21:00)
[2020-03-28] MEDS: BLOOD SUGAR DIAGNOSTIC STRIP TEST SCH ×4 (06:16→21:09)
[2020-03-28 07:02] LABS: BASOPHILS % 0.2 % (0.0-2.0); EOSINOPHILS % 0.6 % (0.0-5.0); HEMATOCRIT. 31.7 % (42.0-52.0); HEMOGLOBIN. 10.5 g/dL (14.0-18.0); LYMPHOCYTES % 8.2 % (20.0-50.0); MEAN PLATELET VOLUME 10.3 fl (7.4-10.4); MONOCYTES % 5.4 % (2.0-8.0); NEUTROPHILS % 85.6 % (40.0-76.0); RED BLOOD CELL COUNT 3.08 mill/uL (4.7-6.1); RED CELL DISTRIBUTION WIDTH 16.2 % (11.6-14.6)
[2020-03-28 08:00] VITALS: BP 115/55
[2020-03-28] MEDS: GABAPENTIN 300MG CAPSULE PO SCH ×2 (09:02→21:08)
[2020-03-28] MEDS: SEVELAMER CARBONATE 800 MG TABLET PO SCH ×3 (09:02→17:27)
[2020-03-28] MEDS: CALCIUM ACETATE 667MG CAPSULE PO SCH ×3 (09:02→17:27)
[2020-03-28] MEDS: FOLIC ACID/VITAMIN B COMP W-C TABLET PO SCH (09:02)
[2020-03-28] MEDS: AMIODARONE HCL 200 MG TABLET PO SCH ×2 (09:02→21:08)
[2020-03-28] MEDS: ISOSORBIDE MONONITRATE 60MG TABLET SR 24HR PO SCH (09:03)
[2020-03-28 10:43] LABS: PLATELET 42 x1000/uL (130-400)
[2020-03-28 10:44] LABS: PLATELET ESTIMATE MARKEDLY DECREASED
[2020-03-28 12:00] VITALS: BP 110/57
[2020-03-28 16:00] VITALS: BP 118/42
[2020-03-28] MEDS: LEVOFLOXACIN 250MG PREMIX 50 ML IV SCH (16:10)
[2020-03-28] MEDS: IPRATROPIUM/ALBUTEROL 0.5-3(2.5)MG/3ML NEB NEB PRN (17:00)
[2020-03-28 20:00] VITALS: BP 107/84
[2020-03-28] MEDS: ATORVASTATIN CALCIUM 40MG TABLET PO SCH (21:08)
[2020-03-29] VITALS (7 sets, daily range): BP systolic 110–131; BP diastolic 52–87
[2020-03-29] MEDS: CLONIDINE 0.2MG TABLET PO SCH (06:00)
[2020-03-29] MEDS: SODIUM CHLORIDE 0.9% INJ 3ML FLUSH IVF SCH (06:59)
[2020-03-29] MEDS: BLOOD SUGAR DIAGNOSTIC STRIP TEST SCH (07:00)
[2020-03-29] MEDS: INSULIN LISPRO 100 UNITS/ML SUBCUT SCH (07:38)
[2020-03-29] MEDS: SEVELAMER CARBONATE 800 MG TABLET PO SCH (07:50)
[2020-03-29] MEDS: GABAPENTIN 300MG CAPSULE PO SCH (08:30)
[2020-03-29] MEDS: AMIODARONE HCL 200 MG TABLET PO SCH (08:30)
[2020-03-29] MEDS: CALCIUM ACETATE 667MG CAPSULE PO SCH (08:30)
[2020-03-29] MEDS: FOLIC ACID/VITAMIN B COMP W-C TABLET PO SCH (08:30)
[2020-03-29] MEDS: ISOSORBIDE MONONITRATE 60MG TABLET SR 24HR PO SCH (08:31)
[2020-03-30] MEDS ORDERED: LEVOFLOXACIN 250MG TABLET PO SCH (11:00)
== END 2020-03-29 15:53 | disposition home or self-care (01) | DRG 252 ==
LOC: ER 15:47 → 6WST 17:39 → EDBEDREQTM 17:43 → EDBEDREQ 17:43 → ENRESERV 19:53
PROVIDERS: ADMIT Internal Medicine; ATTEND Internal Medicine
PROC: 5A1D70Z Performance of Urinary Filtration, Intermittent, Less than 6 Hours Per Day (ICD-10-PCS; 2020-03-24)
PROC: 057Y3DZ Dilation of Upper Vein with Intraluminal Device, Percutaneous Approach (ICD-10-PCS; principal; 2020-03-26)
PROC: B51W1ZZ Fluoroscopy of Dialysis Shunt/Fistula using Low Osmolar Contrast (ICD-10-PCS; 2020-03-26)
PROC: B51M1ZZ Fluoroscopy of Right Upper Extremity Veins using Low Osmolar Contrast (ICD-10-PCS; 2020-03-26)
PROC: 5A1D70Z Performance of Urinary Filtration, Intermittent, Less than 6 Hours Per Day (ICD-10-PCS; 2020-03-27)
PROC: 5A1D70Z Performance of Urinary Filtration, Intermittent, Less than 6 Hours Per Day (ICD-10-PCS; 2020-03-29)
DX: T82.856A Stenosis of peripheral vascular stent, initial encounter (principal); N18.6 End stage renal disease; J96.00 Acute respiratory failure, unspecified whether with hypoxia or hypercapnia; L03.113 Cellulitis of right upper limb; I12.0 Hypertensive chronic kidney disease with stage 5 chronic kidney disease or end stage renal disease; N39.0 Urinary tract infection, site not specified; I48.92 Unspecified atrial flutter; N31.9 Neuromuscular dysfunction of bladder, unspecified; K31.84 Gastroparesis; I48.91 Unspecified atrial fibrillation; E11.43 Type 2 diabetes mellitus with diabetic autonomic (poly)neuropathy; E11.22 Type 2 diabetes mellitus with diabetic chronic kidney disease; E87.5 Hyperkalemia; D69.6 Thrombocytopenia, unspecified; Y83.9 Surgical procedure, unspecified as the cause of abnormal reaction of the patient, or of later complication, without mention of misadventure at the time of the procedure; D64.9 Anemia, unspecified; Z90.49 Acquired absence of other specified parts of digestive tract; Z90.5 Acquired absence of kidney; Z99.2 Dependence on renal dialysis; Z88.8 Allergy status to other drugs, medicaments and biological substances; Z79.899 Other long term (current) drug therapy; Y92.89 Other specified places as the place of occurrence of the external cause; E87.70 Fluid overload, unspecified
CPT/HCPCS: 36010; 36415; 36901; 36907; 71045; 76937; 80048; 80053; 80202; 81003; 82962; 83605; 84484; 85025; 87077; 87186; 93005; 93971; 94640; 99152; 99153; 99285; C1725; C1766; C1769; C1876; J1200; J1644; J1815; J1956; J2060; J2270; J2405; J3010; J3370; J3490; J7030; J7060; Q9967; G0500

== ENCOUNTER 2020-05-08 22:37 | Emergency (ER) | payer MEDICARE, MEDICAID ==
[~2020-05-08] VITALS: Ht 172.7 cm; Wt 75.0 kg
[~2020-05-08 22:37] MED LIST changes: -CLON0.2T PO
[2020-05-09 02:00] VITALS: BP 149/78
== END 2020-05-09 02:05 | disposition home or self-care (01) ==
LOC: ER 22:37
DX: N39.0 Urinary tract infection, site not specified (principal); B96.89 Other specified bacterial agents as the cause of diseases classified elsewhere; B96.1 Klebsiella pneumoniae [K. pneumoniae] as the cause of diseases classified elsewhere; I12.0 Hypertensive chronic kidney disease with stage 5 chronic kidney disease or end stage renal disease; E11.22 Type 2 diabetes mellitus with diabetic chronic kidney disease; N18.6 End stage renal disease; Z99.2 Dependence on renal dialysis; Z90.49 Acquired absence of other specified parts of digestive tract; Z88.1 Allergy status to other antibiotic agents
CPT/HCPCS: 99283

== ENCOUNTER 2020-05-19 18:05 | Inpatient (IN) | payer MEDICARE, MEDICAID ==
[~2020-05-19] VITALS: Ht 172.7 cm; Wt 76.2 kg
[2020-05-19 20:33] LABS: BG BASE EXCESS -4.3 mmol/L (-2.0-2.0); BG CARBOXYHEMOGLOBIN 0.8 % (0.5-1.5); BG DEOXYHEMOGLOBIN 3.3 % (0.0-5.0); BG FRACTION INSPIRED OXYGEN 28; BG HCO3 ACT 21.5 mmol/L (22.0-26.0); BG METHEMOGLOBIN 0.3 % (0.0-1.5); BG OXYGEN SATURATION 96.7 % (92.0-98.5); BG OXYHEMOGLOBIN 95.6 % (94.0-97.0); BG PH 7.327 (7.350-7.450); BG PO2 105.4 mmHg (75.0-100.0); BG SAMPLE SITE LEFT BRACHIAL; BG TOTAL HEMOGLOBIN 11.6 g/dL (12.0-18.0); BG VENT MODE NASAL CANNULA
[2020-05-19 21:17] LABS: BASOPHILS % 0.4 % (0.0-2.0); EOSINOPHILS % 1.4 % (0.0-5.0); HEMOGLOBIN. 8.8 g/dL (14.0-18.0); LYMPHOCYTES % 18.5 % (20.0-50.0); MEAN CORPUSCULAR HEMOGLOBIN 33.6 pg (28.0-32.0); MEAN CORPUSCULAR VOLUME 98.8 fL (80.0-94.0); MONOCYTES % 7.7 % (2.0-8.0); PLATELET 68 x1000/uL (130-400); RED BLOOD CELL COUNT 2.63 mill/uL (4.7-6.1); RED CELL DISTRIBUTION WIDTH 14.6 % (11.6-14.6)
[2020-05-19 21:21] LABS: CHLORIDE 107 mEq/L (98-107)
[2020-05-19 21:24] LABS: INR 1.1; PROTHROMBIN TIME 11.4 sec (9.6-11.0)
[2020-05-19 21:27] LABS: PHOSPHORUS 7.7 mg/dL (2.5-4.9)
[2020-05-19] MEDS ORDERED: ASPIRIN 325MG EC TABLET PO ONE (22:15)
[2020-05-19] MEDS ORDERED: INSULIN REGULAR (HUMULIN R) 300UNITS/3ML IV ONE (22:15)
[2020-05-19] MEDS ORDERED: DEXTROSE 50% WATER 50ML SYRINGE IV ONE (22:15)
[2020-05-19] MEDS ORDERED: CALCIUM GLUCONATE 100MG/ML 10ML VIAL IV ONE (22:30)
[2020-05-19] MEDS ORDERED: SODIUM POLYSTYRENE SULFONATE 15 G/60 ML BOT PO ONE (22:30)
[2020-05-20] VITALS (7 sets, daily range): BP systolic 124–175; BP diastolic 53–81
[2020-05-20] MEDS ORDERED: DEXTROSE 50% WATER 50ML SYRINGE IV PRN ×2 (02:45→08:00)
[2020-05-20] MEDS: CLONIDINE 0.1MG TABLET PO PRN (04:13)
[2020-05-20] MEDS: MORPHINE SULFATE 2 MG/ML CPJ (NOT FOR IM USE) IV PRN ×4 (04:14→21:37)
[2020-05-20] MEDS: INSULIN LISPRO 100 UNITS/ML SUBCUT SCH ×4 (05:59→20:59)
[2020-05-20] MEDS: BLOOD SUGAR DIAGNOSTIC STRIP TEST SCH ×4 (05:59→20:59)
[2020-05-20 06:40] LABS: HEMATOCRIT 26.7 % (42.0-52.0); HEMOGLOBIN 8.9 g/dL (14.0-18.0); MEAN CORPUSCULAR HEMOGLOBIN 33.2 pg (28.0-32.0); MEAN CORPUSCULAR VOLUME 99.5 fL (80.0-94.0); PLATELET 64 x1000/uL (130-400); RED BLOOD CELL COUNT 2.69 mill/uL (4.7-6.1); RED CELL DISTRIBUTION WIDTH 14.4 % (11.6-14.6)
[2020-05-20] MEDS ORDERED: SEVELAMER CARBONATE 800 MG TABLET PO SCH (07:15)
[2020-05-20] MEDS ORDERED: MAGNESIUM/ALUMINUM HYDROXIDE/SIMETHICONE 30ML UDC PO PRN (08:00)
[2020-05-20] MEDS ORDERED: ACETAMINOPHEN 325MG TABLET PO PRN (08:00)
[2020-05-20] MEDS ORDERED: ENOXAPARIN 40MG/0.4ML SYR SUBCUT SCH (08:00)
[2020-05-20] MEDS ORDERED: ONDANSETRON HCL 4MG/2ML INJ IV PRN (08:00)
[2020-05-20] MEDS ORDERED: HYDROCODONE/ACETAMINOPHEN 5/325MG TABLET PO PRN (08:00)
[2020-05-20] MEDS: FOLIC ACID/VITAMIN B COMP W-C TABLET PO SCH (08:36)
[2020-05-20] MEDS ORDERED: SODIUM POLYSTYRENE SULFONATE 15 G/60 ML BOT PO NR (09:00)
[2020-05-20] MEDS ORDERED: METOPROLOL TARTRATE 25MG TABLET PO SCH (09:00)
[2020-05-20] MEDS ORDERED: AMLODIPINE 10MG TABLET PO SCH (09:00)
[2020-05-20] MEDS ORDERED: BLOOD SUGAR DIAGNOSTIC STRIP TEST SCH (11:45)
[2020-05-20] MEDS: CALCIUM ACETATE 667MG CAPSULE PO SCH ×2 (12:23→17:19)
[2020-05-20] MEDS: METOPROLOL TARTRATE 50MG TABLET PO SCH (21:00)
[2020-05-21] VITALS: BP 155/67
[2020-05-21] MEDS: BLOOD SUGAR DIAGNOSTIC STRIP TEST SCH ×4 (05:43→20:57)
[2020-05-21] MEDS: INSULIN LISPRO 100 UNITS/ML SUBCUT SCH ×4 (06:20→20:57)
[2020-05-21] MEDS: CALCIUM ACETATE 667MG CAPSULE PO SCH ×3 (06:21→17:29)
[2020-05-21] MEDS: OMEPRAZOLE 20MG CAPSULE EXTENDED RELEASE PO SCH (06:21)
[2020-05-21 06:30] LABS: BASOPHILS % 0.4 % (0.0-2.0); EOSINOPHILS % 1.1 % (0.0-5.0); HEMOGLOBIN. 7.4 g/dL (14.0-18.0); LYMPHOCYTES % 13.7 % (20.0-50.0); MEAN CORPUSCULAR HEMOGLOBIN 32.9 pg (28.0-32.0); MEAN CORPUSCULAR VOLUME 98.1 fL (80.0-94.0); MEAN PLATELET VOLUME 10.8 fl (7.4-10.4); MONOCYTES % 10.4 % (2.0-8.0); NEUTROPHILS % 74.4 % (40.0-76.0); PLATELET 55 x1000/uL (130-400); RED BLOOD CELL COUNT 2.24 mill/uL (4.7-6.1); RED CELL DISTRIBUTION WIDTH 14.1 % (11.6-14.6)
[2020-05-21 06:52] LABS: PHOSPHORUS 6.1 mg/dL (2.5-4.9)
[2020-05-21 08:00] VITALS: BP 138/60
[2020-05-21] MEDS: MORPHINE SULFATE 2 MG/ML CPJ (NOT FOR IM USE) IV PRN (08:32)
[2020-05-21] MEDS: METOPROLOL TARTRATE 50MG TABLET PO SCH (08:32)
[2020-05-21] MEDS: FOLIC ACID/VITAMIN B COMP W-C TABLET PO SCH (08:32)
[2020-05-21] MEDS: AMLODIPINE 5MG TABLET PO SCH (08:32)
[2020-05-21 12:00] VITALS: BP 148/73
[2020-05-21] MEDS: CLONIDINE 0.1MG TABLET PO PRN (15:28)
[2020-05-21 16:00] VITALS: BP 163/74
[2020-05-21 20:00] VITALS: BP 130/56
[2020-05-21] MEDS: ATORVASTATIN CALCIUM 40MG TABLET PO SCH (20:57)
[2020-05-21] MEDS: METOPROLOL TARTRATE 25MG TABLET PO SCH (20:57)
[2020-05-21] MEDS: ZOLPIDEM TARTRATE 5MG TABLET PO PRN (21:22)
[2020-05-22] VITALS (7 sets, daily range): BP systolic 119–162; BP diastolic 48–76
[2020-05-22 00:03] LABS: HEMATOCRIT 21.8 % (42.0-52.0); HEMOGLOBIN 7.3 g/dL (14.0-18.0)
[2020-05-22] MEDS: OMEPRAZOLE 20MG CAPSULE EXTENDED RELEASE PO SCH (06:03)
[2020-05-22] MEDS: INSULIN LISPRO 100 UNITS/ML SUBCUT SCH ×2 (06:54→11:30)
[2020-05-22] MEDS: BLOOD SUGAR DIAGNOSTIC STRIP TEST SCH ×2 (06:54→11:22)
[2020-05-22 06:55] LABS: BASOPHILS % 0.6 % (0.0-2.0); EOSINOPHILS % 1.1 % (0.0-5.0); HEMATOCRIT. 23.8 % (42.0-52.0); LYMPHOCYTES % 13.1 % (20.0-50.0); MEAN CORPUSCULAR HEMOGLOBIN 33.2 pg (28.0-32.0); MEAN CORPUSCULAR VOLUME 98.6 fL (80.0-94.0); MEAN PLATELET VOLUME 11.2 fl (7.4-10.4); MONOCYTES % 8.5 % (2.0-8.0); NEUTROPHILS % 76.7 % (40.0-76.0); PLATELET 57 x1000/uL (130-400); RED BLOOD CELL COUNT 2.41 mill/uL (4.7-6.1); RED CELL DISTRIBUTION WIDTH 13.9 % (11.6-14.6)
[2020-05-22 07:03] LABS: CHLORIDE 102 mEq/L (98-107)
[2020-05-22] MEDS: FOLIC ACID/VITAMIN B COMP W-C TABLET PO SCH (08:31)
[2020-05-22] MEDS: METOPROLOL TARTRATE 25MG TABLET PO SCH ×2 (08:31→20:38)
[2020-05-22] MEDS: CALCIUM ACETATE 667MG CAPSULE PO SCH ×3 (08:32→16:21)
[2020-05-22] MEDS: AMLODIPINE 5MG TABLET PO SCH (08:32)
[2020-05-22] MEDS ORDERED: CEFEPIME 1,000 MG in DEXTROSE 5% WATER 50 ML IV SCH ×2 (11:30→13:00)
[2020-05-22] MEDS ORDERED: DIPHENHYDRAMINE 50MG/ML VIAL IV PRN (12:00)
[2020-05-22] MEDS: ATORVASTATIN CALCIUM 40MG TABLET PO SCH (20:37)
[2020-05-22] MEDS: ZOLPIDEM TARTRATE 5MG TABLET PO PRN (20:38)
[2020-05-22] MEDS ORDERED: EPOETIN ALFA-EPBX 4,000 UNIT/ML VIAL SUBCUT SCH (21:00)
[2020-05-23] VITALS: BP 134/57
[2020-05-23 04:00] VITALS: BP 124/54
[2020-05-23] MEDS: OMEPRAZOLE 20MG CAPSULE EXTENDED RELEASE PO SCH (06:23)
[2020-05-23 08:00] VITALS: BP 156/69
[2020-05-23] MEDS: FOLIC ACID/VITAMIN B COMP W-C TABLET PO SCH (08:16)
[2020-05-23] MEDS: METOPROLOL TARTRATE 25MG TABLET PO SCH (08:16)
[2020-05-23] MEDS: CALCIUM ACETATE 667MG CAPSULE PO SCH (08:17)
[2020-05-23] MEDS: AMLODIPINE 5MG TABLET PO SCH (08:17)
[2020-05-23 08:40] VITALS: BP 156/69
== END 2020-05-23 12:20 | disposition home or self-care (01) | DRG 291 ==
LOC: ER 18:11 → 5WST 23:50 → EDBEDREQ 23:52 → EDBEDREQTM 23:52 → ENRESERV 05-20 00:06
PROVIDERS: ADMIT Internal Medicine; ATTEND Internal Medicine
PROC: 5A1D70Z Performance of Urinary Filtration, Intermittent, Less than 6 Hours Per Day (ICD-10-PCS; principal; 2020-05-21)
DX: I13.2 Hypertensive heart and chronic kidney disease with heart failure and with stage 5 chronic kidney disease, or end stage renal disease (principal); I50.33 Acute on chronic diastolic (congestive) heart failure; J96.20 Acute and chronic respiratory failure, unspecified whether with hypoxia or hypercapnia; N18.6 End stage renal disease; E87.2 Acidosis; I47.1 Supraventricular tachycardia; I48.92 Unspecified atrial flutter; D61.818 Other pancytopenia; J91.8 Pleural effusion in other conditions classified elsewhere; D63.8 Anemia in other chronic diseases classified elsewhere; D69.6 Thrombocytopenia, unspecified; D72.819 Decreased white blood cell count, unspecified; E11.22 Type 2 diabetes mellitus with diabetic chronic kidney disease; E78.5 Hyperlipidemia, unspecified; E83.39 Other disorders of phosphorus metabolism; E83.51 Hypocalcemia; E87.5 Hyperkalemia; G40.909 Epilepsy, unspecified, not intractable, without status epilepticus; I25.10 Atherosclerotic heart disease of native coronary artery without angina pectoris; I48.91 Unspecified atrial fibrillation; Z20.828 Contact with and (suspected) exposure to other viral communicable diseases; E11.649 Type 2 diabetes mellitus with hypoglycemia without coma; E87.8 Other disorders of electrolyte and fluid balance, not elsewhere classified; D64.9 Anemia, unspecified; I48.0 Paroxysmal atrial fibrillation; Z59.0 Homelessness; Z87.891 Personal history of nicotine dependence; Z87.440 Personal history of urinary (tract) infections; Z86.79 Personal history of other diseases of the circulatory system; Z90.49 Acquired absence of other specified parts of digestive tract; Z90.5 Acquired absence of kidney; Z91.19 Patient's noncompliance with other medical treatment and regimen; I25.2 Old myocardial infarction; Z95.5 Presence of coronary angioplasty implant and graft; Z88.1 Allergy status to other antibiotic agents; Z99.81 Dependence on supplemental oxygen; Z79.01 Long term (current) use of anticoagulants; Z79.899 Other long term (current) drug therapy; Z80.1 Family history of malignant neoplasm of trachea, bronchus and lung; Z83.3 Family history of diabetes mellitus; Z86.718 Personal history of other venous thrombosis and embolism; Z86.73 Personal history of transient ischemic attack (TIA), and cerebral infarction without residual deficits
CPT/HCPCS: 36415; 36600; 71045; 80048; 80053; 80061; 82375; 82805; 82962; 83036; 83605; 83735; 83880; 84100; 84443; 84484; 85014; 85018; 85025; 85027; 86850; 86900; 86920; 93005; 93970; 97162; 97166; 99291; J0610; J0692; J0885; J1815; J2270; J2405; J7060; U0003

== ENCOUNTER 2020-12-13 19:18 | Inpatient (IN) | payer MEDICARE, MEDICAID ==
[~2020-12-13] VITALS: Ht 177.8 cm; Wt 73.9 kg
[~2020-12-13 19:18] MED LIST changes: -GABA-531 PO; +GABA-532 PO; -ISOS60TA4 PO; +ISOS60TA76 PO
[2020-12-13 20:00] VITALS: BP 131/61
[2020-12-13 20:28] LABS: BASOPHILS % 0.4 % (0.0-2.0); EOSINOPHILS % 0.5 % (0.0-5.0); HEMATOCRIT. 29.1 % (42.0-52.0); HEMOGLOBIN. 9.7 g/dL (14.0-18.0); LYMPHOCYTES % 18.1 % (20.0-50.0); MEAN CORPUSCULAR HEMOGLOBIN 32.5 pg (28.0-32.0); MEAN CORPUSCULAR VOLUME 98.1 fL (80.0-94.0); MEAN PLATELET VOLUME 8.1 fl (7.4-10.4); MONOCYTES % 7.3 % (2.0-8.0); NEUTROPHILS % 73.7 % (40.0-76.0); PLATELET 133 x1000/uL (130-400); RED BLOOD CELL COUNT 2.97 mill/uL (4.7-6.1); RED CELL DISTRIBUTION WIDTH 15.3 % (11.6-14.6)
[2020-12-13 20:34] LABS: CHLORIDE 103 mEq/L (98-107)
[2020-12-14] MEDS ORDERED: MEROPENEM 1,000 MG in SODIUM CHLORIDE 0.9% 100 ML IV SCH
[2020-12-14 03:46] LABS: CLARITY URINE TURBID (CLEAR); COLOR URINE YELLOW (YELLOW); KETONES URINE NEGATIVE (NEGATIVE); PROTEIN URINE TRACE (NEGATIVE); SPECIFIC GRAVITY URINE 1.019 (1.005-1.030)
[2020-12-14 03:47] LABS: OCCULT BLOOD URINE TRACE (NEGATIVE)
[2020-12-14 03:48] LABS: NITRITE URINE NEGATIVE (NEGATIVE)
[2020-12-14 03:49] LABS: LEUKOCYTE ESTERASE URINE NEGATIVE (NEGATIVE)
[2020-12-14] MEDS ORDERED: DIPHENHYDRAMINE 50MG/ML VIAL IV PRN (05:45)
[2020-12-14] MEDS ORDERED: LEVOFLOXACIN 500MG PREMIX 100 ML IV SCH ×2 (05:45→07:00)
[2020-12-14] MEDS ORDERED: CLONIDINE 0.1MG TABLET PO PRN (05:45)
[2020-12-14] MEDS ORDERED: ACETAMINOPHEN 325MG TABLET PO PRN (05:45)
[2020-12-14] MEDS ORDERED: MAGNESIUM/ALUMINUM HYDROXIDE/SIMETHICONE 30ML UDC PO PRN (05:45)
[2020-12-14] MEDS: HYDROMORPHONE HCL/PF 2MG/ML CPJ IV PRN ×2 (06:30→20:03)
[2020-12-14 09:20] VITALS: BP 154/63
[2020-12-14 09:21] VITALS: BP 154/63
[2020-12-14] MEDS: AMLODIPINE 10MG TABLET PO SCH (10:49)
[2020-12-14] MEDS: HYDROCODONE/ACETAMINOPHEN 5/325MG TABLET PO PRN (10:51)
[2020-12-14 12:00] VITALS: BP 141/57
[2020-12-14] MEDS: GABAPENTIN 300MG CAPSULE PO SCH ×2 (12:36→20:22)
[2020-12-14] MEDS: CALCIUM ACETATE 667MG CAPSULE PO SCH ×2 (12:36→18:11)
[2020-12-14] MEDS: ISOSORBIDE MONONITRATE 60MG TABLET SR 24HR PO SCH (12:36)
[2020-12-14] MEDS: SEVELAMER CARBONATE 800 MG TABLET PO SCH ×2 (12:36→18:11)
[2020-12-14] MEDS: ATORVASTATIN CALCIUM 40MG TABLET PO SCH (12:38)
[2020-12-14] MEDS: ONDANSETRON HCL 4MG/2ML INJ IV PRN ×2 (13:49→21:33)
[2020-12-14 16:00] VITALS: BP 126/93
[2020-12-14 19:48] VITALS: BP_SYST 131; BP_SYST 171; BP_DIAS 61
[2020-12-14] MEDS ORDERED: EPOETIN ALFA-EPBX 4,000 UNIT/ML VIAL SUBCUT SCH (21:00)
[2020-12-15] VITALS: BP 118/57
[2020-12-15 01:19] LABS: HEPATITIS B SURFACE ANTIGEN NEGATIVE
[2020-12-15 01:48] LABS: HEPATITIS A AB IGM NEGATIVE (NEGATIVE)
[2020-12-15 04:00] VITALS: BP 98/64
[2020-12-15] MEDS: HYDROCODONE/ACETAMINOPHEN 5/325MG TABLET PO PRN ×2 (06:14→08:30)
[2020-12-15 08:23] VITALS: BP 101/60
[2020-12-15] MEDS: GABAPENTIN 300MG CAPSULE PO SCH ×2 (08:27→20:56)
[2020-12-15] MEDS: ATORVASTATIN CALCIUM 40MG TABLET PO SCH (08:27)
[2020-12-15] MEDS: CALCIUM ACETATE 667MG CAPSULE PO SCH ×3 (08:27→17:37)
[2020-12-15] MEDS: SEVELAMER CARBONATE 800 MG TABLET PO SCH ×3 (08:27→17:37)
[2020-12-15] MEDS: ISOSORBIDE MONONITRATE 60MG TABLET SR 24HR PO SCH (08:28)
[2020-12-15] MEDS: AMLODIPINE 10MG TABLET PO SCH (08:28)
[2020-12-15] MEDS: HYDROMORPHONE HCL/PF 2MG/ML CPJ IV PRN ×2 (10:46→21:58)
[2020-12-15 11:42] VITALS: BP 120/59
[2020-12-15 13:35] LABS: BASOPHILS % 0.4 % (0.0-2.0); EOSINOPHILS % 0.7 % (0.0-5.0); HEMATOCRIT. 28.5 % (42.0-52.0); HEMOGLOBIN. 9.8 g/dL (14.0-18.0); LYMPHOCYTES % 17.7 % (20.0-50.0); MEAN CORPUSCULAR HEMOGLOBIN 33.5 pg (28.0-32.0); MEAN CORPUSCULAR VOLUME 97.6 fL (80.0-94.0); MEAN PLATELET VOLUME 8.7 fl (7.4-10.4); MONOCYTES % 7.9 % (2.0-8.0); NEUTROPHILS % 73.3 % (40.0-76.0); PLATELET 117 x1000/uL (130-400); RED BLOOD CELL COUNT 2.92 mill/uL (4.7-6.1)
[2020-12-15 14:09] LABS: CHLORIDE 103 mEq/L (98-107)
[2020-12-15 14:20] LABS: PHOSPHORUS 6.4 mg/dL (2.5-4.9)
[2020-12-15 15:58] VITALS: BP 126/67
[2020-12-15 20:00] VITALS: BP 137/49
[2020-12-16 04:00] VITALS: BP 127/63
[2020-12-16 07:54] VITALS: BP 123/55
[2020-12-16] MEDS: ATORVASTATIN CALCIUM 40MG TABLET PO SCH (08:28)
[2020-12-16] MEDS: CALCIUM ACETATE 667MG CAPSULE PO SCH ×3 (08:28→17:10)
[2020-12-16] MEDS: AMLODIPINE 10MG TABLET PO SCH (08:28)
[2020-12-16] MEDS: GABAPENTIN 300MG CAPSULE PO SCH ×2 (08:29→21:17)
[2020-12-16] MEDS: SEVELAMER CARBONATE 800 MG TABLET PO SCH ×3 (08:29→17:10)
[2020-12-16] MEDS: ISOSORBIDE MONONITRATE 60MG TABLET SR 24HR PO SCH (08:30)
[2020-12-16] MEDS: ONDANSETRON HCL 4MG/2ML INJ IV PRN (08:41)
[2020-12-16] MEDS: HYDROMORPHONE HCL/PF 2MG/ML CPJ IV PRN ×2 (09:56→22:45)
[2020-12-16] MEDS ORDERED: LEVOFLOXACIN 250MG PREMIX 50 ML IV SCH (11:00)
[2020-12-16 12:03] VITALS: BP 89/41
[2020-12-16 15:51] VITALS: BP 81/39
[2020-12-16 20:00] VITALS: BP 100/48
[2020-12-17] VITALS: BP 115/58
[2020-12-17] MEDS: HYDROMORPHONE HCL/PF 2MG/ML CPJ IV PRN ×3 (01:49→15:10)
[2020-12-17 04:00] VITALS: BP 107/61
[2020-12-17 06:45] LABS: BASOPHILS % 0.4 % (0.0-2.0); EOSINOPHILS % 0.6 % (0.0-5.0); HEMATOCRIT. 29.1 % (42.0-52.0); HEMOGLOBIN. 9.8 g/dL (14.0-18.0); LYMPHOCYTES % 21.7 % (20.0-50.0); MEAN CORPUSCULAR HEMOGLOBIN 33.1 pg (28.0-32.0); MEAN CORPUSCULAR VOLUME 98.5 fL (80.0-94.0); MEAN PLATELET VOLUME 9.1 fl (7.4-10.4); MONOCYTES % 9.9 % (2.0-8.0); NEUTROPHILS % 67.4 % (40.0-76.0); PLATELET 117 x1000/uL (130-400); RED BLOOD CELL COUNT 2.96 mill/uL (4.7-6.1); RED CELL DISTRIBUTION WIDTH 15.1 % (11.6-14.6)
[2020-12-17 07:06] LABS: PHOSPHORUS 6.7 mg/dL (2.5-4.9)
[2020-12-17 08:00] VITALS: BP 134/42
[2020-12-17] MEDS: CALCIUM ACETATE 667MG CAPSULE PO SCH ×2 (08:21→13:34)
[2020-12-17] MEDS: SEVELAMER CARBONATE 800 MG TABLET PO SCH ×2 (08:21→13:34)
[2020-12-17] MEDS: ISOSORBIDE MONONITRATE 60MG TABLET SR 24HR PO SCH (08:22)
[2020-12-17] MEDS: GABAPENTIN 300MG CAPSULE PO SCH (08:23)
[2020-12-17] MEDS: ATORVASTATIN CALCIUM 40MG TABLET PO SCH (08:23)
[2020-12-17] MEDS ORDERED: AMLODIPINE 5MG TABLET PO SCH (09:00)
[2020-12-17 12:00] VITALS: BP 115/47
[2020-12-17 14:39] VITALS: BP 122/45
[2020-12-17 15:10] VITALS: BP 122/45
== END 2020-12-17 15:55 | disposition home or self-care (01) | DRG 291 ==
LOC: ER 19:18 → 6WST 12-14 06:03 → EDBEDREQSVC 12-14 07:26 → ENRESERV 12-14 07:43
PROVIDERS: ADMIT Hospitalist; ATTEND Hospitalist
PROC: 5A1D70Z Performance of Urinary Filtration, Intermittent, Less than 6 Hours Per Day (ICD-10-PCS; principal; 2020-12-14)
DX: I13.2 Hypertensive heart and chronic kidney disease with heart failure and with stage 5 chronic kidney disease, or end stage renal disease (principal); I50.33 Acute on chronic diastolic (congestive) heart failure; N18.6 End stage renal disease; N39.0 Urinary tract infection, site not specified; I48.92 Unspecified atrial flutter; E11.22 Type 2 diabetes mellitus with diabetic chronic kidney disease; E11.40 Type 2 diabetes mellitus with diabetic neuropathy, unspecified; D63.8 Anemia in other chronic diseases classified elsewhere; E78.5 Hyperlipidemia, unspecified; E83.39 Other disorders of phosphorus metabolism; E83.51 Hypocalcemia; I25.10 Atherosclerotic heart disease of native coronary artery without angina pectoris; I48.91 Unspecified atrial fibrillation; D63.1 Anemia in chronic kidney disease; D69.6 Thrombocytopenia, unspecified; Z88.1 Allergy status to other antibiotic agents; Z91.19 Patient's noncompliance with other medical treatment and regimen; Z99.2 Dependence on renal dialysis; I25.2 Old myocardial infarction; Z86.718 Personal history of other venous thrombosis and embolism; Z95.5 Presence of coronary angioplasty implant and graft; Z89.432 Acquired absence of left foot; B95.4 Other streptococcus as the cause of diseases classified elsewhere
CPT/HCPCS: 36415; 71045; 80048; 80053; 81003; 82330; 82962; 83735; 84100; 85025; 86705; 86709; 86803; 87077; 87186; 87340; 93005; 99285; J0885; J1170; J1200; J1956; J2185; J2405; J7050

== ENCOUNTER 2020-12-29 16:22 | Inpatient (IN) | payer MEDICARE, MEDICAID ==
[~2020-12-29] VITALS: Ht 167.6 cm; Wt 83.1 kg
[2020-12-29] VITALS (14 sets, daily range): BP systolic 77–119; BP diastolic 24–75
[~2020-12-29 16:22] MED LIST changes: +HYDR-4346 MT; -SEVE800T8 PO
[2020-12-29] MEDS ORDERED: DILTIAZEM HCL 5MG/ML 5ML VIAL IV ONE ×2 (16:30→17:00)
[2020-12-29] MEDS ORDERED: AZTREONAM 1 G in DEXTROSE 5% WATER 50 ML IV SCH (16:30)
[2020-12-29] MEDS ORDERED: VANCOMYCIN 1 G PREMIX 200 ML IV ONE (16:30)
[2020-12-29 17:15] LABS: BASOPHILS % 0.3 % (0.0-2.0); EOSINOPHILS % 0.6 % (0.0-5.0); HEMATOCRIT. 25.3 % (42.0-52.0); HEMOGLOBIN. 8.8 g/dL (14.0-18.0); LYMPHOCYTES % 11.9 % (20.0-50.0); MEAN CORPUSCULAR HEMOGLOBIN 33.4 pg (28.0-32.0); MEAN CORPUSCULAR VOLUME 96.2 fL (80.0-94.0); MEAN PLATELET VOLUME 9.2 fl (7.4-10.4); MONOCYTES % 6.6 % (2.0-8.0); NEUTROPHILS % 80.6 % (40.0-76.0); PLATELET 91 x1000/uL (130-400); RED BLOOD CELL COUNT 2.63 mill/uL (4.7-6.1); RED CELL DISTRIBUTION WIDTH 14.5 % (11.6-14.6)
[2020-12-29 17:24] LABS: BG BASE EXCESS 4.1 mmol/L (-2.0-2.0); BG CARBOXYHEMOGLOBIN 0.3 % (0.5-1.5); BG DEOXYHEMOGLOBIN 0.9 % (0.0-5.0); BG FRACTION INSPIRED OXYGEN 100; BG HCO3 ACT 27.1 mmol/L (22.0-26.0); BG METHEMOGLOBIN 0.1 % (0.0-1.5); BG OXYGEN SATURATION 99.1 % (92.0-98.5); BG OXYHEMOGLOBIN 98.7 % (94.0-97.0); BG PCO2 34.8 mmHg (35.0-45.0); BG PO2 299.9 mmHg (75.0-100.0); BG SAMPLE SITE LEFT BRACHIAL; BG TOTAL HEMOGLOBIN 9.4 g/dL (12.0-18.0); BG VENT MODE MASK - NRB
[2020-12-29 17:24] LABS: CHLORIDE 99 mEq/L (98-107)
[2020-12-29 17:27] LABS: INR 1.1; PROTHROMBIN TIME 11.4 sec (9.6-11.0)
[2020-12-29 17:28] LABS: ETHANOL BLOOD < 10 mg/dL
[2020-12-29] MEDS ORDERED: DILTIAZEM HCL 125 MG in DEXT 5% WATER 100 ML IV ONE ×2 (17:30→17:45)
[2020-12-29 17:32] LABS: CREATINE KINASE 85 IU/L (39-308)
[2020-12-29] MEDS ORDERED: ATOR-2 PO (21:22)
[2020-12-29] MEDS ORDERED: OMEP40CA12 PO (21:22)
[2020-12-29] MEDS ORDERED: ISOS30TA91 PO (21:22)
[2020-12-29] MEDS ORDERED: METO25TA6 PO (21:22)
[2020-12-29] MEDS ORDERED: SEVE800T8 PO (21:22)
[2020-12-29] MEDS ORDERED: LOSA25TA26 PO (21:22)
[2020-12-29] MEDS ORDERED: GABA-529 PO (21:22)
[2020-12-29] MEDS ORDERED: DEXTROSE 50% WATER 50ML SYRINGE IV PRN (22:00)
[2020-12-29] MEDS ORDERED: HYDROCODONE/ACETAMINOPHEN 5/325MG TABLET PO PRN (22:00)
[2020-12-29] MEDS ORDERED: MEDICATION NOT ON FORMULARY EA (Amiodarone HCl 200 MG) PO SCH (22:15)
[2020-12-29] MEDS ORDERED: DIGOXIN 500MCG/2ML AMP IV NR (22:30)
[2020-12-29] MEDS ORDERED: DILTIAZEM HCL 125 MG in DEXT 5% WATER 100 ML IV PRN (23:00)
[2020-12-29] MEDS: AMIODARONE HCL 200 MG TABLET PO SCH (23:16)
[2020-12-30] VITALS (46 sets, daily range): BP systolic 71–179; BP diastolic 39–121
[2020-12-30] MEDS: MORPHINE SULFATE 2 MG/ML CPJ (NOT FOR IM USE) IV PRN ×4 (05:12→21:55)
[2020-12-30] MEDS: BLOOD SUGAR DIAGNOSTIC STRIP TEST SCH ×4 (07:50→21:00)
[2020-12-30] MEDS ORDERED: MEDICATION NOT ON FORMULARY EA (Calcium Acetate (Phoslo) 667 MG) PO SCH (08:20)
[2020-12-30] MEDS: INSULIN LISPRO 100 UNITS/ML SUBCUT SCH ×4 (08:20→21:00)
[2020-12-30] MEDS ORDERED: MEDICATION NOT ON FORMULARY EA (Omeprazole 40 MG) PO SCH (09:00)
[2020-12-30] MEDS: CALCIUM ACETATE 667MG CAPSULE PO SCH ×3 (09:34→17:40)
[2020-12-30] MEDS: SEVELAMER CARBONATE 800 MG TABLET PO SCH ×3 (09:34→17:40)
[2020-12-30] MEDS: OMEPRAZOLE 20MG CAPSULE EXTENDED RELEASE PO SCH (09:35)
[2020-12-30] MEDS: FOLIC ACID/VITAMIN B COMP W-C TABLET PO SCH (09:44)
[2020-12-30] MEDS: AMIODARONE HCL 200 MG TABLET PO SCH (09:45)
[2020-12-30] MEDS: ISOSORBIDE MONONITRATE 30MG TABLET SR 24HR PO SCH (09:45)
[2020-12-30 15:26] LABS: BASOPHILS % 0.4 % (0.0-2.0); EOSINOPHILS % 0.6 % (0.0-5.0); HEMOGLOBIN. 9.1 g/dL (14.0-18.0); LYMPHOCYTES % 15.1 % (20.0-50.0); MEAN CORPUSCULAR HEMOGLOBIN 32.8 pg (28.0-32.0); MEAN CORPUSCULAR VOLUME 97.2 fL (80.0-94.0); MEAN PLATELET VOLUME 9.3 fl (7.4-10.4); MONOCYTES % 6.9 % (2.0-8.0); PLATELET 110 x1000/uL (130-400); RED BLOOD CELL COUNT 2.78 mill/uL (4.7-6.1); RED CELL DISTRIBUTION WIDTH 14.3 % (11.6-14.6)
[2020-12-30 15:48] LABS: PHOSPHORUS 6.3 mg/dL (2.5-4.9)
[2020-12-30] MEDS ORDERED: MEDICATION NOT ON FORMULARY EA (Atorvastatin Calcium 80 MG) PO SCH (21:00)
[2020-12-30] MEDS ORDERED: ONDANSETRON HCL 4MG/2ML INJ IV PRN (21:45)
[2020-12-30] MEDS: ATORVASTATIN CALCIUM 40MG TABLET PO SCH (21:57)
[2020-12-31] VITALS (21 sets, daily range): BP systolic 105–174; BP diastolic 61–88
[2020-12-31 05:45] LABS: BASOPHILS % 0.4 % (0.0-2.0); EOSINOPHILS % 0.7 % (0.0-5.0); HEMATOCRIT. 27.3 % (42.0-52.0); HEMOGLOBIN. 9.1 g/dL (14.0-18.0); LYMPHOCYTES % 19.6 % (20.0-50.0); MEAN CORPUSCULAR HEMOGLOBIN 32.3 pg (28.0-32.0); MEAN PLATELET VOLUME 9.1 fl (7.4-10.4); MONOCYTES % 9.2 % (2.0-8.0); NEUTROPHILS % 70.1 % (40.0-76.0); PLATELET 129 x1000/uL (130-400); RED BLOOD CELL COUNT 2.81 mill/uL (4.7-6.1); RED CELL DISTRIBUTION WIDTH 14.8 % (11.6-14.6)
[2020-12-31 05:58] LABS: PHOSPHORUS 7.7 mg/dL (2.5-4.9)
[2020-12-31] MEDS ORDERED: HYDROCODONE/ACETAMINOPHEN 5/325MG TABLET PO PRN (06:15)
[2020-12-31] MEDS ORDERED: CLONIDINE 0.1MG TABLET PO PRN (06:30)
[2020-12-31] MEDS: OMEPRAZOLE 20MG CAPSULE EXTENDED RELEASE PO SCH (06:37)
[2020-12-31] MEDS: AMLODIPINE 10MG TABLET PO SCH (06:38)
[2020-12-31] MEDS: INSULIN LISPRO 100 UNITS/ML SUBCUT SCH ×4 (06:44→20:15)
[2020-12-31] MEDS: BLOOD SUGAR DIAGNOSTIC STRIP TEST SCH ×4 (06:44→20:15)
[2020-12-31] MEDS: SEVELAMER CARBONATE 800 MG TABLET PO SCH ×3 (08:28→12:04)
[2020-12-31] MEDS: FOLIC ACID/VITAMIN B COMP W-C TABLET PO SCH (08:28)
[2020-12-31] MEDS: ISOSORBIDE MONONITRATE 30MG TABLET SR 24HR PO SCH (08:28)
[2020-12-31] MEDS: MORPHINE SULFATE 2 MG/ML CPJ (NOT FOR IM USE) IV PRN ×2 (08:29→18:46)
[2020-12-31] MEDS: AMIODARONE HCL 200 MG TABLET PO SCH (08:29)
[2020-12-31] MEDS: CALCIUM ACETATE 667MG CAPSULE PO SCH ×3 (08:29→12:04)
[2020-12-31] MEDS ORDERED: ENOXAPARIN 30MG/0.3ML SYR SUBCUT SCH (09:00)
[2020-12-31] MEDS: LOSARTAN POTASSIUM 25 MG TABLET PO SCH (11:52)
[2020-12-31 16:51] LABS: HEPATITIS B SURFACE ANTIGEN NEGATIVE
[2020-12-31 17:20] LABS: HEPATITIS A AB IGM NEGATIVE (NEGATIVE)
[2020-12-31] MEDS: ATORVASTATIN CALCIUM 40MG TABLET PO SCH (20:26)
[2020-12-31] MEDS ORDERED: ZOLPIDEM TARTRATE 5MG TABLET PO NR (23:08)
[2021-01-01] VITALS (8 sets, daily range): BP systolic 121–164; BP diastolic 54–84
[2021-01-01] MEDS: BLOOD SUGAR DIAGNOSTIC STRIP TEST SCH ×2 (06:15→12:05)
[2021-01-01] MEDS: OMEPRAZOLE 20MG CAPSULE EXTENDED RELEASE PO SCH (06:15)
[2021-01-01] MEDS: INSULIN LISPRO 100 UNITS/ML SUBCUT SCH ×2 (06:31→12:06)
[2021-01-01 07:15] LABS: BASOPHILS % 0.3 % (0.0-2.0); EOSINOPHILS % 0.6 % (0.0-5.0); HEMATOCRIT. 27.7 % (42.0-52.0); HEMOGLOBIN. 9.5 g/dL (14.0-18.0); LYMPHOCYTES % 16.8 % (20.0-50.0); MEAN CORPUSCULAR VOLUME 96.5 fL (80.0-94.0); MEAN PLATELET VOLUME 9.2 fl (7.4-10.4); MONOCYTES % 8.6 % (2.0-8.0); NEUTROPHILS % 73.7 % (40.0-76.0); PLATELET 116 x1000/uL (130-400); RED BLOOD CELL COUNT 2.87 mill/uL (4.7-6.1); RED CELL DISTRIBUTION WIDTH 14.1 % (11.6-14.6)
[2021-01-01 07:50] LABS: PHOSPHORUS 8.4 mg/dL (2.5-4.9)
[2021-01-01] MEDS: AMLODIPINE 10MG TABLET PO SCH (09:29)
[2021-01-01] MEDS: FOLIC ACID/VITAMIN B COMP W-C TABLET PO SCH (09:29)
[2021-01-01] MEDS: AMIODARONE HCL 200 MG TABLET PO SCH (09:29)
[2021-01-01] MEDS: CALCIUM ACETATE 667MG CAPSULE PO SCH ×2 (09:29→13:28)
[2021-01-01] MEDS: ISOSORBIDE MONONITRATE 30MG TABLET SR 24HR PO SCH (09:29)
[2021-01-01] MEDS: LOSARTAN POTASSIUM 25 MG TABLET PO SCH (09:29)
[2021-01-01] MEDS: SEVELAMER CARBONATE 800 MG TABLET PO SCH ×2 (09:29→13:28)
== END 2021-01-01 17:18 | disposition home or self-care (01) | DRG 280 ==
LOC: ER 16:22 → EDBEDREQSVC 19:36 → EDBEDREQ 19:36 → EDBEDREQTM 19:36 → ENRESERV 19:52 → EDBEDREQ 20:46 → EDBEDREQTM 20:46 → CVICU 21:03 → CANBEDREQ 12-30 12:11 → 3WST 12-31 06:12
PROVIDERS: ADMIT Family Medicine; ATTEND Emergency Medicine
PROC: 5A1D70Z Performance of Urinary Filtration, Intermittent, Less than 6 Hours Per Day (ICD-10-PCS; principal; 2020-12-31)
DX: I21.4 Non-ST elevation (NSTEMI) myocardial infarction (principal); J96.00 Acute respiratory failure, unspecified whether with hypoxia or hypercapnia; N18.6 End stage renal disease; E44.1 Mild protein-calorie malnutrition; I48.92 Unspecified atrial flutter; I13.11 Hypertensive heart and chronic kidney disease without heart failure, with stage 5 chronic kidney disease, or end stage renal disease; I48.0 Paroxysmal atrial fibrillation; E11.22 Type 2 diabetes mellitus with diabetic chronic kidney disease; E78.5 Hyperlipidemia, unspecified; E87.70 Fluid overload, unspecified; G62.9 Polyneuropathy, unspecified; I95.9 Hypotension, unspecified; D69.6 Thrombocytopenia, unspecified; I25.10 Atherosclerotic heart disease of native coronary artery without angina pectoris; D64.9 Anemia, unspecified; I25.2 Old myocardial infarction; Z87.891 Personal history of nicotine dependence; Z90.49 Acquired absence of other specified parts of digestive tract; Z99.2 Dependence on renal dialysis; Z90.5 Acquired absence of kidney; Z86.73 Personal history of transient ischemic attack (TIA), and cerebral infarction without residual deficits; Z79.899 Other long term (current) drug therapy; Z68.29 Body mass index [BMI] 29.0-29.9, adult; Z88.1 Allergy status to other antibiotic agents; Z79.1 Long term (current) use of non-steroidal anti-inflammatories (NSAID)
CPT/HCPCS: 36415; 36600; 71045; 80048; 80053; 80320; 82375; 82550; 82805; 82962; 83036; 83605; 83615; 83735; 83880; 84100; 84145; 84484; 85025; 86140; 86705; 86709; 86803; 86850; 86900; 87340; 93005; 93306; 93970; 97161; 97165; 99291; J1160; J1650; J2270; J2405; J3370; J3490; J7060; G0480

== ENCOUNTER 2021-01-05 10:41 | Emergency (ER) | payer MEDICARE, MEDICAID ==
[~2021-01-05] VITALS: Ht 170.2 cm; Wt 74.0 kg
[~2021-01-05 10:41] MED LIST changes: +ATOR-2 PO; -ATOR40TA70 PO; +GABA-529 PO; -GABA-532 PO; +ISOS30TA91 PO; -ISOS60TA76 PO; +LOSA25TA26 PO; +METO25TA6 PO; +OMEP40CA12 PO; +SEVE800T8 PO
[2021-01-05] MEDS ORDERED: OXYMETAZOLINE HCL NASAL SPRAY 15ML BOTHNSTRLS SCH (11:00)
[2021-01-05 11:17] LABS: BASOPHILS % 0.6 % (0.0-2.0); EOSINOPHILS % 0.7 % (0.0-5.0); HEMATOCRIT. 27.2 % (42.0-52.0); HEMOGLOBIN. 9.5 g/dL (14.0-18.0); LYMPHOCYTES % 21.6 % (20.0-50.0); MEAN CORPUSCULAR HEMOGLOBIN 33.5 pg (28.0-32.0); MEAN CORPUSCULAR VOLUME 96.6 fL (80.0-94.0); MEAN PLATELET VOLUME 8.8 fl (7.4-10.4); MONOCYTES % 7.9 % (2.0-8.0); NEUTROPHILS % 69.2 % (40.0-76.0); PLATELET 128 x1000/uL (130-400); RED BLOOD CELL COUNT 2.82 mill/uL (4.7-6.1); RED CELL DISTRIBUTION WIDTH 14.5 % (11.6-14.6)
[2021-01-05 12:05] LABS: INR 1.1; PROTHROMBIN TIME 11.8 sec (9.6-11.0)
[2021-01-05] MEDS ORDERED: OXYM30SP26 BOTHNSTRLS (13:09)
[2021-01-05 15:18] VITALS: BP 145/50
== END 2021-01-05 15:26 | disposition home or self-care (01) ==
LOC: ER 10:41
DX: R04.0 Epistaxis (principal); E11.22 Type 2 diabetes mellitus with diabetic chronic kidney disease; I12.0 Hypertensive chronic kidney disease with stage 5 chronic kidney disease or end stage renal disease; N18.6 End stage renal disease; I25.2 Old myocardial infarction; Z98.61 Coronary angioplasty status; Z99.2 Dependence on renal dialysis; Z88.1 Allergy status to other antibiotic agents
CPT/HCPCS: 36415; 85025; 99283

== ENCOUNTER 2021-03-12 20:54 | Inpatient (IN) | payer MEDICARE, MEDICAID ==
[~2021-03-12] VITALS: Ht 172.7 cm; Wt 81.0 kg
[~2021-03-12 20:54] MED LIST changes: +OXYM30SP26 BOTHNSTRLS
[2021-03-12] MEDS ORDERED: MORPHINE SULFATE 4 MG/ML CPJ (NOT FOR IM USE) IV STA (23:31)
[2021-03-12] MEDS ORDERED: ONDANSETRON HCL 4MG/2ML INJ IV STA (23:31)
[2021-03-12 23:34] LABS: BASOPHILS % 0.5 % (0.0-2.0); EOSINOPHILS % 1.5 % (0.0-5.0); HEMATOCRIT. 27.3 % (42.0-52.0); HEMOGLOBIN. 9.3 g/dL (14.0-18.0); LYMPHOCYTES % 16.3 % (20.0-50.0); MEAN CORPUSCULAR HEMOGLOBIN 31.9 pg (28.0-32.0); MEAN CORPUSCULAR VOLUME 93.1 fL (80.0-94.0); MEAN PLATELET VOLUME 9.6 fl (7.4-10.4); MONOCYTES % 6.6 % (2.0-8.0); NEUTROPHILS % 75.1 % (40.0-76.0); PLATELET 88 x1000/uL (130-400); RED BLOOD CELL COUNT 2.93 mill/uL (4.7-6.1); RED CELL DISTRIBUTION WIDTH 15.2 % (11.6-14.6)
[2021-03-12 23:43] LABS: INR 1.1; PARTIAL THROMBOPLASTIN TIME 29.1 sec (23.4-31.0); PROTHROMBIN TIME 11.4 sec (9.6-11.0)
[2021-03-13] MEDS ORDERED: HYDRALAZINE 20MG/ML VIAL IV ONE (00:45)
[2021-03-13] MEDS ORDERED: NALOXONE HCL 0.4MG/ML VIAL IV PRN (05:15)
[2021-03-13] MEDS: MORPHINE SULFATE 2 MG/ML CPJ (NOT FOR IM USE) IV PRN ×2 (05:18→10:17)
[2021-03-13] MEDS: ONDANSETRON HCL 4MG/2ML INJ IV PRN ×2 (05:18→10:17)
[2021-03-13] MEDS ORDERED: HYDROCODONE/ACETAMINOPHEN 5/325MG TABLET PO PRN (08:30)
[2021-03-13] MEDS ORDERED: LOSARTAN POTASSIUM 50 MG TABLET PO SCH (09:00)
[2021-03-13 13:30] VITALS: BP 143/62
== END 2021-03-13 14:21 | disposition home or self-care (01) | DRG 314 ==
LOC: ER 20:54 → EDBEDREQ 03-13 00:49 → EDBEDREQTM 03-13 00:49 → MICUSO 03-13 02:58
PROVIDERS: ADMIT Internal Medicine; ATTEND Internal Medicine
DX: T82.898A Other specified complication of vascular prosthetic devices, implants and grafts, initial encounter (principal); N18.6 End stage renal disease; I13.11 Hypertensive heart and chronic kidney disease without heart failure, with stage 5 chronic kidney disease, or end stage renal disease; I48.92 Unspecified atrial flutter; E11.22 Type 2 diabetes mellitus with diabetic chronic kidney disease; D64.9 Anemia, unspecified; D69.6 Thrombocytopenia, unspecified; K76.0 Fatty (change of) liver, not elsewhere classified; Y83.8 Other surgical procedures as the cause of abnormal reaction of the patient, or of later complication, without mention of misadventure at the time of the procedure; I48.91 Unspecified atrial fibrillation; Z83.3 Family history of diabetes mellitus; Z87.891 Personal history of nicotine dependence; Z99.2 Dependence on renal dialysis; Z88.1 Allergy status to other antibiotic agents; I25.2 Old myocardial infarction; Y92.89 Other specified places as the place of occurrence of the external cause; E78.5 Hyperlipidemia, unspecified; Z79.01 Long term (current) use of anticoagulants; I25.10 Atherosclerotic heart disease of native coronary artery without angina pectoris; E83.39 Other disorders of phosphorus metabolism; E11.40 Type 2 diabetes mellitus with diabetic neuropathy, unspecified; Z89.432 Acquired absence of left foot
CPT/HCPCS: 36415; 71045; 80048; 83605; 84145; 85025; 93005; 93971; 99291; J0360; J2270; J2405

== ENCOUNTER 2021-06-27 15:26 | Inpatient (IN) | payer MEDICARE, MEDICAID ==
[~2021-06-27] VITALS: Ht 177.8 cm; Wt 72.3 kg
[~2021-06-27 15:26] MED LIST changes: -OMEP40CA12 PO; +OMEP40CA20 PO
[2021-06-27] MEDS ORDERED: ASPIRIN 325MG EC TABLET PO ONE (15:45)
[2021-06-27] MEDS ORDERED: SODIUM CHLORIDE 0.9% 1000ML BAG (SEPSIS BOLUS) IV ONE (15:45)
[2021-06-27 16:10] LABS: BASOPHILS % 0.2 % (0.0-2.0); EOSINOPHILS % 0.4 % (0.0-5.0); HEMATOCRIT. 32.7 % (42.0-52.0); HEMOGLOBIN. 10.8 g/dL (14.0-18.0); LYMPHOCYTES % 7.1 % (20.0-50.0); MEAN CORPUSCULAR HEMOGLOBIN 31.7 pg (28.0-32.0); MEAN CORPUSCULAR VOLUME 96.3 fL (80.0-94.0); MEAN PLATELET VOLUME 9.3 fl (7.4-10.4); MONOCYTES % 6.6 % (2.0-8.0); NEUTROPHILS % 85.7 % (40.0-76.0); PLATELET 64 x1000/uL (130-400); RED CELL DISTRIBUTION WIDTH 16.1 % (11.6-14.6)
[2021-06-27] MEDS ORDERED: DILTIAZEM HCL 5MG/ML 5ML VIAL IV ONE (16:15)
[2021-06-27 16:20] LABS: INR 1.1; PROTHROMBIN TIME 11.7 sec (9.6-11.0)
[2021-06-27] MEDS ORDERED: DILTIAZEM HCL 120MG CAPSULE CD 24HR PO ONE (16:30)
[2021-06-27 16:40] LABS: CHLORIDE 102 mEq/L (98-107)
[2021-06-27 16:45] LABS: ETHANOL BLOOD < 10 mg/dL
[2021-06-27] MEDS ORDERED: IPRATROPIUM/ALBUTEROL 0.5-3(2.5)MG/3ML NEB NEB PRN (19:45)
[2021-06-27] MEDS ORDERED: GUAIFENESIN 200MG/10ML SUGAR FREE UDC PO PRN (19:45)
[2021-06-27] MEDS ORDERED: ACETAMINOPHEN 325MG TABLET PO PRN ×2 (19:45)
[2021-06-27] MEDS ORDERED: NITROGLYCERIN 0.4MG TABLET SL SL PRN (19:45)
[2021-06-27] MEDS ORDERED: MAGNESIUM/ALUMINUM HYDROXIDE/SIMETHICONE 30ML UDC PO PRN (19:45)
[2021-06-27] MEDS ORDERED: DEXTROSE 50% WATER 50ML SYRINGE IV PRN (19:45)
[2021-06-27] MEDS ORDERED: DIPHENHYDRAMINE 50MG/ML VIAL IV PRN (19:45)
[2021-06-27] MEDS ORDERED: CLONIDINE 0.1MG TABLET PO PRN (19:45)
[2021-06-27] MEDS ORDERED: TRAMADOL 50MG TABLET PO PRN (19:45)
[2021-06-27] MEDS ORDERED: POTASSIUM CHLORIDE 20MEQ TABLET SR PO NR (20:30)
[2021-06-27] MEDS ORDERED: NALOXONE HCL 0.4MG/ML VIAL IV PRN (20:30)
[2021-06-27 20:49] LABS: TOTAL IRON BINDING CAPACITY 147 ug/dL (250-450)
[2021-06-27 21:00] LABS: FOLIC ACID (FOLATE) SERUM 6.3 ng/mL (>5.38)
[2021-06-27] MEDS ORDERED: ZOLPIDEM TARTRATE 5MG TABLET PO PRN (21:00)
[2021-06-27] MEDS: INSULIN LISPRO 100 UNITS/ML SUBCUT SCH (21:00)
[2021-06-27] MEDS ORDERED: VANCOMYCIN 1 G PREMIX 200 ML IV NR (21:00)
[2021-06-27] MEDS: BLOOD SUGAR DIAGNOSTIC STRIP TEST SCH (21:00)
[2021-06-27] MEDS: FAMOTIDINE 20MG TABLET PO SCH (21:48)
[2021-06-27] MEDS: DILTIAZEM HCL 60MG TABLET PO SCH (22:55)
[2021-06-27] MEDS: AMIODARONE HCL 200 MG TABLET PO SCH (22:55)
[2021-06-27 23:04] VITALS: BP 145/76
[2021-06-28] VITALS (11 sets, daily range): BP systolic 134–190; BP diastolic 41–85
[2021-06-28] MEDS: ONDANSETRON HCL 4MG/2ML INJ IV PRN ×3 (00:02→19:28)
[2021-06-28] MEDS: MEROPENEM 1,000 MG in SODIUM CHLORIDE 0.9% 100 ML IV SCH ×2 (01:18→21:59)
[2021-06-28 01:21] LABS: CREATINE KINASE MB FRACTION 27.5 ng/mL (0.5-3.6)
[2021-06-28] MEDS ORDERED: HEPARIN 25,000 UNITS PREMIX 250 ML IV PRN (03:00)
[2021-06-28] MEDS ORDERED: MORPHINE SULFATE 4 MG/ML CPJ (NOT FOR IM USE) IV PRN (03:00)
[2021-06-28] MEDS: MORPHINE SULFATE 2 MG/ML CPJ (NOT FOR IM USE) IV PRN ×2 (03:25→14:41)
[2021-06-28] MEDS ORDERED: HEPARIN BOLUS PRN aPTT 30-44 IV (04:00)
[2021-06-28] MEDS ORDERED: HEPARIN BOLUS PRN aPTT <30 IV (04:00)
[2021-06-28] MEDS ORDERED: HEPARIN 25,000 UNITS in DEXT 5% WATER 245 ML IV SCH (04:00)
[2021-06-28 04:07] LABS: BASOPHILS % 0.3 % (0.0-2.0); EOSINOPHILS % 0.4 % (0.0-5.0); HEMOGLOBIN. 12.1 g/dL (14.0-18.0); LYMPHOCYTES % 13.6 % (20.0-50.0); MEAN CORPUSCULAR HEMOGLOBIN 31.6 pg (28.0-32.0); MEAN CORPUSCULAR VOLUME 96.3 fL (80.0-94.0); MEAN PLATELET VOLUME 10.2 fl (7.4-10.4); MONOCYTES % 6.7 % (2.0-8.0); PLATELET 69 x1000/uL (130-400); RED BLOOD CELL COUNT 3.84 mill/uL (4.7-6.1); RED CELL DISTRIBUTION WIDTH 16.1 % (11.6-14.6)
[2021-06-28 04:16] LABS: CHLORIDE 103 mEq/L (98-107)
[2021-06-28 04:23] LABS: PHOSPHORUS 6.3 mg/dL (2.5-4.9)
[2021-06-28 04:25] LABS: CREATINE KINASE 252 IU/L (39-308)
[2021-06-28 04:27] LABS: CREATINE KINASE MB FRACTION 33.5 ng/mL (0.5-3.6)
[2021-06-28] MEDS ORDERED: APIXABAN 2.5 MG TABLET PO SCH ×2 (06:00)
[2021-06-28] MEDS: BLOOD SUGAR DIAGNOSTIC STRIP TEST SCH ×4 (06:46→21:48)
[2021-06-28] MEDS: SEVELAMER CARBONATE 800 MG TABLET PO SCH ×3 (07:20→17:10)
[2021-06-28] MEDS: INSULIN LISPRO 100 UNITS/ML SUBCUT SCH ×4 (08:17→21:00)
[2021-06-28] MEDS: AMIODARONE HCL 200 MG TABLET PO SCH ×2 (08:17→21:53)
[2021-06-28] MEDS: DILTIAZEM HCL 60MG TABLET PO SCH ×4 (08:18→21:53)
[2021-06-28] MEDS ORDERED: NICARDIPINE 100MCG/ML 10ML VIAL (CATH LAB) IV ONE (08:58)
[2021-06-28] MEDS ORDERED: HEPARIN SODIUM 1,000 UNIT/1ML VIAL IV ONE (08:58)
[2021-06-28] MEDS ORDERED: NITROGLYCERIN 50MCG/ML 10ML VIAL (CATH LAB) IV ONE (08:58)
[2021-06-28] MEDS ORDERED: INFLUENZA VACCINE 05/PF 0.5 ML SYRINGE IM ONE (09:00)
[2021-06-28] MEDS ORDERED: ASPIRIN 325MG EC TABLET PO SCH (09:00)
[2021-06-28] MEDS ORDERED: LIDOCAINE HCL 1% 20ML VIAL (Pyxis) INJ ONE ×2 (09:03→13:15)
[2021-06-28] MEDS ORDERED: MIDAZOLAM HCL 2 MG/2 ML VIAL ONE (13:14)
[2021-06-28] MEDS ORDERED: FENTANYL CITRATE/PF 50MCG/ML 2ML VIAL ONE (13:14)
[2021-06-28] MEDS ORDERED: IODIXANOL 320MG/ML 100 ML BOTTLE IV ONE (13:15)
[2021-06-28] MEDS ORDERED: ONDANSETRON HCL 4MG/2ML INJ ONE (13:20)
[2021-06-28] MEDS ORDERED: IOHEXOL-300 100 ML BOTTLE ONE (13:53)
[2021-06-28] MEDS ORDERED: CLOPIDOGREL 75MG TABLET ONE (14:13)
[2021-06-28] MEDS ORDERED: ACETAMINOPHEN 325MG TABLET PO PRN (14:15)
[2021-06-28] MEDS ORDERED: ATROPINE SULFATE 1MG/10ML SYR IV PRN (14:15)
[2021-06-28 15:09] LABS: HEPATITIS B SURFACE ANTIGEN NEGATIVE
[2021-06-28] MEDS ORDERED: MORPHINE SULFATE 2 MG/ML CPJ (NOT FOR IM USE) IV PRN (15:15)
[2021-06-28] MEDS: POLYETHYLENE GLYCOL 3350 (17GM) 1 DOSE PACK PO SCH (17:10)
[2021-06-28] MEDS: DOCUSATE SODIUM 100MG CAPSULE PO PRN (17:10)
[2021-06-28] MEDS: FAMOTIDINE 20MG TABLET PO SCH (21:54)
[2021-06-29] VITALS (30 sets, daily range): BP systolic 62–150; BP diastolic 31–98
[2021-06-29] MEDS: BLOOD SUGAR DIAGNOSTIC STRIP TEST SCH ×4 (06:45→20:32)
[2021-06-29 07:17] LABS: HEMATOCRIT. 33.1 % (42.0-52.0); HEMOGLOBIN. 10.7 g/dL (14.0-18.0); MEAN CORPUSCULAR HEMOGLOBIN 31.7 pg (28.0-32.0); MEAN CORPUSCULAR VOLUME 97.5 fL (80.0-94.0); PLATELET 69 x1000/uL (130-400); RED BLOOD CELL COUNT 3.39 mill/uL (4.7-6.1); RED CELL DISTRIBUTION WIDTH 15.7 % (11.6-14.6)
[2021-06-29] MEDS: INSULIN LISPRO 100 UNITS/ML SUBCUT SCH ×4 (08:02→20:35)
[2021-06-29 08:13] LABS: CHLORIDE 104 mEq/L (98-107)
[2021-06-29 08:19] LABS: PHOSPHORUS 6.9 mg/dL (2.5-4.9)
[2021-06-29] MEDS: DILTIAZEM HCL 60MG TABLET PO SCH ×2 (08:20→13:07)
[2021-06-29] MEDS: DOCUSATE SODIUM 100MG CAPSULE PO PRN (08:20)
[2021-06-29] MEDS: SEVELAMER CARBONATE 800 MG TABLET PO SCH ×3 (08:20→17:20)
[2021-06-29] MEDS: AMIODARONE HCL 200 MG TABLET PO SCH (08:20)
[2021-06-29] MEDS: ASPIRIN 325MG TABLET PO SCH (08:20)
[2021-06-29] MEDS: CLOPIDOGREL 75MG TABLET PO SCH (08:20)
[2021-06-29] MEDS: POLYETHYLENE GLYCOL 3350 (17GM) 1 DOSE PACK PO SCH (08:20)
[2021-06-29] MEDS ORDERED: VANCOMYCIN 1 G PREMIX 200 ML IV SCH (12:00)
[2021-06-29 12:38] LABS: PLATELET ESTIMATE DECREASED
[2021-06-29] MEDS ORDERED: ENOXAPARIN 60MG/0.6ML SYR SUBCUT NR (15:00)
[2021-06-29 17:32] LABS: HEMATOCRIT 31.9 % (42.0-52.0); HEMOGLOBIN 10.3 g/dL (14.0-18.0); MEAN CORPUSCULAR HEMOGLOBIN 31.3 pg (28.0-32.0); MEAN CORPUSCULAR VOLUME 97.3 fL (80.0-94.0); PLATELET 73 x1000/uL (130-400); RED BLOOD CELL COUNT 3.28 mill/uL (4.7-6.1); RED CELL DISTRIBUTION WIDTH 15.9 % (11.6-14.6)
[2021-06-29] MEDS: ONDANSETRON HCL 4MG/2ML INJ IV PRN (18:10)
[2021-06-29] MEDS: MEROPENEM 1,000 MG in SODIUM CHLORIDE 0.9% 100 ML IV SCH (21:00)
[2021-06-29] MEDS: FAMOTIDINE 20MG TABLET PO SCH (21:00)
[2021-06-30] VITALS (13 sets, daily range): BP systolic 128–171; BP diastolic 49–81
[2021-06-30] MEDS: BLOOD SUGAR DIAGNOSTIC STRIP TEST SCH ×4 (05:15→20:44)
[2021-06-30 05:31] LABS: BASOPHILS % 0.3 % (0.0-2.0); EOSINOPHILS % 0.6 % (0.0-5.0); HEMATOCRIT. 31.5 % (42.0-52.0); HEMOGLOBIN. 10.4 g/dL (14.0-18.0); LYMPHOCYTES % 7.4 % (20.0-50.0); MEAN CORPUSCULAR HEMOGLOBIN 31.7 pg (28.0-32.0); MEAN CORPUSCULAR VOLUME 96.3 fL (80.0-94.0); NEUTROPHILS % 83.7 % (40.0-76.0); PLATELET 90 x1000/uL (130-400); RED BLOOD CELL COUNT 3.27 mill/uL (4.7-6.1); RED CELL DISTRIBUTION WIDTH 15.8 % (11.6-14.6)
[2021-06-30 06:08] LABS: PHOSPHORUS 7.1 mg/dL (2.5-4.9)
[2021-06-30] MEDS: INSULIN LISPRO 100 UNITS/ML SUBCUT SCH ×4 (07:54→20:44)
[2021-06-30] MEDS: ASPIRIN 325MG TABLET PO SCH (08:06)
[2021-06-30] MEDS: POLYETHYLENE GLYCOL 3350 (17GM) 1 DOSE PACK PO SCH (08:06)
[2021-06-30] MEDS: SEVELAMER CARBONATE 800 MG TABLET PO SCH ×3 (08:06→16:46)
[2021-06-30] MEDS: CLOPIDOGREL 75MG TABLET PO SCH (08:06)
[2021-06-30] MEDS ORDERED: HYDRALAZINE 20MG/ML VIAL IV NR (16:25)
[2021-06-30] MEDS ORDERED: VANCOMYCIN 500 MG PREMIX 100 ML IV NR (17:00)
[2021-06-30] MEDS: MEROPENEM 1,000 MG in SODIUM CHLORIDE 0.9% 100 ML IV SCH (20:41)
[2021-06-30] MEDS: FAMOTIDINE 20MG TABLET PO SCH (20:42)
[2021-07-01] VITALS (13 sets, daily range): BP systolic 116–182; BP diastolic 34–90
[2021-07-01] MEDS: HYDRALAZINE 20MG/ML VIAL IV PRN ×2 (00:41→16:55)
[2021-07-01] MEDS: BLOOD SUGAR DIAGNOSTIC STRIP TEST SCH ×4 (06:25→21:06)
[2021-07-01] MEDS: INSULIN LISPRO 100 UNITS/ML SUBCUT SCH ×4 (07:20→21:00)
[2021-07-01 07:23] LABS: HEMATOCRIT 32.6 % (42.0-52.0); HEMOGLOBIN 10.6 g/dL (14.0-18.0); MEAN CORPUSCULAR HEMOGLOBIN 31.3 pg (28.0-32.0); MEAN CORPUSCULAR VOLUME 96.3 fL (80.0-94.0); PLATELET 109 x1000/uL (130-400); RED BLOOD CELL COUNT 3.38 mill/uL (4.7-6.1); RED CELL DISTRIBUTION WIDTH 15.7 % (11.6-14.6)
[2021-07-01 07:36] LABS: CHLORIDE 107 mEq/L (98-107)
[2021-07-01] MEDS: POLYETHYLENE GLYCOL 3350 (17GM) 1 DOSE PACK PO SCH (08:18)
[2021-07-01] MEDS: SEVELAMER CARBONATE 800 MG TABLET PO SCH ×3 (08:18→17:40)
[2021-07-01] MEDS: CLOPIDOGREL 75MG TABLET PO SCH (08:18)
[2021-07-01] MEDS: ASPIRIN 325MG TABLET PO SCH (08:18)
[2021-07-01] MEDS: ATORVASTATIN CALCIUM 10MG TABLET PO SCH (10:57)
[2021-07-01] MEDS: MEROPENEM 1,000 MG in SODIUM CHLORIDE 0.9% 100 ML IV SCH (21:09)
[2021-07-01] MEDS: FAMOTIDINE 20MG TABLET PO SCH (21:09)
[2021-07-02] VITALS (7 sets, daily range): BP systolic 105–153; BP diastolic 44–73
[2021-07-02] MEDS: INSULIN LISPRO 100 UNITS/ML SUBCUT SCH ×2 (06:40→12:20)
[2021-07-02] MEDS: BLOOD SUGAR DIAGNOSTIC STRIP TEST SCH ×2 (06:40→12:34)
[2021-07-02 07:19] LABS: BASOPHILS % 0.4 % (0.0-2.0); EOSINOPHILS % 1.4 % (0.0-5.0); HEMATOCRIT. 34.2 % (42.0-52.0); HEMOGLOBIN. 10.8 g/dL (14.0-18.0); LYMPHOCYTES % 12.3 % (20.0-50.0); MEAN CORPUSCULAR HEMOGLOBIN 31.9 pg (28.0-32.0); MEAN CORPUSCULAR VOLUME 100.8 fL (80.0-94.0); MEAN PLATELET VOLUME 8.7 fl (7.4-10.4); MONOCYTES % 11.1 % (2.0-8.0); NEUTROPHILS % 74.8 % (40.0-76.0); PLATELET 110 x1000/uL (130-400); RED BLOOD CELL COUNT 3.39 mill/uL (4.7-6.1); RED CELL DISTRIBUTION WIDTH 15.9 % (11.6-14.6)
[2021-07-02 07:26] LABS: PHOSPHORUS 6.5 mg/dL (2.5-4.9)
[2021-07-02] MEDS: POLYETHYLENE GLYCOL 3350 (17GM) 1 DOSE PACK PO SCH (07:54)
[2021-07-02] MEDS: CLOPIDOGREL 75MG TABLET PO SCH (07:54)
[2021-07-02] MEDS: ASPIRIN 325MG TABLET PO SCH (07:54)
[2021-07-02] MEDS: SEVELAMER CARBONATE 800 MG TABLET PO SCH ×2 (07:55→12:20)
[2021-07-02] MEDS: ATORVASTATIN CALCIUM 10MG TABLET PO SCH (10:00)
[2021-07-02] MEDS ORDERED: VANCOMYCIN 500 MG PREMIX 100 ML IV NR (15:00)
== END 2021-07-02 18:30 | disposition home health service (06) | DRG 246 ==
LOC: ER 15:26 → EDBEDREQSVC 17:03 → EDBEDREQTM 17:03 → EDBEDREQ 17:03 → 3WST 19:21 → EDBEDREQ 19:29 → EDBEDREQTM 19:29 → EDBEDREQSVC 19:29 → ENRESERV 21:39
PROVIDERS: ADMIT Internal Medicine; ATTEND Internal Medicine
PROC: 027034Z Dilation of Coronary Artery, One Artery with Drug-eluting Intraluminal Device, Percutaneous Approach (ICD-10-PCS; principal; 2021-06-28)
PROC: 4A023N7 Measurement of Cardiac Sampling and Pressure, Left Heart, Percutaneous Approach (ICD-10-PCS; 2021-06-28)
PROC: B211YZZ Fluoroscopy of Multiple Coronary Arteries using Other Contrast (ICD-10-PCS; 2021-06-28)
PROC: 5A1D70Z Performance of Urinary Filtration, Intermittent, Less than 6 Hours Per Day (ICD-10-PCS; 2021-06-28)
PROC: 02HV33Z Insertion of Infusion Device into Superior Vena Cava, Percutaneous Approach (ICD-10-PCS; 2021-06-28)
PROC: B548ZZA Ultrasonography of Superior Vena Cava, Guidance (ICD-10-PCS; 2021-06-28)
PROC: 5A1D70Z Performance of Urinary Filtration, Intermittent, Less than 6 Hours Per Day (ICD-10-PCS; 2021-06-30)
PROC: 5A1D70Z Performance of Urinary Filtration, Intermittent, Less than 6 Hours Per Day (ICD-10-PCS; 2021-07-02)
DX: I21.4 Non-ST elevation (NSTEMI) myocardial infarction (principal); N18.6 End stage renal disease; J96.00 Acute respiratory failure, unspecified whether with hypoxia or hypercapnia; E44.0 Moderate protein-calorie malnutrition; I48.92 Unspecified atrial flutter; N25.81 Secondary hyperparathyroidism of renal origin; I13.2 Hypertensive heart and chronic kidney disease with heart failure and with stage 5 chronic kidney disease, or end stage renal disease; I50.32 Chronic diastolic (congestive) heart failure; E11.22 Type 2 diabetes mellitus with diabetic chronic kidney disease; D69.6 Thrombocytopenia, unspecified; B19.20 Unspecified viral hepatitis C without hepatic coma; E83.51 Hypocalcemia; E87.6 Hypokalemia; I49.3 Ventricular premature depolarization; I48.0 Paroxysmal atrial fibrillation; E78.5 Hyperlipidemia, unspecified; E78.00 Pure hypercholesterolemia, unspecified; E83.39 Other disorders of phosphorus metabolism; E11.42 Type 2 diabetes mellitus with diabetic polyneuropathy; I25.10 Atherosclerotic heart disease of native coronary artery without angina pectoris; D64.9 Anemia, unspecified; K21.9 Gastro-esophageal reflux disease without esophagitis; Z20.822 Contact with and (suspected) exposure to COVID-19; Z56.0 Unemployment, unspecified; Z59.00 Homelessness unspecified; Z83.3 Family history of diabetes mellitus; Z86.73 Personal history of transient ischemic attack (TIA), and cerebral infarction without residual deficits; Z89.432 Acquired absence of left foot; Z90.5 Acquired absence of kidney; Z99.2 Dependence on renal dialysis; Z99.81 Dependence on supplemental oxygen; Z68.22 Body mass index [BMI] 22.0-22.9, adult; Z88.8 Allergy status to other drugs, medicaments and biological substances; Z79.899 Other long term (current) drug therapy; Z87.01 Personal history of pneumonia (recurrent)
CPT/HCPCS: 36415; 71045; 76937; 78582; 80048; 80053; 80061; 80202; 80320; 82550; 82553; 82607; 82746; 82962; 83540; 83550; 83605; 83735; 83880; 84100; 84145; 84484; 85025; 85027; 85347; 86705; 86709; 86803; 87340; 87426; 92928; 93005; 93306; 93458; 93970; 97163; 97166; 99291; A9558; C1725; C1760; C1769; C1874; C1887; C1893; J0360; J1644; J1650; J2185; J2250; J2270; J2405; J3010; J3370; J3490; J7030; J7040; J7050; J7060; Q9967; G0480

== ENCOUNTER 2021-11-28 17:35 | Inpatient (IN) | payer MEDICARE, MEDICAID ==
[~2021-11-28] VITALS: Ht 177.8 cm; Wt 62.8 kg
[2021-11-28] MEDS ORDERED: ASPIRIN 81MG TABLET PO ONE (23:30)
[2021-11-29 01:40] LABS: CHLORIDE 104 mEq/L (98-107)
[2021-11-29 01:41] LABS: BASOPHILS % 0.5 % (0.0-2.0); EOSINOPHILS % 1.9 % (0.0-5.0); HEMATOCRIT. 30.2 % (42.0-52.0); HEMOGLOBIN. 10.3 g/dL (14.0-18.0); LYMPHOCYTES % 30.5 % (20.0-50.0); MEAN CORPUSCULAR HEMOGLOBIN 32.8 pg (28.0-32.0); MEAN CORPUSCULAR VOLUME 95.8 fL (80.0-94.0); MEAN PLATELET VOLUME 10.5 fl (7.4-10.4); MONOCYTES % 10.1 % (2.0-8.0); PLATELET 65 x1000/uL (130-400); RED BLOOD CELL COUNT 3.15 mill/uL (4.7-6.1); RED CELL DISTRIBUTION WIDTH 13.7 % (11.6-14.6)
[2021-11-29 15:35] VITALS: BP 184/77
[2021-11-29] MEDS ORDERED: ACETAMINOPHEN 325MG TABLET PO PRN ×2 (17:00)
[2021-11-29] MEDS ORDERED: DOCUSATE SODIUM 100MG CAPSULE PO PRN (17:00)
[2021-11-29] MEDS ORDERED: GUAIFENESIN 200MG/10ML SUGAR FREE UDC PO PRN (17:00)
[2021-11-29] MEDS ORDERED: DIPHENHYDRAMINE 50MG/ML VIAL IV PRN (17:00)
[2021-11-29] MEDS ORDERED: MAGNESIUM/ALUMINUM HYDROXIDE/SIMETHICONE 30ML UDC PO PRN (17:00)
[2021-11-29] MEDS ORDERED: IPRATROPIUM/ALBUTEROL 0.5-3(2.5)MG/3ML NEB NEB PRN (17:00)
[2021-11-29] MEDS ORDERED: CLONIDINE 0.1MG TABLET PO PRN (17:00)
[2021-11-29] MEDS: AMLODIPINE 10MG TABLET PO SCH (17:29)
[2021-11-29] MEDS: TRAMADOL 50MG TABLET PO PRN (17:30)
[2021-11-29] MEDS ORDERED: DEXTROSE 50% WATER 50ML SYRINGE IV PRN (17:30)
[2021-11-29] MEDS: INSULIN LISPRO 100 UNITS/ML SUBCUT SCH ×2 (17:40→21:00)
[2021-11-29] MEDS ORDERED: SEVELAMER CARBONATE 800 MG TABLET PO SCH (17:40)
[2021-11-29] MEDS: ENOXAPARIN 30MG/0.3ML SYR SUBCUT SCH (17:49)
[2021-11-29] MEDS: BLOOD SUGAR DIAGNOSTIC STRIP TEST SCH ×2 (17:49→21:59)
[2021-11-29 19:16] LABS: TOTAL IRON BINDING CAPACITY 210 ug/dL (250-450)
[2021-11-29 19:38] LABS: FOLIC ACID (FOLATE) SERUM 12.2 ng/mL (>5.38)
[2021-11-29 20:00] VITALS: BP 164/66
[2021-11-29] MEDS ORDERED: FAMOTIDINE 20MG TABLET PO SCH (21:00)
[2021-11-29] MEDS ORDERED: HYDRALAZINE HCL 50MG TABLET PO SCH (22:00)
[2021-11-29] MEDS: ZOLPIDEM TARTRATE 5MG TABLET PO PRN (22:19)
[2021-11-30] VITALS: BP 161/81
[2021-11-30 00:33] LABS: CREATINE KINASE MB FRACTION 4.1 ng/mL (0.5-3.6)
[2021-11-30 00:48] LABS: HEPATITIS B SURFACE ANTIGEN NEGATIVE
[2021-11-30 04:00] VITALS: BP 156/67
[2021-11-30] MEDS: BLOOD SUGAR DIAGNOSTIC STRIP TEST SCH ×4 (07:11→21:00)
[2021-11-30 07:12] LABS: HEMATOCRIT. 28.3 % (42.0-52.0); MEAN CORPUSCULAR HEMOGLOBIN 32.9 pg (28.0-32.0); RED BLOOD CELL COUNT 3.05 mill/uL (4.7-6.1); RED CELL DISTRIBUTION WIDTH 13.3 % (11.6-14.6)
[2021-11-30] MEDS: INSULIN LISPRO 100 UNITS/ML SUBCUT SCH ×4 (07:12→21:00)
[2021-11-30 07:22] LABS: CHLORIDE 109 mEq/L (98-107)
[2021-11-30 07:30] LABS: CREATINE KINASE 135 IU/L (39-308); CREATINE KINASE MB FRACTION 3.5 ng/mL (0.5-3.6); HDL CHOLESTEROL 34 mg/dL (40-59); LDL CHOLESTEROL 50 mg/dL (5-100); PHOSPHORUS 4.6 mg/dL (2.5-4.9)
[2021-11-30 08:00] VITALS: BP 151/73
[2021-11-30] MEDS: FOLIC ACID/VITAMIN B COMP W-C TABLET PO SCH (09:43)
[2021-11-30] MEDS: AMLODIPINE 10MG TABLET PO SCH (09:49)
[2021-11-30] MEDS: ASPIRIN 325MG EC TABLET PO SCH (09:49)
[2021-11-30] MEDS: ONDANSETRON HCL 4MG/2ML INJ IV PRN ×2 (09:50→22:40)
[2021-11-30 12:00] VITALS: BP 148/70
[2021-11-30] MEDS ORDERED: NALOXONE HCL 0.4MG/ML VIAL IV PRN (13:00)
[2021-11-30] MEDS: LOSARTAN POTASSIUM 25 MG TABLET PO SCH (13:09)
[2021-11-30] MEDS: NITROGLYCERIN 0.4MG TABLET SL SL PRN (13:09)
[2021-11-30 15:12] LABS: PLATELET ESTIMATE DECREASED
[2021-11-30 15:13] LABS: MEAN PLATELET VOLUME 10.9 fl (7.4-10.4); PLATELET 69 x1000/uL (130-400)
[2021-11-30 16:00] VITALS: BP 158/75
[2021-11-30] MEDS: ENOXAPARIN 30MG/0.3ML SYR SUBCUT SCH (18:00)
[2021-11-30 20:00] VITALS: BP 134/46
[2021-11-30] MEDS: ZOLPIDEM TARTRATE 5MG TABLET PO PRN (22:14)
[2021-11-30] MEDS: GABAPENTIN 100MG CAPSULE PO SCH (22:14)
[2021-12-01] VITALS: BP 137/54
[2021-12-01 04:00] VITALS: BP 118/70
[2021-12-01] MEDS: BLOOD SUGAR DIAGNOSTIC STRIP TEST SCH ×2 (06:25→12:25)
[2021-12-01] MEDS: GABAPENTIN 100MG CAPSULE PO SCH ×3 (06:35→22:02)
[2021-12-01] MEDS: INSULIN LISPRO 100 UNITS/ML SUBCUT SCH ×2 (06:36→12:25)
[2021-12-01 07:22] LABS: BASOPHILS % 0.3 % (0.0-2.0); HEMATOCRIT. 31.3 % (42.0-52.0); HEMOGLOBIN. 10.6 g/dL (14.0-18.0); LYMPHOCYTES % 21.1 % (20.0-50.0); MEAN CORPUSCULAR VOLUME 94.6 fL (80.0-94.0); MEAN PLATELET VOLUME 10.9 fl (7.4-10.4); NEUTROPHILS % 71.6 % (40.0-76.0); PLATELET 60 x1000/uL (130-400); RED BLOOD CELL COUNT 3.31 mill/uL (4.7-6.1); RED CELL DISTRIBUTION WIDTH 13.6 % (11.6-14.6)
[2021-12-01 08:00] VITALS: BP 152/58
[2021-12-01] MEDS: ASPIRIN 325MG EC TABLET PO SCH (08:43)
[2021-12-01] MEDS: FOLIC ACID/VITAMIN B COMP W-C TABLET PO SCH (08:43)
[2021-12-01] MEDS: LOSARTAN POTASSIUM 25 MG TABLET PO SCH (08:44)
[2021-12-01] MEDS: AMLODIPINE 10MG TABLET PO SCH (08:44)
[2021-12-01 12:00] VITALS: BP 152/57
[2021-12-01] MEDS: TRAMADOL 50MG TABLET PO PRN (12:28)
[2021-12-01] MEDS: NITROGLYCERIN 0.4MG TABLET SL SL PRN (12:30)
[2021-12-01] MEDS: ONDANSETRON HCL 4MG/2ML INJ IV PRN ×2 (13:59→22:02)
[2021-12-01] MEDS: CALCITRIOL 0.25MCG CAPSULE PO SCH (14:45)
[2021-12-01 16:00] VITALS: BP 133/67
[2021-12-01] MEDS ORDERED: CALCIUM ACETATE 667MG CAPSULE PO SCH (17:40)
[2021-12-01] MEDS: CALCIUM CARBONATE 500MG TABLET CHEW PO SCH (17:57)
[2021-12-01] MEDS: ENOXAPARIN 30MG/0.3ML SYR SUBCUT SCH (18:00)
[2021-12-01 20:00] VITALS: BP 117/66
[2021-12-01] MEDS: ZOLPIDEM TARTRATE 5MG TABLET PO PRN (23:23)
[2021-12-02] VITALS: BP 163/66
[2021-12-02 04:00] VITALS: BP 156/71
[2021-12-02] MEDS: GABAPENTIN 100MG CAPSULE PO SCH ×3 (06:19→21:56)
[2021-12-02 07:54] LABS: BASOPHILS % 0.2 % (0.0-2.0); EOSINOPHILS % 0.8 % (0.0-5.0); HEMOGLOBIN. 10.8 g/dL (14.0-18.0); LYMPHOCYTES % 22.8 % (20.0-50.0); MEAN CORPUSCULAR HEMOGLOBIN 32.2 pg (28.0-32.0); MEAN CORPUSCULAR VOLUME 95.4 fL (80.0-94.0); MONOCYTES % 6.9 % (2.0-8.0); NEUTROPHILS % 69.3 % (40.0-76.0); PLATELET 64 x1000/uL (130-400); RED BLOOD CELL COUNT 3.36 mill/uL (4.7-6.1); RED CELL DISTRIBUTION WIDTH 13.6 % (11.6-14.6)
[2021-12-02 08:00] VITALS: BP 152/66
[2021-12-02] MEDS: AMLODIPINE 10MG TABLET PO SCH (08:34)
[2021-12-02] MEDS: CALCITRIOL 0.25MCG CAPSULE PO SCH (08:34)
[2021-12-02] MEDS: LOSARTAN POTASSIUM 25 MG TABLET PO SCH (08:34)
[2021-12-02] MEDS: ASPIRIN 325MG EC TABLET PO SCH (08:34)
[2021-12-02] MEDS: CALCIUM CARBONATE 500MG TABLET CHEW PO SCH ×3 (08:34→17:05)
[2021-12-02] MEDS: FOLIC ACID/VITAMIN B COMP W-C TABLET PO SCH (08:34)
[2021-12-02 12:00] VITALS: BP 135/69
[2021-12-02 16:00] VITALS: BP 145/67
[2021-12-02] MEDS: ENOXAPARIN 30MG/0.3ML SYR SUBCUT SCH (17:05)
[2021-12-02 20:00] VITALS: BP 158/68
[2021-12-02] MEDS: ZOLPIDEM TARTRATE 5MG TABLET PO PRN (21:56)
[2021-12-03] VITALS: BP 142/68
[2021-12-03 04:00] VITALS: BP 149/59
[2021-12-03 06:24] LABS: BASOPHILS % 0.3 % (0.0-2.0); EOSINOPHILS % 1.3 % (0.0-5.0); HEMATOCRIT. 31.4 % (42.0-52.0); HEMOGLOBIN. 10.8 g/dL (14.0-18.0); LYMPHOCYTES % 25.8 % (20.0-50.0); MEAN CORPUSCULAR HEMOGLOBIN 32.4 pg (28.0-32.0); MEAN CORPUSCULAR VOLUME 94.6 fL (80.0-94.0); MEAN PLATELET VOLUME 10.3 fl (7.4-10.4); MONOCYTES % 8.1 % (2.0-8.0); NEUTROPHILS % 64.5 % (40.0-76.0); PLATELET 69 x1000/uL (130-400); RED BLOOD CELL COUNT 3.32 mill/uL (4.7-6.1); RED CELL DISTRIBUTION WIDTH 13.8 % (11.6-14.6)
[2021-12-03] MEDS: GABAPENTIN 100MG CAPSULE PO SCH ×3 (06:39→21:54)
[2021-12-03 08:00] VITALS: BP 153/96
[2021-12-03] MEDS: CALCIUM CARBONATE 500MG TABLET CHEW PO SCH ×3 (08:39→16:42)
[2021-12-03] MEDS: ASPIRIN 325MG EC TABLET PO SCH (08:40)
[2021-12-03] MEDS: AMLODIPINE 10MG TABLET PO SCH (08:40)
[2021-12-03] MEDS: LOSARTAN POTASSIUM 25 MG TABLET PO SCH (08:40)
[2021-12-03] MEDS: CALCITRIOL 0.25MCG CAPSULE PO SCH (08:40)
[2021-12-03] MEDS: FOLIC ACID/VITAMIN B COMP W-C TABLET PO SCH (08:40)
[2021-12-03 08:43] LABS: PHOSPHORUS 5.8 mg/dL (2.5-4.9)
[2021-12-03 12:00] VITALS: BP 131/75
[2021-12-03 16:00] VITALS: BP 148/69
[2021-12-03] MEDS: ENOXAPARIN 30MG/0.3ML SYR SUBCUT SCH (17:51)
[2021-12-03 20:00] VITALS: BP 172/78
[2021-12-03] MEDS: ZOLPIDEM TARTRATE 5MG TABLET PO PRN (21:54)
[2021-12-04] VITALS: BP 158/72
[2021-12-04 04:00] VITALS: BP 139/67
[2021-12-04 06:01] VITALS: BP 139/67
[2021-12-04] MEDS: GABAPENTIN 100MG CAPSULE PO SCH (06:47)
[2021-12-04 08:00] VITALS: BP 153/80
[2021-12-17] MEDS ORDERED: OMEP20CA14 PO (15:17)
[2021-12-17] MEDS ORDERED: TOPUD PO (15:17)
[2021-12-17] MEDS ORDERED: NEPVIT PO (15:17)
[2021-12-17] MEDS ORDERED: ISOS30TA91 PO (15:17)
[2021-12-17] MEDS ORDERED: HYDR-3735 PO (15:17)
[2021-12-17] MEDS ORDERED: CALC0.253 PO (15:17)
[2021-12-17] MEDS ORDERED: CLON0.1T PO (15:17)
[2021-12-17] MEDS ORDERED: COR3 PO (15:17)
[2021-12-17] MEDS ORDERED: NITR0.4T49 SL (15:17)
[2021-12-17] MEDS ORDERED: CLOP75TA15 PO (15:17)
[2021-12-17] MEDS ORDERED: ASPI-1497 PO (15:18)
== END 2021-12-04 08:40 | DRG 291 ==
LOC: ER 17:35 → 8WST 11-29 02:31 → ENRESERV 11-29 08:27 → CANRESERV 11-29 08:27 → ENRESERV 11-29 14:02
PROVIDERS: ADMIT Internal Medicine; ATTEND Internal Medicine
PROC: 5A1D70Z Performance of Urinary Filtration, Intermittent, Less than 6 Hours Per Day (ICD-10-PCS; principal; 2021-11-29)
PROC: 5A1D70Z Performance of Urinary Filtration, Intermittent, Less than 6 Hours Per Day (ICD-10-PCS; 2021-12-01)
PROC: 5A1D70Z Performance of Urinary Filtration, Intermittent, Less than 6 Hours Per Day (ICD-10-PCS; 2021-12-03)
DX: I13.2 Hypertensive heart and chronic kidney disease with heart failure and with stage 5 chronic kidney disease, or end stage renal disease (principal); I50.31 Acute diastolic (congestive) heart failure; N18.6 End stage renal disease; I16.1 Hypertensive emergency; D69.6 Thrombocytopenia, unspecified; E11.22 Type 2 diabetes mellitus with diabetic chronic kidney disease; E78.00 Pure hypercholesterolemia, unspecified; E83.51 Hypocalcemia; E11.51 Type 2 diabetes mellitus with diabetic peripheral angiopathy without gangrene; R00.1 Bradycardia, unspecified; R07.89 Other chest pain; R91.8 Other nonspecific abnormal finding of lung field; R53.1 Weakness; K21.9 Gastro-esophageal reflux disease without esophagitis; E78.5 Hyperlipidemia, unspecified; E11.42 Type 2 diabetes mellitus with diabetic polyneuropathy; Z20.822 Contact with and (suspected) exposure to COVID-19; I25.10 Atherosclerotic heart disease of native coronary artery without angina pectoris; I48.91 Unspecified atrial fibrillation; Z59.00 Homelessness unspecified; Z82.49 Family history of ischemic heart disease and other diseases of the circulatory system; Z89.432 Acquired absence of left foot; Z90.5 Acquired absence of kidney; I25.2 Old myocardial infarction; Z91.11 Patient's noncompliance with dietary regimen; Z91.14 Patient's other noncompliance with medication regimen; Z98.61 Coronary angioplasty status; Z99.2 Dependence on renal dialysis; Z83.3 Family history of diabetes mellitus; Z88.1 Allergy status to other antibiotic agents; Z79.899 Other long term (current) drug therapy; Z87.01 Personal history of pneumonia (recurrent); D63.8 Anemia in other chronic diseases classified elsewhere
CPT/HCPCS: 36415; 71045; 80048; 80053; 80061; 82330; 82550; 82553; 82607; 82746; 82962; 83036; 83540; 83550; 83735; 83880; 84100; 84145; 84484; 85025; 86705; 86709; 86803; 87340; 87426; 93005; 93306; 93970; 97161; 97166; 99285; G0378; J1650; J2405

== ENCOUNTER 2022-04-19 10:10 | Inpatient (IN) | payer MEDICARE, MEDICAID ==
[~2022-04-19] VITALS: Ht 177.8 cm; Wt 80.3 kg
[~2022-04-19 10:10] MED LIST changes: +ASPI-1497 PO; +CALC0.253 PO; +CLON0.1T PO; +CLOP75TA15 PO; +COR3 PO; +HYDR-3735 PO; -HYDR-4346 MT; -LOSA25TA26 PO; -METO25TA6 PO; +NITR0.4T49 SL; +OMEP20CA14 PO; -OMEP40CA20 PO; -OXYM30SP26 BOTHNSTRLS; +TOPUD PO
[2022-04-19] MEDS ORDERED: NAPROXEN 375MG TABLET PO ONE (11:15)
[2022-04-19] MEDS ORDERED: AMOXICILLIN/POTASSIUM CLAVULANATE 875/125MG TAB PO ONE (11:15)
[2022-04-19] MEDS ORDERED: HYDROCODONE/ACETAMINOPHEN 10/325MG TABLET PO ONE (11:15)
[2022-04-19] MEDS ORDERED: NAPR375T5 MT (11:29)
[2022-04-19] MEDS ORDERED: CLIN-194 MT (11:29)
[2022-04-19] MEDS: CLINDAMYCIN HCL 150MG CAPSULE PO SCH ×2 (11:48→22:21)
[2022-04-19 12:00] VITALS: BP 147/43
[2022-04-19 13:06] LABS: BASOPHILS % 0.2 % (0.0-2.0); EOSINOPHILS % 0.5 % (0.0-5.0); HEMATOCRIT. 29.2 % (42.0-52.0); LYMPHOCYTES % 9.7 % (20.0-50.0); MEAN CORPUSCULAR HEMOGLOBIN 32.1 pg (28.0-32.0); MEAN CORPUSCULAR VOLUME 93.9 fL (80.0-94.0); MEAN PLATELET VOLUME 9.1 fl (7.4-10.4); MONOCYTES % 6.5 % (2.0-8.0); NEUTROPHILS % 83.1 % (40.0-76.0); PLATELET 97 x1000/uL (130-400); RED BLOOD CELL COUNT 3.11 mill/uL (4.7-6.1); RED CELL DISTRIBUTION WIDTH 14.1 % (11.6-14.6)
[2022-04-19 13:20] LABS: CHLORIDE 98 mEq/L (98-107)
[2022-04-19] MEDS ORDERED: CALCIUM CHLORIDE 1GM/10ML SYR IV ONE (13:45)
[2022-04-19] MEDS ORDERED: INSULIN REGULAR (HUMULIN R) 300UNITS/3ML VIAL IV ONE (13:45)
[2022-04-19] MEDS ORDERED: ALBUTEROL (0.083%) 2.5MG/3ML NEB HHN ONE (13:45)
[2022-04-19] MEDS ORDERED: DEXTROSE 50% WATER 50ML SYRINGE IV ONE (13:45)
[2022-04-19] MEDS ORDERED: ATROPINE SULFATE 0.1MG/ML 10ML DISP.SYRIN IV ONE (14:30)
[2022-04-19] MEDS ORDERED: IPRATROPIUM/ALBUTEROL 0.5-3(2.5)MG/3ML NEB HHN PRN (14:45)
[2022-04-19] MEDS ORDERED: ACETAMINOPHEN 325MG TABLET PO PRN ×2 (14:45)
[2022-04-19] MEDS ORDERED: CLONIDINE 0.1MG TABLET PO PRN (14:45)
[2022-04-19] MEDS ORDERED: LORAZEPAM 0.5MG TABLET PO PRN (14:45)
[2022-04-19 15:30] VITALS: BP 152/49
[2022-04-19 16:00] VITALS: BP 152/49
[2022-04-19] MEDS: ASPIRIN 81MG EC TABLET PO SCH (16:10)
[2022-04-19] MEDS: CLOPIDOGREL 75MG TABLET PO SCH (16:10)
[2022-04-19] MEDS: FOLIC ACID/VITAMIN B COMP W-C TABLET PO SCH (16:10)
[2022-04-19] MEDS: CALCITRIOL 0.25MCG CAPSULE PO SCH (16:10)
[2022-04-19] MEDS ORDERED: SEVELAMER CARBONATE 800 MG TABLET PO SCH (17:00)
[2022-04-19] MEDS: CALCIUM ACETATE 667MG CAPSULE PO SCH (18:15)
[2022-04-19] MEDS ORDERED: NALOXONE HCL 0.4MG/ML VIAL IV PRN (18:45)
[2022-04-19] MEDS ORDERED: DEXTROSE 50% WATER 50ML SYRINGE IV PRN (19:30)
[2022-04-19] MEDS: INSULIN LISPRO 100 UNITS/ML SUBCUT SCH (21:00)
[2022-04-19] MEDS ORDERED: AMIODARONE HCL 200 MG TABLET PO SCH (21:00)
[2022-04-19] MEDS: BLOOD SUGAR DIAGNOSTIC STRIP TEST SCH (21:37)
[2022-04-19] MEDS: ATORVASTATIN CALCIUM 40MG TABLET PO SCH (22:21)
[2022-04-19] MEDS: HYDROCODONE/ACETAMINOPHEN 5/325MG TABLET PO PRN (22:25)
[2022-04-19] MEDS: ONDANSETRON HCL 4MG/2ML INJ IV PRN (22:31)
[2022-04-20] VITALS: BP 102/52
[2022-04-20] MEDS: HYDROCODONE/ACETAMINOPHEN 5/325MG TABLET PO PRN ×3 (04:31→16:07)
[2022-04-20] MEDS: CLINDAMYCIN HCL 150MG CAPSULE PO SCH ×4 (06:03→23:23)
[2022-04-20] MEDS: INSULIN LISPRO 100 UNITS/ML SUBCUT SCH ×4 (06:09→20:05)
[2022-04-20] MEDS: BLOOD SUGAR DIAGNOSTIC STRIP TEST SCH ×4 (06:09→20:05)
[2022-04-20 06:39] LABS: HEMATOCRIT. 30.4 % (42.0-52.0); HEMOGLOBIN. 10.3 g/dL (14.0-18.0); MEAN CORPUSCULAR HEMOGLOBIN 31.8 pg (28.0-32.0); MEAN CORPUSCULAR VOLUME 93.7 fL (80.0-94.0); MEAN PLATELET VOLUME 9.1 fl (7.4-10.4); PLATELET 103 x1000/uL (130-400); RED BLOOD CELL COUNT 3.24 mill/uL (4.7-6.1); RED CELL DISTRIBUTION WIDTH 14.1 % (11.6-14.6)
[2022-04-20 07:12] LABS: PHOSPHORUS 6.6 mg/dL (2.5-4.9)
[2022-04-20 08:00] VITALS: BP 147/47
[2022-04-20] MEDS: CALCIUM ACETATE 667MG CAPSULE PO SCH ×3 (08:59→17:58)
[2022-04-20] MEDS: OMEPRAZOLE 20MG CAPSULE EXTENDED RELEASE PO SCH (08:59)
[2022-04-20] MEDS: ASPIRIN 81MG EC TABLET PO SCH (08:59)
[2022-04-20] MEDS: CALCITRIOL 0.25MCG CAPSULE PO SCH (09:00)
[2022-04-20] MEDS: AMIODARONE HCL 200 MG TABLET PO SCH (09:00)
[2022-04-20] MEDS: FOLIC ACID/VITAMIN B COMP W-C TABLET PO SCH (09:00)
[2022-04-20] MEDS: CLOPIDOGREL 75MG TABLET PO SCH (09:00)
[2022-04-20] MEDS: ISOSORBIDE MONONITRATE 30MG TABLET SR 24HR PO SCH (09:00)
[2022-04-20] MEDS ORDERED: TRIAMCINOLONE ACETONIDE 0.1% DENTAL PASTE 5GM DT PRN (10:00)
[2022-04-20] MEDS: NYSTATIN 100,000 UNITS/ML 5ML UDC SSW SCH ×2 (11:54→16:06)
[2022-04-20 12:00] VITALS: BP 117/44
[2022-04-20 15:15] LABS: PLATELET ESTIMATE DECREASED
[2022-04-20 16:00] VITALS: BP 106/64
[2022-04-20] MEDS: ONDANSETRON HCL 4MG/2ML INJ IV PRN (19:54)
[2022-04-20 20:00] VITALS: BP 130/64
[2022-04-20] MEDS: ATORVASTATIN CALCIUM 40MG TABLET PO SCH (20:05)
[2022-04-21] VITALS: BP 135/55
[2022-04-21 04:00] VITALS: BP 130/54
[2022-04-21] MEDS: ONDANSETRON HCL 4MG/2ML INJ IV PRN (04:00)
[2022-04-21] MEDS: CLINDAMYCIN HCL 150MG CAPSULE PO SCH (05:49)
[2022-04-21] MEDS: BLOOD SUGAR DIAGNOSTIC STRIP TEST SCH ×4 (06:36→21:00)
[2022-04-21 06:51] LABS: BASOPHILS % 0.3 % (0.0-2.0); EOSINOPHILS % 0.8 % (0.0-5.0); HEMATOCRIT. 29.1 % (42.0-52.0); HEMOGLOBIN. 10.1 g/dL (14.0-18.0); LYMPHOCYTES % 8.1 % (20.0-50.0); MEAN CORPUSCULAR HEMOGLOBIN 32.3 pg (28.0-32.0); MEAN CORPUSCULAR VOLUME 93.6 fL (80.0-94.0); MONOCYTES % 6.1 % (2.0-8.0); NEUTROPHILS % 84.7 % (40.0-76.0); PLATELET 107 x1000/uL (130-400); RED BLOOD CELL COUNT 3.11 mill/uL (4.7-6.1); RED CELL DISTRIBUTION WIDTH 14.2 % (11.6-14.6)
[2022-04-21 07:25] LABS: PHOSPHORUS 5.4 mg/dL (2.5-4.9)
[2022-04-21 08:00] VITALS: BP 151/52
[2022-04-21] MEDS: INSULIN LISPRO 100 UNITS/ML SUBCUT SCH ×4 (08:10→21:00)
[2022-04-21] MEDS: NYSTATIN 100,000 UNITS/ML 5ML UDC SSW SCH (09:00)
[2022-04-21] MEDS: CALCIUM ACETATE 667MG CAPSULE PO SCH ×3 (09:20→18:37)
[2022-04-21] MEDS: AMIODARONE HCL 200 MG TABLET PO SCH (09:20)
[2022-04-21] MEDS: CALCITRIOL 0.25MCG CAPSULE PO SCH (09:20)
[2022-04-21] MEDS: FOLIC ACID/VITAMIN B COMP W-C TABLET PO SCH (09:20)
[2022-04-21] MEDS: OMEPRAZOLE 20MG CAPSULE EXTENDED RELEASE PO SCH (09:21)
[2022-04-21] MEDS: CLOPIDOGREL 75MG TABLET PO SCH (09:21)
[2022-04-21] MEDS: ASPIRIN 81MG EC TABLET PO SCH (09:21)
[2022-04-21] MEDS: ISOSORBIDE MONONITRATE 30MG TABLET SR 24HR PO SCH (09:21)
[2022-04-21] MEDS: METOCLOPRAMIDE HCL 10MG/2ML VIAL IV PRN (09:22)
[2022-04-21 12:00] VITALS: BP 133/43
[2022-04-21 14:54] LABS: HEPATITIS B SURFACE ANTIGEN NEGATIVE
[2022-04-21 16:00] VITALS: BP 123/76
[2022-04-21] MEDS ORDERED: IOHEXOL-300 100 ML BOTTLE ONE (18:30)
[2022-04-21 20:00] VITALS: BP 112/61
[2022-04-21] MEDS: GABAPENTIN 100MG CAPSULE PO PRN (21:05)
[2022-04-21] MEDS: ATORVASTATIN CALCIUM 40MG TABLET PO SCH (21:05)
[2022-04-21] MEDS: HYDROCODONE/ACETAMINOPHEN 5/325MG TABLET PO PRN (21:06)
[2022-04-22] VITALS: BP 136/54
[2022-04-22] MEDS: CLINDAMYCIN HCL 150MG CAPSULE PO SCH ×4 (01:10→17:54)
[2022-04-22] MEDS: METOCLOPRAMIDE HCL 10MG/2ML VIAL IV PRN (01:44)
[2022-04-22 04:00] VITALS: BP 130/49
[2022-04-22 06:28] LABS: BASOPHILS % 0.3 % (0.0-2.0); EOSINOPHILS % 0.9 % (0.0-5.0); HEMATOCRIT. 28.8 % (42.0-52.0); HEMOGLOBIN. 9.7 g/dL (14.0-18.0); MEAN CORPUSCULAR HEMOGLOBIN 31.6 pg (28.0-32.0); MEAN CORPUSCULAR VOLUME 93.8 fL (80.0-94.0); MEAN PLATELET VOLUME 8.7 fl (7.4-10.4); MONOCYTES % 6.5 % (2.0-8.0); NEUTROPHILS % 81.3 % (40.0-76.0); PLATELET 115 x1000/uL (130-400); RED BLOOD CELL COUNT 3.07 mill/uL (4.7-6.1); RED CELL DISTRIBUTION WIDTH 14.3 % (11.6-14.6)
[2022-04-22] MEDS: BLOOD SUGAR DIAGNOSTIC STRIP TEST SCH ×4 (07:40→21:25)
[2022-04-22 08:00] VITALS: BP 132/66
[2022-04-22] MEDS: CALCITRIOL 0.25MCG CAPSULE PO SCH (08:09)
[2022-04-22] MEDS: INSULIN LISPRO 100 UNITS/ML SUBCUT SCH ×4 (08:09→21:00)
[2022-04-22] MEDS: OMEPRAZOLE 20MG CAPSULE EXTENDED RELEASE PO SCH (08:09)
[2022-04-22] MEDS: FOLIC ACID/VITAMIN B COMP W-C TABLET PO SCH (08:10)
[2022-04-22] MEDS: ASPIRIN 81MG EC TABLET PO SCH (08:10)
[2022-04-22] MEDS: ISOSORBIDE MONONITRATE 30MG TABLET SR 24HR PO SCH (08:10)
[2022-04-22] MEDS: CLOPIDOGREL 75MG TABLET PO SCH (08:10)
[2022-04-22] MEDS: CALCIUM ACETATE 667MG CAPSULE PO SCH ×3 (08:10→17:54)
[2022-04-22] MEDS: AMIODARONE HCL 200 MG TABLET PO SCH (08:12)
[2022-04-22 11:03] LABS: PHOSPHORUS 5.8 mg/dL (2.5-4.9)
[2022-04-22 12:00] VITALS: BP 140/64
[2022-04-22 16:00] VITALS: BP 140/68
[2022-04-22 20:00] VITALS: BP 112/62
[2022-04-22] MEDS ORDERED: LACTULOSE 20G/30ML UDC PO PRN (21:15)
[2022-04-22] MEDS: EPOETIN ALFA-EPBX 4,000 UNIT/ML VIAL SUBCUT SCH (21:34)
[2022-04-22] MEDS: ATORVASTATIN CALCIUM 40MG TABLET PO SCH (21:34)
[2022-04-22] MEDS: ZOLPIDEM TARTRATE 5MG TABLET PO PRN (21:43)
[2022-04-22] MEDS: GABAPENTIN 100MG CAPSULE PO PRN (23:31)
[2022-04-23] VITALS: BP 99/71
[2022-04-23] MEDS: CLINDAMYCIN HCL 150MG CAPSULE PO SCH ×4 (01:07→18:32)
[2022-04-23 04:00] VITALS: BP 130/40
[2022-04-23 06:25] LABS: BASOPHILS % 0.2 % (0.0-2.0); HEMATOCRIT. 29.4 % (42.0-52.0); HEMOGLOBIN. 9.8 g/dL (14.0-18.0); LYMPHOCYTES % 9.8 % (20.0-50.0); MEAN CORPUSCULAR HEMOGLOBIN 31.8 pg (28.0-32.0); MEAN CORPUSCULAR VOLUME 95.5 fL (80.0-94.0); MEAN PLATELET VOLUME 8.3 fl (7.4-10.4); MONOCYTES % 6.6 % (2.0-8.0); NEUTROPHILS % 82.4 % (40.0-76.0); PLATELET 137 x1000/uL (130-400); RED BLOOD CELL COUNT 3.07 mill/uL (4.7-6.1); RED CELL DISTRIBUTION WIDTH 14.1 % (11.6-14.6)
[2022-04-23] MEDS: OMEPRAZOLE 20MG CAPSULE EXTENDED RELEASE PO SCH (06:33)
[2022-04-23] MEDS: BLOOD SUGAR DIAGNOSTIC STRIP TEST SCH ×4 (06:33→20:24)
[2022-04-23 07:19] LABS: PHOSPHORUS 5.1 mg/dL (2.5-4.9)
[2022-04-23 08:00] VITALS: BP 140/95
[2022-04-23] MEDS: INSULIN LISPRO 100 UNITS/ML SUBCUT SCH ×4 (08:10→21:00)
[2022-04-23] MEDS: CLOPIDOGREL 75MG TABLET PO SCH (09:01)
[2022-04-23] MEDS: CALCIUM ACETATE 667MG CAPSULE PO SCH ×3 (09:01→18:32)
[2022-04-23] MEDS: FOLIC ACID/VITAMIN B COMP W-C TABLET PO SCH (09:01)
[2022-04-23] MEDS: ASPIRIN 81MG EC TABLET PO SCH (09:01)
[2022-04-23] MEDS: CALCITRIOL 0.25MCG CAPSULE PO SCH (09:01)
[2022-04-23] MEDS: ISOSORBIDE MONONITRATE 30MG TABLET SR 24HR PO SCH (09:01)
[2022-04-23] MEDS: AMIODARONE HCL 200 MG TABLET PO SCH (09:02)
[2022-04-23] MEDS: ONDANSETRON HCL 4MG/2ML INJ IV PRN ×2 (09:25→20:22)
[2022-04-23 11:58] VITALS: BP 148/76
[2022-04-23] MEDS: HYDROCODONE/ACETAMINOPHEN 5/325MG TABLET PO PRN ×2 (14:58→20:24)
[2022-04-23 16:00] VITALS: BP 139/69
[2022-04-23 20:00] VITALS: BP 152/71
[2022-04-23] MEDS: ATORVASTATIN CALCIUM 40MG TABLET PO SCH (20:23)
[2022-04-23] MEDS: GABAPENTIN 100MG CAPSULE PO PRN (22:15)
[2022-04-23] MEDS: ZOLPIDEM TARTRATE 5MG TABLET PO PRN (22:15)
[2022-04-24] VITALS: BP 142/70
[2022-04-24] MEDS: CLINDAMYCIN HCL 150MG CAPSULE PO SCH ×4 (00:49→18:07)
[2022-04-24 04:00] VITALS: BP 149/66
[2022-04-24] MEDS: BLOOD SUGAR DIAGNOSTIC STRIP TEST SCH ×4 (06:45→21:00)
[2022-04-24 07:42] LABS: BASOPHILS % 0.4 % (0.0-2.0); EOSINOPHILS % 1.1 % (0.0-5.0); HEMATOCRIT. 32.9 % (42.0-52.0); HEMOGLOBIN. 11.3 g/dL (14.0-18.0); MEAN CORPUSCULAR HEMOGLOBIN 31.9 pg (28.0-32.0); MEAN CORPUSCULAR VOLUME 92.9 fL (80.0-94.0); MEAN PLATELET VOLUME 8.4 fl (7.4-10.4); MONOCYTES % 8.2 % (2.0-8.0); NEUTROPHILS % 77.3 % (40.0-76.0); PLATELET 128 x1000/uL (130-400); RED BLOOD CELL COUNT 3.54 mill/uL (4.7-6.1); RED CELL DISTRIBUTION WIDTH 13.8 % (11.6-14.6)
[2022-04-24 08:00] VITALS: BP 137/61
[2022-04-24] MEDS: INSULIN LISPRO 100 UNITS/ML SUBCUT SCH ×4 (08:10→21:00)
[2022-04-24 08:29] LABS: PHOSPHORUS 5.6 mg/dL (2.5-4.9)
[2022-04-24] MEDS: ISOSORBIDE MONONITRATE 30MG TABLET SR 24HR PO SCH (08:57)
[2022-04-24] MEDS: FOLIC ACID/VITAMIN B COMP W-C TABLET PO SCH (08:57)
[2022-04-24] MEDS: CLOPIDOGREL 75MG TABLET PO SCH (08:58)
[2022-04-24] MEDS: AMIODARONE HCL 200 MG TABLET PO SCH (08:58)
[2022-04-24] MEDS: CALCIUM ACETATE 667MG CAPSULE PO SCH ×3 (08:58→18:07)
[2022-04-24] MEDS: CALCITRIOL 0.25MCG CAPSULE PO SCH (08:58)
[2022-04-24] MEDS: ASPIRIN 81MG EC TABLET PO SCH (08:58)
[2022-04-24] MEDS: FAMOTIDINE 20MG TABLET PO SCH (08:59)
[2022-04-24 12:00] VITALS: BP 131/75
[2022-04-24 16:00] VITALS: BP 129/71
[2022-04-24 20:49] VITALS: BP 165/72
[2022-04-24] MEDS: ATORVASTATIN CALCIUM 40MG TABLET PO SCH (21:00)
[2022-04-24] MEDS ORDERED: NALOXONE HCL 0.4MG/ML VIAL IV PRN (21:45)
[2022-04-24] MEDS: HYDROCODONE/ACETAMINOPHEN 5/325MG TABLET PO PRN (21:50)
[2022-04-25] VITALS: BP 145/63
[2022-04-25 04:00] VITALS: BP 144/55
[2022-04-25] MEDS: CLINDAMYCIN HCL 150MG CAPSULE PO SCH ×4 (06:00→17:15)
[2022-04-25] MEDS: BLOOD SUGAR DIAGNOSTIC STRIP TEST SCH ×4 (06:27→21:00)
[2022-04-25 07:31] LABS: BASOPHILS % 0.4 % (0.0-2.0); EOSINOPHILS % 1.5 % (0.0-5.0); HEMATOCRIT. 32.9 % (42.0-52.0); HEMOGLOBIN. 10.9 g/dL (14.0-18.0); LYMPHOCYTES % 16.5 % (20.0-50.0); MEAN CORPUSCULAR HEMOGLOBIN 31.3 pg (28.0-32.0); MEAN CORPUSCULAR VOLUME 94.1 fL (80.0-94.0); MEAN PLATELET VOLUME 8.4 fl (7.4-10.4); MONOCYTES % 8.3 % (2.0-8.0); NEUTROPHILS % 73.3 % (40.0-76.0); PLATELET 125 x1000/uL (130-400); RED CELL DISTRIBUTION WIDTH 13.8 % (11.6-14.6)
[2022-04-25] MEDS: INSULIN LISPRO 100 UNITS/ML SUBCUT SCH ×4 (08:10→21:00)
[2022-04-25] MEDS: CALCIUM ACETATE 667MG CAPSULE PO SCH ×3 (08:10→17:15)
[2022-04-25] MEDS: ASPIRIN 81MG EC TABLET PO SCH (09:40)
[2022-04-25] MEDS: ISOSORBIDE MONONITRATE 30MG TABLET SR 24HR PO SCH (09:41)
[2022-04-25] MEDS: FOLIC ACID/VITAMIN B COMP W-C TABLET PO SCH (09:41)
[2022-04-25] MEDS: CALCITRIOL 0.25MCG CAPSULE PO SCH (09:42)
[2022-04-25] MEDS: FAMOTIDINE 20MG TABLET PO SCH (09:42)
[2022-04-25] MEDS: CLOPIDOGREL 75MG TABLET PO SCH (09:42)
[2022-04-25] MEDS: AMIODARONE HCL 200 MG TABLET PO SCH (09:46)
[2022-04-25 13:09] VITALS: BP 161/73
[2022-04-25 13:11] VITALS: BP 157/73
[2022-04-25] MEDS: LOSARTAN POTASSIUM 50 MG TABLET PO SCH (15:27)
[2022-04-25 19:05] VITALS: BP 157/73
[2022-04-25] MEDS: ZOLPIDEM TARTRATE 5MG TABLET PO PRN (21:41)
[2022-04-25] MEDS: ATORVASTATIN CALCIUM 40MG TABLET PO SCH (21:41)
[2022-04-26] VITALS: BP 145/75
[2022-04-26 04:00] VITALS: BP 155/78
[2022-04-26] MEDS: CLINDAMYCIN HCL 150MG CAPSULE PO SCH ×4 (05:51→17:24)
[2022-04-26] MEDS: BLOOD SUGAR DIAGNOSTIC STRIP TEST SCH ×4 (07:40→21:00)
[2022-04-26 08:00] VITALS: BP 141/69
[2022-04-26] MEDS: INSULIN LISPRO 100 UNITS/ML SUBCUT SCH ×4 (08:10→20:38)
[2022-04-26] MEDS: ASPIRIN 81MG EC TABLET PO SCH (08:33)
[2022-04-26] MEDS: ISOSORBIDE MONONITRATE 30MG TABLET SR 24HR PO SCH (08:33)
[2022-04-26] MEDS: FOLIC ACID/VITAMIN B COMP W-C TABLET PO SCH (08:33)
[2022-04-26] MEDS: CALCITRIOL 0.25MCG CAPSULE PO SCH (08:33)
[2022-04-26] MEDS: FAMOTIDINE 20MG TABLET PO SCH (08:33)
[2022-04-26] MEDS: LOSARTAN POTASSIUM 50 MG TABLET PO SCH (08:33)
[2022-04-26] MEDS: CLOPIDOGREL 75MG TABLET PO SCH (08:33)
[2022-04-26] MEDS: CALCIUM ACETATE 667MG CAPSULE PO SCH ×3 (08:33→17:24)
[2022-04-26] MEDS: AMIODARONE HCL 200 MG TABLET PO SCH (08:34)
[2022-04-26 11:09] LABS: BASOPHILS % 0.4 % (0.0-2.0); EOSINOPHILS % 1.3 % (0.0-5.0); HEMATOCRIT. 32.8 % (42.0-52.0); LYMPHOCYTES % 16.2 % (20.0-50.0); MEAN CORPUSCULAR HEMOGLOBIN 31.1 pg (28.0-32.0); MEAN CORPUSCULAR VOLUME 92.5 fL (80.0-94.0); MEAN PLATELET VOLUME 8.3 fl (7.4-10.4); MONOCYTES % 7.7 % (2.0-8.0); NEUTROPHILS % 74.4 % (40.0-76.0); PLATELET 133 x1000/uL (130-400); RED BLOOD CELL COUNT 3.55 mill/uL (4.7-6.1); RED CELL DISTRIBUTION WIDTH 13.7 % (11.6-14.6)
[2022-04-26 11:38] LABS: PHOSPHORUS 5.4 mg/dL (2.5-4.9)
[2022-04-26 12:00] VITALS: BP 133/70
[2022-04-26 16:00] VITALS: BP 127/65
[2022-04-26 20:00] VITALS: BP 122/45
[2022-04-26] MEDS: ATORVASTATIN CALCIUM 40MG TABLET PO SCH (20:35)
[2022-04-26] MEDS: HYDROCODONE/ACETAMINOPHEN 5/325MG TABLET PO PRN (20:35)
[2022-04-26] MEDS: ZOLPIDEM TARTRATE 5MG TABLET PO PRN (20:35)
[2022-04-26] MEDS: EPOETIN ALFA-EPBX 4,000 UNIT/ML VIAL SUBCUT SCH (21:00)
[2022-04-27] VITALS: BP 153/54
[2022-04-27 04:00] VITALS: BP 140/70
[2022-04-27] MEDS: CLINDAMYCIN HCL 150MG CAPSULE PO SCH ×4 (06:00→17:51)
[2022-04-27] MEDS: BLOOD SUGAR DIAGNOSTIC STRIP TEST SCH ×4 (07:40→21:25)
[2022-04-27 08:00] VITALS: BP 136/69
[2022-04-27 08:06] LABS: BASOPHILS % 0.3 % (0.0-2.0); EOSINOPHILS % 1.3 % (0.0-5.0); HEMATOCRIT. 32.7 % (42.0-52.0); HEMOGLOBIN. 11.3 g/dL (14.0-18.0); LYMPHOCYTES % 12.8 % (20.0-50.0); MEAN CORPUSCULAR HEMOGLOBIN 31.8 pg (28.0-32.0); MEAN CORPUSCULAR VOLUME 92.4 fL (80.0-94.0); MEAN PLATELET VOLUME 8.8 fl (7.4-10.4); MONOCYTES % 6.9 % (2.0-8.0); NEUTROPHILS % 78.7 % (40.0-76.0); PLATELET 149 x1000/uL (130-400); RED BLOOD CELL COUNT 3.54 mill/uL (4.7-6.1); RED CELL DISTRIBUTION WIDTH 14.1 % (11.6-14.6)
[2022-04-27] MEDS: INSULIN LISPRO 100 UNITS/ML SUBCUT SCH ×4 (08:10→21:00)
[2022-04-27 08:38] LABS: PHOSPHORUS 4.8 mg/dL (2.5-4.9)
[2022-04-27] MEDS: CALCIUM ACETATE 667MG CAPSULE PO SCH ×3 (08:48→17:51)
[2022-04-27] MEDS: FAMOTIDINE 20MG TABLET PO SCH (08:48)
[2022-04-27] MEDS: AMIODARONE HCL 200 MG TABLET PO SCH (08:49)
[2022-04-27] MEDS: ISOSORBIDE MONONITRATE 30MG TABLET SR 24HR PO SCH (08:49)
[2022-04-27] MEDS: FOLIC ACID/VITAMIN B COMP W-C TABLET PO SCH (08:49)
[2022-04-27] MEDS: CALCITRIOL 0.25MCG CAPSULE PO SCH (08:49)
[2022-04-27] MEDS: ASPIRIN 81MG EC TABLET PO SCH (08:49)
[2022-04-27] MEDS: CLOPIDOGREL 75MG TABLET PO SCH (08:49)
[2022-04-27] MEDS: LOSARTAN POTASSIUM 50 MG TABLET PO SCH (08:49)
[2022-04-27 12:00] VITALS: BP 141/67
[2022-04-27 16:00] VITALS: BP 131/69
[2022-04-27 20:00] VITALS: BP 158/75
[2022-04-27] MEDS: ATORVASTATIN CALCIUM 40MG TABLET PO SCH (21:21)
[2022-04-27] MEDS: HYDROCODONE/ACETAMINOPHEN 5/325MG TABLET PO PRN (21:21)
[2022-04-28] VITALS: BP 154/57
[2022-04-28 04:00] VITALS: BP 147/52
[2022-04-28] MEDS: CLINDAMYCIN HCL 150MG CAPSULE PO SCH ×2 (05:45→05:50)
[2022-04-28] MEDS: BLOOD SUGAR DIAGNOSTIC STRIP TEST SCH (07:24)
[2022-04-28] MEDS: INSULIN LISPRO 100 UNITS/ML SUBCUT SCH (08:10)
[2022-04-28] MEDS: ISOSORBIDE MONONITRATE 30MG TABLET SR 24HR PO SCH (08:25)
[2022-04-28] MEDS: CALCITRIOL 0.25MCG CAPSULE PO SCH (08:25)
[2022-04-28] MEDS: ASPIRIN 81MG EC TABLET PO SCH (08:25)
[2022-04-28] MEDS: FAMOTIDINE 20MG TABLET PO SCH (08:26)
[2022-04-28] MEDS: CLOPIDOGREL 75MG TABLET PO SCH (08:26)
[2022-04-28] MEDS: FOLIC ACID/VITAMIN B COMP W-C TABLET PO SCH (08:26)
[2022-04-28] MEDS: CALCIUM ACETATE 667MG CAPSULE PO SCH (08:26)
[2022-04-28] MEDS: AMIODARONE HCL 200 MG TABLET PO SCH (08:26)
[2022-04-28] MEDS: LOSARTAN POTASSIUM 50 MG TABLET PO SCH (08:26)
[2022-04-28 09:07] LABS: BASOPHILS % 0.3 % (0.0-2.0); EOSINOPHILS % 1.1 % (0.0-5.0); HEMATOCRIT. 31.5 % (42.0-52.0); HEMOGLOBIN. 10.8 g/dL (14.0-18.0); LYMPHOCYTES % 12.5 % (20.0-50.0); MEAN CORPUSCULAR HEMOGLOBIN 31.7 pg (28.0-32.0); MEAN CORPUSCULAR VOLUME 92.8 fL (80.0-94.0); MEAN PLATELET VOLUME 8.5 fl (7.4-10.4); MONOCYTES % 7.8 % (2.0-8.0); NEUTROPHILS % 78.3 % (40.0-76.0); PLATELET 120 x1000/uL (130-400); RED BLOOD CELL COUNT 3.39 mill/uL (4.7-6.1); RED CELL DISTRIBUTION WIDTH 14.4 % (11.6-14.6)
[2022-04-28 09:17] LABS: PHOSPHORUS 5.6 mg/dL (2.5-4.9)
[2022-04-28] MEDS ORDERED: LOSA50TA3 PO (12:14)
[2022-04-28] MEDS ORDERED: DOXY100C5 MT (12:14)
[2022-04-28] MEDS ORDERED: FAMO20TA8 PO (12:14)
[2022-04-28] MEDS ORDERED: LEVO750T68 MT (12:14)
[2022-04-28 12:18] VITALS: BP 131/70
== END 2022-04-28 12:35 | disposition home or self-care (01) | DRG 157 ==
LOC: ER 10:14 → 7WST 13:35 → EDBEDREQSVC 13:38 → EDBEDREQ 13:38 → ENRESERV 13:49
PROVIDERS: ADMIT Internal Medicine; ATTEND Internal Medicine
PROC: 5A1D70Z Performance of Urinary Filtration, Intermittent, Less than 6 Hours Per Day (ICD-10-PCS; principal; 2022-04-19)
PROC: 5A1D70Z Performance of Urinary Filtration, Intermittent, Less than 6 Hours Per Day (ICD-10-PCS; 2022-04-20)
PROC: 5A1D70Z Performance of Urinary Filtration, Intermittent, Less than 6 Hours Per Day (ICD-10-PCS; 2022-04-22)
PROC: 5A1D70Z Performance of Urinary Filtration, Intermittent, Less than 6 Hours Per Day (ICD-10-PCS; 2022-04-24)
PROC: 5A1D70Z Performance of Urinary Filtration, Intermittent, Less than 6 Hours Per Day (ICD-10-PCS; 2022-04-26)
DX: K04.7 Periapical abscess without sinus (principal); N18.6 End stage renal disease; I42.2 Other hypertrophic cardiomyopathy; I50.42 Chronic combined systolic (congestive) and diastolic (congestive) heart failure; K86.1 Other chronic pancreatitis; I13.2 Hypertensive heart and chronic kidney disease with heart failure and with stage 5 chronic kidney disease, or end stage renal disease; E87.20 Acidosis, unspecified; E87.1 Hypo-osmolality and hyponatremia; E87.5 Hyperkalemia; D64.9 Anemia, unspecified; E83.51 Hypocalcemia; K08.89 Other specified disorders of teeth and supporting structures; E11.51 Type 2 diabetes mellitus with diabetic peripheral angiopathy without gangrene; E11.22 Type 2 diabetes mellitus with diabetic chronic kidney disease; Z20.822 Contact with and (suspected) exposure to COVID-19; M27.2 Inflammatory conditions of jaws; K21.9 Gastro-esophageal reflux disease without esophagitis; I48.91 Unspecified atrial fibrillation; J44.9 Chronic obstructive pulmonary disease, unspecified; Z59.00 Homelessness unspecified; I25.2 Old myocardial infarction; Z99.2 Dependence on renal dialysis; Z95.5 Presence of coronary angioplasty implant and graft; Z90.5 Acquired absence of kidney; Z98.890 Other specified postprocedural states; Z88.1 Allergy status to other antibiotic agents; Z86.73 Personal history of transient ischemic attack (TIA), and cerebral infarction without residual deficits; Z82.49 Family history of ischemic heart disease and other diseases of the circulatory system
CPT/HCPCS: 36415; 70487; 71045; 80048; 80053; 82962; 83036; 83735; 84100; 85025; 86705; 86709; 86803; 87340; 93005; 94640; 94664; 99285; J0461; J0885; J2405; J2765; J3490; Q9967; U0003; U0005

== ENCOUNTER 2022-05-06 15:32 | Inpatient (IN) | payer MEDICARE, MEDICAID ==
[~2022-05-06] VITALS: Ht 172.7 cm; Wt 85.3 kg
[~2022-05-06 15:32] MED LIST changes: -CLON0.1T PO; -COR3 PO; +DOXY100C5 MT; +FAMO20TA8 PO; +LEVO750T68 MT; +LOSA50TA3 PO; -OMEP20CA14 PO
[2022-05-06] MEDS ORDERED: TETANUS, DIPHTHERIA, PERTUSSIS VAC/PF 0.5ML (>10YR OLD) IM ONE ×2 (16:30→18:30)
[2022-05-06] MEDS ORDERED: LIDOCAINE HCL/PF 1% 10 MG/ML 5ML VIAL INFIL ONE (16:30)
[2022-05-06] MEDS ORDERED: MORPHINE SULFATE 4 MG/ML CPJ (NOT FOR IM USE) IV ONE (18:15)
[2022-05-06] MEDS ORDERED: ONDANSETRON HCL 4MG/2ML INJ IV STA (18:15)
[2022-05-06] MEDS ORDERED: MORPHINE SULFATE 4 MG/ML CPJ (NOT FOR IM USE) IV STA (18:15)
[2022-05-06 19:53] LABS: BASOPHILS % 0.7 % (0.0-2.0); EOSINOPHILS % 1.2 % (0.0-5.0); HEMATOCRIT. 27.8 % (42.0-52.0); HEMOGLOBIN. 9.2 g/dL (14.0-18.0); MEAN CORPUSCULAR HEMOGLOBIN 31.8 pg (28.0-32.0); MEAN CORPUSCULAR VOLUME 96.2 fL (80.0-94.0); MEAN PLATELET VOLUME 10.1 fl (7.4-10.4); MONOCYTES % 6.9 % (2.0-8.0); NEUTROPHILS % 72.2 % (40.0-76.0); PLATELET 82 x1000/uL (130-400); RED BLOOD CELL COUNT 2.89 mill/uL (4.7-6.1); RED CELL DISTRIBUTION WIDTH 14.7 % (11.6-14.6)
[2022-05-06] MEDS ORDERED: ETOMIDATE 2MG/ML 10ML VIAL IV ONE (20:00)
[2022-05-06 20:37] LABS: CHLORIDE 106 mEq/L (98-107)
[2022-05-06] MEDS ORDERED: SODIUM BICARBONATE 8.4% 1 MEQ/ML 50ML SYR IV ONE (21:30)
[2022-05-06] MEDS ORDERED: INSULIN REGULAR (HUMULIN R) 300UNITS/3ML VIAL IV ONE (21:30)
[2022-05-06] MEDS ORDERED: SODIUM POLYSTYRENE SULFONATE 15 G/60 ML BOT PO ONE (21:30)
[2022-05-06] MEDS ORDERED: DEXTROSE 50% WATER 50ML SYRINGE IV ONE (21:30)
[2022-05-06] MEDS ORDERED: ALBUTEROL (0.083%) 2.5MG/3ML NEB HHN ONE (21:30)
[2022-05-06] MEDS ORDERED: CALCIUM GLUCONATE 100MG/ML 10ML VIAL IV ONE (21:30)
[2022-05-06] MEDS ORDERED: IPRATROPIUM/ALBUTEROL 0.5-3(2.5)MG/3ML NEB HHN PRN (22:30)
[2022-05-06] MEDS ORDERED: DIPHENHYDRAMINE 50MG/ML VIAL IV PRN (22:30)
[2022-05-06] MEDS ORDERED: GUAIFENESIN 200MG/10ML SUGAR FREE UDC PO PRN (22:30)
[2022-05-06] MEDS ORDERED: CLONIDINE 0.1MG TABLET PO PRN (22:30)
[2022-05-06] MEDS ORDERED: ACETAMINOPHEN 325MG TABLET PO PRN ×2 (22:30)
[2022-05-06] MEDS ORDERED: MAGNESIUM/ALUMINUM HYDROXIDE/SIMETHICONE 30ML UDC PO PRN (22:30)
[2022-05-06] MEDS ORDERED: TRAMADOL 50MG TABLET PO PRN (22:45)
[2022-05-06] MEDS ORDERED: LOSARTAN POTASSIUM 50 MG TABLET PO SCH (22:45)
[2022-05-06] MEDS ORDERED: DEXTROSE 50% WATER 50ML SYRINGE IV PRN (22:45)
[2022-05-06] MEDS ORDERED: NALOXONE HCL 0.4MG/ML VIAL IV PRN (22:45)
[2022-05-06 23:50] VITALS: BP 122/68
[2022-05-07] VITALS (10 sets, daily range): BP systolic 93–153; BP diastolic 47–83
[2022-05-07] MEDS: ISOSORBIDE MONONITRATE 30MG TABLET SR 24HR PO SCH ×2 (01:04→08:09)
[2022-05-07] MEDS: ASPIRIN 81MG TABLET PO SCH ×2 (01:04→08:09)
[2022-05-07] MEDS: CLOPIDOGREL 75MG TABLET PO SCH ×2 (01:04→08:09)
[2022-05-07] MEDS: AMIODARONE HCL 200 MG TABLET PO SCH ×3 (01:05→16:55)
[2022-05-07] MEDS: HYDROCODONE/ACETAMINOPHEN 5/325MG TABLET PO PRN ×4 (01:05→21:01)
[2022-05-07 01:10] LABS: CREATINE KINASE 85 IU/L (39-308)
[2022-05-07] MEDS: HEPARIN 5000 UNITS/ML VIAL SUBCUT SCH ×3 (01:14→21:00)
[2022-05-07] MEDS: INSULIN LISPRO 100 UNITS/ML SUBCUT SCH ×4 (05:11→21:00)
[2022-05-07] MEDS: BLOOD SUGAR DIAGNOSTIC STRIP TEST SCH ×2 (05:11→12:40)
[2022-05-07 06:32] LABS: BASOPHILS % 0.4 % (0.0-2.0); EOSINOPHILS % 0.6 % (0.0-5.0); HEMATOCRIT. 26.9 % (42.0-52.0); HEMOGLOBIN. 8.9 g/dL (14.0-18.0); LYMPHOCYTES % 11.3 % (20.0-50.0); MEAN CORPUSCULAR VOLUME 96.6 fL (80.0-94.0); MEAN PLATELET VOLUME 10.3 fl (7.4-10.4); MONOCYTES % 9.8 % (2.0-8.0); NEUTROPHILS % 77.9 % (40.0-76.0); PLATELET 75 x1000/uL (130-400); RED BLOOD CELL COUNT 2.78 mill/uL (4.7-6.1)
[2022-05-07 07:21] LABS: PHOSPHORUS 6.2 mg/dL (2.5-4.9); T4 FREE 0.89 ng/dL (0.76-1.46)
[2022-05-07] MEDS: ONDANSETRON HCL 4MG/2ML INJ IV PRN (07:55)
[2022-05-07] MEDS ORDERED: INFLUENZA VACCINE 05/PF 0.5 ML SYRINGE IM ONE (08:00)
[2022-05-07] MEDS: FAMOTIDINE 20MG TABLET PO SCH (08:13)
[2022-05-07 08:57] LABS: VITAMIN B12 SERUM 817 pg/mL (211-911)
[2022-05-07] MEDS: FOLIC ACID/VITAMIN B COMP W-C TABLET PO SCH (14:59)
[2022-05-07] MEDS: CALCIUM ACETATE 667MG CAPSULE PO SCH (18:10)
[2022-05-07] MEDS ORDERED: EPOETIN ALFA-EPBX 4,000 UNIT/ML VIAL SUBCUT SCH (21:00)
[2022-05-07] MEDS: DEXTROSE 50% WATER 50ML SYRINGE IV PRN (21:00)
[2022-05-07 21:29] LABS: T4 FREE 0.97 ng/dL (0.76-1.46)
[2022-05-08] VITALS: BP 158/64
[2022-05-08 00:52] LABS: CREATINE KINASE MB FRACTION 4.4 ng/mL (0.5-3.6)
[2022-05-08 04:00] VITALS: BP 154/57
[2022-05-08] MEDS: LEVOTHYROXINE SODIUM 25MCG TABLET PO SCH ×3 (05:20→07:40)
[2022-05-08] MEDS: HYDROCODONE/ACETAMINOPHEN 5/325MG TABLET PO PRN ×7 (05:20→19:25)
[2022-05-08] MEDS: DEXTROSE 50% WATER 50ML SYRINGE IV PRN (05:21)
[2022-05-08 07:56] LABS: BASOPHILS % 0.5 % (0.0-2.0); EOSINOPHILS % 1.8 % (0.0-5.0); LYMPHOCYTES % 10.3 % (20.0-50.0); MEAN CORPUSCULAR HEMOGLOBIN 31.7 pg (28.0-32.0); MEAN PLATELET VOLUME 9.9 fl (7.4-10.4); MONOCYTES % 5.9 % (2.0-8.0); NEUTROPHILS % 81.5 % (40.0-76.0); PLATELET 85 x1000/uL (130-400); RED BLOOD CELL COUNT 2.85 mill/uL (4.7-6.1); RED CELL DISTRIBUTION WIDTH 14.6 % (11.6-14.6)
[2022-05-08 08:00] VITALS: BP 127/66
[2022-05-08] MEDS: INSULIN LISPRO 100 UNITS/ML SUBCUT SCH ×4 (08:10→21:00)
[2022-05-08 08:13] LABS: INR 1.1; PROTHROMBIN TIME 11.5 sec (9.6-11.0)
[2022-05-08] MEDS: ONDANSETRON HCL 4MG/2ML INJ IV PRN (08:28)
[2022-05-08 08:39] LABS: CREATINE KINASE MB FRACTION 4.4 ng/mL (0.5-3.6)
[2022-05-08] MEDS: HEPARIN 5000 UNITS/ML VIAL SUBCUT SCH ×2 (09:00→21:42)
[2022-05-08] MEDS: ISOSORBIDE MONONITRATE 30MG TABLET SR 24HR PO SCH (09:00)
[2022-05-08 10:34] LABS: PHOSPHORUS 5.9 mg/dL (2.5-4.9)
[2022-05-08] MEDS: CALCITRIOL 0.25MCG CAPSULE PO SCH ×2 (11:05→11:09)
[2022-05-08] MEDS: ASPIRIN 81MG TABLET PO SCH (11:08)
[2022-05-08] MEDS: CALCIUM ACETATE 667MG CAPSULE PO SCH ×3 (11:09→18:10)
[2022-05-08] MEDS: FOLIC ACID/VITAMIN B COMP W-C TABLET PO SCH (11:09)
[2022-05-08] MEDS: SEVELAMER CARBONATE 800 MG TABLET PO SCH ×3 (11:09→18:10)
[2022-05-08] MEDS: AMIODARONE HCL 200 MG TABLET PO SCH ×2 (11:09→17:00)
[2022-05-08] MEDS: CLOPIDOGREL 75MG TABLET PO SCH (11:09)
[2022-05-08] MEDS: FAMOTIDINE 20MG TABLET PO SCH (11:09)
[2022-05-08 11:48] VITALS: BP 128/62
[2022-05-08 16:00] VITALS: BP 158/49
[2022-05-08 17:59] LABS: CREATINE KINASE MB FRACTION 3.4 ng/mL (0.5-3.6)
[2022-05-08 20:00] VITALS: BP 132/24
[2022-05-09] VITALS (9 sets, daily range): BP systolic 110–157; BP diastolic 47–82
[2022-05-09] MEDS: LEVOTHYROXINE SODIUM 25MCG TABLET PO SCH (05:53)
[2022-05-09] MEDS: INSULIN LISPRO 100 UNITS/ML SUBCUT SCH ×2 (06:22→13:10)
[2022-05-09 08:02] LABS: BASOPHILS % 0.4 % (0.0-2.0); EOSINOPHILS % 0.7 % (0.0-5.0); HEMATOCRIT. 26.6 % (42.0-52.0); MEAN CORPUSCULAR HEMOGLOBIN 32.1 pg (28.0-32.0); MEAN CORPUSCULAR VOLUME 94.3 fL (80.0-94.0); MEAN PLATELET VOLUME 10.4 fl (7.4-10.4); MONOCYTES % 6.6 % (2.0-8.0); NEUTROPHILS % 84.3 % (40.0-76.0); PLATELET 74 x1000/uL (130-400); RED BLOOD CELL COUNT 2.82 mill/uL (4.7-6.1); RED CELL DISTRIBUTION WIDTH 14.3 % (11.6-14.6)
[2022-05-09] MEDS: SEVELAMER CARBONATE 800 MG TABLET PO SCH ×2 (08:10→13:10)
[2022-05-09] MEDS: FOLIC ACID/VITAMIN B COMP W-C TABLET PO SCH (09:00)
[2022-05-09] MEDS: AMIODARONE HCL 200 MG TABLET PO SCH (09:00)
[2022-05-09] MEDS: ISOSORBIDE MONONITRATE 30MG TABLET SR 24HR PO SCH (09:00)
[2022-05-09] MEDS: FAMOTIDINE 20MG TABLET PO SCH (09:00)
[2022-05-09] MEDS: ASPIRIN 81MG TABLET PO SCH (09:00)
[2022-05-09 09:29] LABS: PHOSPHORUS 6.3 mg/dL (2.5-4.9)
[2022-05-09] MEDS: HEPARIN 5000 UNITS/ML VIAL SUBCUT SCH (10:00)
[2022-05-09] MEDS: CLOPIDOGREL 75MG TABLET PO SCH (10:15)
[2022-05-09] MEDS: HYDROCODONE/ACETAMINOPHEN 5/325MG TABLET PO PRN (10:24)
[2022-05-09] MEDS ORDERED: CALCIUM ACETATE 667MG CAPSULE PO SCH (18:10)
[2022-05-09] MEDS ORDERED: ZOLPIDEM TARTRATE 5MG TABLET PO PRN (21:00)
== END 2022-05-09 17:20 | DRG 562 ==
LOC: ER 15:32 → MICUSO 21:46 → 7WST 23:51
PROVIDERS: ADMIT Internal Medicine; ATTEND Internal Medicine
PROC: 0QSJ3ZZ Reposition Right Fibula, Percutaneous Approach (ICD-10-PCS; principal; 2022-05-07)
PROC: 5A1D70Z Performance of Urinary Filtration, Intermittent, Less than 6 Hours Per Day (ICD-10-PCS; 2022-05-07)
PROC: 5A1D70Z Performance of Urinary Filtration, Intermittent, Less than 6 Hours Per Day (ICD-10-PCS; 2022-05-09)
DX: S82.841A Displaced bimalleolar fracture of right lower leg, initial encounter for closed fracture (principal); N18.6 End stage renal disease; N25.81 Secondary hyperparathyroidism of renal origin; K86.1 Other chronic pancreatitis; I50.42 Chronic combined systolic (congestive) and diastolic (congestive) heart failure; I13.2 Hypertensive heart and chronic kidney disease with heart failure and with stage 5 chronic kidney disease, or end stage renal disease; D61.818 Other pancytopenia; I48.91 Unspecified atrial fibrillation; I25.10 Atherosclerotic heart disease of native coronary artery without angina pectoris; E87.5 Hyperkalemia; E78.5 Hyperlipidemia, unspecified; D75.89 Other specified diseases of blood and blood-forming organs; H54.7 Unspecified visual loss; D63.8 Anemia in other chronic diseases classified elsewhere; M81.0 Age-related osteoporosis without current pathological fracture; E11.22 Type 2 diabetes mellitus with diabetic chronic kidney disease; E03.2 Hypothyroidism due to medicaments and other exogenous substances; E11.51 Type 2 diabetes mellitus with diabetic peripheral angiopathy without gangrene; E83.39 Other disorders of phosphorus metabolism; Z88.8 Allergy status to other drugs, medicaments and biological substances; I25.2 Old myocardial infarction; Z99.2 Dependence on renal dialysis; Z95.5 Presence of coronary angioplasty implant and graft; Z91.15 Patient's noncompliance with renal dialysis; Z90.5 Acquired absence of kidney; Z82.49 Family history of ischemic heart disease and other diseases of the circulatory system; Z79.899 Other long term (current) drug therapy; Z79.82 Long term (current) use of aspirin; Z79.4 Long term (current) use of insulin; Z79.02 Long term (current) use of antithrombotics/antiplatelets; Z59.00 Homelessness unspecified; Z86.73 Personal history of transient ischemic attack (TIA), and cerebral infarction without residual deficits; X58.XXXA Exposure to other specified factors, initial encounter; Y93.89 Activity, other specified; Y92.89 Other specified places as the place of occurrence of the external cause; Y99.8 Other external cause status
CPT/HCPCS: 36415; 71045; 73610; 73630; 80048; 80053; 80061; 82550; 82553; 82607; 82746; 82962; 83036; 83735; 83880; 84100; 84439; 84443; 84484; 85025; 85379; 90686; 90715; 90935; 93005; 93306; 93970; 99285; C1893; J0610; J0885; J1200; J1644; J2270; J2405; J3490

== ENCOUNTER 2022-10-12 00:45 | Inpatient (IN) | payer MEDICARE, MEDICAID ==
[~2022-10-12] VITALS: Ht 177.8 cm; Wt 76.7 kg
[~2022-10-12 00:45] MED LIST changes: +COR3 PO; -DOXY100C5 MT; -FAMO20TA8 PO; +LEVO25TA7 PO; -LEVO750T68 MT; -TOPUD PO
[2022-10-12] MEDS ORDERED: ASPIRIN 81MG TABLET PO ONE (02:00)
[2022-10-12 02:35] LABS: BASOPHILS % 0.4 % (0.0-2.0); EOSINOPHILS % 0.9 % (0.0-5.0); HEMATOCRIT. 25.8 % (42.0-52.0); HEMOGLOBIN. 8.6 g/dL (14.0-18.0); LYMPHOCYTES % 14.6 % (20.0-50.0); MEAN CORPUSCULAR HEMOGLOBIN 31.7 pg (28.0-32.0); MEAN CORPUSCULAR VOLUME 95.1 fL (80.0-94.0); MEAN PLATELET VOLUME 9.9 fl (7.4-10.4); MONOCYTES % 6.5 % (2.0-8.0); NEUTROPHILS % 77.6 % (40.0-76.0); PLATELET 69 x1000/uL (130-400); RED BLOOD CELL COUNT 2.71 mill/uL (4.7-6.1); RED CELL DISTRIBUTION WIDTH 14.4 % (11.6-14.6)
[2022-10-12 02:44] LABS: CHLORIDE 103 mEq/L (98-107)
[2022-10-12 10:30] VITALS: BP 165/70
[2022-10-12 10:47] VITALS: BP 170/75
[2022-10-12 12:00] VITALS: BP 160/69
[2022-10-12] MEDS ORDERED: NA PHOS,M-B/NA PHOS,DI-BA ENEMA 118ML PR PRN (12:15)
[2022-10-12] MEDS ORDERED: MAGNESIUM/ALUMINUM HYDROXIDE/SIMETHICONE 30ML UDC PO PRN (12:15)
[2022-10-12] MEDS ORDERED: ACETAMINOPHEN 325MG TABLET PO PRN ×2 (12:15)
[2022-10-12] MEDS ORDERED: GUAIFENESIN 200MG/10ML SUGAR FREE UDC PO PRN (12:15)
[2022-10-12] MEDS ORDERED: CLONIDINE 0.1MG TABLET PO PRN (12:15)
[2022-10-12] MEDS ORDERED: DOCUSATE SODIUM 100MG CAPSULE PO PRN (12:15)
[2022-10-12] MEDS ORDERED: DEXTROSE 50% WATER 50ML SYRINGE IV PRN ×2 (12:15→12:30)
[2022-10-12] MEDS ORDERED: IPRATROPIUM/ALBUTEROL 0.5-3(2.5)MG/3ML NEB HHN PRN (12:15)
[2022-10-12] MEDS: INSULIN LISPRO 100 UNITS/ML SUBCUT SCH ×3 (12:20→21:00)
[2022-10-12 13:28] LABS: PHOSPHORUS 8.4 mg/dL (2.5-4.9)
[2022-10-12 13:46] LABS: FOLIC ACID (FOLATE) SERUM 9.9 ng/mL (>5.38)
[2022-10-12] MEDS: CARVEDILOL 3.125 MG TABLET PO SCH ×2 (14:30→21:13)
[2022-10-12] MEDS: LOSARTAN POTASSIUM 25 MG TABLET PO SCH ×2 (15:10→17:47)
[2022-10-12] MEDS: CLOPIDOGREL 75MG TABLET PO SCH (15:10)
[2022-10-12 15:49] LABS: INR 1.1; PROTHROMBIN TIME 11.9 sec (9.6-11.0)
[2022-10-12 16:00] VITALS: BP 149/72
[2022-10-12] MEDS ORDERED: NALOXONE HCL 0.4MG/ML VIAL IV PRN (16:00)
[2022-10-12] MEDS ORDERED: BLOOD SUGAR DIAGNOSTIC STRIP TEST SCH (16:50)
[2022-10-12] MEDS ORDERED: NITROGLYCERIN OINT 1GM/INCH UDPKT TD SCH (17:00)
[2022-10-12] MEDS ORDERED: MEDICATION NOT ON FORMULARY EA (Calcium Acetate (Phoslo) 667 MG) PO SCH (17:20)
[2022-10-12] MEDS: NITROGLYCERIN OINT 1GM/INCH UDPKT TD SCH (17:39)
[2022-10-12] MEDS: BLOOD SUGAR DIAGNOSTIC STRIP TEST SCH ×2 (17:45→20:47)
[2022-10-12] MEDS: CALCIUM ACETATE 667MG CAPSULE PO SCH (17:47)
[2022-10-12] MEDS: SEVELAMER CARBONATE 800 MG TABLET PO SCH (17:48)
[2022-10-12] MEDS ORDERED: CALCIUM GLUCONATE 1GM PREMIX 50 ML IV NR (18:30)
[2022-10-12] MEDS: HYDROCODONE/ACETAMINOPHEN 5/325MG TABLET PO PRN (19:44)
[2022-10-12 20:00] VITALS: BP 144/79
[2022-10-12 20:44] LABS: CREATINE KINASE MB FRACTION 5.9 ng/mL (0.5-3.6)
[2022-10-12] MEDS: FAMOTIDINE 20MG TABLET PO SCH (21:12)
[2022-10-12] MEDS: ATORVASTATIN CALCIUM 40MG TABLET PO SCH (21:13)
[2022-10-12 22:14] LABS: HEPATITIS B SURFACE ANTIGEN NEGATIVE
[2022-10-13] VITALS (14 sets, daily range): BP systolic 108–163; BP diastolic 45–102
[2022-10-13] MEDS: NITROGLYCERIN OINT 1GM/INCH UDPKT TD SCH ×4 (00:36→21:44)
[2022-10-13 02:01] LABS: CREATINE KINASE MB FRACTION 6.4 ng/mL (0.5-3.6)
[2022-10-13 06:16] LABS: HEMOGLOBIN. 8.8 g/dL (14.0-18.0); MEAN CORPUSCULAR HEMOGLOBIN 31.9 pg (28.0-32.0); MEAN PLATELET VOLUME 10.1 fl (7.4-10.4); PLATELET 62 x1000/uL (130-400); RED BLOOD CELL COUNT 2.76 mill/uL (4.7-6.1); RED CELL DISTRIBUTION WIDTH 13.7 % (11.6-14.6)
[2022-10-13 06:21] LABS: CHLORIDE 101 mEq/L (98-107)
[2022-10-13] MEDS: BLOOD SUGAR DIAGNOSTIC STRIP TEST SCH ×4 (06:30→21:02)
[2022-10-13 06:35] LABS: CREATINE KINASE 154 IU/L (39-308); CREATINE KINASE MB FRACTION 6.4 ng/mL (0.5-3.6); HDL CHOLESTEROL 42 mg/dL (40-59); LDL CHOLESTEROL 53 mg/dL (5-100); T4 FREE 0.84 ng/dL (0.76-1.46)
[2022-10-13 07:11] LABS: PHOSPHORUS 8.4 mg/dL (2.5-4.9)
[2022-10-13] MEDS: INSULIN LISPRO 100 UNITS/ML SUBCUT SCH ×4 (07:20→21:00)
[2022-10-13] MEDS ORDERED: LIDOCAINE HCL 1% 10 MG/ML 10ML VIAL ONE (07:36)
[2022-10-13] MEDS: CALCIUM ACETATE 667MG CAPSULE PO SCH ×3 (09:24→17:44)
[2022-10-13] MEDS: HYDROCODONE/ACETAMINOPHEN 5/325MG TABLET PO PRN (09:25)
[2022-10-13] MEDS: SEVELAMER CARBONATE 800 MG TABLET PO SCH ×3 (09:25→17:44)
[2022-10-13] MEDS: LEVOTHYROXINE SODIUM 50MCG TABLET PO SCH (09:26)
[2022-10-13] MEDS: LOSARTAN POTASSIUM 25 MG TABLET PO SCH ×2 (09:26→17:44)
[2022-10-13] MEDS: FOLIC ACID/VITAMIN B COMP W-C TABLET PO SCH (09:26)
[2022-10-13] MEDS: CLOPIDOGREL 75MG TABLET PO SCH (09:26)
[2022-10-13] MEDS: ASPIRIN 81MG EC TABLET PO SCH (09:26)
[2022-10-13] MEDS: CARVEDILOL 3.125 MG TABLET PO SCH (09:26)
[2022-10-13] MEDS ORDERED: CALCIUM GLUCONATE 1,000 MG in DEXT 5% WATER 100 ML IV SCH (10:00)
[2022-10-13] MEDS ORDERED: MORPHINE SULFATE 2 MG/ML CPJ (NOT FOR IM USE) IV NR (13:00)
[2022-10-13] MEDS: FAMOTIDINE 20MG TABLET PO SCH (21:01)
[2022-10-13] MEDS: CARVEDILOL 6.25 MG TABLET PO SCH (21:01)
[2022-10-13] MEDS: ATORVASTATIN CALCIUM 40MG TABLET PO SCH (21:01)
[2022-10-13 21:08] LABS: PLATELET ESTIMATE DECREASED
[2022-10-13] MEDS: ONDANSETRON HCL 4MG/2ML INJ IV PRN (22:21)
[2022-10-14] VITALS (15 sets, daily range): BP systolic 119–156; BP diastolic 48–73
[2022-10-14] MEDS: NITROGLYCERIN OINT 1GM/INCH UDPKT TD SCH ×3 (06:10→22:13)
[2022-10-14] MEDS: BLOOD SUGAR DIAGNOSTIC STRIP TEST SCH ×4 (06:49→20:36)
[2022-10-14] MEDS: LEVOTHYROXINE SODIUM 50MCG TABLET PO SCH (07:04)
[2022-10-14 07:09] LABS: BASOPHILS % 0.3 % (0.0-2.0); EOSINOPHILS % 0.6 % (0.0-5.0); LYMPHOCYTES % 9.8 % (20.0-50.0); MEAN CORPUSCULAR HEMOGLOBIN 31.7 pg (28.0-32.0); MEAN CORPUSCULAR VOLUME 93.4 fL (80.0-94.0); MEAN PLATELET VOLUME 10.7 fl (7.4-10.4); MONOCYTES % 7.7 % (2.0-8.0); NEUTROPHILS % 81.6 % (40.0-76.0); RED BLOOD CELL COUNT 2.33 mill/uL (4.7-6.1); RED CELL DISTRIBUTION WIDTH 13.9 % (11.6-14.6)
[2022-10-14] MEDS: INSULIN LISPRO 100 UNITS/ML SUBCUT SCH ×4 (07:20→21:00)
[2022-10-14 07:31] LABS: PHOSPHORUS 5.3 mg/dL (2.5-4.9)
[2022-10-14 07:49] LABS: HEMATOCRIT. 21.7 % (42.0-52.0); HEMOGLOBIN. 7.4 g/dL (14.0-18.0)
[2022-10-14 07:50] LABS: PLATELET 49 x1000/uL (130-400)
[2022-10-14] MEDS ORDERED: NITROGLYCERIN SPRAY/4.9GM CAN TL SCH (08:45)
[2022-10-14] MEDS: LOSARTAN POTASSIUM 25 MG TABLET PO SCH ×2 (09:00→18:15)
[2022-10-14] MEDS: ASPIRIN 81MG EC TABLET PO SCH (09:23)
[2022-10-14] MEDS: SEVELAMER CARBONATE 800 MG TABLET PO SCH ×3 (09:23→18:15)
[2022-10-14] MEDS: FOLIC ACID/VITAMIN B COMP W-C TABLET PO SCH (09:23)
[2022-10-14] MEDS: CALCIUM ACETATE 667MG CAPSULE PO SCH ×3 (09:23→18:15)
[2022-10-14] MEDS: CARVEDILOL 6.25 MG TABLET PO SCH ×2 (09:23→20:51)
[2022-10-14] MEDS: CLOPIDOGREL 75MG TABLET PO SCH (09:23)
[2022-10-14] MEDS ORDERED: IOHEXOL-350 100 ML BOTTLE ONE (11:08)
[2022-10-14] MEDS: ONDANSETRON HCL 4MG/2ML INJ IV PRN (14:47)
[2022-10-14] MEDS: HYDROCODONE/ACETAMINOPHEN 5/325MG TABLET PO PRN ×2 (14:48→20:24)
[2022-10-14] MEDS: CALCIUM CARBONATE/VITAMIN D3 500MG TABLET PO SCH (18:15)
[2022-10-14] MEDS: FAMOTIDINE 20MG TABLET PO SCH (20:50)
[2022-10-14] MEDS: ATORVASTATIN CALCIUM 40MG TABLET PO SCH (20:50)
[2022-10-14 20:57] LABS: PLATELET ESTIMATE MARKEDLY DECREASED
[2022-10-14] MEDS ORDERED: EPOETIN ALFA-EPBX 4,000 UNIT/ML VIAL SUBCUT SCH ×2 (21:00)
[2022-10-15] VITALS: BP 128/68
[2022-10-15 03:59] VITALS: BP 164/62
[2022-10-15] MEDS: NITROGLYCERIN OINT 1GM/INCH UDPKT TD SCH ×2 (06:09→14:41)
[2022-10-15] MEDS: LEVOTHYROXINE SODIUM 50MCG TABLET PO SCH (06:57)
[2022-10-15] MEDS: BLOOD SUGAR DIAGNOSTIC STRIP TEST SCH ×2 (06:57→12:31)
[2022-10-15 07:24] LABS: BASOPHILS % 0.6 % (0.0-2.0); HEMATOCRIT. 21.2 % (42.0-52.0); HEMOGLOBIN. 7.1 g/dL (14.0-18.0); LYMPHOCYTES % 14.9 % (20.0-50.0); MEAN CORPUSCULAR HEMOGLOBIN 31.5 pg (28.0-32.0); MEAN CORPUSCULAR VOLUME 93.8 fL (80.0-94.0); MEAN PLATELET VOLUME 10.6 fl (7.4-10.4); MONOCYTES % 10.8 % (2.0-8.0); NEUTROPHILS % 72.7 % (40.0-76.0); PLATELET 52 x1000/uL (130-400); RED BLOOD CELL COUNT 2.26 mill/uL (4.7-6.1); RED CELL DISTRIBUTION WIDTH 13.8 % (11.6-14.6)
[2022-10-15 08:00] VITALS: BP 142/55
[2022-10-15] MEDS ORDERED: IODIXANOL 320MG/ML 100 ML BOTTLE IV ONE (08:20)
[2022-10-15] MEDS ORDERED: HEPARIN 1000 UNITS/ML 10ML ONE (08:47)
[2022-10-15] MEDS ORDERED: FENTANYL CITRATE/PF 50MCG/ML 2ML VIAL ONE (08:48)
[2022-10-15] MEDS ORDERED: LIDOCAINE HCL 1% 20ML VIAL (Pyxis) INJ ONE (08:48)
[2022-10-15] MEDS ORDERED: MIDAZOLAM HCL 2 MG/2 ML VIAL ONE (08:48)
[2022-10-15 09:29] LABS: PHOSPHORUS 5.5 mg/dL (2.5-4.9)
[2022-10-15] MEDS ORDERED: ATROPINE SULFATE 1MG/10ML SYR IV PRN (10:00)
[2022-10-15] MEDS ORDERED: ACETAMINOPHEN 325MG TABLET PO PRN (10:00)
[2022-10-15] MEDS ORDERED: ONDANSETRON HCL 4MG/2ML INJ IV PRN (10:00)
[2022-10-15] MEDS: CALCIUM ACETATE 667MG CAPSULE PO SCH ×2 (10:30→12:20)
[2022-10-15] MEDS: SEVELAMER CARBONATE 800 MG TABLET PO SCH ×2 (10:30→12:20)
[2022-10-15] MEDS: CLOPIDOGREL 75MG TABLET PO SCH (10:31)
[2022-10-15] MEDS: FOLIC ACID/VITAMIN B COMP W-C TABLET PO SCH (10:31)
[2022-10-15] MEDS: ASPIRIN 81MG EC TABLET PO SCH (10:31)
[2022-10-15] MEDS: CARVEDILOL 6.25 MG TABLET PO SCH (10:31)
[2022-10-15] MEDS: LOSARTAN POTASSIUM 25 MG TABLET PO SCH (10:31)
[2022-10-15] MEDS: CALCIUM CARBONATE/VITAMIN D3 500MG TABLET PO SCH (10:31)
[2022-10-15 12:00] VITALS: BP 141/53
[2022-10-15] MEDS: INSULIN LISPRO 100 UNITS/ML SUBCUT SCH (12:20)
[2022-10-15 14:28] VITALS: BP 141/53
== END 2022-10-15 18:32 | disposition home or self-care (01) | DRG 286 ==
LOC: ER 00:45 → 3WST 06:06 → EDBEDREQTM 06:09 → EDBEDREQ 06:09 → EDBEDREQSVC 06:10
PROVIDERS: ADMIT Internal Medicine; ATTEND Internal Medicine
PROC: 5A1D70Z Performance of Urinary Filtration, Intermittent, Less than 6 Hours Per Day (ICD-10-PCS; principal; 2022-10-13)
PROC: 02HV33Z Insertion of Infusion Device into Superior Vena Cava, Percutaneous Approach (ICD-10-PCS; 2022-10-13)
PROC: B548ZZA Ultrasonography of Superior Vena Cava, Guidance (ICD-10-PCS; 2022-10-13)
PROC: B5181ZA Fluoroscopy of Superior Vena Cava using Low Osmolar Contrast, Guidance (ICD-10-PCS; 2022-10-13)
PROC: 5A1D70Z Performance of Urinary Filtration, Intermittent, Less than 6 Hours Per Day (ICD-10-PCS; 2022-10-14)
PROC: 4A023N7 Measurement of Cardiac Sampling and Pressure, Left Heart, Percutaneous Approach (ICD-10-PCS; 2022-10-15)
PROC: B2111ZZ Fluoroscopy of Multiple Coronary Arteries using Low Osmolar Contrast (ICD-10-PCS; 2022-10-15)
DX: R07.89 Other chest pain (principal); N18.6 End stage renal disease; I13.2 Hypertensive heart and chronic kidney disease with heart failure and with stage 5 chronic kidney disease, or end stage renal disease; J98.11 Atelectasis; I69.351 Hemiplegia and hemiparesis following cerebral infarction affecting right dominant side; I50.32 Chronic diastolic (congestive) heart failure; I42.0 Dilated cardiomyopathy; D63.8 Anemia in other chronic diseases classified elsewhere; D69.6 Thrombocytopenia, unspecified; E11.22 Type 2 diabetes mellitus with diabetic chronic kidney disease; E83.51 Hypocalcemia; E03.9 Hypothyroidism, unspecified; E78.00 Pure hypercholesterolemia, unspecified; H54.61 Unqualified visual loss, right eye, normal vision left eye; Z20.822 Contact with and (suspected) exposure to COVID-19; K21.9 Gastro-esophageal reflux disease without esophagitis; I48.91 Unspecified atrial fibrillation; E11.42 Type 2 diabetes mellitus with diabetic polyneuropathy; D72.819 Decreased white blood cell count, unspecified; Z99.2 Dependence on renal dialysis; Z95.5 Presence of coronary angioplasty implant and graft; Z91.199 Patient's noncompliance with other medical treatment and regimen due to unspecified reason; Z79.899 Other long term (current) drug therapy; Z79.82 Long term (current) use of aspirin; Z79.02 Long term (current) use of antithrombotics/antiplatelets; Z90.5 Acquired absence of kidney; Z89.432 Acquired absence of left foot; Z83.3 Family history of diabetes mellitus; Z88.0 Allergy status to penicillin
CPT/HCPCS: 36415; 36573; 71045; 75571; 80048; 80053; 80061; 82306; 82330; 82550; 82553; 82607; 82746; 82962; 83036; 83540; 83550; 83735; 83970; 84100; 84439; 84443; 84484; 85025; 85379; 86705; 86709; 86803; 87340; 90935; 93005; 93306; 93458; 93970; 99285; C1725; C1760; C1769; C1887; C1893; J0610; J0885; J1644; J2250; J2270; J2405; J3010; J3490; J7060; Q9967

== ENCOUNTER 2023-01-23 00:16 | Emergency (ER) | payer MEDICARE, MEDICAID ==
[~2023-01-23] VITALS: Ht 177.8 cm; Wt 75.0 kg
[~2023-01-23 00:16] MED LIST changes: +LOSA-413 PO; -LOSA50TA3 PO; +ZOLP5TAB2 MT
[2023-01-23 00:26] VITALS: BP 214/83; O2SAT 96
[2023-01-23 01:10] LABS: CHLORIDE 102 mEq/L (98-107)
[2023-01-23 01:15] LABS: BASOPHILS % 0.5 % (0.0-2.0); EOSINOPHILS % 0.9 % (0.0-5.0); HEMATOCRIT. 44.3 % (42.0-52.0); HEMOGLOBIN. 14.2 g/dL (14.0-18.0); LYMPHOCYTES % 15.3 % (20.0-50.0); MEAN CORPUSCULAR HEMOGLOBIN 28.7 pg (28.0-32.0); MEAN CORPUSCULAR VOLUME 89.4 fL (80.0-94.0); MEAN PLATELET VOLUME 8.9 fl (7.4-10.4); NEUTROPHILS % 74.3 % (40.0-76.0); PLATELET 103 x1000/uL (130-400); RED BLOOD CELL COUNT 4.96 mill/uL (4.7-6.1); RED CELL DISTRIBUTION WIDTH 17.2 % (11.6-14.6)
[2023-01-23] MEDS ORDERED: HYDR-4001 MT (03:59)
[2023-01-23] MEDS ORDERED: HYDROCODONE/ACETAMINOPHEN 5/325MG TABLET PO ONE (04:00)
[2023-01-23 05:42] VITALS: PULSE 72; RESP 20; TEMP 97.7
== END 2023-01-23 05:42 | disposition home or self-care (01) ==
LOC: ER 00:16 → CANBEDREQ 01-24 20:26
DX: E11.22 Type 2 diabetes mellitus with diabetic chronic kidney disease (principal); N18.9 Chronic kidney disease, unspecified; Z79.899 Other long term (current) drug therapy
CPT/HCPCS: 36415; 71045; 80053; 84484; 85025; 93005; 99285

== ENCOUNTER 2023-01-23 05:41 | Emergency (ER) | payer MEDICARE, MEDICAID ==
[~2023-01-23] VITALS: Ht 177.8 cm; Wt 75.0 kg
[~2023-01-23 05:41] MED LIST changes: +HYDR-4001 MT
[2023-01-23 05:46] VITALS: O2SAT 96
[2023-01-23 09:18] LABS: BASOPHILS % 0.4 % (0.0-2.0); EOSINOPHILS % 1.1 % (0.0-5.0); HEMATOCRIT. 43.9 % (42.0-52.0); HEMOGLOBIN. 14.3 g/dL (14.0-18.0); MEAN CORPUSCULAR HEMOGLOBIN 29.3 pg (28.0-32.0); MEAN CORPUSCULAR VOLUME 89.8 fL (80.0-94.0); MEAN PLATELET VOLUME 8.4 fl (7.4-10.4); MONOCYTES % 9.5 % (2.0-8.0); PLATELET 93 x1000/uL (130-400); RED BLOOD CELL COUNT 4.89 mill/uL (4.7-6.1); RED CELL DISTRIBUTION WIDTH 17.9 % (11.6-14.6)
[2023-01-23 09:28] LABS: CHLORIDE 102 mEq/L (98-107)
[2023-01-23] MEDS ORDERED: LOSARTAN POTASSIUM 50 MG TABLET PO ONE (09:45)
[2023-01-23 09:58] VITALS: TEMP 98.7
[2023-01-23 11:11] VITALS: BP 187/78; PULSE 58; RESP 18
== END 2023-01-23 12:41 | disposition home or self-care (01) ==
LOC: ER 06:11
DX: R07.89 Other chest pain (principal); Z91.158 Patient's noncompliance with renal dialysis for other reason; I25.2 Old myocardial infarction; I10 Essential (primary) hypertension; E11.9 Type 2 diabetes mellitus without complications; Z88.1 Allergy status to other antibiotic agents; Z79.899 Other long term (current) drug therapy
CPT/HCPCS: 36415; 71045; 80053; 83880; 84484; 85025; 93005; 99285

== ENCOUNTER 2023-01-23 17:43 | Emergency (ER) | payer MEDICARE, MEDICAID ==
[~2023-01-23] VITALS: Ht 175.3 cm; Wt 87.0 kg
[2023-01-23 17:46] VITALS: O2SAT 93
[2023-01-23 20:36] LABS: BASOPHILS % 0.5 % (0.0-2.0); EOSINOPHILS % 0.8 % (0.0-5.0); HEMATOCRIT. 45.1 % (42.0-52.0); HEMOGLOBIN. 14.4 g/dL (14.0-18.0); LYMPHOCYTES % 11.9 % (20.0-50.0); MEAN CORPUSCULAR HEMOGLOBIN 28.5 pg (28.0-32.0); MEAN CORPUSCULAR VOLUME 89.5 fL (80.0-94.0); MONOCYTES % 9.3 % (2.0-8.0); NEUTROPHILS % 77.5 % (40.0-76.0); PLATELET 92 x1000/uL (130-400); RED BLOOD CELL COUNT 5.04 mill/uL (4.7-6.1); RED CELL DISTRIBUTION WIDTH 17.7 % (11.6-14.6)
[2023-01-23] MEDS ORDERED: CLONIDINE 0.1MG TABLET PO NR (20:45)
[2023-01-24 00:24] VITALS: BP 166/66; PULSE 68; RESP 18; TEMP 97.9
== END 2023-01-24 00:31 | disposition home or self-care (01) ==
LOC: ER 17:43
DX: I12.0 Hypertensive chronic kidney disease with stage 5 chronic kidney disease or end stage renal disease (principal); E11.22 Type 2 diabetes mellitus with diabetic chronic kidney disease; N18.6 End stage renal disease; I25.2 Old myocardial infarction; Z99.2 Dependence on renal dialysis; Z79.899 Other long term (current) drug therapy
CPT/HCPCS: 36415; 80048; 85025; 93005; 99284

== ENCOUNTER 2023-06-01 14:24 | Inpatient (IN) | payer MEDICARE ==
[~2023-06-01] VITALS: Ht 172.7 cm; Wt 82.6 kg
[2023-06-01 15:30] LABS: BG BASE EXCESS -1.1 mmol/L (-2.0-2.0); BG CARBOXYHEMOGLOBIN 1.9 % (0.5-1.5); BG DEOXYHEMOGLOBIN 13.1 % (0.0-5.0); BG FRACTION INSPIRED OXYGEN 28; BG HCO3 ACT 24.6 mmol/L (22.0-26.0); BG METHEMOGLOBIN 0.2 % (0.0-1.5); BG OXYGEN SATURATION 86.6 % (92.0-98.5); BG OXYHEMOGLOBIN 84.8 % (94.0-97.0); BG PCO2 45.3 mmHg (35.0-45.0); BG PH 7.353 (7.350-7.450); BG PO2 62.4 mmHg (75.0-100.0); BG SAMPLE SITE LEFT BRACHIAL; BG VENT MODE NASAL CANNULA
[2023-06-01 15:58] LABS: BASOPHILS % 0.6 % (0.0-2.0); EOSINOPHILS % 0.6 % (0.0-5.0); HEMATOCRIT. 31.7 % (42.0-52.0); HEMOGLOBIN. 10.1 g/dL (14.0-18.0); LYMPHOCYTES % 13.6 % (20.0-50.0); MEAN CORPUSCULAR HEMOGLOBIN 31.6 pg (28.0-32.0); MEAN CORPUSCULAR VOLUME 98.8 fL (80.0-94.0); MEAN PLATELET VOLUME 9.6 fl (7.4-10.4); MONOCYTES % 7.4 % (2.0-8.0); NEUTROPHILS % 77.8 % (40.0-76.0); PLATELET 93 x1000/uL (130-400); RED BLOOD CELL COUNT 3.21 mill/uL (4.7-6.1); RED CELL DISTRIBUTION WIDTH 17.4 % (11.6-14.6); WHITE BLOOD COUNT 3.9 x1000/uL (4.5-11.0)
[2023-06-01 16:22] LABS: ALANINE AMINOTRANSFERASE < 7 IU/L (10-49); ALBUMIN 3.9 g/dL (3.2-4.8); ASPARTATE AMINOTRANSFERASE 15 IU/L (<34); BILIRUBIN TOTAL 0.6 mg/dL (0.1-1.0); CALCIUM 8.4 mg/dL (8.7-10.4); CARBON DIOXIDE 24 mEq/L (21-32); CHLORIDE 102 mEq/L (98-107); GLUCOSE 78 mg/dL (70-105); POTASSIUM 5.8 mEq/L (3.5-5.1); PROTEIN TOTAL 6.8 g/dL (6.0-8.3); SODIUM 141 mEq/L (136-145); TROPONIN I HIGH SENSITIVITY 20 ng/L (3.0-53); UREA NITROGEN BLOOD 65 mg/dL (9-23)
[2023-06-01 16:41] LABS: ETHANOL BLOOD < 10 mg/dL (<10)
[2023-06-01 16:42] LABS: CREATININE 13.2 mg/dL (0.6-1.3)
[2023-06-01] MEDS ORDERED: FUROSEMIDE 100MG/10ML VIAL IV STA (16:47)
[2023-06-01] MEDS ORDERED: ALBUTEROL (0.083%) 2.5MG/3ML NEB HHN ONE (17:00)
[2023-06-01] MEDS ORDERED: CALCIUM CHLORIDE 1GM/10ML SYR IV ONE (17:00)
[2023-06-01] MEDS ORDERED: SODIUM BICARBONATE 8.4% 1 MEQ/ML 50ML SYR IV ONE (17:00)
[2023-06-01] MEDS ORDERED: DEXTROSE 50% WATER 50ML SYRINGE IV ONE (17:00)
[2023-06-01] MEDS ORDERED: INSULIN REGULAR (HUMULIN R) 300UNITS/3ML VIAL IV ONE (17:00)
[2023-06-01 17:13] VITALS: PULSE 71; RESP 18; O2SAT 94
[2023-06-01 17:50] LABS: INR 1.2; PARTIAL THROMBOPLASTIN TIME 31.4 sec (23.4-31.0); PROTHROMBIN TIME 12.4 sec (9.6-11.0)
[2023-06-01] MEDS ORDERED: GABAPENTIN 100MG CAPSULE PO PRN (18:00)
[2023-06-01] MEDS ORDERED: GUAIFENESIN 200MG/10ML SUGAR FREE UDC PO PRN (18:00)
[2023-06-01] MEDS ORDERED: DOCUSATE SODIUM 100MG CAPSULE PO PRN (18:00)
[2023-06-01] MEDS ORDERED: ONDANSETRON HCL 4MG/2ML INJ IV PRN (18:00)
[2023-06-01] MEDS ORDERED: ACETAMINOPHEN 325MG TABLET PO PRN (18:00)
[2023-06-01] MEDS ORDERED: IPRATROPIUM/ALBUTEROL 0.5-3(2.5)MG/3ML NEB HHN PRN (18:00)
[2023-06-01] MEDS ORDERED: NITROGLYCERIN 0.4MG TABLET SL SL PRN (18:00)
[2023-06-01] MEDS ORDERED: NALOXONE HCL 0.4MG/ML VIAL IV PRN (18:15)
[2023-06-01] MEDS ORDERED: FUROSEMIDE 40MG/4ML VIAL IV NR (19:30)
[2023-06-01 20:00] VITALS: BP_SYST 181; BP_SYST 189; BP_DIAS 81; PULSE 99; RESP 19; RESP 20; TEMP 97.7
[2023-06-01] MEDS: ZOLPIDEM TARTRATE 5MG TABLET PO PRN (21:18)
[2023-06-01] MEDS: HYDROCODONE/ACETAMINOPHEN 5/325MG TABLET PO PRN (21:18)
[2023-06-01] MEDS: CARVEDILOL 3.125 MG TABLET PO SCH (21:19)
[2023-06-01] MEDS: HYDROXYZINE 25MG TABLET PO PRN (21:19)
[2023-06-02] VITALS (14 sets, daily range): BP systolic 125–187; BP diastolic 60–89; PULSE 55–69; RESP 16–20; TEMP 96.8–97.9
[2023-06-02] MEDS ORDERED: DEXTROSE 50% WATER 50ML SYRINGE IV PRN ×2 (05:30)
[2023-06-02] MEDS: INSULIN LISPRO 100 UNITS/ML SUBCUT SCH ×4 (05:59→20:25)
[2023-06-02] MEDS: BLOOD SUGAR DIAGNOSTIC STRIP TEST SCH ×4 (05:59→20:24)
[2023-06-02] MEDS: LEVOTHYROXINE SODIUM 25MCG TABLET PO SCH (06:59)
[2023-06-02 07:13] LABS: BASOPHILS % 0.3 % (0.0-2.0); DIFFERENTIAL COMMENT 0; EOSINOPHILS % 0.5 % (0.0-5.0); HEMATOCRIT. 27.1 % (42.0-52.0); HEMOGLOBIN. 9.1 g/dL (14.0-18.0); LYMPHOCYTES % 11.1 % (20.0-50.0); MEAN CORPUSCULAR HEMOGLOBIN 34.7 pg (28.0-32.0); MEAN CORPUSCULAR HGB CONC 33.7 g/dL (31.0-37.0); MEAN PLATELET VOLUME 9.1 fl (7.4-10.4); NEUTROPHILS % 82.1 % (40.0-76.0); PLATELET 80 x1000/uL (130-400); RED BLOOD CELL COUNT 2.63 mill/uL (4.7-6.1); RED CELL DISTRIBUTION WIDTH 16.7 % (11.6-14.6); WHITE BLOOD COUNT 3.2 x1000/uL (4.5-11.0)
[2023-06-02 07:33] LABS: ALANINE AMINOTRANSFERASE < 7 IU/L (10-49); ALBUMIN 3.4 g/dL (3.2-4.8); ASPARTATE AMINOTRANSFERASE 11 IU/L (<34); BILIRUBIN TOTAL 0.5 mg/dL (0.1-1.0); CALCIUM 8.6 mg/dL (8.7-10.4); CARBON DIOXIDE 26 mEq/L (21-32); CHLORIDE 102 mEq/L (98-107); CHOLESTEROL 83 mg/dL (<200); GLUCOSE 121 mg/dL (70-105); HDL CHOLESTEROL 36 mg/dL (>55); LDL CHOLESTEROL 42 mg/dL (5-100); POTASSIUM 5.6 mEq/L (3.5-5.1); PROTEIN TOTAL 6.2 g/dL (6.0-8.3); SODIUM 142 mEq/L (136-145); TRIGLYCERIDE 40 mg/dL (0-150); UREA NITROGEN BLOOD 62 mg/dL (9-23)
[2023-06-02 08:04] LABS: CREATININE 14.3 mg/dL (0.6-1.3)
[2023-06-02] MEDS: SEVELAMER CARBONATE 800 MG TABLET PO SCH ×3 (08:15→19:04)
[2023-06-02] MEDS: LOSARTAN 50 MG TABLET PO SCH (09:13)
[2023-06-02] MEDS: CLOPIDOGREL 75MG TABLET PO SCH (09:13)
[2023-06-02] MEDS: CALCITRIOL 0.25MCG CAPSULE PO SCH (09:14)
[2023-06-02] MEDS: AMIODARONE HCL 200 MG TABLET PO SCH (09:14)
[2023-06-02] MEDS: ASPIRIN 81MG EC TABLET PO SCH (09:15)
[2023-06-02] MEDS: CARVEDILOL 3.125 MG TABLET PO SCH ×2 (09:15→20:39)
[2023-06-02] MEDS: ISOSORBIDE MONONITRATE 30MG TABLET SR 24HR PO SCH (09:15)
[2023-06-02 11:44] LABS: HEPATITIS A AB IGM NEGATIVE (Negative); HEPATITIS B CORE AB IGM NEGATIVE (Negative); HEPATITIS B SURFACE ANTIGEN NEGATIVE (Negative); HEPATITIS C AB NON REACTIVE (Neg) (Negative)
[2023-06-02] MEDS ORDERED: HYDRALAZINE 20MG/ML VIAL IV PRN (16:00)
[2023-06-02] MEDS: HYDROCODONE/ACETAMINOPHEN 5/325MG TABLET PO PRN (16:30)
[2023-06-02] MEDS: HYDRALAZINE HCL 100MG TABLET PO SCH (20:39)
[2023-06-02] MEDS ORDERED: EPOETIN ALFA 4000UNITS/ML VIAL SUBCUT SCH (21:00)
[2023-06-03] VITALS (7 sets, daily range): BP systolic 134–157; BP diastolic 51–85; PULSE 54–86; RESP 18–20; TEMP 96.6–98.2; O2SAT 96
[2023-06-03] MEDS: TRAMADOL 50MG TABLET PO PRN ×2 (00:08→05:57)
[2023-06-03] MEDS: ZOLPIDEM TARTRATE 5MG TABLET PO PRN (00:09)
[2023-06-03] MEDS: HYDROXYZINE 25MG TABLET PO PRN ×2 (00:09→05:57)
[2023-06-03] MEDS: LEVOTHYROXINE SODIUM 25MCG TABLET PO SCH (05:57)
[2023-06-03] MEDS: INSULIN LISPRO 100 UNITS/ML SUBCUT SCH ×4 (06:11→21:00)
[2023-06-03] MEDS: BLOOD SUGAR DIAGNOSTIC STRIP TEST SCH ×4 (06:11→21:08)
[2023-06-03 07:38] LABS: BASOPHILS % 0.6 % (0.0-2.0); DIFFERENTIAL COMMENT 0; EOSINOPHILS % 1.4 % (0.0-5.0); HEMATOCRIT. 26.9 % (42.0-52.0); HEMOGLOBIN. 9.2 g/dL (14.0-18.0); LYMPHOCYTES % 13.6 % (20.0-50.0); MEAN CORPUSCULAR HEMOGLOBIN 35.4 pg (28.0-32.0); MEAN CORPUSCULAR HGB CONC 34.1 g/dL (31.0-37.0); MEAN PLATELET VOLUME 9.7 fl (7.4-10.4); MONOCYTES % 8.6 % (2.0-8.0); NEUTROPHILS % 75.8 % (40.0-76.0); PLATELET 69 x1000/uL (130-400); RED BLOOD CELL COUNT 2.58 mill/uL (4.7-6.1); RED CELL DISTRIBUTION WIDTH 16.8 % (11.6-14.6); WHITE BLOOD COUNT 2.5 x1000/uL (4.5-11.0)
[2023-06-03] MEDS: SEVELAMER CARBONATE 800 MG TABLET PO SCH ×3 (08:19→16:40)
[2023-06-03] MEDS: CALCITRIOL 0.25MCG CAPSULE PO SCH (08:19)
[2023-06-03] MEDS: CARVEDILOL 3.125 MG TABLET PO SCH ×2 (08:19→21:36)
[2023-06-03] MEDS: HYDRALAZINE HCL 100MG TABLET PO SCH ×3 (08:19→16:38)
[2023-06-03] MEDS: CLOPIDOGREL 75MG TABLET PO SCH (08:19)
[2023-06-03] MEDS: AMIODARONE HCL 200 MG TABLET PO SCH (08:20)
[2023-06-03] MEDS: ASPIRIN 81MG EC TABLET PO SCH (08:20)
[2023-06-03] MEDS: ISOSORBIDE MONONITRATE 30MG TABLET SR 24HR PO SCH (08:20)
[2023-06-03] MEDS: LOSARTAN 50 MG TABLET PO SCH (08:20)
[2023-06-03 08:53] LABS: CALCIUM 8.5 mg/dL (8.7-10.4); CARBON DIOXIDE 28 mEq/L (21-32); CHLORIDE 99 mEq/L (98-107); GLUCOSE 64 mg/dL (70-105); PHOSPHORUS 6.7 mg/dL (2.5-4.9); POTASSIUM 5.2 mEq/L (3.5-5.1); SODIUM 138 mEq/L (136-145); UREA NITROGEN BLOOD 53 mg/dL (9-23)
[2023-06-03 08:56] LABS: CREATININE 10.9 mg/dL (0.6-1.3)
[2023-06-03] MEDS ORDERED: HYDRALAZINE HCL 100MG TABLET PO SCH (09:00)
[2023-06-03] MEDS ORDERED: SODIUM POLYSTYRENE SULFONATE 15 G/60 ML BOT PO SCH (10:45)
[2023-06-03] MEDS ORDERED: SODIUM POLYSTYRENE SULFONATE 15 G/60 ML BOT PO NR (11:00)
[2023-06-04] VITALS (9 sets, daily range): BP systolic 122–162; BP diastolic 55–73; PULSE 54–61; RESP 18–20; TEMP 97.4–98.1; O2SAT 92
[2023-06-04] MEDS: BLOOD SUGAR DIAGNOSTIC STRIP TEST SCH ×2 (06:50→12:10)
[2023-06-04] MEDS: INSULIN LISPRO 100 UNITS/ML SUBCUT SCH ×2 (06:50→12:23)
[2023-06-04] MEDS ORDERED: LEVOTHYROXINE SODIUM 50MCG TABLET PO SCH (07:10)
[2023-06-04] MEDS: CARVEDILOL 3.125 MG TABLET PO SCH (07:15)
[2023-06-04] MEDS: HYDRALAZINE HCL 100MG TABLET PO SCH ×2 (07:15→12:22)
[2023-06-04] MEDS: LOSARTAN 50 MG TABLET PO SCH (07:16)
[2023-06-04] MEDS: ISOSORBIDE MONONITRATE 30MG TABLET SR 24HR PO SCH (07:16)
[2023-06-04 08:02] LABS: BASOPHILS % 0.5 % (0.0-2.0); DIFFERENTIAL COMMENT 0; EOSINOPHILS % 1.1 % (0.0-5.0); HEMATOCRIT. 27.2 % (42.0-52.0); HEMOGLOBIN. 9.2 g/dL (14.0-18.0); LYMPHOCYTES % 14.4 % (20.0-50.0); MEAN CORPUSCULAR HEMOGLOBIN 35.3 pg (28.0-32.0); MEAN CORPUSCULAR HGB CONC 33.9 g/dL (31.0-37.0); MEAN CORPUSCULAR VOLUME 104.1 fL (80.0-94.0); MEAN PLATELET VOLUME 9.9 fl (7.4-10.4); PLATELET 65 x1000/uL (130-400); RED BLOOD CELL COUNT 2.62 mill/uL (4.7-6.1); RED CELL DISTRIBUTION WIDTH 16.7 % (11.6-14.6); WHITE BLOOD COUNT 2.1 x1000/uL (4.5-11.0)
[2023-06-04 08:21] LABS: CALCIUM 8.6 mg/dL (8.7-10.4); CARBON DIOXIDE 27 mEq/L (21-32); CHLORIDE 98 mEq/L (98-107); GLUCOSE 65 mg/dL (70-105); PHOSPHORUS 7.5 mg/dL (2.5-4.9); POTASSIUM 5.2 mEq/L (3.5-5.1); SODIUM 137 mEq/L (136-145); UREA NITROGEN BLOOD 59 mg/dL (9-23)
[2023-06-04 09:19] LABS: CREATININE 11.6 mg/dL (0.6-1.3)
[2023-06-04] MEDS: ASPIRIN 81MG EC TABLET PO SCH (09:25)
[2023-06-04] MEDS: HYDROCODONE/ACETAMINOPHEN 5/325MG TABLET PO PRN (09:25)
[2023-06-04] MEDS: CLOPIDOGREL 75MG TABLET PO SCH (09:25)
[2023-06-04] MEDS: AMIODARONE HCL 200 MG TABLET PO SCH (09:25)
[2023-06-04] MEDS: SEVELAMER CARBONATE 800 MG TABLET PO SCH ×2 (09:25→12:22)
[2023-06-05] MEDS ORDERED: LOSARTAN 100 MG TABLET PO SCH (09:00)
== END 2023-06-04 16:15 | disposition home or self-care (01) | DRG 291 ==
LOC: ER 14:40 → 8WST 16:09 → EDBEDREQTM 16:15 → EDBEDREQ 16:15
PROVIDERS: ADMIT Hospitalist; ATTEND Hospitalist
PROC: 5A1D70Z Performance of Urinary Filtration, Intermittent, Less than 6 Hours Per Day (ICD-10-PCS; principal; 2023-06-02)
PROC: 5A1D70Z Performance of Urinary Filtration, Intermittent, Less than 6 Hours Per Day (ICD-10-PCS; 2023-06-04)
DX: I13.2 Hypertensive heart and chronic kidney disease with heart failure and with stage 5 chronic kidney disease, or end stage renal disease (principal); I50.33 Acute on chronic diastolic (congestive) heart failure; N18.6 End stage renal disease; I48.92 Unspecified atrial flutter; N25.81 Secondary hyperparathyroidism of renal origin; Z59.00 Homelessness unspecified; E87.5 Hyperkalemia; D63.1 Anemia in chronic kidney disease; D69.6 Thrombocytopenia, unspecified; E03.9 Hypothyroidism, unspecified; E11.22 Type 2 diabetes mellitus with diabetic chronic kidney disease; E78.5 Hyperlipidemia, unspecified; E83.39 Other disorders of phosphorus metabolism; I25.10 Atherosclerotic heart disease of native coronary artery without angina pectoris; I48.91 Unspecified atrial fibrillation; F15.10 Other stimulant abuse, uncomplicated; Z86.73 Personal history of transient ischemic attack (TIA), and cerebral infarction without residual deficits; Z87.891 Personal history of nicotine dependence; Z89.432 Acquired absence of left foot; Z91.158 Patient's noncompliance with renal dialysis for other reason; Z95.5 Presence of coronary angioplasty implant and graft; Z99.2 Dependence on renal dialysis; Z79.899 Other long term (current) drug therapy; Z83.3 Family history of diabetes mellitus
CPT/HCPCS: 36415; 36600; 71045; 80048; 80053; 80061; 80320; 82375; 82805; 82962; 83036; 83605; 83735; 83880; 84100; 84443; 84484; 85025; 86705; 86709; 86850; 86900; 87340; 90935; 93005; 94644; 99291; J0360; J0885; J1815; J1940; J3490; G0480